=== PATIENT | female | born 1970 | race Caucasian/White ===

== ENCOUNTER 2020-04-06 16:26 | Outpatient (REF) | payer OTHER, SELFPAY | END 2020-04-06 16:27 | disposition home or self-care (01) | LOC: HO.LAB 16:26 | PROVIDERS: PCP Family Medicine; Visit Provider Internal Medicine | DX: Z20.828 Contact with and (suspected) exposure to other viral communicable diseases (principal) | CPT/HCPCS: C9803; U0003 ==

== ENCOUNTER 2020-09-23 08:17 | Outpatient (REF) | payer OTHER, SELFPAY ==
--- NOTE | 2020-09-23 11:49 | MHC.AU.ANR ---
Adult Audiological Evaluation Date of Visit: 09/23/20 Non Clinical Advisor Used: Palauan- In Person Reason for Appointment: Audiological evaluation due to concern for decreased hearing. Patient reports that she has to ask people to repeat themselves and feels she doesn't hear as well as she used to. 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 Medical History: Medical History (Other): Kidney transplant in June 2018, anemia Medication List: Sirtec 10 mg, Protonix 40 mg, Flovent, Biotin, Tacrolimus, Fluticasone, mycophenolic acid, Ferrous sulfate Otoscopy: Right Ear: Unremarkable Left Ear: Unremarkable Tympanometry: Tympanometry performed due to: To assess integrity of the middle ear system Right Ear: Normal Middle Ear System (Type A) Left Ear: Normal Middle Ear System (Type A) Hearing Evaluation: Transducer(s) Used: Insert Earphones, Bone Conduction Method: Conventional Audiometry Stimuli Used: Pure Tones Right Ear: Description of Hearing: Normal hearing from 250-8000 Hz. Left Ear: Description of Hearing: Normal hearing from 250-1500 Hz, sloping to a mild sensorineural hearing loss at 2000 Hz, a mild mixed hearing loss from 7306-0266 Hz, and a moderate to moderately severe hearing loss from 2692-1023 Hz. Hearing in the left ear is 20-40 dBHL worse than the right ear from 1181-9909 Hz. Speech Recognition Threshold (SRT): Method Used: Recorded Lists Stimuli Used: Spondee Words Right Ear: 25 dBHL Left Ear: 30 dBHL Word Discrimination: Method: Recorded Lists Word Lists Used: Lista Bisil?bica (Palauan) Right Ear: 100% at 65 dBHL Left Ear: 96% at 70 dBHL Recommendations: Audiological re-evaluation in one year. Referral to Ear, Nose, and Throat is recommended to address asymmetric hearing and mixed hearing loss. Advised patient that if hearing loss persists, she would benefit from a hearing aid on the left ear. 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
== END 2020-09-23 08:18 | disposition home or self-care (01) ==
LOC: HO.SH 08:17
PROVIDERS: Visit Provider Family Medicine
DX: H90.72 Mixed conductive and sensorineural hearing loss, unilateral, left ear, with unrestricted hearing on the contralateral side (principal)
CPT/HCPCS: 92557; 92567

== ENCOUNTER 2021-01-22 08:26 | Outpatient (REF) | payer OTHER, SELFPAY ==
--- NOTE | ~2021-01-22 | MM_ITS ---
EXAMINATION: MM SCREENING DIGITAL BREAST TOMOSYNTHESIS, BILATERAL CLINICAL INFORMATION: Screening. Asymptomatic. The lifetime risk of breast cancer based on the Tyrer-Cuzick Model is 5%. COMPARISON: Mammography: 01/20/2020, 10/08/2018, 09/18/2018, 09/05/2017; targeted ultrasound left breast 10/08/2018 TECHNIQUE: Digital breast tomosynthesis is performed in both the craniocaudal and mediolateral oblique views along with computer-aided detection (CAD). Synthesized 2D images are generated from the tomosynthesis. FINDINGS: There are scattered areas of fibroglandular density (ACR BI-RADS breast composition Category b). There are no significant masses, abnormal calcifications, or other abnormalities. Smooth nodularity medial mid left breast and anterior outer right breast are decreased to resolved from prior studies. The axilla and skin contours are unremarkable. No significant changes. MM/MM tomosynthesis screening BI IMPRESSION: No mammographic evidence of malignancy. ASSESSMENT: BI-RADS 2: Benign RECOMMENDATION: Routine annual mammography screening. This patient's information was entered into a reminder system with a target due date for their next mammogram.
== END 2021-01-22 08:27 | disposition home or self-care (01) ==
LOC: HO.MAMMO 08:26
PROVIDERS: Visit Provider Family Medicine
DX: Z12.31 Encounter for screening mammogram for malignant neoplasm of breast (principal)
CPT/HCPCS: 77063; 77067

== ENCOUNTER 2021-02-16 12:44 | Outpatient (REF) | payer OTHER, SELFPAY ==
--- NOTE | ~2021-02-16 | US_ITS ---
EXAMINATION: US DIAGNOSTIC ULTRASOUND BREAST, RIGHT CLINICAL INFORMATION: 50-year-old female with visual fullness right axilla. No palpable mass noted by patient. No pain or tenderness. Recent unremarkable digital breast tomosynthesis. COMPARISON: Digital breast tomosynthesis 01/22/2021, 01/20/2020. TECHNIQUE: Ultrasound right axilla is performed using grayscale imaging and color Doppler without and with harmonics. Patient is able to point to the area of concern at time of imaging. FINDINGS: There is no cystic or solid mass. No skin thickening or edema tracking in soft tissue planes. No hyperemia. There is no lymphadenopathy. There are 2 incidental axillary nodes demonstrated with normal bola architecture. Results are discussed with the patient at time of visit. US/US breast RT limited IMPRESSION: Normal study. ASSESSMENT: BI-RADS 1: Negative RECOMMENDATION: 1. Patient should be managed as needed based on the clinical impression. 2. Otherwise, routine annual screening mammography. This patient's information was entered into a reminder system with a target due date for their next mammogram.
== END 2021-02-16 12:45 | disposition home or self-care (01) ==
LOC: HO.MAMMO 12:44
PROVIDERS: PCP Family Medicine; Visit Provider Emergency Medicine
DX: R22.31 Localized swelling, mass and lump, right upper limb (principal)
CPT/HCPCS: 76642

== ENCOUNTER 2021-05-21 07:12 | Outpatient (REF) | payer OTHER, SELFPAY ==
--- NOTE | ~2021-05-21 | XR_ITS ---
EXAMINATION: XR WRIST, RIGHT CLINICAL INFORMATION: Pain. COMPARISON: None TECHNIQUE: PA, lateral, and oblique views of the right wrist. FINDINGS: Nondisplaced but mildly ventrally angulated fracture of the distal radius, best appreciated as an area of cortical disruption dorsally on the lateral view. No other fractures. Joint alignment is anatomic. There is associated soft tissue swelling around the wrist. No unexpected radiopaque foreign bodies. XR/XR wrist RT min 3V IMPRESSION: Distal radial fracture as above.
== END 2021-05-21 07:13 | disposition home or self-care (01) ==
LOC: HO.HOSX 07:12
PROVIDERS: Visit Provider Physician Assistant
DX: S52.501A Unspecified fracture of the lower end of right radius, initial encounter for closed fracture (principal)
CPT/HCPCS: 73110; 99202

== ENCOUNTER → 2021-06-02 09:11 | Outpatient (BNVA) | payer OTHER, SELFPAY | PROVIDERS: Visit Provider Obstetrics & Gynecology | DX: Z13.89 Encounter for screening for other disorder (principal) ==

== ENCOUNTER 2021-06-22 07:43 | Outpatient (REF) | payer OTHER, SELFPAY ==
--- NOTE | ~2021-06-22 | XR_ITS ---
EXAMINATION: XR WRIST, RIGHT CLINICAL INFORMATION: Pain COMPARISON: May 21, 2021 TECHNIQUE: PA, lateral, and oblique views of the right wrist. FINDINGS: The bones and soft tissues are normal. No fracture. Alignment is anatomic with normal joint spaces. No erosions or abnormal soft tissue calcifications. XR/XR wrist RT min 3V IMPRESSION: No significant osseous changes to explain patient's pain symptoms.
== END 2021-06-22 07:44 | disposition home or self-care (01) ==
LOC: HO.HOSX 07:43
PROVIDERS: Visit Provider Physician Assistant
DX: S52.501D Unspecified fracture of the lower end of right radius, subsequent encounter for closed fracture with routine healing (principal)
CPT/HCPCS: 73110; 99212

== ENCOUNTER 2021-07-20 11:30 | Outpatient (RCR) | payer OTHER, SELFPAY ==
--- NOTE | 2021-07-01 09:55 | MHC.OT.OEV ---
[address] [phone] F: [phone] Occupational Therapy Evaluation Diagnosis: FRACTURE TO THE LOWER END OF RIGHT RADIUS Date of Onset: 04/17/21 Attending Provider: Amalia Mcdonough Prescribed Treatment: EVAL AND TREAT History of Current Condition: FRACTURED R WRIST ON 04/17/21 IN [place] WHERE SHE SLIPPED AND FELL. PLACED IN A CAST THEN LATER IN A PREFAB WRIST ORTHOSIS. MOST RECENT XRAYS (06/22/21) INDICATED The bones and soft tissues are normal. No fracture. Alignment is anatomic with normal joint spaces. No erosions or abnormal soft tissue calcifications. HAS BEEN WEANED FROM PREFAB WRIST SPLINT AND NO LONGER WEARING. Significant Medical History: ASTHMA, DIZZINESS, KIDNEY TRANSPLANT (JUNE 2018) Precautions/Contraindications: PAIN Patient Goals: TO DECREASE PAIN Hand Dominance: Right QuickDASH Score: 58% Prior Level of Function and Occupation Self Care, Employment, Leisure: UNEMPLOYED/ DISABLED HOBBIES INCLUDE: OCCASIONAL WALKING OR ATTENDING GYM Living Situation, Family and/or Social Support: LIVES ALONE Current Level of Function and Occupation Self Care, Employment, Leisure: MODERATE DIFFICULTIES WITH WASHING HAIR/ BACK, COOKING AND STIRRING FOOD. STATES SHE IS ABLE TO WB THROUGH RUE, MINIMAL DISCOMFORT WITH LIFTING AND CARRYING LAUNDRY BASKET. Sleep: REPORTS NOT GETTING RESTFUL SLEEP, DENIES INCREASE IN R WRIST PAIN AT NIGHT Driving: NO DIFFICULTIES Pain Assessment Pain Score: 0-7/10 Pain Scale Used: Numeric (0 - 10) Pain Location and Description: PAINFREE AT REST 4-7/10 WITH USE R RADIAL WRIST Aggravating Factors: CUTTING/ CHOPPING WHEN COOKING Alleviating Factors: NOT TAKING PAIN MEDICATION OR USING HEAT/ICE Skin and Soft Tissue Assessment Skin and Soft Tissue: Swelling Comments: MILD RIGHT RADIAL EDEMA NOTED Nerve assessment Ulnar Nerve: WFL Median Nerve: WFL Radial Nerve: WFL Comments: Sensory Assessment Temperature: Light Touch: WFL Proprioception: Vibration: Comments: SEMMES RAFA WNL; Pt REPORTS NUMBNESS THROUGH D3/D4, WORSE IN THE MORNING AND IMPROVING DAY PROGRESSES Edema Assessment Upper Extremity: Right Impaired Lower Extremity: Comments: CIRCUMFERENCE OF WRIST, DISTAL TO US: RIGHT 14.4 CM, LEFT 13.7 CM Dexterity Assessment Dexterity: WFL Comments: Special Tests Comments: AROM(PROM) Strength Elbow Flexion: Extension: Pronation: Supination: Comments: REPORTS OCCASIONAL DISCOMFORT IN R ELBOW SINCE FALL, ROM WNL Flexion: Extension: Pronation: Supination: Comments: Wrist Flexion: R 45, L 70 Extension: R 45, L 65 Ulnar Deviation: R 30, L 50 Radial Deviation: R 10, L 30 Comments: PAIN WITH R FLEXION AND ULNAR DEVIATION Flexion: Extension: Ulnar Deviation: Radial Deviation: Comments: Digits Index MCP: PIP: DIP: Long MCP: PIP: DIP: Ring MCP: PIP: DIP: Small MCP: PIP: DIP: Comments: Gross Grasp: R 30, L 50 Lateral Pinch: Two-Point Pinch: Three-Jaw Merrill: Comments: Patient Education 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 Patient demonstrates Patient verbalizes Barriers to Learning: None Readiness for Learning: Accepting Who was educated? Patient Comments: MAXIMO HAZARDOUS SUBSTANCES SCIENTIST UTILIZED FOR INITIAL EVAL Plan of Care Assessment: MS EFRAIN NUNEZ IS ABOUT 10 WEEKS SINCE DISTAL RADIUS FRACTURE TO HER DOMINANT RUE. SHE IS NO LONGER WEARING HER PREFAB WRIST ORTHOSIS AND CONTINUES TO REPORT DISCOMFORT WITH IADLs, INCLUDING COOKING AND CLEANING. Pt WOULD BENEFIT FROM ADDITIONAL OT TO ADDRESS ROM, STRENGTH, PT EDUCATION, SAFE RETURN TO ADLs/IADLs AND PAIN MANAGEMENT. A 58% LIMITATION IS REPORTED PER THE QUICK DASH ASSESSMENT. WILL CONTINUE TO FOLLOW TO ADDRESS THE AREAS MENTIONED ABOVE AND IMPROVE QOL. STG Duration: 1 WEEK Short Term Goals: IND HEP IND USE OF HEAT/ICE IND EDEMA MANAGEMENT STRATEGIES REPORT PAINFREE WITH AROM AND LIGHT ADLs INCREASE L WRIST AROM 55/55 LTG Duration: 3 WEEKS Correction Goals: QUICK DASH <40% R GRASP > 45 POUNDS TOLERATE PARTICIPATION IN IADLs WITH <3/10 PAIN AND IND PACING/ ACTIVITY MODIFICATION STRATEGIES Frequency and Duration: The patient will be seen 2X/WEEK FOR 3 WEEKS Treatment Plan: Therapeutic Exercise Therapeutic Activity Home Exercise Program Splinting Neuro Re-ed Patient Education Desensitization/Sensory Re-ed Edema Control ADL Training Ultrasound NMES Iontophoresis Paraffin Fluidotherapy MHP Cold Packs Joint Mobilization Soft Tissue Mobilization Kinesiotaping Other (see comments) Electronically Signed By: JONATHAN GRAHAM OTR/L Reviewed/agree with student documentation: N/A Therapist: Please sign and return to therapist, Thank you for your referral.
--- NOTE | 2021-08-11 10:15 | MHC.OT.DC ---
[address] [phone] F: [phone] Occupational Therapy Discharge Note Provider: Amalia Mcdonough Diagnosis: FRACTURE TO THE LOWER END OF RIGHT RADIUS Date of Evaluation: 07/01/21 Date of Discharge: 08/11/21 Treatments to Date: 6 Cancellations to Date: 1 No Shows to Date: 0 Discharge Status: Improved Function Independent with HEP Discharge Summary: MS EFRAIN NUNEZ HAS PROGRESSED WELL WITH HER OT SESSIONS. SHE WAS PROVIDED WITH A WRIST WIDGET FOR DRUJ INSTABILITY AND FELT RELIEF WHEN PERFORMING WB ACTIVITIES. Pt IS WISHING TO TRANSITION TO A HOME BASED PROGRAM WHERE SHE WILL CONTINUE TO ENGAGE IN ISOMETRIC EXERCISES. SUSPECT STRENGTH WILL CONTINUE TO IMPROVE WITH ONGOING PARTICIPATION IN HEP. D/C OT SERVICES AT THIS TIME. Electronically Signed By: ONEYDA ORTEGA/L Reviewed/agree with student documentation: N/A Therapist: Please Sign and return to therapist, thank you for your referral.
== END 2021-08-11 10:15 | disposition home or self-care (01) ==
LOC: HO.OT 11:30
PROVIDERS: PCP Family Medicine; Visit Provider Physician Assistant
DX: S52.501D Unspecified fracture of the lower end of right radius, subsequent encounter for closed fracture with routine healing (principal)
CPT/HCPCS: 97035; 97110; 97140; 97165; 97530; 97760

== ENCOUNTER → 2021-07-20 13:21 | Outpatient (BNVA) | payer OTHER, SELFPAY | PROVIDERS: PCP Family Medicine; Visit Provider Physician Assistant | DX: S52.501D Unspecified fracture of the lower end of right radius, subsequent encounter for closed fracture with routine healing (principal) | CPT/HCPCS: 99212 ==

== ENCOUNTER → 2021-08-17 14:31 | Outpatient (BNVA) | payer OTHER, SELFPAY | PROVIDERS: PCP Family Medicine; Referring Provider Family Medicine; Visit Provider Nurse Practitioner Family | DX: Z12.11 Encounter for screening for malignant neoplasm of colon (principal); K21.9 Gastro-esophageal reflux disease without esophagitis | CPT/HCPCS: 99202 ==

== ENCOUNTER 2021-08-23 07:09 | Outpatient (REF) | payer OTHER, SELFPAY ==
--- NOTE | ~2021-08-23 | XR_ITS ---
EXAMINATION: XR WRIST, RIGHT CLINICAL INFORMATION: Pain. COMPARISON: None TECHNIQUE: PA, lateral, and oblique views of the right wrist. FINDINGS: The bones and soft tissues are normal. No fracture. Alignment is anatomic with normal joint spaces. No erosions or abnormal soft tissue calcifications. XR/XR wrist RT min 3V IMPRESSION: Unremarkable right wrist exam.
== END 2021-08-23 07:10 | disposition home or self-care (01) ==
LOC: HO.HOSX 07:09
PROVIDERS: Visit Provider Physician Assistant
DX: S52.501D Unspecified fracture of the lower end of right radius, subsequent encounter for closed fracture with routine healing (principal)
CPT/HCPCS: 73110; 99212

== ENCOUNTER 2021-09-21 14:00 | Outpatient (RCR) | payer MEDICAID, SELFPAY ==
--- NOTE | 2021-09-03 16:06 | MHC.OT.OEV ---
[address] [phone] F: [phone] Occupational Therapy Evaluation Diagnosis: Right DR fracture Date of Onset: 04/17/22 Date of Surgery: Attending Provider: Amalia Mcdonough Prescribed Treatment: Eval and treat MD Follow Up Appointment: History of Current Condition: Pt 5 mo s/p right DR fx due to a FOOSH , pt tripped on a cat while on vacation in [place] Started OT 07/01/21- 07/20/21 for 5 visits. 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 1 1/2 hr/day a cousins , 7 days a week Helps with heavy cleaning Walks ,some baking Living Situation, Family and/or Social Support: Lives alone Family support. Children in [place] Current Level of Function and Occupation Self Care, Employment, Leisure: Difficulty washing back with right hand, shampooing hair , straightening hair Using left to brush teeth Okay cooking except for dizzyness Sleep: Unrelated to hand pain Driving: Okay Vision: Balance: Pain Assessment Pain Score: 5 Pain Scale Used: Pain Location and Description: 0-5 right wrist with heavy work...or write too much Aggravating Factors: heavy work. with wrist end ROM Alleviating Factors: Medication Skin and Soft Tissue Assessment Skin and Soft Tissue: Contracture Comments: Right wrist stiff Nerve assessment Ulnar Nerve: WNL Median Nerve: WNL Radial Nerve: WNL Comments: Sensory Assessment Temperature: Light Touch: WNL Proprioception: Vibration: Comments: Edema Assessment Upper Extremity: WNL Lower Extremity: Comments: Dexterity Assessment Dexterity: WNL Comments: Special Tests Comments: AROM(PROM) Strength Cervical Cervical Flexion: Cervical Extension: Cervical Lateral Flexion: Cervical Rotation: Comments: Shoulder Flexion: Extension: Abduction: Internal Rotation: External Rotation: Comments: Flexion: Extension: Abduction: Internal Rotation: External Rotation: Comments: Elbow Flexion: Extension: Pronation: Supination: Comments: Flexion: Extension: Pronation: Supination: Comments: Wrist Flexion: R 45 deg Extension: R 60 deg Ulnar Deviation: Radial Deviation: Comments: Complaint of pain at end ranges wrist ext and flexion Flexion: Extension: Ulnar Deviation: Radial Deviation: Comments: Thumb Thumb CMC Flexion: Thumb MCP Flexion: Thumb IP Flexion: Radial Abduction: Pal[place] Abduction: [place] (Kapandji 0-10): Comments: WNL Digits Index MCP: PIP: DIP: Long MCP: PIP: DIP: Ring MCP: PIP: DIP: Small MCP: PIP: DIP: Comments: WNL Gross Grasp: R 40 lb L 35 lb Lateral Pinch: Two-Point Pinch: Three-Jaw 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 Patient demonstrates Patient verbalizes Needs reinforcement Barriers to Learning: None Readiness for Learning: Accepting Who was educated? Patient Comments: Plan of Care Assessment: Pt is a 51 yo female 5 mo s/p right CR distal radius fx due to a fall. She attended 5 OT appts with some improvement She is now referred due to chronic pain limiting right dominant hand use She will benefit from resuming OT to improve right wrist pain and UE function Pt previously with SUPPORT REPRESENTATIVE support due to dizziness STG Duration: 2 wks Short Term Goals: Demo indep with HEP Right wrist flexion to 50 deg Right hand use with all grooming /self care tasks LTG Duration: 4 wks Packing Clerk Goals: Painfree right wrist AROM Wrist flex to 55 deg Occasional right wrist pain with heavy work Quick DASH score to < 20 pts Frequency and Duration: The patient will be seen 2x wk x 4 wks Treatment Plan: Therapeutic Exercise Therapeutic Activity Home Exercise Program Patient Education ADL Training Ultrasound Fluidotherapy Electronically Signed By: Ina Luciano OT CHT CLT Reviewed/agree with student documentation: N/A Therapist: Please sign and return to therapist, Thank you for your referral.
== END 2022-01-13 08:59 | disposition home or self-care (01) ==
LOC: HO.OT 14:00
PROVIDERS: PCP Family Medicine; Visit Provider Physician Assistant
DX: S52.501D Unspecified fracture of the lower end of right radius, subsequent encounter for closed fracture with routine healing (principal)
CPT/HCPCS: 97035; 97110; 97165

== ENCOUNTER 2021-12-16 07:21 | Day surgery (SDC) | payer MEDICAID, SELFPAY ==
[2021-12-10 10:34] VITALS: BMI 27.8
[2021-12-16] VITALS (8 sets, daily range): BP systolic 116–141; BP diastolic 72–83; PULSE 62–97; RESP 16; TEMP 36.1; O2SAT 97–100; BMI 28.3
[2021-12-16] MEDS: Lactated Ringers 1,000 ML 50 ML IVCONT (07:51)
--- NOTE | 2021-12-16 08:18 | HO.ANESPROP2 ---
HPI - Anesthesia Eval Consult details Narrative: 51yo female patient for EGD, Colonoscopy PMF Active Problems Active Problems: All Active Problems (Updated 06/02/21 @ 09:23 by Alex Puckett MD) Distal radius fracture, right (Acute) Well woman exam (Acute) S/p left nephrectomy S/p right renal transplant Past Medical History Medical History (Updated 12/16/21 @ 08:30 by Jenni Garcia MD) Allergic rhinitis Anemia Autosomal dominant polycystic kidney disease Hypertension Mild intermittent asthma Type 2 diabetes mellitus with nephropathy Family History Family history of problems with anesthesia: No Surgical History Surgical History History of left nephrectomy Status post abdominal hysterectomy Status post -donor kidney transplantation History of Problems with Anesthesia: No (Itchy after local anesthesia for dermatological procedure) Social History Social History Patient Tobacco Use Status: Never used Tobacco Use of substances other than those prescribed or required for medical reasons: No Are you DNR?: No Advance Directives: No Advance Directives Information Provided: Yes Patient : No (s/p hysterectomy) 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al status: disabled 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 Meds Allergies Allergy/AdvReac Type Severity Reaction Status Date / Time No Known Allergies Allergy Verified 08/23/21 13:48 Active Medications: Current Medications Lactated Ringer's (Lr) 1,000 mls @ 50 mls/hr IVCONT .Q20H ROSANNE Last Admin: 12/16/21 07:51 Dose: 50 mls/hr Home Medications Medication Instructions Recorded Confirmed Last Taken Type albuterol sulfate 0.63 mg/3 mL 0.63 mg inhalation Q6H 05/21/21 Unknown History solution for nebulization ferrous fumarate 89 mg (29 mg 89 mg PO DAILY 05/21/21 Unknown History iron) tablet mycophenolate sodium 180 mg 720 mg PO BID 05/21/21 12/16/21 07:00 History tablet,delayed release (Myfortic) tacrolimus 0.5 mg capsule, 1 mg PO Q12H 05/21/21 Unknown History immediate-release Exam Exam Date and Time: December 16, 2021 0818 Height,Weight and Vital Signs: Height 5 ft 2 in Weight 70.307 kg Last Vital Signs Temp 96.9 F 12/16/21 07:47 Pulse 62 08/25/22 07:47 Resp 16 12/16/21 07:47 BP 129/77 12/16/21 07:47 Pulse Ox 100 12/16/21 07:47 O2 Del Method 12/16/21 07:47 Airway Mallampati Class: II TM Dist: >3cm Neck ROM: Full Loose/Missing/Broken Teeth: No (Per patient) Heart: RRR Lungs: CTAB Assessment and Plan Assessment Anesthesia Assessment: Anesthesia Plan Discussed and Chart Reviewed Final Anesthetic Review Family History of Problems with Anesthesia: No History of Problems with Anesthesia: No (Itchy after local anesthesia for dermatological procedure) NPO: Yes ASA Class: III Final Preanesthetic Review: No Changes in Pt Med Stat, Meds/Allgs Chart Reviewed, Consent Obtained/Reviewed and Anes Risks/Benef Reviewed Patient Risk: Intermediate Procedure Risk: Low Assessment/Block/Sedation in SS: Assess/Block/Sedation-SS Anesthetic Plan Anesthetic Plan: MAC: Disposition: Standard PACU
--- NOTE | 2021-12-16 08:49 | P.HPSUR_ITS ---
Pre-Procedural Eval Section A Date of Service: 12/16/21 Section B Chief Complaint: reflux disease,screening Details of Present Illness: several uncles with colon cancer Relevant Family History (Specify if Yes): Yes Relevant Social History: None Present Medications: see Short Stay Collaborative assessment Medical History: Significant History (Allergic rhinitis Anemia Autosomal do minant polycystic kidney disease Hypertension Mild intermittent asthma Type 2 diabetes mellitus with nephropathy) History of Previous Operations: Relevant previous surgery/procedure and date(s) (History of left nephrectomy Status post abdominal hysterectomy Status post -donor kidney transplantation) Allergies: Allergies Allergy/AdvReac Type Severity Reaction Status Date / Time No Known Allergies Allergy Verified 08/23/21 13:48 Review of Systems Sugical H&P ROS: Negative: Constitution, Cardiovascular, Respiratory, Neurological, Psychiatric, Hem-Onc, Allergic/Immunologic, Gastrointestinal, Genitourinary, Musculoskeletal, Integumentary, Endocrine and Eyes/Ears/Nose/Throat Exam Surgical H&P Exam: Normal: HEENT, Normal: Heart, Normal: Lungs, Normal: Extremities, Normal: Abdomen, Normal: Skin and Normal: Neurological Plan Diagnosis/Plan: Unchanged I have reviewed the history and physical and performed a pertinent physical examination on my patient. No changes have occurred unless specified.
--- NOTE | 2021-12-16 08:50 | W.PM.OPN ---
Operative Note Operative Note Date of Service: 12/16/21 Narrative: Operative Information Procedure Description: EGD, Colonoscopy Indication: GERD, screening colonoscopy Anesthesia: MAC FLEXIBLE TRANSORAL UPPER GASTROINTESTINAL ENDOSCOPY AND COLONOSCOPY PROCEDURE NOTE UPPER ENDOSCOPY Consent: Indications for the procedure and potential complications of bleeding, perforation, reaction to medications and missed diagnosis were discussed with the patient and informed consent was obtained. Instrument: Olympus GIF H 190 J mid size upper endoscope Monitoring: Vital signs and clinical assessment, continuous EKG monitoring, Pulse oximetry, Carbon Dioxide monitoring and blood pressure monitoring were done throughout the procedure. Procedure: The patient was placed in the left lateral decubitis position and pre-procedure medications were administered and a bite block was placed. The endoscope was inserted into the mouth and advanced under direct vision to the third part of duodenum. A careful inspection was made as the upper endoscope was withdrawn including a retroflexed examination of the proximal stomach; Findings and interventions are described below. Findings: Larynx:normal Esophagus: GE junction at 32 cm, diaphragm hiatus at 35 cm, consistent with 3 cm sliding hiatal hernia. Non obstructive schatzki ring seen, bx taken from GEJ and distal esophagus in separate jars. mild esophagitis noted. Stomach: Patchy erythema. Biopsies were obtained. Grade 2 flap valve on retroflexed examination of the cardia. Duodenum: Normal bulb and descending duodenum, bx taken Intervention: Biopsies as noted above COLONOSCOPY Instrument: Olympus variable stiffness pediatric scope 190L Colonoscopy Monitoring: Vital signs and clinical assessment, continuous EKG monitoring, Pulse oximetry, Carbon Dioxide monitoring and blood pressure monitoring were done throughout the procedure. Colon withdrawal time was 10 minutes. Procedure: The patient was placed in the left lateral decubitis position and pre-procedure medications were administered. After a digital rectal examination of the ano-rectum, the video colonoscope was inserted into the rectum and advanced through the colon to the cecum/TI. The colonoscope was slowly withdrawn in a retrograde panoramic fashion and the colon mucosa was carefully examined including a retroflexed view of the rectum. Findings and interventions are described below. Procedure Difficulty: easy Findings: Terminal Ileum- nodular lymphoid polyps noted, bx taken Cecum: nodular appearing mucosa, bx taken Ascending Colon: several diverticula seen Transverse Colon -normal Descending Colon: 5-7 mm sessile polyp removed with cold forceps Sigmoid Colon: moderate diverticulosis with luminal narrowing, 8 mm sessile polyp removed with cold snare Rectum: Retroflexion with small internal hemorrhoids, grade I Anorectum - normal Colon preparation: [place] Bowel Preparation Scale Right colon; 2 Transverse colon: 3 Left colon; 2 (0 = Unprepared colon segment with mucosa not seen due to solid stool that cannot be cleared. 1 = Portion of mucosa of the colon segment seen, but other areas of the colon segment not well seen due to staining, residual stool and/or opaque liquid. 2 = Minor amount of residual staining, small fragments of stool and/or opaque liquid, but mucosa of colon segment seen well. 3 = Entire mucosa of colon segment seen well with no residual staining, small fragments of stool or opaque liquid) Impression and Post Procedure Diagnosis: Endoscopy Findings: schatzki ring esophagitis gastritis Colonoscopy Findings: nodular mucosa polyps internal hemorrhoids diverticular disease Plan: Await Pathology results Repeat Colonoscopy in 5 years due to FH of CRC or earlier if clinically indicated High fiber diet leaflet avoid straining at stool, epsom salts and sitz bath, anusol supps or cream may need PPI given findings today suggestive of chronic acid reflux Above findings were reviewed with the patient and relevant handouts were provided if indicated.
[2021-12-16] MEDS: Throat Lozenge, Medicated LOZENGE 1 LOZENGE MUCOUS MEM (11:03)
[2021-12-16] MEDS: Mag&Al/Sim/Diphenhyd/Lidocaine 10 ML ORAL.SUSP PO (11:11)
== END 2021-12-16 12:03 | disposition home or self-care (01) ==
PROVIDERS: PCP Family Medicine; Visit Provider Internal Medicine Gastroenterology
PROC: (CPT 45385; principal; 2021-12-16 08:40)
DX: Z12.11 Encounter for screening for malignant neoplasm of colon (principal); K63.5 Polyp of colon; K57.30 Diverticulosis of large intestine without perforation or abscess without bleeding; K64.0 First degree hemorrhoids; K21.9 Gastro-esophageal reflux disease without esophagitis; K20.80 Other esophagitis without bleeding; K22.2 Esophageal obstruction; K44.9 Diaphragmatic hernia without obstruction or gangrene; I10 Essential (primary) hypertension; E11.21 Type 2 diabetes mellitus with diabetic nephropathy; J45.20 Mild intermittent asthma, uncomplicated; D64.9 Anemia, unspecified; Q61.2 Polycystic kidney, adult type; Z94.0 Kidney transplant status; Z79.899 Other long term (current) drug therapy
CPT/HCPCS: 45385; 45380; 43239; 88305; 88342; J2250

== ENCOUNTER → 2021-12-29 12:39 | Outpatient (BNVA) | payer MEDICAID, SELFPAY | PROVIDERS: PCP Family Medicine; Visit Provider Nurse Practitioner Family | DX: K21.00 Gastro-esophageal reflux disease with esophagitis, without bleeding (principal); Z98.890 Other specified postprocedural states | CPT/HCPCS: 99212 ==

== ENCOUNTER 2022-03-07 09:14 | Outpatient (REF) | payer MEDICAID, SELFPAY ==
--- NOTE | ~2022-03-07 | MM_ITS ---
EXAMINATION: MM SCREENING DIGITAL BREAST TOMOSYNTHESIS, BILATERAL CLINICAL INFORMATION: Screening. Asymptomatic. COMPARISON: Mammography: 01/22/2021, 01/20/2020, 10/08/2018, 09/18/2018 TECHNIQUE: Digital breast tomosynthesis is performed in both the craniocaudal and mediolateral oblique views along with computer-aided detection (CAD). Synthesized 2D images are generated from the tomosynthesis. FINDINGS: There are scattered areas of fibroglandular density (ACR BI-RADS breast composition Category b). There are no significant masses, abnormal calcifications, or other abnormalities. No developing density or architectural abnormality. The axilla are unremarkable. Skin contours are smooth. No significant changes. MM/MM tomosynthesis screening BI IMPRESSION: No mammographic evidence of malignancy. ASSESSMENT: BI-RADS 1: Negative RECOMMENDATION: Routine annual mammography screening. This patient's information was entered into a reminder system with a target due date for their next mammogram.
== END 2022-03-07 09:15 | disposition home or self-care (01) ==
LOC: HO.MAMMO 09:14
PROVIDERS: PCP Family Medicine; Visit Provider Family Medicine
DX: Z12.31 Encounter for screening mammogram for malignant neoplasm of breast (principal)
CPT/HCPCS: 77063; 77067

== ENCOUNTER → 2022-03-08 12:48 | Outpatient (BNVA) | payer MEDICAID, SELFPAY | PROVIDERS: PCP Family Medicine; Visit Provider Nurse Practitioner Family | DX: K21.9 Gastro-esophageal reflux disease without esophagitis (principal) | CPT/HCPCS: 99212 ==

== ENCOUNTER → 2022-05-17 10:07 | Outpatient (REF) | payer MEDICAID, SELFPAY | LOC: HO.SL 10:07 | PROVIDERS: Visit Provider Family Medicine | DX: G47.10 Hypersomnia, unspecified (principal); G47.30 Sleep apnea, unspecified | CPT/HCPCS: 95806 ==

== ENCOUNTER 2022-06-08 09:11 | Outpatient (REF) | payer MEDICAID, SELFPAY ==
[2022-06-09 06:32] LABS: CT PCR NOT DETECTED (Not Detect.); NG PCR NOT DETECTED (Not Detect.)
[2022-06-09 11:16] LABS: BV Int Neg Control Negative (Negative); BV Int Pos Control Positive (Positive)
== END 2022-06-08 09:12 | disposition home or self-care (01) ==
LOC: HO.LNP 09:11
PROVIDERS: PCP Family Medicine; Visit Provider Advanced Practice Midwife
DX: Z11.3 Encounter for screening for infections with a predominantly sexual mode of transmission (principal); N89.8 Other specified noninflammatory disorders of vagina
CPT/HCPCS: 0353U; 87480; 87510; 87660

== ENCOUNTER → 2022-07-06 12:48 | Outpatient (BNVA) | payer MEDICAID, SELFPAY | PROVIDERS: PCP Family Medicine; Visit Provider Nurse Practitioner Family ==

== ENCOUNTER 2022-07-06 13:33 | Outpatient (REF) | payer MEDICAID, SELFPAY ==
[2022-07-06 14:25] LABS: Alanine Aminotransferase 72 U/L (0-31); Albumin Level 4.6 g/dL (3.5-5.0); Alkaline Phosphatase 83 U/L (39-117); Aspartate Amino Transferase 34 U/L (5-31); Bilirubin Direct 0.2 mg/dL (0.0-0.5); Bilirubin Total 0.8 mg/dL (0.0-1.0); Lipase 13 U/L (8-78); Total Protein 7.4 g/dL (6.5-8.0)
== END 2022-07-06 13:34 | disposition home or self-care (01) ==
LOC: HO.LAB 13:33
PROVIDERS: Visit Provider Nurse Practitioner Family
DX: K21.9 Gastro-esophageal reflux disease without esophagitis (principal); R14.0 Abdominal distension (gaseous); R10.13 Epigastric pain
CPT/HCPCS: 36415; 80076; 83690; 99212

== ENCOUNTER 2022-07-07 15:17 | Outpatient (REF) | payer MEDICAID, SELFPAY ==
[2022-07-16 16:59] LABS: Pancreatic Elastase-1 >500 mcg/g
== END 2022-07-07 15:18 | disposition home or self-care (01) ==
LOC: HO.LNP 15:17
PROVIDERS: Visit Provider Nurse Practitioner Family
DX: R10.9 Unspecified abdominal pain (principal)
CPT/HCPCS: 82656

== ENCOUNTER → 2022-08-10 12:58 | Outpatient (BNVA) | payer MEDICAID, SELFPAY | PROVIDERS: PCP Family Medicine; Visit Provider Nurse Practitioner Family | DX: K21.9 Gastro-esophageal reflux disease without esophagitis (principal); R74.01 Elevation of levels of liver transaminase levels; R14.0 Abdominal distension (gaseous) | CPT/HCPCS: 99212 ==

== ENCOUNTER 2022-08-10 13:59 | Outpatient (REF) | payer MEDICAID, SELFPAY ==
[2022-08-10 15:33] LABS: Prothrombin Time 11.1 SEC (10.0-13.1)
[2022-08-10 15:58] LABS: C Reactive Protein 0.65 mg/dL (< or = 0.50); Gamma Glutamyl Transpeptidase 112 U/L (7-33)
[2022-08-10 16:16] LABS: Ferritin 490 ng/mL (10-250)
[2022-08-12 04:39] LABS: HBS Num1 359.27 mIU/mL (0-7.99); HBsAGNum1 0.37 S/CO (0.00-0.99); HIV AB/AG Nonreactive (Nonreactive); HIV Num 1 0.08 S/CO (0.00-0.99); Hepatitis A Antibody IgM 0.33 Index (0-0.79); Hepatitis B Core Antibody Nonreactive (Nonreactive); Hepatitis B Surface Antigen Negative (Negative); ~HepC Num1 0.13 S/CO (0.00-0.79); ~Hepatitis A Antibody IgM Nonreactive (Nonreactive); ~Hepatitis B Surface Antibody REACTIVE (Nonreactive); ~Hepatitis C Antibody Nonreactive (Nonreactive)
[2022-08-12 13:18] LABS: Alpha Fetoprotein 3.3 ng/mL
[2022-08-12 15:39] LABS: Ceruloplasmin 29 mg/dL (18-53)
[2022-08-15 15:23] LABS: Mitochondrial Antibodies NEGATIVE (NEGATIVE)
[2022-08-17 14:22] LABS: Smooth Muscle Antibody <20 U (<20)
== END 2022-08-10 14:00 | disposition home or self-care (01) ==
LOC: HO.LAB 13:59
PROVIDERS: PCP Family Medicine; Visit Provider Nurse Practitioner Family
DX: Z11.4 Encounter for screening for human immunodeficiency virus [HIV] (principal); R79.89 Other specified abnormal findings of blood chemistry; K58.9 Irritable bowel syndrome, unspecified; R74.8 Abnormal levels of other serum enzymes; K59.00 Constipation, unspecified; R74.01 Elevation of levels of liver transaminase levels; K21.9 Gastro-esophageal reflux disease without esophagitis; R14.0 Abdominal distension (gaseous)
CPT/HCPCS: 36415; 82105; 82390; 82728; 82977; 84443; 85610; 86015; 86140; 86255; 86256; 86704; 86706; 86709; 86803; 87340; 87389

== ENCOUNTER 2022-09-28 08:06 | Outpatient (REF) | payer MEDICAID, SELFPAY ==
--- NOTE | ~2022-09-28 | US_ITS ---
EXAMINATION: US COMPLETE ABDOMEN WITH LIVER ELASTOGRAPHY CLINICAL INFORMATION: Elevated liver function tests. COMPARISON: None available. TECHNIQUE: Real-time imaging of the abdominal viscera. Noninvasive ultrasound liver fibrosis assessment is performed using Fadum[employer] ElastPQ point quantification shear wave elastography (2D-SWE) with a C5-2 MHz transducer. Multiple elastography samples are obtained. FINDINGS: PANCREAS: Largely obscured from visualization by the overlying bowel gas. ABDOMINAL AORTA: The proximal, middle, and distal aortic segments are normal in caliber. INFERIOR VENA CAVA: Visualized portions are normal. LIVER: There are innumerable simple cysts, the largest measuring 1.7 cm within the posterior segment of the right lobe. The liver demonstrates normal size, contour and echogenicity. No focal lesion or intrahepatic biliary duct dilatation. The right lobe measures 14.7 cm in length. The left lobe measures 10.0 cm in length. Portal flow is towards the liver (hepatopetal). Shear wave liver elastography median stiffness is 1.40 m/s (reference: normal median stiffness is 1.3 m/s or less). IQR/median stiffness to assess sampling precision is 0.11 (reference: good quality data set is IQR/median stiffness of 0.15 or less). GALLBLADDER: Normal. The gallbladder is physiologically distended without evidence of stones, sludge, polyps, wall thickening or pericholecystic fluid. There are gallbladder wall folds. COMMON BILE DUCT: Normal in caliber measuring 0.4 cm in diameter. RIGHT KIDNEY: There is a polycystic appearance, the largest cyst measuring 4.8 cm in maximal diameter. No hydronephrosis. No renal calculi or focal parenchymal lesions. The kidney measures 13.3 cm in maximum dimension. LEFT KIDNEY: Surgically absent. SPLEEN: Normal. The spleen measures 10.5 cm in maximum dimension. FREE FLUID: None. US/US abdomen comp w elastography IMPRESSION: 1. There are findings consistent with polycystic kidney disease, with numerous cysts seen within the right kidney and liver. The left kidney surgically absent. 2. Liver elastography: In the absence of other known clinical signs, measurements rule out compensated advanced chronic liver disease. If there are known clinical signs, further testing may be needed for confirmation. REFERENCE: Society of Radiologists in Ultrasound Liver Stiffness Thresholds (2020): LIVER STIFFNESS THRESHOLDS: *Liver Stiffness equal or less than 1.3 m/s: High probability of being normal. *Liver Stiffness less than 1.7 m/s: In the absence of other known clinical signs, rules out compensated advanced chronic liver disease. *Liver Stiffness 1.7-2.1 m/s: Suggestive of compensated advanced chronic liver disease but need further test for confirmation. *Liver Stiffness over 2.1 m/s: Rules in compensated advanced chronic liver disease. *Liver Stiffness over 2.4 m/s: Suggestive of clinically significant portal hypertension. QUALITY OF DATA SET: *IQR/Median value equal or less than 0.15 implies a quality data set. *IQR/Median value over 0.15 implies a poor quality data set. SIGNIFICANT CHANGE FROM PRIOR EXAM: Significant change if liver stiffness measurement is 10% or greater from prior exam. OTHER CONSIDERATIONS: The stage of liver fibrosis may be overestimated in the setting of acute hepatitis, liver inflammation, elevated liver function tests, hepatic vascular congestion, obstructive cholestasis, non-fasting state, and infiltrative diseases such as amyloidosis and lymphoma. In some patients with NAFLD, the liver stiffness thresholds for compensated advanced chronic liver disease may be lower. In causes other than viral hepatitis and NAFLD, liver stiffness thresholds are not well established.
== END 2022-09-28 08:07 | disposition home or self-care (01) ==
LOC: HO.US 08:06
PROVIDERS: PCP Family Medicine; Visit Provider Nurse Practitioner Family
DX: R79.89 Other specified abnormal findings of blood chemistry (principal)
CPT/HCPCS: 76705; 76981

== ENCOUNTER → 2022-10-12 12:34 | Outpatient (BNVA) | payer MEDICAID, SELFPAY | PROVIDERS: PCP Family Medicine; Visit Provider Nurse Practitioner Family | DX: K21.9 Gastro-esophageal reflux disease without esophagitis (principal); K59.01 Slow transit constipation; R74.01 Elevation of levels of liver transaminase levels; R14.0 Abdominal distension (gaseous) | CPT/HCPCS: 99212 ==

== ENCOUNTER 2022-12-21 12:49 | Outpatient (AMB) | payer MEDICAID, SELFPAY ==
[2022-12-21 13:11] VITALS: BP 129/58; PULSE 63; BMI 28.0
--- NOTE | 2022-12-21 13:11 | A.OFFVIS_ITS ---
Intake Vital Signs 12/21/22 13:11 Height 5 ft 2 in Weight 153 lb 0.013 oz BMI 28.0 BP 129/58 L Blood Pressure Location Rt brachial Position Sitting Pulse 63 Intake Visit Reasons: 8 wk f/u Intake Note: Patient presents to in office visit today in follow up of constipation. CC: Patient reports she occasionally has constipation but she takes Linzess and is able to have a BM. She continues to feel bloated but she states she consulted this with her informatics analyst and he told her that abdominal inflammation can be related to kidney's cyst. Patient reports she continues to have heartburn but admits she hasn't been consistent with pantroprazole. 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 Increase exercise. Will repeat blood work next visit. GERD (gastroesophageal reflux disease) Continue pantoprazole. Discussed with patient avoiding dietary triggers and late night snacking. Staying upright for minimal 3 hours after meals discussed with patient. Postprandial abdominal bloating Occasional postprandial abdominal bloating. Discussed with patient avoiding dietary triggers. Low FODMAP diet discussed with patient. Patient has list at home that she will go over and try to stick with. Patient also is constipated will send script for Linzess. She reports right lumbar region discomfort. Exam negative for Cabezas sign. If patient will continue to have postprandial abdominal pain area we will order HIDA scan next visit. Constipation Constipation no BM sometimes for up to 3 days. Will send a script for Linzess. Patient will call me if medication will not be effective. I will see her in 8 weeks, sooner on as needed basis. Patient is agreeable to this plan and verbalizes understanding of instructions. She was given the opportunity to ask questions and all questions answered. ? Thank you for allowing me to participate in her care Plan Medications New linaclotide (Linzess) 145 mcg PO DAILY 30 caps 2RF TODAY'S VISIT Patient is here today for follow-up. Patient reports that she started taking Linzess, however she is unable to take it every day as she has loose stools. Patient states that she takes the about twice a week. Patient is denies melena, hematochezia, unintentional weight loss or ribbon like stools. Patient reports that she moves her bowels every day, however she does not feel like she empties in completely. Patient reports that she was taking pantoprazole on as needed basis. Frequently forgets afternoon dose. When she does not take the medication she has acid reflux. Patient reports occasional dyspepsia without dysphagia or odynophagia. Patient denies any nausea or vomiting. Patient reports that she is avoiding certain food and feels like she gets very bloated. Patient was told by a informatics analyst that her symptoms could be related to her polycystic kidney disease. However patient reports that her symptoms are worse after eating. Patient is avoiding pasta, pizza, lactose. Patient reports that [place] she states that she was feeling well and was able to eat food without any restriction. [facility] Medical History Allergic rhinitis Anemia Autosomal dominant polycystic kidney disease Hypertension Mild intermittent asthma Transaminitis Type 2 diabetes mellitus with nephropathy Surgical History H/O hernia repair History of esophagogastroduodenoscopy (EGD) History of left nephrectomy Hx of colonoscopy Status post abdominal hysterectomy Status post -donor kidney transplantation Family History Paternal Uncle Colon cancer Paternal Uncle Colon cancer Social History Alcohol intake: never Patient Tobacco Use Status: Never used Tobacco 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al status: disabled 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 Female Reproductive History Menstrual Age of Menarche: 17 Review of Systems Const Denies weight gain and Denies weight loss ENT Reports no additional complaints, Denies dysphagia and Denies odynophagia Card Reports no additional complaints Resp Reports no additional complaints GI Reports abdominal pain, Denies belching, Denies melena, Reports bloating, Denies change in bowel habits, Denies dysphagia, Denies excessive flatus, Denies dyspepsia, Reports heartburn, Denies diarrhea, Denies loose stools, Denies nausea, Denies odynophagia and Denies vomiting Musc Reports no additional complaints Neuro Reports no additional complaints Psych Reports no additional complaints Endo Reports no additional complaints Physical Exam Vital Signs: Last Vital Signs Pulse 63 12/21/22 13:11 BP 129/58 L 12/21/22 13:11 BMI result Body Mass Index 28.0 Const General: healthy appearing, no acute distress and well developed Nutritional Appearance: obese Orientation/consciousness: patient oriented x3 HEENT Head: Yes normal to inspection, Yes normocephalic and Yes atraumatic Face and sinus: Yes normal facial exam Mouth: Normal oral and palatal mucosa present Throat: Yes posterior oropharynx normal, Yes tonsils normal and Yes uvula midline Eyes General: appearance normal, both eyes and all related structures Neck Neck: Yes normal visual inspection, Yes full ROM and Yes trachea midline Thyroid: Thyroid normal Resp Effort & Inspection: normal respiratory effort, able to speak in complete sentences, no tracheal deviation and symmetric chest movement Auscultation: clear to auscultation bilaterally Cardio Rate: regular rate Heart sounds: S1 normal heart sound present and S2 normal heart sound present GI Inspection: Yes normal to inspection, No distended and Yes obesity Palpation (GI): Soft to palpation, not firm, nontender and No hepatosplenomegaly present Auscultation: normal bowel sounds General: Yes no CVA tenderness Back/Spine/Pelvis Back: no CVA tenderness Skin General skin exam: elasticity normal, turgor normal and dry skin Neuro General: patient oriented x3 Psych Appearance: grossly normal Mental Status: mental status grossly normal Speech and movement: Normal speech and movement present Assessment & Plan Assessment & Plan (1) Transaminitis: Code(s): R74.01 - Elevation of levels of liver transaminase levels Plan: Will repeat lab work today. History of transaminitis in the past. Patient will try to lose weight. Patient was encouraged to exercise (2) GERD (gastroesophageal reflux disease): Code(s): K21.9 - Gastro-esophageal reflux disease without esophagitis Qualifiers: Esophagitis presence: esophagitis presence not specified Qualified Code(s): K21.9 - Gastro-esophageal reflux disease without esophagitis Plan: Continue pantoprazole 40 mg twice a day. Continue avoiding dietary triggers in late night snacking. Staying upright for minimum 3 hours after meals discussed with patient. (3) Postprandial abdominal bloating: Code(s): R14.0 - Abdominal distension (gaseous) Plan: Patient reports abdominal bloating. Discussed with patient will FODMAP diet. Discussed with her food that is recommended and food to avoid. (4) Constipation: Code(s): K59.00 - Constipation, unspecified Qualifiers: Constipation type: slow transit constipation Qualified Code(s): K59.01 - Slow transit constipation Plan: Patient reports that she is constipated if she does not use Linzess. States that he uses Linzess twice a day. Only because it makes her have diarrhea. Will send her script for low-dose Linzess 72 mcg. Patient was encouraged to increase fluid intake and activity to promote better bowel motility. I will see her in 6 months, sooner on as needed basis. She is agreeable to this plan and verbalizes understanding of instructions. She was given the opportunity to ask questions and all questions answered. Thank you for allowing me to participate in her care Orders: Orders Liver Panel 12/21/22 R10.9 - Unspecified abdominal pain Medications: New linaclotide (Linzess) 72 mcg PO DAILY 30 caps 4RF Discontinued linaclotide (Linzess) Discontinued Reason: Doctor's Order 145 mcg PO DAILY 30 caps 2RF Coding Level of Care Code Est Pt Level 4 (54408) Diagnoses Transaminitis R74.01 GERD (gastroesophageal reflux disease) K21.9 Esophagitis presence: esophagitis presence not specified Postprandial abdominal bloating R14.0 Constipation K59.01 Constipation type: slow transit constipation Time Spent (min) 35 Comment 20 minutes spent with patient and additional 15 minutes spent reviewing her records
== END 2022-12-21 14:36 | disposition home or self-care (01) ==
PROVIDERS: PCP Family Medicine; Visit Provider Nurse Practitioner Family
DX: R74.01 Elevation of levels of liver transaminase levels (principal); K21.9 Gastro-esophageal reflux disease without esophagitis; R14.0 Abdominal distension (gaseous); K59.01 Slow transit constipation
CPT/HCPCS: 99214

== ENCOUNTER 2022-12-21 12:49 | Outpatient (REF) | payer MEDICAID, SELFPAY ==
[2022-12-21 15:17] LABS: Alanine Aminotransferase 25 U/L (0-31); Albumin Level 4.6 g/dL (3.5-5.0); Alkaline Phosphatase 90 U/L (39-117); Aspartate Amino Transferase 19 U/L (5-31); Bilirubin Direct 0.3 mg/dL (0.0-0.5); Bilirubin Total 0.7 mg/dL (0.0-1.0); Total Protein 7.6 g/dL (6.5-8.0)
== END 2022-12-21 12:50 | disposition home or self-care (01) ==
LOC: HO.LAB 12:49
PROVIDERS: PCP Family Medicine; Visit Provider Nurse Practitioner Family
DX: R10.9 Unspecified abdominal pain (principal); K21.9 Gastro-esophageal reflux disease without esophagitis; R74.01 Elevation of levels of liver transaminase levels; R14.0 Abdominal distension (gaseous); K59.01 Slow transit constipation; Z79.899 Other long term (current) drug therapy
CPT/HCPCS: 36415; 80076; 99212

== ENCOUNTER 2023-02-13 08:34 | Outpatient (AMB) | payer MEDICAID, SELFPAY ==
--- NOTE | 2023-02-13 08:44 | A.OFFVIS_ITS ---
Intake Intake Visit Reasons: bladder wall thickening Intake Note: NEW Patient presents today to established treatment for Bladder Wall Thickening: Meds- None Allergies to Antibiotic- No Known Allergies Blood Thinner- None PVR- 170 mL Title I Director Required: No Accompanied by: Self / Same As Patient Allergies No Known Allergies Allergy (Verified 02/13/23 08:59) HPI HPI Comments History of Present Illness Details Lady is a 52-year-old female who presents today to the office to establish as a new patient for an evaluation of bladder wall thickening. 02/13/23? Regine has a past medical history of hypertension, type 2 diabetes, history of cerebral cavernous malformation, significant history of autosomal dominant polycystic kidney disease, history of left nephrectomy, and end stage renal disease. She was on dialysis for 4 years. She is status post donor kidney transplant June,. Patient is on immunosuppression, Myfortic and Prograft. She states that her paternal grandfather had a history of thyroid cancer, and her 2 paternal uncles have a history of colon cancer. She believes that the autosomal cystic kidney condition came for her mother side as she states that her two uncles and 3 sisters on her mother's side also had kidney transplants. The patient is being evaluated today due to bladder wall thickening that was noted on CAT scan which was done on 09/2022. She denies prior bladder or Urinary tract infection. I have discussed further evaluation with office cystoscopy. She is agreeable to plan. UA - Leuk neg, blood neg. Plan: Follow-up in office cystoscopy in 1 month. [facility] Medical History (Updated 02/13/23 @ 10:29 by Bart Sadler MD) Transaminitis Mild intermittent asthma Allergic rhinitis Anemia Hypertension Type 2 diabetes mellitus with nephropathy Autosomal dominant polycystic kidney disease Surgical History (Updated 02/13/23 @ 10:29 by Bart Sadler MD) H/O hernia repair Hx of colonoscopy History of esophagogastroduodenoscopy (EGD) History of left nephrectomy Status post abdominal hysterectomy Status post -donor kidney transplantation Family History Paternal Uncle Colon cancer Paternal Uncle Colon cancer Social History Alcohol intake: never Patient Tobacco Use Status: Never used Tobacco 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al status: disabled 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 Female Reproductive History Menstrual Age of Menarche: 17 Review of Systems Const All systems reviewed & are unremarkable except as noted in HPI and below Reports no additional complaints Eyes Reports no additional complaints ENT Reports no additional complaints Card Denies dyspnea Resp Denies cough and Denies dyspnea GI Reports no additional complaints Reports no additional complaints Musc Reports no additional complaints Skin/Breast Denies rash and Denies unusual bruising Neuro Reports no additional complaints Psych Reports no additional complaints Endo Reports no additional complaints Hossein/Lymph Reports no additional complaints Aller/Immun Reports no additional complaints Physical Exam Const General: cooperative, healthy appearing and no acute distress Orientation/consciousness: patient oriented x3 HEENT Head: Yes normal to inspection, Yes normocephalic and Yes atraumatic Eyes Conjunctivae: conjunctivae normal Neck Neck: Yes normal visual inspection and Yes trachea midline Chest Chest palpation & inspection: normal inspection of the chest Resp Effort & Inspection: normal respiratory effort Cardio Rate: regular rate GI Inspection: Yes normal to inspection Skin General skin exam: no rashes or lesions noted Neuro General: patient oriented x3 Extrem General: No edema Psych Appearance: grossly normal Results AMB Urinalysis, Automated UA Leukoctes 0 Mildred/uL Last Edit by VENKAT Mendez on 02/13/23 09:11 UA Nitrite Negative Last Edit by VENKAT Mendez on 02/13/23 09:11 UA Urobilinogen 0 mg/dL Last Edit by VENKAT Mendez on 02/13/23 09:11 UA Protein 0.2 mg/dL Last Edit by VENKAT Mendez on 02/13/23 09:11 UA pH 15 Last Edit by VENKAT Mendez on 02/13/23 09:11 UA Blood 6.0 Demian/uL Last Edit by VENKAT Mendez on 02/13/23 09:11 UA Specific [place] 0 Last Edit by VENKAT Mendez on 02/13/23 09:11 UA Ketone Negative Last Edit by VENKAT Mendez on 02/13/23 09:11 UA Bilirubin 0 mg/dL Last Edit by VENKAT Mendez on 02/13/23 09:11 UA Glucose 0 mg/dL Last Edit by VENKAT Mendez on 02/13/23 09:11 Results Reviewed Results Reviewed: Laboratory Last Values Urine pH (Auto) 15 02/13/23 09:09 Specific [place] (Auto) 0 02/13/23 09:09 Urine Protein (Auto) 0.2 mg/dL 02/13/23 09:09 Glucose (UA)(Auto) 0 mg/dL 02/13/23 09:09 Urine Ketones (Auto) Negative 02/13/23 09:09 Urine Blood (Auto) 6.0 Demian/uL 02/13/23 09:09 Urine Nitrite (Auto) Negative 02/13/23 09:09 Urine Bilirubin (Auto) 0 mg/dL 02/13/23 09:09 Urine Urobilinogen (Auto) 0 mg/dL 02/13/23 09:09 Leukocyte Esterase (Auto) 0 Mildred/uL 02/13/23 09:09 Assessment & Plan Assessment & Plan (1) Bladder wall thickening: Code(s): N32.89 - Other specified disorders of bladder (2) Status post kidney transplant: Code(s): Z94.0 - Kidney transplant status (3) Autosomal dominant polycystic kidney disease: Code(s): Q61.2 - Polycystic kidney, adult type Plan Follow-up in office cystoscopy in 1 month. Orders: Orders AMB Post Void Residual by ultrasound Today N39.8 - Other specified disorders of urinary system AMB Urinalysis Automated Today Z13.9 - Encounter for screening, unspecified Patient Instructions: The patient had an opportunity to ask questions regarding treatment plan. All questions were answered. Imaging, Laboratory studies and physical exam results were discussed and reviewed in detail. No major barriers to understanding were identified. The patient expressed understanding and agreement with the above treatment plan.? ? ? The patient is aware they should contact our office by phone for worsening of their current condition or the appearance of new symptoms. Compliance is encouraged with any medications and followup testing that is ordered.? ? ? It is a privilege to be allowed the opportunity to participate in the urologic care of your patient. If you have any questions or concerns regarding treatment for the above conditions please do not hesitate to contact me. The office telephone contact is [phone].? ? ? This note is constructed in part using voice recognition software. While every effort has been made to ensure accuracy patient access representative errors may have been included.? ? ? Yours sincerely,? ? ? Bart Sadler MD? Coding Level of Care Code New Pt Level 4 (89786) Diagnoses Bladder wall thickening N32.89 Status post kidney transplant Z94.0 Autosomal dominant polycystic kidney disease Q61.2
== END 2023-02-13 09:44 | disposition home or self-care (01) ==
PROVIDERS: PCP Family Medicine; Visit Provider Urology
DX: N32.89 Other specified disorders of bladder (principal); Z94.0 Kidney transplant status; Q61.2 Polycystic kidney, adult type; Z13.9 Encounter for screening, unspecified
CPT/HCPCS: 99204

== ENCOUNTER → 2023-02-13 08:34 | Outpatient (BNVA) | payer MEDICAID, SELFPAY | PROVIDERS: PCP Family Medicine; Visit Provider Urology | DX: N32.89 Other specified disorders of bladder (principal); Q61.2 Polycystic kidney, adult type; Z94.0 Kidney transplant status | CPT/HCPCS: 81003 ==

== ENCOUNTER 2023-03-13 09:25 | Outpatient (REF) | payer MEDICAID, SELFPAY ==
--- NOTE | ~2023-03-13 | MM_ITS ---
EXAMINATION: MM SCREENING DIGITAL BREAST TOMOSYNTHESIS, BILATERAL CLINICAL INFORMATION: Screening. Asymptomatic. The patient is status post bilateral breast reduction. COMPARISON: Mammography: This study is compared with prior exams dating back to 2019. TECHNIQUE: Digital breast tomosynthesis is performed in both the craniocaudal and mediolateral oblique views along with computer-aided detection (CAD). Synthesized 2D images are generated from the tomosynthesis. FINDINGS: The breasts are almost entirely fatty (ACR BI-RADS breast composition Category a). There are no significant masses, abnormal calcifications, or other abnormalities. Post reduction changes are present. MM/MM tomosynthesis screening BI IMPRESSION: No mammographic evidence of malignancy. ASSESSMENT: BI-RADS BI-RADS 2 - Benign Findings RECOMMENDATION: Routine annual mammography screening. 1 year F/U This examination should not preclude the clinical evaluation of a suspicious palpable abnormality. This patient's information was entered into a reminder system with a target due date for their next mammogram.
== END 2023-03-13 09:26 | disposition home or self-care (01) ==
LOC: HO.MAMMO 09:25
PROVIDERS: PCP Family Medicine; Visit Provider Family Medicine
DX: Z12.31 Encounter for screening mammogram for malignant neoplasm of breast (principal)
CPT/HCPCS: 77063; 77067

== ENCOUNTER → 2023-03-13 09:30 | Outpatient (BNV) | payer MEDICAID, SELFPAY | PROVIDERS: PCP Family Medicine; Visit Provider Radiology Diagnostic Radiology | DX: Z12.31 Encounter for screening mammogram for malignant neoplasm of breast (principal) | CPT/HCPCS: 77063; 77067 ==

== ENCOUNTER 2023-03-30 09:18 | Outpatient (AMB) | payer MEDICAID, SELFPAY ==
--- NOTE | 2023-03-30 09:20 | A.OFFVIS_ITS ---
Intake Intake Visit Reasons: cysto Intake Note: Patient presents today for a CYSTOSCOPY Procedure: Meds: None Allergies to Antibiotic: No Known Allergies Blood Thinner: None Urinalysis test cleared for Cysto Disposable Uro-G Cystoscope Cannula: Lot: [id number] Exp: 09/04/2024 Senior Technical Analyst Required: Yes Senior Technical Analyst Language: Cook Islander Information Interpreted: non-clinical & clinical Facilities Engineer: Facilities Engineer Present Accompanied by: Self / Same As Patient Allergies No Known Allergies Allergy (Verified 03/30/23 09:39) HPI HPI Comments History of Present Illness Details Lady is a 52-year-old female who presents today to the office for a follow-up. 03/30/2023? She is followed today for cystoscopy procedure. She was last seen by me on 02/13/2023 for bladder wall thickening. Patient states that she maintains regular follow-up with nursing associate. Cystoscopy findings:No suspicious bladder lesions noted; mild trabeculations noted. The implanted transplant ureter was noted on the right lateral wall. Review of charts: Last visit: 02/13/23? Regine has a past medical history of hypertension, type 2 diabetes, history of cerebral cavernous malformation, significant history of autosomal dominant polycystic kidney disease, history of left nephrectomy, and end stage renal disease. She was on dialysis for 4 years. She is status post donor kidney transplant June,. Patient is on immunosuppression, Myfortic and Prograft. She states that her paternal grandfather had a history of thyroid cancer, and her 2 paternal uncles have a history of colon cancer. She believes that the a utosomal cystic kidney condition came for her mother side as she states that her two uncles and 3 sisters on her mother's side also had kidney transplants. The patient is being evaluated today due to bladder wall thickening that was noted on CAT scan which was done on 09/2022. She denies prior bladder or Urinary tract infection. I have discussed further evaluation with office cystoscopy. She is agreeable to plan. UA - Leuk neg, blood neg. 03/30/2023: Plan: Follow-up with urology prn. [facility] Medical History Transaminitis Mild intermittent asthma Allergic rhinitis Anemia Hypertension Type 2 diabetes mellitus with nephropathy Autosomal dominant polycystic kidney disease Surgical History H/O hernia repair Hx of colonoscopy History of esophagogastroduodenoscopy (EGD) History of left nephrectomy Status post abdominal hysterectomy Status post -donor kidney transplantation Family History Paternal Uncle Colon cancer Paternal Uncle Colon cancer Social History Alcohol intake: never Patient Tobacco Use Status: Never used Tobacco 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al status: disabled 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 Female Reproductive History Menstrual Age of Menarche: 17 Review of Systems Const All systems reviewed & are unremarkable except as noted in HPI and below Reports no additional complaints Eyes Reports no additional complaints ENT Reports no additional complaints Card Denies dyspnea Resp Denies cough and Denies dyspnea GI Reports no additional complaints Reports no additional complaints Musc Reports no additional complaints Skin/Breast Denies rash and Denies unusual bruising Neuro Reports no additional complaints Psych Reports no additional complaints Endo Reports no additional complaints Hossein/Lymph Reports no additional complaints Aller/Immun Reports no additional complaints Physical Exam Const General: cooperative, healthy appearing and no acute distress Orientation/consciousness: patient oriented x3 HEENT Head: Yes normal to inspection, Yes normocephalic and Yes atraumatic Eyes Conjunctivae: conjunctivae normal Neck Neck: Yes normal visual inspection and Yes trachea midline Chest Chest palpation & inspection: normal inspection of the chest Resp Effort & Inspection: normal respiratory effort Cardio Rate: regular rate GI Inspection: Yes normal to inspection Skin General skin exam: no rashes or lesions noted Neuro General: patient oriented x3 Extrem General: No edema Psych Appearance: grossly normal Office Procedures Cystoscopy Consent Discussed risk and benefit or proposed procedure with the patient. Information consent for procedure given to the patient. Discussed technical aspects, risks, benefits and alternatives in full. Addressed all of the patient's questions and concerns regarding the procedure. The patient demonstrated knowledge and understanding. They wish to proceed with this procedure. Preparation The patient was prepped in the usual manner. A marketing program manager was present and in the room. Genitalia was prepped with betadine solution in a sterile manner. Lidocaine Jelly 2% was placed into the urethra and 16Fr flexible Olympus cystoscope was inserted into the meatus after adequate lubrication. Procedure Time out per protocol performed. Bladder Inspection Bladder Inspection: The bladder was inspected in its entirety with utilization retroflexion displaying: Tumor(s): none visualized Trabeculation: Mild Mucosal Erthema: N/A Orifices: normal shape and position Urethra: normal Cystoscopy findings:No suspicious bladder lesions noted; mild trabeculations noted. The implanted transplant ureter was noted on the right lateral wall. [id number] DISPOSABLE SCOPE URO-G FLEXIBLE SCOPE Procedure code (CPT) selection complete Office Meds lidocaine HCl 2 % mucosal jelly in applicator Performing Provider: Bart Sadler MD Performing Location: [facility] Administered by: Helen Ferguson RN on 03/30/23 09:43 Dose Route Admin Location Dispensed Lot Number Expiration Date NDC Intermediate Project Manager 10 mL intra-urethral 20 mL ciprofloxacin HCl 500 mg tablet Performing Provider: Bart Sadler MD Performing Location: [facility] Administered by: Helen Ferguson RN on 03/30/23 09:43 Dose Route Admin Location Dispensed Lot Number Expiration Date NDC Intermediate Project Manager 500 mg PO 1 tab Results AMB Urinalysis, Automated UA Leukoctes 0 Mildred/uL Last Edit by VENKAT Mendez on 03/30/23 09:41 UA Nitrite Negative Last Edit by VENKAT Mendez on 03/30/23 09:41 UA Urobilinogen 0.2 mg/dL Last Edit by VENKAT Mendez on 03/30/23 09:4 1 UA Protein 30 mg/dL Last Edit by VENKAT Mendez on 03/30/23 09:41 1+ Uche Jones 03/30/23 09:41 UA pH 6.0 Last Edit by VENKAT Mendez on 03/30/23 09:41 UA Blood 0 Demian/uL Last Edit by VENKAT Mendez on 03/30/23 09:41 UA Specific [place] 1.025 Last Edit by VENKAT Mendez on 03/30/23 09: 41 UA Ketone Negative Last Edit by VENKAT Mendez on 03/30/23 09:41 UA Bilirubin 0 mg/dL Last Edit by VENKAT Mendez on 03/30/23 09:41 UA Glucose 0 mg/dL Last Edit by VENKAT Mendez on 03/30/23 09:41 Results Reviewed Results Reviewed: Laboratory Last Values Urine pH (Auto) 6.0 03/30/23 09:40 Specific [place] (Auto) 1.025 03/30/23 09:40 Urine Protein (Auto) 30 mg/dL 03/30/23 09:40 Glucose (UA)(Auto) 0 mg/dL 03/30/23 09:40 Urine Ketones (Auto) Negative 03/30/23 09:40 Urine Blood (Auto) 0 Demian/uL 03/30/23 09:40 Urine Nitrite (Auto) Negative 03/30/23 09:40 Urine Bilirubin (Auto) 0 mg/dL 03/30/23 09:40 Urine Urobilinogen (Auto) 0.2 mg/dL 03/30/23 09:40 Leukocyte Esterase (Auto) 0 Mildred/uL 03/30/23 09:40 Assessment & Plan Assessment & Plan (1) Bladder wall thickening: Code(s): N32.89 - Other specified disorders of bladder (2) Status post kidney transplant: Code(s): Z94.0 - Kidney transplant status (3) Autosomal dominant polycystic kidney disease: Code(s): Q61.2 - Polycystic kidney, adult type Plan Follow-up with urology prn. Orders: Orders AMB Urinalysis Automated 03/30/23 Z13.9 - Encounter for screening, unspecified AMB Cystoscopy 03/30/23 Q61.2 - Polycystic kidney, adult type, Z94.0 - Kidney transplant status, N32.89 - Other specified disorders of bladder Patient Instructions: The patient had an opportunity to ask questions regarding treatment plan. All questions were answered. Imaging, Laboratory studies and physical exam results were discussed and reviewed in detail. No major barriers to understanding were identified. The patient expressed understanding and agreement with the above treatment plan.? ? ? The patient is aware they should contact our office by phone for worsening of their current condition or the appearance of new symptoms. Compliance is encouraged with any medications and followup testing that is ordered.? ? ? It is a privilege to be allowed the opportunity to participate in the urologic care of your patient. If you have any questions or concerns regarding treatment for the above conditions please do not hesitate to contact me. The office telephone contact is [phone].? ? ? This note is constructed in part using voice recognition software. While every effort has been made to ensure accuracy medication care manager errors may have been included.? ? ? Yours sincerely,? ? ? Bart Sadler MD? Coding Level of Care Code Procedure Only Diagnoses Bladder wall thickening N32.89 Status post kidney transplant Z94.0 Autosomal dominant polycystic kidney disease Q61.2 CPT Codes Cystoscopy - CPT: [id number] ([id number])
== END 2023-03-30 10:32 | disposition home or self-care (01) ==
PROVIDERS: PCP Family Medicine; Visit Provider Urology
DX: N32.89 Other specified disorders of bladder (principal); Q61.2 Polycystic kidney, adult type; Z94.0 Kidney transplant status; Z13.9 Encounter for screening, unspecified
CPT/HCPCS: 52000

== ENCOUNTER → 2023-03-30 09:18 | Outpatient (BNVA) | payer MEDICAID, SELFPAY | PROVIDERS: PCP Family Medicine; Visit Provider Urology | DX: N32.89 Other specified disorders of bladder (principal); Q61.2 Polycystic kidney, adult type; Z94.0 Kidney transplant status | CPT/HCPCS: 52000; 81003 ==

== ENCOUNTER 2023-06-14 09:13 | Outpatient (REF) | payer MEDICAID, SELFPAY ==
[2023-06-15 02:17] LABS: CT PCR NOT DETECTED (Not Detect.); NG PCR NOT DETECTED (Not Detect.)
[2023-06-15 13:37] LABS: BV Int Neg Control Negative (Negative); BV Int Pos Control Positive (Positive)
== END 2023-06-14 09:14 | disposition home or self-care (01) ==
LOC: HO.LNP 09:13
PROVIDERS: PCP Family Medicine; Visit Provider Advanced Practice Midwife
DX: Z01.419 Encounter for gynecological examination (general) (routine) without abnormal findings (principal); R19.00 Intra-abdominal and pelvic swelling, mass and lump, unspecified site; Q61.2 Polycystic kidney, adult type; Z94.0 Kidney transplant status; Z11.3 Encounter for screening for infections with a predominantly sexual mode of transmission; Z79.899 Other long term (current) drug therapy
CPT/HCPCS: 0353U; 87480; 87510; 87660; 99396

== ENCOUNTER 2023-06-14 09:13 | Outpatient (AMB) | payer MEDICAID, SELFPAY ==
[2023-06-14 09:17] VITALS: BMI 25.1
--- NOTE | 2023-06-14 09:17 | A.OFFVIS_ITS ---
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 Ceramic Tiler Required: No Information Interpreted: non-clinical & clinical Livestock Broker: Livestock Broker Present ([place]) Allergies No Known Allergies Allergy (Verified 06/14/23 09:19) Medication List - Last Reconciled 06/14/23 by Nanci Vazquez CNM albuterol sulfate 0.63 mg inhalation Q6H alcohol swabs (Alcohol Prep Pads) 0 pad topical BID blood sugar diagnostic (FreeStyle Lite Strips) As directed cetirizine 10 mg PO DAILY dulaglutide (Trulicity) mg subcut QWEEK fluticasone propionate 110 mcg/actuation (Flovent HFA) 1 puff inhalation BID fluticasone propionate 50 mcg/actuation 2 sprays intranasal DAILY hydrocortisone 2.5% appl topical BID PRN ketoconazole 2% topical ketoconazole 2% appl topical BID lancets (TRUEplus Lancets) As directed linaclotide (Linzess) 72 mcg PO DAILY meclizine 25 mg PO methylcellulose (laxative) (Citrucel) 500 mg PO DAILY mycophenolate sodium (Myfortic) 720 mg PO BID pantoprazole 40 mg PO BID tacrolimus mg PO DAILY tacrolimus mg PO Is last menstrual period known: No Patient : No HPI 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 She is feeling pretty good. She has polycystic kidney disease and she is 1 functioning kidney she sees the kidney specialists every 3 months and she sees her primary care provider usually every 3 months but when she last saw her in February she did not get another appointment for follow-up she has she is on medication for her kidney that causes blood sugars to be elevated so for that she is on Trulicity and she has lost weight she is feeling like her bellies growing and she wants to get some exercise and keep going with weight loss to reduce her belly size. [facility] Medical History (Updated 06/14/23 @ 10:16 by Nanci Vazquez CNM) Transaminitis Mild intermittent asthma Allergic rhinitis Anemia Hypertension Type 2 diabetes mellitus with nephropathy Autosomal dominant polycystic kidney disease Surgical History (Updated 06/14/23 @ 09:23 by VENKAT Parkinson) Hx of bilateral breast reduction surgery H/O hernia repair Hx of colonoscopy History of esophagogastroduodenoscopy (EGD) History of left nephrectomy Status post abdominal hysterectomy Status post -donor kidney transplantation Family History (Updated 06/14/23 @ 09:24 by VENKAT Parkinson) Paternal Uncle Colon cancer Paternal Uncle Colon cancer Paternal Grandmother Uterine cancer Social History Alcohol intake: never Patient Tobacco Use Status: Never used Tobacco 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al status: disabled 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 Female Reproductive History Menstrual Age of Menarche: 17 control method: permanent sterilization Total pregnancies: 2 Full term: 2 Number of Living Children: 2 Date of last pap smear: 07/23/18 (negative) Date of Mammogram: 03/13/23 Physical Exam Vital Signs: BMI result Body Mass Index 25.1 Const General: healthy appearing, comfortable, no acute distress, well developed and alert Nutritional Appearance: average body habitus Orientation/consciousness: patient oriented x3 Limitations: no limitations HEENT Head: Yes normocephalic Neck Neck: Yes normal visual inspection Chest Chest palpation & inspection: normal inspection of the chest Breast/axilla inspection: normal inspection of the breasts and normal inspection of the axillae Breast/axilla palpation: normal palpation of the breasts and normal palpation of the axillae Resp Effort & Inspection: normal respiratory effort GI Other: There is a firm mass in her abdomen-grapefruit sized nontender, unclear etiology will order abdominal ultrasound. Inspection: Yes normal to inspection and No Abdominal wall edema Palpation (GI): nontender Other: Vagina pink and moist cervix surgically absent uterus absent adnexa nontender nonenlarged fair tone with Kegel instructed in kick External Female Exam: normal external appearance and normal appearance of the urethra Speculum Exam - Vagina: normal appearance of the vagina and normal vaginal discharge Speculum Exam - Cervix: Cervix absent Bimanual exam- vagina & uterus: normal bimanual exam and uterus absent Bimanual Exam- Adnexa, other: normal adnexae, no masses, normal and No adnexal tenderness Neuro General: patient oriented x3 Assessment & Plan Assessment & Plan (1) Autosomal dominant polycystic kidney disease: Code(s): Q61.2 - Polycystic kidney, adult type (2) Status post kidney transplant: Code(s): Z94.0 - Kidney transplant status (3) Breast cancer screening: Comment: states neg mammogram jan 2022, and feb 13 Code(s): Z12.39 - Encounter for other screening for malignant neoplasm of breast (4) Screen for sexually transmitted diseases: Code(s): Z11.3 - Encounter for screening for infections with a predominantly sexual mode of transmission (5) Cervical cancer screening: Comment: hx hysterectomy for fibroids @ age 37, 07/20/18 pap neg w neg hpv; no further paps indicated Code(s): Z12.4 - Encounter for screening for malignant neoplasm of cervix (6) Well woman exam: Code(s): Z01.419 - Encounter for gynecological examination (general) (routine) without abnormal findings (7) Abdominal mass: Code(s): R19.00 - Intra-abdominal and pelvic swelling, mass and lump, unspecified site Plan -----Discussed in this visit the following: healthy balanced diet, regular and consistent exercise, getting recommended health screens, doing the best she can for her particular health concerns, kegel exercises, pap smear screening and followup recommendations, mammography screening and SBE, normal changes in cycles in her life stage--- . Patient stated that she only really felt the swelling in her abdomen in the last few months she also recounts that she had urinary tract infection and she also had an MRI done once when she went to the emergency room a few months ago as well and everything was fine she has an appointment coming up in June with her nephrology provider and she has not sure when her next primary appointment is. She feels well. Discussed the possibility that this is her transplanted kidney that I am palpating. But I am ordering the ultrasound of her abdomen to assess and sending results to her primary care provider, Dr. Larios, and her kidney provider Oniel SINGH. Discussed in general exercise and healthy self-care. Her Orders: Orders US abdomen complete Today Q61.2 - Polycystic kidney, adult type, R19.00 - Intra- abdominal and pelvic swelling, mass and lump, unspecified site, Z01.419 - Encounter for gynecological examination (general) (routine) without abnormal findings, Z94.0 - Kidney transplant status Coding Level of Care Code Est Pt Prev Care 40-64y([id number]) Diagnoses Autosomal dominant polycystic kidney disease Q61.2 Status post kidney transplant Z94.0 Breast cancer screening Z12.39 Screen for sexually transmitted diseases Z11.3 Cervical cancer screening Z12.4 Well woman exam Z01.419 Abdominal mass R19.00
== END 2023-06-14 11:36 | disposition home or self-care (01) ==
LOC: HO.HWSM 09:13
PROVIDERS: PCP Family Medicine; Visit Provider Advanced Practice Midwife
DX: Q61.2 Polycystic kidney, adult type (principal); Z94.0 Kidney transplant status; Z12.39 Encounter for other screening for malignant neoplasm of breast; Z11.3 Encounter for screening for infections with a predominantly sexual mode of transmission; Z12.4 Encounter for screening for malignant neoplasm of cervix; Z01.419 Encounter for gynecological examination (general) (routine) without abnormal findings; R19.00 Intra-abdominal and pelvic swelling, mass and lump, unspecified site
CPT/HCPCS: 99396

== ENCOUNTER 2023-06-21 12:44 | Outpatient (REF) | payer MEDICAID, SELFPAY ==
[2023-06-21 14:34] LABS: Alanine Aminotransferase 17 U/L (0-31); Albumin Level 4.3 g/dL (3.5-5.0); Alkaline Phosphatase 75 U/L (39-117); Anion Gap 10 (12-20); Aspartate Amino Transferase 17 U/L (5-31); Bilirubin Direct 0.2 mg/dL (0.0-0.5); Bilirubin Total 0.5 mg/dL (0.0-1.0); Blood Urea Nitrogen 16 mg/dL (9-16); Calcium 10.2 mg/dL (8.4-10.2); Carbon Dioxide 27 mmol/L (22-29); Chloride 109 mmol/L (96-108); Estimated Glomerular Filt Rate > 60; Glucose Random 92 mg/dL (60-115); Potassium 4.4 mmol/L (3.3-5.1); Sodium 142 mmol/L (135-145); Total Protein 7.5 g/dL (6.5-8.0)
[2023-06-28 17:43] LABS: FIB-ALT 15 U/L (6-29); FIB-Alpha-2-Macroglobulin 156 mg/dL (106-279); FIB-Apolipoprotein A1 153 mg/dL (101-198); FIB-GGT 47 U/L (3-70); FIB-Haptoglobin 114 mg/dL (43-212); FIB-Total Bilirubin 0.4 mg/dL (0.2-1.2); Liver Fibrosis Score 0.12; Liver Fibrosis Stage F0; Nec Inflam Act Grade A0; Nec Inflam Act Score 0.04
== END 2023-06-21 12:45 | disposition home or self-care (01) ==
LOC: HO.LAB 12:44
PROVIDERS: PCP Family Medicine; Visit Provider Nurse Practitioner Family
DX: R74.01 Elevation of levels of liver transaminase levels (principal); R74.8 Abnormal levels of other serum enzymes; K21.9 Gastro-esophageal reflux disease without esophagitis
CPT/HCPCS: 36415; 80053; 81596; 82248; 99212

== ENCOUNTER 2023-06-21 12:44 | Outpatient (AMB) | payer MEDICAID, SELFPAY ==
--- NOTE | 2023-06-21 12:50 | A.OFFVIS_ITS ---
Intake Vital Signs 06/21/23 12:53 Height 5 ft 2 in Weight 132 lb 4.438 oz BMI 24.2 BP 106/60 Blood Pressure Location Lt brachial Position Sitting Pulse 68 Intake Visit Reasons: 6 month follow up Intake Note: Regine presents in the office as a 6 month follow up. CC: she states that she is not having any concerns today. Allergies No Known Allergies Allergy (Verified 06/21/23 12:53) HPI 6 month follow up HPI Details LAST VISIT Transaminitis Will repeat lab work today. History of transaminitis in the past. Patient will try to lose weight. Patient was encouraged to exercise GERD (gastroesophageal reflux disease) Continue pantoprazole 40 mg twice a day. Continue avoiding dietary triggers in late night snacking. Staying upright for minimum 3 hours after meals discussed with patient. Postprandial abdominal bloating Patient reports abdominal bloating. Discussed with patient will FODMAP diet. Discussed with her food that is recommended and food to avoid. Constipation Patient reports that she is constipated if she does not use Linzess. States that he uses Linzess twice a day. Only because it makes her have diarrhea. Will send her script for low-dose Linzess 72 mcg. Patient was encouraged to increase fluid intake and activity to promote better bowel motility. I will see her in 6 months, sooner on as needed basis. She is agreeable to this plan and verbalizes understanding of instructions. She was given the opportunity to ask questions and all questions answered. ? Thank you for allowing me to participate in her care Plan Orders Orders Liver Panel 12/21/22 R10.9 - Unspecified abdominal pain Medications New linaclotide (Linzess) 72 mcg PO DAILY 30 caps 4RF Discontinued linaclotide (Linzess) Discontinued Reason: Doctor's Order 145 mcg PO DAILY 30 caps 2RF * TODAY'S VISIT: Patient is here today for follow-up. Patient reports that she has been doing little better. Patient lost 20 lb since last visit. Patient is trying to exercise eating healthier. Following low FODMAP diet as much as she can. Trying to introduce food back to her diet, however she did notice that some of the food make her feel bloated and cause epigastric discomfort. Patient currently is taking pantoprazole twice a day and for the most part her symptoms are suppressed. Patient tried taking Linzess, however she states she had bowel urgent sees all day after taking the medications so she stopped. Patient tried using Senokot and MiraLax in the past, however she reports that it was not helpful. History of kidney transplant about 5 years ago. Umbilical hernia repair few years ago as well. Currently patient reports that she is having discomfort below her umbilicus and feels like there is mass or possibly recurrent hernia. Patient denies any nausea or vomiting. Denies any melena, hematochezia, unintentional weight loss or ribbon like stools. [facility] Medical History (Updated 06/21/23 @ 13:31 by Jessica Qureshi [facility]) Transaminitis Mild intermittent asthma Allergic rhinitis Anemia Hypertension Type 2 diabetes mellitus with nephropathy Autosomal dominant polycystic kidney disease Surgical History (Updated 06/14/23 @ 09:23 by VENKAT Parkinson) Hx of bilateral breast reduction surgery H/O hernia repair Hx of colonoscopy History of esophagogastroduodenoscopy (EGD) History of left nephrectomy Status post abdominal hysterectomy Status post -donor kidney transplantation Family History (Updated 06/14/23 @ 09:24 by VENKAT Parkinson) Paternal Uncle Colon cancer Paternal Uncle Colon cancer Paternal Grandmother Uterine cancer Social History Alcohol intake: never Patient Tobacco Use Status: Never used Tobacco 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al status: disabled 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 Female Reproductive History Menstrual Age of Menarche: 17 Review of Systems Const Denies weight gain and Denies weight loss ENT Reports no additional complaints, Denies dysphagia and Denies odynophagia Card Reports no additional complaints Resp Reports no additional complaints GI Reports abdominal pain, Denies belching, Denies melena, Denies bloating, Reports constipation, Denies dysphagia, Denies excessive flatus, Denies dyspepsia, Reports heartburn, Denies diarrhea, Denies loose stools, Denies nausea, Denies odynophagia and Denies vomiting Reports no additional complaints Musc Reports no additional complaints Neuro Reports no additional complaints Psych Reports no additional complaints Endo Reports no additional complaints Physical Exam Vital Signs: Last Vital Signs Pulse 68 06/21/23 12:53 BP 106/60 06/21/23 12:53 BMI result Body Mass Index 24.2 Const General: healthy appearing, no acute distress and well developed Nutritional Appearance: well nourished Orientation/consciousness: patient oriented x3 Resp Effort & Inspection: normal respiratory effort, able to speak in complete sentences, no tracheal deviation and symmetric chest movement Auscultation: clear to auscultation bilaterally Cardio Rate: regular rate GI Inspection: Yes normal to inspection, No distended and Yes other (Periumbilical and ventral herniation) Palpation (GI): Soft to palpation, not firm, nontender and No hepatosplenomegaly present Auscultation: normal bowel sounds General: Yes no CVA tenderness Back/Spine/Pelvis Back: no CVA tenderness Skin General skin exam: elasticity normal, turgor normal and dry skin Neuro General: patient oriented x3 Psych Appearance: grossly normal Mental Status: mental status grossly normal Results Reviewed Results Reviewed: Laboratory Tests 12/21/22 14:01 Total Bilirubin 0.7 Direct Bilirubin 0.3 AST 19 ALT 25 Alkaline Phosphatase 90 Assessment & Plan Assessment & Plan (1) Abdominal mass: Code(s): R19.00 - Intra-abdominal and pelvic swelling, mass and lump, unspecified site Qualifiers: Abdominal location: periumbilical Qualified Code(s): R19.05 - Periumbilic swelling, mass or lump (2) Umbilical hernia: Code(s): K42.9 - Umbilical hernia without obstruction or gangrene Qualifiers: Obstruction and gangrene presence: without obstruction or gangrene Qualified Code(s): K42.9 - Umbilical hernia without obstruction or gangrene (3) GERD (gastroesophageal reflux disease): Code(s): K21.9 - Gastro-esophageal reflux disease without esophagitis Qualifiers: Esophagitis presence: esophagitis presence not specified Qualified Code(s): K21.9 - Gastro-esophageal reflux disease without esophagitis (4) Postprandial abdominal bloating: Code(s): R14.0 - Abdominal distension (gaseous) (5) Constipation: Code(s): K59.00 - Constipation, unspecified Qualifiers: Constipation type: slow transit constipation Qualified Code(s): K59.01 - Slow transit constipation Plan Discussed case with Dr. Reyes, patient will be referred to general surgery for possible ventral/recurrent umbilical hernia repair. Will send patient for CT scan to evaluate. Patient can continue taking pantoprazole. Discussed with patient the importance of avoiding dietary triggers and late night snacking. Staying upright for minimum 3 hours after meals discussed with patient. Patient will start taking Dulcolax daily. Patient was encouraged to increase fluid intake and activity to promote better bowel motility I will see patient in 3 months, sooner on as needed basis. Patient is agreeable to this plan and verbalizes understanding of instructions. She was given the opportunity to ask questions and all questions answered. Thank you for allowing me to participate in her care Orders: Orders Liver Panel 06/21/23 R74.01 - Elevation of levels of liver transaminase levels Liver Fibrosis Pnl 06/21/23 R74.8 - Abnormal levels of other serum enzymes CT abdomen pelvis wo IV con 06/21/23 K42.9 - Umbilical hernia without obstruction or gangrene, R19.00 - Intra-abdominal and pelvic swelling, mass and lump, unspecified site Comprehensive Met. Panel 06/21/23 K21.9 - Gastro-esophageal reflux disease without esophagitis Referrals General Surgery Referral K42.9 - Umbilical hernia without obstruction or gangrene Medications: New bisacodyl (Dulcolax (bisacodyl)) 10 mg (2 x 5 mg) PO BEDTIME 60 tabs 4RF Refilled pantoprazole 40 mg PO BID 180 tabs 3RF Discontinued linaclotide (Linzess) Discontinued Reason: Doctor's Order 72 mcg PO DAILY 30 caps 4RF Coding Level of Care Code Est Pt Level 4 (78361) Diagnoses Periumbilical mass R19.05 Abdominal location: periumbilical Umbilical hernia without obstruction and without gangrene K42.9 Obstruction and gangrene presence: without obstruction or gangrene Gastroesophageal reflux disease, unspecified whether esophagitis present K21.9 Esophagitis presence: esophagitis presence not specified Postprandial abdominal bloating R14.0 Slow transit constipation K59.01 Constipation type: slow transit constipation Time Spent (min) 35 Comment 20 minutes spent with patient and additional 15 minutes spent reviewing her records
[2023-06-21 12:53] VITALS: BP 106/60; PULSE 68; BMI 24.2
== END 2023-06-21 13:18 | disposition home or self-care (01) ==
PROVIDERS: PCP Family Medicine; Visit Provider Nurse Practitioner Family
DX: R19.05 Periumbilic swelling, mass or lump (principal); K21.9 Gastro-esophageal reflux disease without esophagitis; K59.01 Slow transit constipation
CPT/HCPCS: 99214

== ENCOUNTER 2023-06-27 07:57 | Outpatient (REF) | payer MEDICAID, SELFPAY ==
--- NOTE | ~2023-06-27 | CT_ITS ---
EXAMINATION: CT ABDOMEN AND PELVIS WITHOUT CONTRAST CLINICAL INFORMATION: Intra-abdominal and pelvic swelling, mass and lump. COMPARISON: Ultrasound abdomen 09/28/2022. TECHNIQUE: Multidetector volumetric imaging was performed from the superior aspect of the liver through the pubic symphysis. Sagittal and coronal reformatted images were obtained on the technologist's workstation. This CT examination was performed using dose optimization techniques as appropriate, variously including the following: *Automated exposure control *Adjustment of mA and/or kV according to patient size (this includes techniques or standardized protocols for targeted exams where dose is matched to indication/reason for exam; i.e. extremities or head) *Use of iterative reconstruction technique DLP: 351 mGy-cm FINDINGS: LUNG BASES: 2 mm calcification in the lingula. The lung bases are clear. Heart size is normal. Tiny anterior pericardial fluid is noted. LIVER, GALLBLADDER, AND BILIARY TREE: The liver is normal in size, shape, and attenuation. There are multiple hypodense liver lesions consistent with cysts. No solid lesions seen. There is no intrahepatic ductal dilatation. The gallbladder is unremarkable with no evidence of radiopaque gallstones, gallbladder wall thickening, or obvious pericholecystic inflammatory changes. PANCREAS: Unremarkable. SPLEEN: Unremarkable. ADRENAL GLANDS: Unremarkable. KIDNEYS AND URETERS: There is lobulated cystic right kidney without caliectasis or hydronephrosis. There is dystrophic calcification as well. The left kidney is surgically absent. BLADDER: Unremarkable. GASTROINTESTINAL TRACT: There is scattered stool and gas in the diverticula seen throughout the colon without any distention. The small bowel loops are normal caliber. Appendix is normal caliber. No free fluid. ABDOMINAL WALL: No significant hernia is appreciated. LYMPH NODES: Normal. VASCULAR: Unremarkable. PELVIC VISCERA: The large hypodense cyst midline pelvis measuring 14 x 0 x 10.2 x 10.8 cm likely simple ovarian cyst. There is a smaller right ovarian cyst in the adnexa measuring 3.0 x 2.9 cm. A transplanted kidney in the right pelvis appears unremarkable. OSSEOUS STRUCTURES: No aggressive lytic or sclerotic process seen. 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 The left kidney is surgically absent. There is a dystrophic calcifications in the right kidney. Transplanted kidney in right pelvis is unremarkable. Colonic diverticulosis without diverticulitis. Normal appendix. Multiple hepatic cysts. Fleischner guidelines were followed.
== END 2023-06-27 07:58 | disposition home or self-care (01) ==
LOC: HO.CT 07:57
PROVIDERS: PCP Family Medicine; Visit Provider Nurse Practitioner Family
DX: R19.00 Intra-abdominal and pelvic swelling, mass and lump, unspecified site (principal); K42.9 Umbilical hernia without obstruction or gangrene
CPT/HCPCS: 74176

== ENCOUNTER 2023-06-29 08:16 | Outpatient (REF) | payer MEDICAID, SELFPAY | END 2023-06-29 08:17 | disposition home or self-care (01) | LOC: HO.US 08:16 | PROVIDERS: PCP Family Medicine; Visit Provider Advanced Practice Midwife | DX: Z13.89 Encounter for screening for other disorder (principal) ==

== ENCOUNTER 2023-07-14 09:48 | Outpatient (AMB) | payer MEDICAID, SELFPAY ==
--- NOTE | 2023-07-14 09:50 | A.OFFVIS_ITS ---
Intake Vital Signs 3 07/14/23 10:00 Height 5 ft 2 in Weight 132 lb BMI 24.1 BP 120/72 Blood Pressure Location Lt brachial Position Sitting Pulse 76 Intake Visit Reasons: Umbilical hernia Intake Note: Patient is seen in office for evaluation and treatment of an umbilical hernia. 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 She reports a previous hernia repair performed laparoscopically in 2018. She is status post left nephrectomy for polycystic kidney disease and status post kidney transplant performed in 2019. She now notes an area of swelling in her lower abdomen especially when she leans back. The lump is not as noticeable when she is standing. She subsequently underwent evaluation with CT abdomen and pelvis. This reveals a previous hernia repair with intact mesh and tacks and no evidence of recurrent umbilical hernia. Of note she has a large ovarian cyst measuring 14 x 10 x 10 cm which appears to be a simple cyst. She is scheduled to see [facility] gynecology further evaluation later this month. [facility] Medical History Transaminitis Mild intermittent asthma Allergic rhinitis Anemia Hypertension Type 2 diabetes mellitus with nephropathy Autosomal dominant polycystic kidney disease Surgical History Hx of bilateral breast reduction surgery H/O hernia repair Hx of colonoscopy History of esophagogastroduodenoscopy (EGD) History of left nephrectomy Status post abdominal hysterectomy Status post -donor kidney transplantation Family History Paternal Uncle Colon cancer Paternal Uncle Colon cancer Paternal Grandmother Uterine cancer Social History Alcohol intake: never Patient Tobacco Use Status: Never used Tobacco 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al status: disabled 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 Female Reproductive History Menstrual Age of Menarche: 17 Review of Systems Const All systems reviewed & are unremarkable except as noted in HPI and below Denies chills, Denies fever(s), Denies headache(s), Denies poor appetite and Denies weakness ENT Denies headache(s) Card Denies chest pain, Denies irregular heart rhythm, Denies palpitations and Denies dyspnea Resp Denies cough, Denies excessive phlegm production and Denies dyspnea GI Denies abdominal pain, Denies bloating, Denies change in bowel habits, Denies constipation, Denies heartburn, Denies diarrhea, Denies nausea and Denies vomiting Denies urinary frequency Musc Denies back pain, Denies muscle weakness and Denies numbness Skin/Breast Denies changing lesions and Denies unusual bruising Neuro Denies headache(s), Denies numbness, Denies paresthesias and Denies weakness Psych Denies anxiety and Denies depression Endo Denies palpitations Hossein/Lymph Denies lymphadenopathy Physical Exam Const General: cooperative and no acute distress Nutritional Appearance: well nourished Orientation/consciousness: patient oriented x3 Limitations: no limitations HEENT Head: Yes normocephalic and Yes atraumatic Ears: hearing grossly normal bilaterally Resp Effort & Inspection: normal respiratory effort, no audible wheezes, no cough and no respiratory distress Cardio Jugular venous distension: no JVD GI Other: Multiple abdominal incisions are identified. Palpation of the anterior abdominal wall with Valsalva maneuvers reveals no obvious hernias. Patient points to an area in the lower abdomen which corresponds to the ovarian cyst noted by CT. Abdomen is otherwise soft and nondistended without rebound or guarding. Inspection: Yes normal to inspection Skin Other: Warm, dry, no rash Neuro General: patient oriented x3 Extrem General: Yes no clubbing, cyanosis or edema Results Reviewed Results Reviewed: CT Abd/pelvis: Assessment & Plan Assessment & Plan (1) Abdominal mass: Code(s): R19.00 - Intra-abdominal and pelvic swelling, mass and lump, unspecified site Qualifiers: Abdominal location: periumbilical Qualified Code(s): R19.05 - Periumbilic swelling, mass or lump (2) Status post kidney transplant: Code(s): Z94.0 - Kidney transplant status Plan 53-year-old female patient with polycystic kidney disease status post renal transplant and umbilical hernia repair presenting today for evaluation of a possible recurrent umbilical hernia. On examination however patient has no definite hernia noted on examination. Review of a CT reveals no evidence of a recurrent hernia as well. Patient does have a large simple cyst of the ovary measuring 14 x 10 x 10 cm. She will be evaluated by [facility] gynecology regarding this ovarian cyst. I reviewed the CT findings with the patient in detail. No surgical intervention for a umbilical hernias required at this time. She should follow up as needed. Coding Level of Care Code New Pt Level 4 (81027) Diagnoses Periumbilical mass R19.05 Abdominal location: periumbilical Status post kidney transplant Z94.0
[2023-07-14 10:00] VITALS: BP 120/72; PULSE 76; BMI 24.1
== END 2023-07-14 10:08 | disposition home or self-care (01) ==
PROVIDERS: PCP Family Medicine; Visit Provider Surgery
DX: R19.05 Periumbilic swelling, mass or lump (principal); Z94.0 Kidney transplant status
CPT/HCPCS: 99203

== ENCOUNTER → 2023-07-14 09:48 | Outpatient (BNVA) | payer MEDICAID, SELFPAY | PROVIDERS: PCP Family Medicine; Visit Provider Surgery | DX: R19.05 Periumbilic swelling, mass or lump (principal); Z94.0 Kidney transplant status | CPT/HCPCS: 99202 ==

== ENCOUNTER 2023-08-22 10:51 | Outpatient (REF) | payer MEDICAID, SELFPAY ==
[2023-08-22 12:24] LABS: Cholesterol 196 mg/dL (<200); HDL Cholesterol 53 mg/dL (>40); LDL Cholesterol Calculated 125 mg/dL (<100); Triglycerides 90 mg/dL (<150)
[2023-08-22 12:42] LABS: Thyroid Stimulating Hormone 2.11 uIU/mL (0.32-4.0)
[2023-08-23 18:36] LABS: CT PCR NOT DETECTED (Not Detect.); NG PCR NOT DETECTED (Not Detect.)
== END 2023-08-22 10:52 | disposition home or self-care (01) ==
LOC: HO.HHCL 10:51
PROVIDERS: Visit Provider Family Medicine
DX: E11.9 Type 2 diabetes mellitus without complications (principal)
CPT/HCPCS: 0353U; 36415; 80061; 84443

== ENCOUNTER 2023-10-13 14:34 | Outpatient (REF) | payer MEDICAID, SELFPAY ==
--- NOTE | ~2023-10-13 | XR_ITS ---
EXAMINATION: XR CHEST CLINICAL INFORMATION: Cough and wheezing for 2 weeks. COMPARISON: July 06 2017 TECHNIQUE: PA and lateral views of the chest were obtained. FINDINGS: Focal airspace disease involving the lingula and possibly left lower lobe suggesting focal infiltrate, atelectasis, and/or fibrotic changes, new compared with July 06, 2017. The right lung appears clear. No effusion or pneumothorax is appreciated. The cardiovascular structures, mediastinum, diaphragm, and bones appear unremarkable. Spiral metallic densities projecting over the mid anterior abdomen probably represent surgical mesh. XR/XR chest 2V IMPRESSION: Findings as above.
== END 2023-10-13 14:35 | disposition home or self-care (01) ==
LOC: HO.HHCX 14:34
PROVIDERS: Visit Provider Internal Medicine Geriatric Medicine
DX: R05.2 Subacute cough (principal); R06.2 Wheezing
CPT/HCPCS: 71046

== ENCOUNTER 2023-11-01 14:46 | Outpatient (REF) | payer MEDICAID, SELFPAY ==
--- NOTE | ~2023-11-01 | XR_ITS ---
EXAMINATION: XR CHEST CLINICAL INFORMATION: Cough COMPARISON: 10/13/2023 TECHNIQUE: 2 views of the chest were obtained. FINDINGS: The current examination lungs are clear and cardiomediastinal silhouette is normal. Seen on the prior study left lower lobe atelectasis has been resolved XR/XR chest 2V IMPRESSION: No abnormal findings in the lungs on the current study
== END 2023-11-01 14:47 | disposition home or self-care (01) ==
LOC: HO.HHCX 14:46
PROVIDERS: Visit Provider Family Medicine
DX: R05.2 Subacute cough (principal)
CPT/HCPCS: 71046

== ENCOUNTER 2024-02-09 08:07 | Outpatient (AMB) | payer MEDICAID, SELFPAY ==
[2024-02-09 08:09] VITALS: BP 136/76; PULSE 68; O2SAT 100; BMI 25.8
--- NOTE | 2024-02-09 08:09 | MHC.OFFVIS ---
Vital Signs 02/09/24 08:09 Height 5 ft 2 in Weight 141 lb 1.533 oz BMI 25.8 BP 136/76 Blood Pressure Location Rt brachial Position Sitting Pulse 68 Pulse Source Pulse Oximeter Pulse Oximetry (%) 100 Oxygen Delivery Method Room Air Intake Visit Reasons: 6 mos FUV. Rescheduled x1 Intake Note: Relevant Flags or Indicators ? Requires Assistant Press Operator? N Regine presents in office today for a scheduled 6 mos FUV. CC; Since last visit; labs ordered ? done via our office and PCP / Other Specialty. Rx ordered ? no. Diagnostics/images ordered ? done via other Specialty 11/27/23 Relevant GI Sx as reported per pt? None ?Hx of any recent surgeries? None Assistant Press Operator Required: No Allergies No Known Allergies Allergy (Verified 02/09/24 08:10) HPI HPI 6 mos FUV. Rescheduled x1: Details: LAST VISIT: Abdominal mass Umbilical hernia GERD (gastroesophageal reflux disease) Postprandial abdominal bloating Constipation Plan Discussed case with Dr. Reyes, patient will be referred to general surgery for possible ventral/recurrent umbilical hernia repair. Will send patient for CT scan to evaluate. Patient can continue taking pantoprazole. Discussed with patient the importance of avoiding dietary triggers and late night snacking. Staying upright for minimum 3 hours after meals discussed with patient. Patient will start taking Dulcolax daily. Patient was encouraged to increase fluid intake and activity to promote better bowel motility I will see patient in 3 months, sooner on as needed basis. Patient is agreeable to this plan and verbalizes understanding of instructions. She was given the opportunity to ask questions and all questions answered. ? Thank you for allowing me to participate in her care Orders Orders Liver Panel 06/21/23 R74.01 Liver Fibrosis Pnl 06/21/[address] abdomen pelvis wo IV con 06/21/23 K42.9, R19.00 Comprehensive Met. Panel 06/21/23 K21.9 Referrals General Surgery Referral K42.9 Medications New bisacodyl (Dulcolax (bisacodyl)) 10 mg (2 x 5 mg) PO BEDTIME 60 tabs 4RF Refilled pantoprazole 40 mg PO BID 180 tabs 3RF Discontinued linaclotide (Linzess) Discontinued Reason: Doctor's Order 72 mcg PO DAILY 30 caps 4RF TODAY'S VISIT Patient is here today for follow-up. Patient reports to be feeling much better now. Patient had seen General surgery for evaluation of umbilical hernia that was found to be intact status post umbilical hernia repair in 2018. Patient was found to have large cyst. Patient reports that she is moving her bowels better after surgery. Patient underwent oophorectomy and hysterectomy. Patient denies melena, hematochezia, unintentional weight loss or ribbon like stools. Patient reports that she is generally feeling better. States that she is using pantoprazole only once a day. Denies dyspepsia, dysphagia or odynophagia. Patient denies any GI concerning symptoms today. Incidental finding on last CT scan showed several hepatic cysts will need to follow-up with ultrasound. [facility] Medical History Transaminitis Mild intermittent asthma Allergic rhinitis Anemia Hypertension Type 2 diabetes mellitus with nephropathy Autosomal dominant polycystic kidney disease Surgical History Hx of bilateral breast reduction surgery H/O hernia repair Hx of colonoscopy History of esophagogastroduodenoscopy (EGD) History of left nephrectomy Status post abdominal hysterectomy Status post -donor kidney transplantation Family History Paternal Uncle Colon cancer Paternal Uncle Colon cancer Paternal Grandmother Uterine cancer Social History Alcohol intake: never Patient Tobacco Use Status: Never used Tobacco 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al status: disabled 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 Female Reproductive History Menstrual Age of Menarche: 17 Review of Systems Const Denies weight gain and Denies weight loss ENT Reports no additional complaints, Denies dysphagia and Denies odynophagia Card Reports no additional complaints Resp Reports no additional complaints GI Denies abdominal pain, Denies belching, Denies melena, Denies bloating, Denies change in bowel habits, Denies dysphagia, Denies excessive flatus, Denies dyspepsia, Denies heartburn, Denies diarrhea, Denies loose stools, Denies nausea, Denies odynophagia and Denies vomiting Musc Reports no additional complaints Neuro Reports no additional complaints Psych Reports no additional complaints Endo Reports no additional complaints Physical Exam Vital Signs: Last Vital Signs Pulse 68 02/09/24 08:09 BP 136/76 02/09/24 08:09 Pulse Ox 100 02/09/24 08:09 Oxygen Delivery Method Room Air 02/09/24 08:09 BMI result Body Mass Index 25.8 Const General: healthy appearing, no acute distress and well developed Nutritional Appearance: obese Orientation/consciousness: patient oriented x3 Resp Effort & Inspection: normal respiratory effort, able to speak in complete sentences, no tracheal deviation and symmetric chest movement Auscultation: clear to auscultation bilaterally Cardio Rate: regular rate GI Inspection: Yes normal to inspection, No distended and Yes obesity Palpation (GI): Soft to palpation, not firm, nontender and No hepatosplenomegaly present Auscultation: normal bowel sounds General: Yes no CVA tenderness Back/Spine/Pelvis Back: no CVA tenderness Skin General skin exam: elasticity normal, turgor normal and dry skin Neuro General: patient oriented x3 Psych Appearance: grossly normal Mental Status: mental status grossly normal Results Reviewed Results Reviewed: CT SCAN OF ABDOMEN AND PELVIS FINDINGS: LUNG BASES: 2 mm calcification in the lingula. The lung bases are clear. Heart size is normal. Tiny anterior pericardial fluid is noted. LIVER, GALLBLADDER, AND BILIARY TREE: The liver is normal in size, shape, and attenuation. There are multiple hypodense liver lesions consistent with cysts. No solid lesions seen. There is no intrahepatic ductal dilatation. The gallbladder is unremarkable with no evidence of radiopaque gallstones, gallbladder wall thickening, or obvious pericholecystic inflammatory changes. PANCREAS: Unremarkable. SPLEEN: Unremarkable. ADRENAL GLANDS: Unremarkable. KIDNEYS AND URETERS: There is lobulated cystic right kidney without caliectasis or hydronephrosis. There is dystrophic calcification as well. The left kidney is surgically absent. BLADDER: Unremarkable. GASTROINTESTINAL TRACT: There is scattered stool and gas in the diverticula seen throughout the colon without any distention. The small bowel loops are normal caliber. Appendix is normal caliber. No free fluid. ABDOMINAL WALL: No significant hernia is appreciated. LYMPH NODES: Normal. VASCULAR: Unremarkable. PELVIC VISCERA: The large hypodense cyst midline pelvis measuring 14 x 0 x 10.2 x 10.8 cm likely simple ovarian cyst. There is a smaller right ovarian cyst in the adnexa measuring 3.0 x 2.9 cm. A transplanted kidney in the right pelvis appears unremarkable. OSSEOUS STRUCTURES: No aggressive lytic or sclerotic process seen. 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 The left kidney is surgically absent. There is a dystrophic calcifications in the right kidney. Transplanted kidney in right pelvis is unremarkable. Colonic diverticulosis without diverticulitis. Normal appendix. Multiple hepatic cysts. Assessment & Plan Assessment & Plan (1) GERD (gastroesophageal reflux disease): Code(s): K21.9 - Gastro-esophageal reflux disease without esophagitis Qualifiers: Esophagitis presence: esophagitis presence not specified Qualified Code(s): K21.9 - Gastro-esophageal reflux disease without esophagitis (2) Postprandial abdominal bloating: Code(s): R14.0 - Abdominal distension (gaseous) (3) Constipation: Code(s): K59.00 - Constipation, unspecified Qualifiers: Constipation type: slow transit constipation Qualified Code(s): K59.01 - Slow transit constipation (4) Liver cyst: Code(s): K76.89 - Other specified diseases of liver Plan Continue pantoprazole daily. Avoid dietary triggers and late night snacking. Staying upright for minimum 3 hours after meals discussed with patient. Increase fluid intake and activity to promote better bowel motility. Patient will go for ultrasound to evaluate her liver. Will see her in 6 months, sooner on as needed basis. She is agreeable to this plan and verbalizes understanding of instructions. She was given the opportunity to ask questions and all questions answered. Thank you for allowing me to participate in her care Orders: Orders US abdomen limited Today K76.89 - Other specified diseases of liver Medications: Changed From pantoprazole 40 mg PO BID 180 tabs 3RF To pantoprazole 40 mg PO DAILY 90 tabs 3RF Coding Level of Care Code Est Pt Level 3 (85751) Diagnoses Gastroesophageal reflux disease, unspecified whether esophagitis present K21.9 Esophagitis presence: esophagitis presence not specified Postprandial abdominal bloating R14.0 Slow transit constipation K59.01 Constipation type: slow transit constipation Liver cyst K76.89 Time Spent (min) 30 Comment 20 minutes spent with patient and additional 10 minutes spent reviewing her records
== END 2024-02-09 08:35 | disposition home or self-care (01) ==
PROVIDERS: PCP Family Medicine; Visit Provider Nurse Practitioner Family
DX: K21.9 Gastro-esophageal reflux disease without esophagitis (principal); R14.0 Abdominal distension (gaseous); K59.01 Slow transit constipation; K76.89 Other specified diseases of liver
CPT/HCPCS: 99213

== ENCOUNTER → 2024-02-09 08:07 | Outpatient (BNVA) | payer MEDICAID, SELFPAY | PROVIDERS: PCP Family Medicine; Visit Provider Nurse Practitioner Family | DX: K21.9 Gastro-esophageal reflux disease without esophagitis (principal); K59.01 Slow transit constipation; K76.89 Other specified diseases of liver; R14.0 Abdominal distension (gaseous) | CPT/HCPCS: 99212 ==

== ENCOUNTER 2024-02-20 07:48 | Outpatient (REF) | payer MEDICAID, SELFPAY ==
--- NOTE | ~2024-02-20 | US_ITS ---
EXAMINATION: US ABDOMEN LIMITED CLINICAL INFORMATION: Other specified diseases of liver. Liver cyst. COMPARISON: CT abdomen and pelvis 06/27/2023. Ultrasound abdomen complete was elastography 09/28/2022. TECHNIQUE: Real-time imaging of the right upper quadrant abdominal viscera. FINDINGS: PANCREAS: The visualized portion of the pancreas head and body are normal, portion of the pancreatic body and tail, not visualized are obscured by bowel gas. LIVER: The liver is normal in size. The liver contour is normal. Parenchymal echogenicity is normal. There are innumerable liver cysts the largest in the right lobe measure up to 1.6 x 2.1 x 1.7 cm. There is no intrahepatic biliary duct dilatation seen. GALLBLADDER: The gallbladder appears contracted without evidence of stones, sludge, wall thickening or pericholecystic fluid. Echogenic structure adherent to the gallbladder wall most likely a polyp measuring up to 3 mm. Mild thickening of the gallbladder wall 3.3 mm. Probably due to its incomplete distention. No tenderness pressing on the gallbladder. COMMON BILE DUCT: Normal in caliber measuring 0.3 cm in diameter. RIGHT KIDNEY: No hydronephrosis. The kidney measures 13.5 cm in maximum dimension. There are innumerable renal cysts some of which with echogenic foci likely calcifications the largest 5.1 cm middle pole. Please note that the renal transplant in the right lower quadrant was not in included on this study. This will be described on CT scan from March 08, 2024. FREE FLUID: None. US/US abdomen limited IMPRESSION: 1. Innumerable liver cysts the largest in the right lobe measure up to 2.1 cm. 2. Innumerable right renal cysts some of which contain echogenic foci likely calcifications, the largest 5.1 cm. 3. Gallbladder is contracted, there is mild thickening of the gallbladder wall 3.3 mm, this is probably due to its incomplete distention. No tenderness pressing on the gallbladder. 4. Echogenic structure adherent to the gallbladder wall 3 mm probably a polyp, attention to follow-up surveillance recommended ultrasound in 12 months. 5. Please note that the renal transplant in the right lower quadrant was not in included on this study. This will be described on CT scan from March 08, 2024. Electronically signed by: Janie Franco MD 03/10/2024 05:34 PM EST
--- NOTE | ~2024-02-20 | US_ITS ---
EXAMINATION: US EXTRACRANIAL CAROTID DUPLEX, BILATERAL CLINICAL INFORMATION: Hypertension and hyperlipidemia, syncope COMPARISON: None available. TECHNIQUE: Real-time ultrasound and Doppler techniques (integrating B-mode 2-D vascular images, Doppler spectral analysis and color-flow Doppler imaging) were utilized to interrogate the extracranial carotid arteries, the vertebral arteries and proximal subclavian arteries bilaterally. The degree of stenosis is determined by criteria similar to NASCET. FINDINGS: Right Side: 1. There is no atherosclerotic plaque seen in the bifurcation/proximal ICA region. 2. The common carotid artery PSV proximally is 105 cm/s and distally 78 cm/s. 3. The proximal internal carotid artery velocities are 46 cm/s systolic and 18 cm/s diastolic. 4. The proximal external carotid artery PSV is 91 cm/s. 5. The vertebral artery shows antegrade flow. 6. The subclavian artery waveforms are normal. Left Side: 1. There is no atherosclerotic plaque seen in the bifurcation/proximal ICA region. 2. The common carotid artery PSV proximally is 109 cm/s and distally 86 cm/s. 3. The proximal internal carotid artery velocities are 64 cm/s systolic and 29 cm/s diastolic. 4. The proximal external carotid artery PSV is 107 cm/s. 5. The vertebral artery shows antegrade flow. 6. The subclavian artery waveforms are normal. US/US carotid duplex BI IMPRESSION: 1. RIGHT: Normal right internal carotid artery without atherosclerotic plaque or hemodynamically significant stenosis. 2. LEFT: Normal left internal carotid artery without atherosclerotic plaque or hemodynamically significant stenosis. Electronically signed by: Tanya [place] MD 02/28/2024 05:31 PM [facility]
== END 2024-02-20 07:49 | disposition home or self-care (01) ==
LOC: HO.US 07:48
PROVIDERS: PCP Family Medicine; Visit Provider Nurse Practitioner Family
DX: K76.89 Other specified diseases of liver (principal); R42 Dizziness and giddiness
CPT/HCPCS: 76705; 93880

== ENCOUNTER → 2024-02-28 12:37 | Outpatient (REF) | payer MEDICAID, SELFPAY ==
--- NOTE | 2024-02-28 12:42 | CA_ITS ---
Transthoracic Echocardiogram Patient (Last, First, Middle): Regine Weaver Sobeida Gender: Female Date of : 1970 Age: 53 Procedure Date: 02/28/2024 Procedure Type: Transthoracic Echocardiogram Location: OP Height: 157.48 cm Weight: 63.96 kg BSA: 1.65 m2 Heart Rate: bpm BP: 100 / 60 mmHg Installation And Repair Technician: TO Referring MD: Priscilla He DO Dry Box Tender: Ravinder Mcdonough MD Symptoms: R42 DIZZINESS Study Quality: Adequate ECG Rhythm: Sinus Conclusions: - Essentially normal study Findings Left Ventricle Normal left ventricular size, thickness, and systolic function. The visually estimated ejection fraction is between 60-65%. Spectral Doppler is indicative of a normal filling pattern. Right Ventricle Normal right ventricular cavity size and systolic function. Atria Both atria are normal in size. Interatrial shunt cannot be excluded. Aortic Valve The aortic valve structure and function is likely normal. There is no aortic valve stenosis. There is no aortic valve regurgitation. Mitral Valve Normal mitral valve structure and function. There is no mitral valve regurgitation. There is no mitral valve stenosis. Pulmonic Valve The pulmonic valve is likely normal. There is trace pulmonic valve regurgitation. Tricuspid Valve Normal tricuspid valve structure. There is trace tricuspid valve regurgitation. The right ventricular systolic pressure is normal. The right ventricular systolic pressure is 18 mmHg. Normal right atrial pressure. There is no evidence of pulmonary hypertension. Great Vessels All visible segments of the aorta are normal in size. The pulmonary artery was not well visualized. There is no dilatation of the ascending aorta measuring 2.90 cm. Venous The inferior vena cava is normal in size and collapses greater than 50% with inspiration. Pericardium/Pleural There is no evidence of pericardial effusion. Prior Study Comparison No prior study available for comparison. Measurements 2D Linear Measurements IVSd: 1.12 0.6-0.9/0.6-1.0 cm LVIDd: 4.29 3.9-5.3/4.2-5.9 cm LVIDd Index: 2.60 2.4-3.2/2.2-3.1 cm/m2 LVIDs: 2.24 2.0-3.6 cm LVPWd: 0.74 0.7-1.1 cm LA Diam: 3.40 2.7-3.8/3.0-4.0 cm LAIDs Index: 2.06 1.5-2.3 cm/m2 LV Mass: 160.04 67-162/88-224 g LV Mass Index: 96.99 43-95/49-115 g/m2 LVOT Diam: 2.00 3.0+(-)1.3 cm 2D Systolic Function EF 4C: 65.50 >55% EF 2C: 58.20 >55% EF BiP: 63.40 >55% Mitral Valve MV Pk E: 0.75 MV PK A: 0.40 MV Decel Time: 192.00 E/A: 1.90 E'Lateral: 7.18 E'Medial: 5.33 E/E' Med: 14.00 E/E' Lat: 10.40 PHT: 56.00 MVA PHT: 3.93 Decel [place]: 3.88 Aortic Valve AoV Pk Alfred: 1.33 AoV Mn Alfred: 0.87 AoV VTI: 0.28 AoV Pk Grad: 7.00 Aov Mn Grad: 3.00 ELEAZAR Cont.VTI: 2.56 LVOT LVOT Pk Alfred: 1.07 LVOT Mn Alfred: 0.71 LVOT VTI: 0.23 LVOT Pk Grad: 5.00 LVOT Mn Grad: 2.00 LVOT Diam: 2.00 LVOT Area: 3.14 Diastolic Function MV Pk E: 0.75 MV Pk A: 0.40 E/A: 1.90 E'Medial: 5.33 E/E' Med: 14.00 E' Laterial: 7.18 E/E' Lat: 10.40 Right Ventricle TAPSE (mm): 22.70 TVS' Alfred: 15.80 Tricuspid Valve TR Pk Alfred: 1.92 TR Pk Grad: 15.00 RA Press: 3.00 RVSP: 18.00 Great Vessels Aorta Sinus of Valsalva: 3.09 2.0-3.5 cm Ao Asc: 2.90 2.1-3.4 cm Updated in Other Vendor System with Status of Final Ravinder Mcdonough MD electronically signed on 02/29/2024 12:01:45 PM with status of Final
== END ==
LOC: HO.CARD 12:37
PROVIDERS: PCP Family Medicine; Visit Provider Family Medicine
DX: R07.9 Chest pain, unspecified (principal); R42 Dizziness and giddiness
CPT/HCPCS: 93306

== ENCOUNTER → 2024-02-28 12:42 | Outpatient (BNV) | payer MEDICAID, SELFPAY | PROVIDERS: PCP Family Medicine; Visit Provider Internal Medicine Cardiovascular Disease | DX: R42 Dizziness and giddiness (principal) | CPT/HCPCS: 93306 ==

== ENCOUNTER 2024-03-08 14:52 | Outpatient (REF) | payer MEDICAID, SELFPAY | END 2024-03-08 14:53 | disposition home or self-care (01) | LOC: HO.CT 14:52 | PROVIDERS: PCP Family Medicine; Visit Provider Family Medicine | DX: R42 Dizziness and giddiness (principal) | CPT/HCPCS: 70450 ==

== ENCOUNTER 2024-03-14 07:55 | Outpatient (REF) | payer MEDICAID, SELFPAY ==
--- NOTE | ~2024-03-14 | MM_ITS ---
EXAMINATION: MM SCREENING DIGITAL BREAST TOMOSYNTHESIS, BILATERAL CLINICAL INFORMATION: Screening. Asymptomatic. COMPARISON: Mammography: Comparison is made with available priors TECHNIQUE: Digital breast mammography with tomosynthesis is performed in both the craniocaudal and mediolateral oblique views along with computer-aided detection (CAD). FINDINGS: There are scattered areas of fibroglandular density (ACR BI-RADS breast composition Category b). Bilateral reduction mammoplasty. There are no significant masses, abnormal calcifications, or other abnormalities. MM/MM tomosynthesis screening BI IMPRESSION: No mammographic evidence of malignancy. ASSESSMENT: BI-RADS BI-RADS 2 - Benign Findings RECOMMENDATION: Routine annual mammography screening. 1 year F/U This examination should not preclude the clinical evaluation of a suspicious palpable abnormality. This patient's information was entered into a reminder system with a target due date for their next mammogram. Electronically signed by: Suzette Santamaria DO 03/25/2024 09:11 AM [facility]
== END 2024-03-14 07:56 | disposition home or self-care (01) ==
LOC: HO.MAMMO 07:55
PROVIDERS: PCP Family Medicine; Visit Provider Family Medicine
DX: Z12.31 Encounter for screening mammogram for malignant neoplasm of breast (principal)
CPT/HCPCS: 77063; 77067

== ENCOUNTER → 2024-03-14 08:15 | Outpatient (BNV) | payer MEDICAID, SELFPAY | PROVIDERS: PCP Family Medicine; Visit Provider Internal Medicine | DX: Z12.31 Encounter for screening mammogram for malignant neoplasm of breast (principal) | CPT/HCPCS: 77063; 77067 ==

== ENCOUNTER 2024-05-29 14:14 | Outpatient (REF) | payer MEDICAID, SELFPAY ==
[2024-05-29 15:23] LABS: Erythrocyte Sedimentation Rate 12 MM/HR (0-20)
--- OUTSIDE RECORDS SUMMARY | 2024-05-29 15:28 | XMS_ITS | Encounter Summary ---
Author Organization [employer] Address [address] [place] [address] 7 [place] [address] Care Team Providers Care Assembler Dc Field Yoke Name Role Phone LaliPriscilla alarcon Primary Care Provider + [phone] Reason for Visit * Reason Onset Date Comments CT head results 05/17/2024 Encounter Details Date Type Department Care Team (Late st Contact Info) Description 05/17/2024 Telephone [facility] [address] [place] [address] Adrianne Velazco, JENISE [address] [place] [address] CT head results Social History Tobacco Use Types Packs/Day Years Used Date Smoking Tobacco: Never Passive Smoke Exposure: Never Smokeless Tobacco: Never Alcohol Use Standard Drinks/Week Comments Never 0 (1 standard drink = 0.6 oz pur e alcohol) Depression Answer Date Recorded Patient Health Questionnaire-9 Score 0 08/03/2023 Patient Health Questionnaire-9 Score 0 08/03/2023 Last PHQ-9: Questionnaire Data Not on file 0 08/03/2023 Housing Stability Answer Date Recorded What is your housing situation today? I have william du 07/25/[address] you li ve. Do you have problems with any of the following? None of the above 07/25/2023 Food Insecurity Answer Date Recorded Within the past 12 months, y ou worried that your food would run out before you got money to buy more: Never True 07/25/2023 Within the past 12 months,th e food you bought just didn't last and you didn't have enough money to get more: Never True 05/2023 Transportation Answer Date Recorded In the past 12 months, has l ack of transportation kept you from medical appts, meetings, work or from getting things needed for daily living? Yes, it has kept me from medical appointments or getting medications. 11/30/2023 Utilities Answer Date Recorded In the past 12 months, has t he electric, gas, oil or water company threatened to shut off services in your home? No 07/25/2023 Depression Answer Date Recorded Patient Health Questionnaire-2 Score 0 08/03/2023 Internet Access Answer Date Recorded Internet Access Q1 Yes 12/25/2023 Internet Access Q2 Not on file 12/25/2023 Comments Unknown Sex and Gender Information Value Date Recorded Sex Assigned at Female 02/21/2022 10:32 AM EDT Legal Sex Female 10:32 AM EDT Gender Identity Female 06/08/2022 1:48 PM EST Sexual Orientation Bisexual 06/08/2022 1: 48 PM EST documented as of this encounter Miscellaneous Notes * Telephone Encounter - Adrianne Velazco RN - 05/17/2024 11:32 AM EST TC placed to patient [phone] in regards to head CT from 03/08/24 to inform that results require further evaluation with a brain MRI with and without contrast for better visualization. Patient reports she does NOT want an MRI with contrast d/t having a kidney transplant. Patient advised RN willdiscuss with PCP regarding POC and return call to patient. documented in this encounter Plan of Treatment Not on file documented as of this encounter Visit Diagnoses Not on filedocumented in this encounter Additional Health Concerns Assessment Noted Time PHQ-9 Depression Total Score: 0 08/03/19 10:24 AM EDT documented as of this encounter Care Teams Assembler Dc Field Yoke Relationship Specialty Start Date End Date Priscilla He DO [address] [place] [id number] PCP - General Family Medicine 03/23/17 documented as of this encounter
--- OUTSIDE RECORDS SUMMARY | 2024-05-29 15:28 | XMS_ITS | Encounter Summary ---
Author Organization [employer] Address [address] [place] [address] [address] [place] [address] Care Team Providers Care Experimental Mechanic Electrical Name Role Phone YingPriscilla Primary Care Provider + [phone] Reason for Visit * Reason Onset Date Comments [facility] Physical Therapy 05/16/2024 Encounter Details Date Type Department Care Team ([facility] st Contact Info) Description 05/16/2024 Telephone [facility] [address] [place] [address] Quiana Rosas MA DME [facility] Physical Therapy Social History Tobacco Use Types Packs/Day Years [...] encounter Miscellaneous Notes * Telephone Encounter - Quiana Rosas MA - 05/16/2024 3:19 PM EST 05/16/24-[facility] Plan of Care generated sign/dated faxed and sent to scanning. documented in this encounter Plan of Treatment Not on file documented as of this encounter Visit Diagnoses Not on filedocumented in this encounter Additional Health Concerns Assessment Noted Time PHQ-9 Depression Total Score: 0 08/03/19 24 10:24 AM EDT documented as of this encounter Care Teams Experimental Mechanic Electrical Relationship Specialty Start Date End Date Priscilla He DO [address] [place] [address] PCP - General Family Medicine 03/23/17 documented as of this encounter
--- OUTSIDE RECORDS SUMMARY | 2024-05-29 15:28 | XMS_ITS | Encounter Summary ---
Author Organization [facility], Address [address] [place] [address] Phone Care Team Providers Care House Parent Name Role Phone Priscilla He DO Primary Care Provider Unava ilable Reason for Visit * Reason Comments Med Refill Encounter Details Date Type Department Care Team (Late st Contact Info) Description 10/25/2023 Refill [facility] [address] [place] [address] Damian Shah MD [address] [place] [address] [place] [address] Social History Tobacco Use Types Packs/Day Years Used Date Smoking Tobacco: Never Alcohol Use Standard Drinks/Week Comments No 0 (1 standard drink = 0.6 oz pur e alcohol) Comments Unknown Sex and Gender Information Value Date Recorded Sex Assigned at Not on file Legal Sex Female 4:37 PM EST Gender Identity Not on file Sexual Orientation Not on file documented as of this encounter Plan of Treatment Upcoming Encounters Date Type Department Care Team (Late st Contact Info) Description 07/05/2024 12:45 PM EDT Office Visit [facility] [address] [place] [address] Damian Shah MD [address] [place] [address] [place] [address] documented as of this encounter Visit Diagnoses Not on filedocumented in this encounter Care Teams House Parent Relationship Specialty Start Date End Date Priscilla He DO [address] [place] [address] PCP - General 02/26/19 documented as of this encounter
--- OUTSIDE RECORDS SUMMARY | 2024-05-29 15:28 | XMS_ITS | Encounter Summary ---
Author Organization [employer] Address [address] [place] [address] [address] [address] Care Team Providers Care Emt/Dispatcher Name Role Phone Priscilla He DO Primary Care Provider [phone] Encounter Details Date Type Department Care Team ([facility] st Contact Info) Description 10/24/2022 Orders Only [facility] [address] [place] [address] Priscilla Falk LPN Social History Tobacco Use Types Packs/Day Years Used Date Smoking Tobacco: Never Smokeless Tobacco: Never Alcohol Use Standard Drinks/Week Comments Never 0 (1 standard drink = 0.6 oz pur e alcohol) Depression Answer Date Recorded Patient Health Questionnaire-9 Score 7 07/08/2022 Depression Answer Date Recorded Patient Health Questionnaire-2 Score 2 07/08/2022 Comments Unknown Sex and Gender Information Value Date Recorded Sex Assigned at Female 02/21/2022 10:32 AM EDT Legal Sex Female 10:32 AM EDT Gender Identity Female 06/08/2022 1:48 PM EST Sexual Orientation Bisexual 06/08/2022 1: 48 PM EST documented as of this encounter Plan of Treatment Not on file documented as of this encounter Visit Diagnoses Not on filedocumented in this encounter Additional Health Concerns Assessment Noted Time PHQ-9 Depression Total Score: 7 07/09/19 23 9:28 AM EDT documented as of this encounter Care Teams Emt/Dispatcher Relationship Specialty Start Date End Date Priscilla He DO [address] [place] [address] PCP - General Family Medicine 03/23/17 documented as of this encounter
--- OUTSIDE RECORDS SUMMARY | 2024-05-29 15:28 | XMS_ITS | Encounter Summary ---
Author Organization [employer] Address [address] [place] [address] 7 [place] [address] Care Team Providers Care Glaze Maker Name Role Phone Priscilla He DO Primary Care Provider + [phone] Reason for Visit * Reason Onset Date Comments Referral 08/04/2023 Encounter Details Date Type Department Care Team ([facility] st Contact Info) Description 08/04/2023 Telephone [facility] [address] [place], [place] [phone] Priscilla He DO [address] [place], [place] [phone] Referral Social History Tobacco Use Types Packs/Day Years [...] from getting things needed for daily living? No 07/25/2023 Utilities Answer Date Recorded In the past 12 months, has t he electric, gas, oil or water company threatened to shut off services in your home? No 07/25/2023 Depression Answer Date Recorded Patient Health Questionnaire-2 Score 0 08/03/2023 Comments Unknown Sex and Gender Information Value Date Recorded Sex Assigned at Female 02/21/2022 10:32 AM EDT Legal Sex Female 10:32 AM EDT Gender Identity Female 06/08/2022 1:48 PM EST Sexual Orientation Bisexual 06/08/2022 1: 48 PM EST documented as of this encounter Miscellaneous Notes * Telephone Encounter - Nanci Barber RN - 08/08/2023 10:09 AM EDT TC placed to pt to inquire on reason for needing a new allergy referral. Pt states she had an appt scheduled for August 24 but received a letter in the mail from provider to cancel. Provider is apparently not seeing new pt's. Referral was placed back in 10/2022. Pt requesting a new referral be placed. Forwarding to PCP for review. * Telephone Encounter - Devante Conklin - 08/04/2023 2:15 PM EDT Tc from pt requesting call back regarding allergy referral. Pt is requesting new allergy referral due to provider no longer seeing pt's. Pt had an appt august 24 with [facility] but it was canceled. Please contact pt at [phone]. documented in this encounter Plan of Treatment Not on file documented as of this encounter Visit Diagnoses Not on filedocumented in this encounter Additional Health Concerns Assessment Noted Time PHQ-9 Depression Total Score: 0 08/03/19 24 10:24 AM EDT documented as of this encounter Care Teams Glaze Maker Relationship Specialty Start Date End Date Priscilla He DO [address] [place] [address] PCP - General Family Medicine 03/23/17 documented as of this encounter
--- OUTSIDE RECORDS SUMMARY | 2024-05-29 15:28 | XMS_ITS | Encounter Summary ---
Author Organization [facility], Address [address] [place] [address] Phone Care Team Providers Care Cork Floor Installer Name Role Phone Priscilla He DO Primary Care Provider Unava ilable Encounter Details Date Type Department Care Team (Late st Contact Info) Description 10/14/2022 Documentation Only [facility], [address] [place] [address] Damian Shah MD [address] [place] [address] [place] [address] Social History Tobacco Use Types [...] Visit [facility] [address] [place] [address] Damian Shah MD [address] [place] [address] [place] [address] documented as of this encounter Visit Diagnoses Not on filedocumented in this encounter Care Teams Cork Floor Installer Relationship Specialty Start Date End Date Priscilla He DO [address] [place] [address] PCP - General 02/26/19 documented as of this encounter
--- OUTSIDE RECORDS SUMMARY | 2024-05-29 15:28 | XMS_ITS | Encounter Summary ---
Author Organization [facility], Address [address] [place] [address] Phone Care Team Providers Care Content Manager Name Role Phone Priscilla He DO Primary Care Provider Unava ilable Reason for Visit * Reason Comments Med Refill Encounter Details Date Type Department Care Team (Late st Contact Info) Description 11/12/2019 Refill [facility] [address] [place] [address] Faisal See MD [address] [place] [address] [place] [address] Social History Tobacco Use Types [...] Visit [facility] [address] [place] [address] Damian Shah MD [address] [place] [address] [place] [address] documented as of this encounter Visit Diagnoses Not on filedocumented in this encounter Care Teams Content Manager Relationship Specialty Start Date End Date Priscilla He DO [address] [place] [address] PCP - General 02/26/19 documented as of this encounter
--- OUTSIDE RECORDS SUMMARY | 2024-05-29 15:28 | XMS_ITS | Encounter Summary ---
Author Organization [facility], Address [address] [place] [address] Phone Care Team Providers Care Flap Maker Name Role Phone Priscilla He DO Primary Care Provider Unava ilable Reason for Visit * Reason Onset Date Comments rpt tacro level 05/14/2024 Encounter Details Date Type Department Care Team (Late st Contact Info) Description 05/14/2024 Telephone [facility] [address] [place] [address] Elizabeth Carson, RN [address] [place] [address] [place] [address] rpt tacro level Social History Tobacco Use Types Packs/Day Years [...] on file documented as of this encounter Miscellaneous Notes * Telephone Encounter - Elizabeth Carson, RN - 05/14/2024 1:56 PM EST Tacro supra therapeutic at 10. Previous level wnl. Pt taking 1.5/1 mg. Pt will rpt level this week and if indicated, dose change will be made at that time. documented in this encounter Plan of Treatment Upcoming Encounters Date Type Department Care Team (Late st Contact Info) Description 07/05/2024 12:45 PM EDT Office Visit [facility] [address] [place] [address] Damian Shah MD [address] [place] [address] [place] [phone] documented as of this encounter Procedures Procedure Name Priority Date/Time Associated Diagnosis Comments TACROLIMUS LEVEL Routine 05/17/2024 7:52 AM EST Chronic kidney disease stage 2 Kidney replaced by transplant History of immunosuppressive therapy documented in this encounter Results * Tacrolimus level (05/17/2024 7:52 AM EST) Tacrolimus Lvl 10.1 2.0 - 20.0 ng/mL [facility] Comment: ?Trough (immediately following ?transplant) ? 15.0 ?Trough (steady state, 2 weeks or ?more after transplant): ?3.0 - 8.0 ?Performed by LC-MS/MS technology. ?Effective May 25, 2024 the reference ? interval for Tacrolimus will be updated to: ? 5.0 - 20.0 ng/mL Blood (Blood, Venous) 05/17/2024 7:52 AM EST 05/17/2024 Narrative [facility] - 05/20/2024 6:06 PM EST Test(s) [id number] (FK506), Blood was developed and its performance characteristics determined by [facility]. It has not been cleared or approved by the Food and Drug Administration. us Damian Shah MD LAB BLOOD ORDERABLES Final Result [facility] [address] [place] [address] documented in this encounter Visit Diagnoses Diagnosis Chronic kidney disease stage 2- Primary Kidney replaced by transplant History of immunosuppressive therapy documented in this encounter Care Teams Flap Maker Relationship Specialty Start Date End Date Priscilla He DO [address] [place] [address] PCP - General 02/26/19 documented as of this encounter
--- OUTSIDE RECORDS SUMMARY | 2024-05-29 15:28 | XMS_ITS | Encounter Summary ---
Author Organization [employer] Address [address] [facility] 7 [place] [address] Care Team Providers Care Entry Level Machine Operator Name Role Phone Priscilla He DO Primary Care Provider + [phone] Reason for Visit * Reason Onset Date Comments Med Refill 06/24/2023 Encounter Details Date Type Department Care Team (Late st Contact Info) Description 06/24/[address] [facility] [address] [place] [address] Priscilla He DO [address] [place] [address] Social History Tobacco Use Types Packs/Day Years Used Date Smoking Tobacco: Never Passive Smoke Exposure: Never Smokeless Tobacco: Never Alcohol Use Standard Drinks/Week Comments Never 0 (1 standard drink = 0.6 oz pur e alcohol) Depression Answer Date Recorded Patient Health Questionnaire-9 Score 7 07/08/2022 Housing Stability Answer Date Recorded What is your housing situation today? I have william sing 01/30/[address] you li ve. Do you have problems with any of the following? No or not working smoke detectors 01/30/2023 Food Insecurity Answer Date Recorded Within the past 12 months, y ou worried that your food would run out before you got money to buy more: Never True 02/06/2023 Within the past 12 months,th e food you bought just didn't last and you didn't have enough money to get more: Never True Transportation Answer Date Recorded In the past 12 months, has l ack of transportation kept you from medical appts, meetings, work or from getting things needed for daily living? No 02/06/2023 Utilities Answer Date Recorded In the past 12 months, has t he electric, gas, oil or water company threatened to shut off services in your home? No 02/06/2023 Depression Answer Date Recorded Patient Health Questionnaire-2 [...] documented as of this encounter Care Teams Entry Level Machine Operator Relationship Specialty Start Date End Date Priscilla He DO [address] [place] [address] PCP - General Family Medicine 03/23/17 documented as of this encounter
--- OUTSIDE RECORDS SUMMARY | 2024-05-29 15:28 | XMS_ITS | Encounter Summary ---
Author Organization [facility], Address [address] [place] [address] Phone Care Team Providers Care Petroleum Refining Equipment Operator Name Role Phone Priscilla He DO Primary Care Provider Unava ilable Encounter Details Date Type Department Care Team (Latest Contact Info) Description 05/07/2024 11:15 AM EST Office Visit [facility] [address] [place] [address] Sandor Jansen PA 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); History of immunosuppressive therapy; Stage 1 chronic kidney disease Social History Tobacco Use Types Packs/Day Years [...] on file documented as of this encounter Last Filed Vital Signs Vital Sign Reading Time Taken Comments Blood Pressure 122/76 05/07/2024 11:13 AM EST Pulse - - Temperature - - Respiratory Rate - - Oxygen Saturation - - Inhaled Oxygen Concentration - - Weight 66 kg (145 lb 6.4 oz) 05/07/2024 11:13 AM EST Height 162.6 cm (5' 4 ) 05/07/2024 11:13 AM EST Body Mass Index 24.96 05/07/2024 11:13 AM EST documented in this encounter Progress Notes * Sandor Jansen PA - 05/07/2024 11:15 AM EST Images from the original note were not included. PATIENT: Regine Rausch : 1970 ENCOUNTER: 05/07/2024 PCP: Priscilla He DO CHIEF COMPLAINT: Renal transplant patient Patient is status post: Donor Kidney Transplant. Date of Transplant: July 21, 2018 at [facility] Immunosuppressant regimen includes Tacrolimus and mycophenolate In the interval since our last visit I have had the opportunity to review the following, if available: -laboratory data, imaging studies, and cardiovascular data -current medications from the patient; any changes from previous (including information from the patient's pharmacy, [facility], and Care Everywhere) -Transplant Data Sheet During this visit I had the opportunity for a full review of systems and limited physical exam as outlined below, with the pertinent findings noted and others found to be negative or noncontributory to the current assessment of this patient. HPI and recent/active issues include: Mrs. Rausch is a 53-year-old female seen in clinic this morning for a routine renal transplantation follow-up appointment. As noted in previous documentation the patient was found to have a large hypodense cyst in the midline pelvis measuring 14 x 10.2 x 10.8 cm. Findings consistent with polycystic ovarian, hepatic, and kidney cystic disease. She followed up with gynecology oncology on 07/20/2023 who discussed the potential differential diagnosis including benign borderline or invasive malignancy of the ovary. CA-125 was within normal limits. She underwent ex lap, BSO, GUERRERO on 11/27/[address] Roth. There were no complications during the perioperative period and she tolerated the procedure well. 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 Thankfully all findings were benign and she ishealing well from her procedure and post staple removal. Patient continues to do exceedingly well from a renal allograft perspective with no recent medical concerns. She continues to remain compliant with her immunosuppressive therapy and there have been no recent medication changes. In clinic this morning her blood pressure was 122/76 mmHg and on physical examination she appeared euvolemic. Urinary output remains adequate with no dysuria or hematuria.Additional review of systems were negative. ROS: As noted above. 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 Weight increased 08/27/2019 Chronic kidney disease stage 2 04/29/2019 Gastroesophageal reflux disease 04/29/2019 History of immunosuppressive therapy 04/29/2019 Kidney replaced by transplant 04/29/2019 Hyperkalemia 04/29/2019 Low blood pressure 04/29/2019 MEDICATIONS: Outpatient Encounter Medications as of 05/07/2024 Medication Sig Dispense Refill albuterol HFA (PROVENTIL HFA;VENTOLIN HFA) 108 (90 Base) MCG/ACT inhaler Inhale 2 puffs every 4 (four) to 6 (six) hours if needed Alcohol Swabs (SM Alcohol Prep) 70 % pads USE TWICE DAILY Cetirizine HCl 10 MG capsule Take 1 capsule by mouth 1 (one) time each day DULCOLAX 5 MG EC tablet TAKE 2 TABLETS (10mg) BY MOUTH ONCE DAILY AT BEDTIME ergocalciferol 1.25 MG (06045 UT) capsule TAKE 1 CAPSULE (50,000 UNITS TOTAL) BY MOUTH 1 (ONE) TIMEPER WEEK FOR LOW VITAMIN D 8 capsule 10 Flovent HFA 110 MCG/ACT inhaler fluticasone (FLONASE) 50 MCG/ACT nasal spray FREESTYLE LITE test strip Linzess 72 MCG capsule Take 1 capsule by mouth 1 (one) time each day mycophenolate (MYFORTIC) 180 MG EC tablet Take 3 tablets (540 mg total) by mouth in the morning and3 tablets (540 mg total) in the evening. 540 tablet 3 pantoprazole (PROTONIX) 40 MG EC tablet TAKE 1 TABLET (40 MG TOTAL) BY MOUTH ONCE DAILY BEFORE BREAKFAST DO NOT CRUSH, CHEW, OR SPLIT. 90 tablet 3 tacrolimus (Prograf) 0.5 MG capsule Take 1 capsule (0.5 mg total) by mouth 1 (one) time each day inthe morning Take in addition to 1 -1 mg tab for a total morning dose of 1.5 mg 30 capsule 11 tacrolimus (Prograf) 1 MG capsule Take 1 capsule (1 mg total) by mouth in the morning and 1 capsule(1 mg total) in the evening. 180 capsule 3 TRUEplus Lancets 33G misc Trulicity 1.5 MG/0.5ML solution pen-injector Inject 1.5 mg under the skin per week Biotin 5000 MCG capsule Take 5,000 mcg by mouth 1 (one) time each day 90 capsule 3 No facility-administered encounter medications on file as of 05/07/2024. PHYSICAL EXAM: BP 122/76 (BP Location: Right upper arm, Patient Position: Sitting) Ht 5' 4 (1.626 m) Wt 145 lb 6.4 oz (66 kg) BMI 24.96 kg/m?? Constitutional: No apparent distress Cardiovascular: No friction rub or obvious JVD elevatin Pulmonary/Chest: No rales or wheezing. Abdominal: Soft and non-tender over the allograft. Extremities: Edema None LABS: Chemistry Lab Units 05/06/24 0720 02/29/24 0706 12/26/23 0851 11/03/23 0918 08/23/23 0928 07/06/23 0946 05/04/23 0825 05/04/23 0824 03/02/23 0921 12/23/22 0916 11/02/22 0902 09/05/22 0827 07/11/22 0852 CREATININE mg/dL 0.77 0.73 0.86 0.86 0.75 0.76 < > 0.8 0.8 0.9 0.8 0.8 1.0 BUN mg/dL 21 14 12 15 16 13 < > 10 11 22* 15 18 21* POTASSIUM mmol/L 5.0 4.8 4.3 4.4 4.8 4.5 < > 4.2 5.2 4.8 3.9 4.8 4.8 SODIUM mmol/L 144 143 143 141 142 143 < > 140 141 142 141 144 141 CO2 mmol/L 22 21 22 23 23 21 < > 26 25 23 25 25 25 CHLORIDE mmol/L 108* 105 105 105 106 105 < > 105 106 108* 107 108* 107 ALBUMIN g/dL 4.2 4.5 4.7 4.5 4.3 4.7 < > 4.4 5.0* 4.3 4.4 4.6 4.7 EGFRNAFR ML/MIN/1.73 M2 -- -- -- -- -- -- -- 95 97 82 92 85 73 HEMOGLOBIN A1C % -- -- 5.6 -- -- 5.3 -- -- -- 5.1 -- -- 5.5 WBC AUTO x10E3/uL 4.8 5.6 6.7 5.5 4.6 5.5 < > -- 7.2 6.1 6.6 7.4 2.8* HEMATOCRIT % 38.4 41.6 42.7 44.7 40.8 42.6 < > -- 48.5* 40.8 40.7 43.7 41.8 HEMOGLOBIN g/dL 13.0 13.4 13.5 14.3 13.1 13.9 < > -- 15.6* 13.0 12.8 14.0 13.5 PLATELETS AUTO x10E3/uL 262 287 256 257 248 270 < > -- 288 269 336 272 240 < > = values in this interval not displayed. Bone Mineral Lab Units 05/06/24 0720 02/29/24 0706 12/26/23 0851 11/03/23 0918 08/23/23 0928 07/06/23 0946 03/02/23 0921 12/23/22 0916 09/05/22 0827 07/11/22 0852 CALCIUM mg/dL 9.5 9.8 10.3* 9.9 9.7 10.1 < > 9.5 < > 10.2 PHOSPHORUS mg/dL 3.0 4.2 3.9 3.3 3.3 3.4 < > 2.4* < > 2.8 PTH pg/mL -- -- 66* -- -- 76* -- 99* -- 129* VITAMIN D NG/ML -- -- -- -- -- -- -- 26.1 -- 27.5 VIT D 25 HYDROXY ng/mL -- -- 12.4* -- -- 18.5* -- -- -- -- < > = values in this interval not displayed. Visit Diagnoses and Active Issues: 1. Kidney replaced by transplant 2. History of immunosuppressive therapy 3. Stage 1 chronic kidney disease SUMMARY: Based on the above findings and my interpretation of the available data and medication review, the following changes and/or recommendations for further testing, monitoring, treatment options, and follow-up are provided for your review: ASSESSMENT AND PLAN 1. Allograft function: Mrs. Rausch has CKD stage II of her renal allograft with a baseline serum creatinine of 0.8-1.0 mg/dL. Her most recent renal allograft function panel showed a serum creatinine of 0.77 mg/dL with stableelectrolytes. Urinalysis showed no evidence of proteinuria or hematuria. 2. Immunosuppression: Her immunosuppressive regimen consist of tacrolimus and mycophenolate, which she is tolerating well. We will continue to maintain her serum tacrolimus level around 6 ng/mL. 3. Blood pressure/volume status: Blood pressure and volume status stable on no antihypertensive or diuretic therapy. I encouraged tocontinue with appropriate hydration and minimization of dietary salt intake. 4. Hematology: CBC with differential stable. 5. Metabolic: Hyperlipidemia improved significantly with low-dose Lipitor. She is to continue on 10 mg daily as prescribed. I encouraged her to continue with appropriate lifestyle modifications. 6. Other active issues: As noted in the HPI her salpingo-oophorectomy procedure went well with no perioperative complications. Results were all benign. Given hair thinning I am going to start her on biotin 5000 mcg daily. Otherwise, from a renal allograft perspective she appears stable and I see no indication to make any further adjustments to her therapy at this time. I will see her back in 2 months for appropriate follow-up and lab review. Orders Placed This Encounter Biotin 5000 MCG capsule Cosigned by Damian Shah MD at 2024 3:18 PM EST documented in this encounter Plan of Treatment Upcoming Encounters Date Type Department Care Team (Late st Contact Info) Description 07/05/2024 12:45 PM EDT Office Visit [facility] [address] [place] [address] Damian Shah MD [address] [place] [address] [place] [phone] documented as of this encounter Visit Diagnoses Diagnosis Kidney replaced by transplant- Primary History of immunosuppressive therapy Stage 1 chronic kidney disease documented in this encounter Care Teams Petroleum Refining Equipment Operator Relationship Specialty Start Date End Date Priscilla He DO [address] [place] [address] PCP - General 02/26/19 documented as of this encounter
--- OUTSIDE RECORDS SUMMARY | 2024-05-29 15:28 | XMS_ITS | Encounter Summary ---
Author Organization [employer] Address [address] [facility] 7 [place] [address] Care Team Providers Care Inside Sales Professional Name Role Phone Priscilla He DO Primary Care Provider + [phone] Reason for Visit * Reason Onset Date Comments Med Refill 05/04/2023 Encounter Details Date Type Department Care Team (Late st Contact Info) Description 05/04/2023 Refill [facility]INE [address] [place] [address] Priscilla He DO [address] [place] [address] Social History Tobacco Use Types Packs/Day Years [...] documented as of this encounter Care Teams Inside Sales Professional Relationship Specialty Start Date End Date Priscilla He DO [address] [place] [address] PCP - General Family Medicine 03/23/17 documented as of this encounter
--- OUTSIDE RECORDS SUMMARY | 2024-05-29 15:28 | XMS_ITS | Encounter Summary ---
Author Organization [employer] Address [address] [place] [address] 7 [place] [address] Care Team Providers Care Toy Mechanic Name Role Phone Priscilla He DO Primary Care Provider [phone] Reason for Visit * Reason Onset Date Comments Nurse Triage 10/20/2023 Encounter Details Date Type Department Care Team (Late st Contact Info) Description 10/20/2023 Telephone [facility] [address] [place], [place] [phone] Priscilla He DO [address] [place], [place] [phone] Nurse Triage Social History Tobacco Use Types Packs/Day Years [...] encounter Miscellaneous Notes * Telephone Encounter - Jennyfer Archuleta RN - 10/20/2023 1:05 PM EDT Call returned to Regine Rausch to triage below. Reports having 3 weeks of asthma sx. Per pt at last visit in [facility] pt dx with bronchitis. Per pt completed prednisone and abx. Per pt last dose of medication on 10/17 .Per pt continues to have cough with sputum. Per pt having to use albuterol inahler Q4H. Per pt does not use nebulizer due to palpitations. Per pt no wheezing or chest tightness. Pt is using Asmaex BID as instructed. Pt states only wants to see PCP for follow up as wants to discuss this prior to upcoming surgery date on 11/06/23. Pt advised of risks of not having evaluation for sx before that date. Pt states will seek UC or ER PRN if sx worsen. Reviewed home care advise, ER precautions and reasons to call back. Future Appointments Date Time Provider Department Center 11/01/2023 11:30 AM Prisiclla He DO MEDICINE [facility] Protocol Used: Asthma Attack (Adult) Protocol-Based Disposition: Discuss with PCP and Callback by Nurse Today Positive Triage Question: * High risk adult asthmatic (i.e., prior intubation for asthma, hospitalized this past year for asthma, frequent steroid treatment) * All higher-acuity triage questions were negative Care Advice Discussed: * Reassurance and Education - Mild Asthma Attack * Asthma Attack * Asthma Attack - Symptoms * Asthma Attack - Treatment - Quick-Relief Medicine * Drink Plenty of Liquids and Use a Humidifier * Avoid Asthma Triggers * Remove Allergens * Reasons To Call Back - An asthma attack is not better after 2 or 3 quick-relief treatments (such as albuterol by inhaleror nebulizer) 20 minutes apart. - Quick-relief asthma medicine (such as albuterol by inhaler or nebulizer) is needed more often than every 4 hours - You become worse * Telephone Encounter - Roberto Carlos Jacques - 10/20/2023 12:39 PM EDT Symptoms: Breathing Trouble, Asthma Attack - Caller Reports Outcome: Schedule an urgent appointment (within 1 hour) or talk to a nurse or provider soon Reason: Caller denied all higher acuity questions The caller accepted this outcome documented in this encounter Plan of Treatment Not on file documented as of this encounter Visit Diagnoses Not on filedocumented in this encounter Additional Health Concerns Assessment Noted Time PHQ-9 Depression Total Score: 0 08/03/19 24 10:24 AM EDT documented as of this encounter Care Teams Toy Mechanic Relationship Specialty Start Date End Date Priscilla He DO [address] [place] [id number] PCP - General Family Medicine 03/23/17 documented as of this encounter
--- OUTSIDE RECORDS SUMMARY | 2024-05-29 15:28 | XMS_ITS | Encounter Summary ---
Author Organization [facility], Address [address] [place] [address] Phone Care Team Providers Care Instructional Technology Facilitator Name Role Phone Priscilla He DO Primary Care Provider Unava ilable Reason for Visit * Reason Onset Date Comments tacro dose change 05/22/2024 Encounter Details Date Type Department Care Team (Late st Contact Info) Description 05/22/2024 Telephone [facility] [address] [place] [address] Elizabeth Carson, RN [address] [place] [address] [place] [phone] tacro dose change Social History Tobacco Use Types Packs/Day Years [...] Telephone Encounter - Elizabeth Carson, RN - 05/22/2024 1:44 PM EST Tacro goal ~6, current level 10.1. Pt to decrease tacro from 1.5/1 to 1mg bid and will rpt level in1 week. documented in this encounter Plan of Treatment Upcoming Encounters Date Type Department Care Team (Late st Contact Info) Description 07/05/2024 12:45 PM EDT Office Visit [facility] [address] [place] [phone] Damian Shah MD [address] [facility] [phone] Scheduled Orders Name Type Priority Associated Diagnoses Orde r Schedule Tacrolimus level Lab Routine Chronic kidney disease stage 2 History of immunosuppressive therapy Kidney replaced by transplant Expected: 05/22/2024, Expires: 06/21/2025 documented as of this encounter Visit Diagnoses Diagnosis Chronic kidney disease stage 2- Primary History of immunosuppressive therapy Kidney replaced by transplant documented in this encounter Care Teams Instructional Technology Facilitator Relationship Specialty Start Date End Date Priscilla He DO [address] [place] [address] PCP - General 02/26/19 documented as of this encounter
--- OUTSIDE RECORDS SUMMARY | 2024-05-29 15:28 | XMS_ITS | Clinical Summary ---
Author Organization [facility] Address [address] [place] [address] Care Team Providers Care Digital Director Name Role Phone Pcp, No Primary Care Provider Unavailabl e Social History Tobacco Use Types Packs/Day Years Used Date Smoking Tobacco: Never Assessed Sex and Gender Information Value Date Recorded Sex Assigned at Not on file Gender Identity Not on file Sexual Orientation Not on file Plan of Treatment Health Maintenance Due Date Last Done Comments Hepatitis C Virus Screening 1972 HIV Screening 1985 DTaP/Tdap/Td Vaccines (1 - Tdap) 1991 Hepatitis B Vaccines (1 of 3 - 19+ 3-dose series) 1991 Pap Smear (Ages 21-65) 1993 Mammogram 2012 Colonoscopy 2017 Pneumococcal Vaccines 50+ (1 of 1 - PCV) 2022 Zoster (Shingles) Vaccine (1 of 2) 2022 Influenza Vaccine 11/23/2023 COVID-19 Vaccine (1 - 2023-2 5 season) 2023 Pneumococcal Vaccine: Pediat maddi (0-5 Years) and At-Risk Patients (6 to 49 Years) Aged Out No longer eligible b ased on patient's age to complete this topic Care Teams Digital Director Relationship Specialty Start Date End Date Pcp, No [address] [place] [address] PCP - General 12/23/18
--- OUTSIDE RECORDS SUMMARY | 2024-05-29 15:28 | XMS_ITS | Clinical Summary ---
Author Organization [employer] Address [address] [place] [address] [address] [place] [address] Care Team Providers Care Switchboard Wire Worker Helper Name Role Phone LaliPriscilla alarcon Primary Care Provider [phone] Allergies No known active allergies Medications Alcohol Swabs (Alcohol Prep) 70 % pads USE TWICE DAILY 3 Active famotidine (Pepcid) 40 MG tablet Take 40 mg by mouth at bedtime. 2 Active FREESTYLE LITE test strip TEST BLOOD SUGAR ONCE DAILY 3 Active SM Fiber Laxative 500 MG tablet TAKE 1 TABLET BY MOUTH EVERY DAY WITH UN GLASS OF WATER FULL 3 Active mycophenolate (Myfortic) 180 MG EC tablet 3 Active pantoprazole (ProtoNix) 40 MG EC tablet Take 40 mg by mouth 2 times daily. 3 Active tacrolimus (Prograf) 0.5 MG capsule 3 Active tacrolimus (Prograf) 1 MG capsule 3 Active Linzess 72 MCG capsule Take 72 mcg by mouth in the morning. 3 Active albuterol (2.5 MG/3ML) 0.083% nebulizer solution INHALE 1 AMPULE USING A NEBULIZER EVERY 4 HOURS NEEDED FOR COUGH, WHEEZING, OR SHORTNESS OF BREATH 90 mL 1 4 Active albuterol (Ventolin HFA) 108 (90 Base) MCG/ACT inhaler INHALE 2 PUFFS BY MOUTH EVERY 4 TO 6 HOURS NEEDED 18 g 1 4 Active loratadine (Claritin) 10 MG tablet Take 1 tablet (10 mg) by mouth Once per day. 90 tablet 3 4 025 Active triamcinolone (Nasacort) 55 MCG/ACT nasal inhaler Administer 2 sprays into each nostril Once per day. 16.5 g 5 4 025 Active budesonide-for moterol (Symbicort) 160-4.5 MCG/ACT inhaler Inhale 2 puffs in the morning and at bedtime. Rinse mouth with water after use to reduce aftertaste and incidence of candidiasis. Do not swallow. 3 each 3 4 025 Active Blood Glucose Monitoring Suppl (Speak With Me Lite) w/Device kit Use to test blood sugar 2 times daily 1 kit 4 Active meclizine (Antivert) 25 MG tablet Take 1 tablet (25 mg) by mouth if needed in the morning, at noon, and at bedtime for dizziness. 30 tablet 2 4 025 Active atorvastatin (Lipitor) 10 MG tablet Take 1 tablet (10 mg) by mouth Once per day. 90 tablet 3 4 025 Active Trulicity 1.5 MG/0.5ML solution auto-injector INJECT ONE PEN (=1.5MG) SUBCUTANEOUSLY ONCE A WEEK DIRECTED 2 mL 5 4 Active Dulaglutide (Trulicity) 3 MG/0.5ML solution auto-injector Inject 3 mg under the skin 1 (one) time per week. 2 mL 3 5 Active Active Problems Problem Noted Date Diagnosed Date Immunosuppression 07/08/2022 Congenital cystic kidney disease 07/08/2022 Mild persistent asthma 07/08/2022 History of renal transplant 07/08/2022 Major depression, recurrent, chronic 07/08/2022 Cerebral cavernous malformation 07/08/2022 Family history of colon cancer 07/08/2022 Chronic gastroesophageal reflux disease 04/29/19 20 Stage 2 chronic kidney disease 04/29/2019 Hyperlipidemia 03/23/2017 Chronic allergic rhinitis 03/23/2017 Type 2 diabetes mellitus 03/23/2017 Resolved Problems Problem Noted Date Diagnosed Date Resolved Date Mild intermittent asthma with exacerbation 10/05/2023 11/01/2023 Assessment & Plan (10/05/2023 11:50 AM EDT): Patient educated to avoid asthma triggers Albuterol inhaler Q 4-6hrs Prednisone 40mg daily for 5 days Cystitis 11/03/2022 06/01/2023 Encounters Date Type Department Care Team Description 05/17/2024 Telephone [facility] MEDICINE [address] [place] [address] Adrianne Velazco, JENISE CT head results 05/16/2024 Telephone [facility] MEDICINE [address] [place] [address] Quiana Rosas MA DME [facility] Physical Therapy 04/16/2024 Refill [facility]INE [address] [place] [address] Priscilla He, 03/14/2024 Orders Only [facility] MED[facility]INE [address] [place] [address] Priscilla He, 03/08/2024 Orders Only [facility] MED[facility]INE [address] [place] [address] Priscilla He, Chest pain, unspecified type (Primary Dx); Benign paroxysmal vertigo of both ears from Last 3 Months Immunizations Name Administration Dates Next Due INFLUENZA INJECTABLE QUADRIV ALANT CCIIV4 MDCK Multi-dose vial 03/02/2021,03/12/2020,01/15/2019 INFLUENZA VACCINE QUADRIVALE NT RECOMBINANT PRESERVATIVE FREE RIV4 02/28/2022 Influenza injectable quadriv alent IIV4 with preservative 01/19/2018,03/23/2017 Influenza injectable quadriv alent preservative free 03/09/2023,01/15/2019 Pfizer Covid-19 Vaccine 12+ 07/04/2020, Pneumococcal Conjugate PCV 13 01/15/2019 Pneumococcal Conjugate PCV 20 03/09/2023 Pneumococcal Polysaccharide PPSV23 01/29/2015 Tdap 01/21/2019 Social History Tobacco Use Types Packs/Day Years Used Date Smoking Tobacco: Never Passive Smoke Exposure: Never Smokeless Tobacco: Never Tobacco Cessation:Counseling Given: Not Answered Alcohol Use Standard Drinks/Week Comments Never 0 [...] Orientation Bisexual 06/08/2022 1: 48 PM EST Last Filed Vital Signs Vital Sign Reading Time Taken Comments Blood Pressure 128/81 01/31/2024 10:54 AM EDT Pulse 70 01/31/2024 10:54 AM EDT Temperature 36.2 ??C (97.2 ??F) 01/31/2024 10:54 AM E DT Respiratory Rate 16 01/31/2024 10:54 AM EDT Oxygen Saturation 100% 11/01/2023 11:19 AM EDT Inhaled Oxygen Concentration - - Weight 64.9 kg (143 lb) 01/31/2024 10:54 AM EDT Height 157.5 cm (5' 2 ) 01/31/2024 10:54 AM EDT Body Mass Index 26.16 01/31/2024 10:54 AM EDT Plan of Treatment Health Maintenance Due Date Last Done Comments CT Colonography 1972 FIT DNA/Cologuard 1972 FIT 1972 FOBT 1972 Sigmoidoscopy 1972 Diabetes: Foot Exam 1982 Eye Exam 1982 Alcohol/Substance Use Screening 1984 Family Planning (PISQ) 1987 Hepatitis B Vaccines (1 of 3 - 19+ 3-dose series) 1991 Zoster Vaccines (1 of 2) 1991 Pap Smear 1993 Diabetes: Urine Protein Screening 03/09/2023 03/09/2022 Cervical Cancer Screening 07/21/2023 HPV/Cotest 07/21/2023 07/20/2018, 07/10/2017 COVID-19 Vaccine ( season) 2023 01/22/2021, 07/04/2020, 06/11/2020 Influenza Vaccine (#1) 2023 , 02/28/2022, 03/02/2021, Additional history exists Diabetes: Hemoglobin A1C 07/31/2024 024, 08/03/2023, 03/09/2023, Additional history exists Depression Screening 08/02/2024 08/03/2023, 08/03/19 24 Lipid Panel 08/21/2024 08/22/2023, 03/09/2022 SDOH Screening 11/29/2024 11/30/2023 Tobacco Screening 01/30/2025 01/31/2024 Mammogram 03/14/2025 03/14/2024, 02/23, 03/07/2022, Additional history exists Colonoscopy 12/16/2026 Colorectal Cancer Screening 12/16/2026 DTaP/Tdap/Td Vaccines (2 - Td or Tdap) 01/21/2029 01/21/2019 RSV Patients and Patients Aged 60 years or older (1 - 1-dose 75+ series) 2047 HIV Screening Completed 08/10/2022 Hepatitis C Screening Completed 08/10/2022 Pneumococcal Vaccine: 50+ Years Completed 03/09/2023, 01/15/2019, 01/29/2015 HIB Vaccines Aged Out No longer eligi ble based on patient's age to complete this topic HPV Vaccines Aged Out No longer eligi ble based on patient's age to complete this topic Hepatitis A Vaccines Aged Out No long er eligible based on patient's age to complete this topic IPV Vaccines Aged Out No longer eligi ble based on patient's age to complete this topic Meningococcal Vaccine Aged Out No esteban mary eligible based on patient's age to complete this topic RSV under 20 months Aged Out No longe r eligible based on patient's age to complete this topic Rotavirus Vaccines Aged Out No longer eligible based on patient's age to complete this topic Procedures Procedure Name Priority Date/Time Associated Diagnosis Comments BI MAMMOGRAM SCREENING TOMOSYNTHESIS BILATERAL Routine 03/14/2024 8:[address] HEAD WO CONTRAST Routine 03/08/2024 3 :00 PM EST Dizziness POCT GLYCATED HEMOGLOBIN, TOTAL Routine 01/31/2024 11:28 AM EDT Type 2 diabetes mellitus without complication, without long-term current use of insulin (CMS/HCC) LIPID PANEL, STANDARD Routine 08/22/2023 10:53 AM EDT Type 2 diabetes mellitus without complication, without long-term current use of insulin (CMS/HCC) HEPATITIS PANEL, GENERAL Routine 08/10/2022 2:21 PM EDT HIV ANTIBODY/ANTIGEN ([place] DPH) Routine 08/10/2022 2:21 PM EDT ALBUMIN, RANDOM URINE W/CREATININE Routine 03/09/2022 11:11 AM EST ZZZ HISTORICAL HPV E6/E7 RFLX SAI 16 18/45 Routine 07/20/2018 12:12 PM EDT from Last 3 Months or Most Recently Relevant to Health Maintenance Results * BI Mammogram Screening Tomosynthesis Bilateral (03/14/2024 8:00 AM EST) Anatomical Region Laterality Modality Breast Bilateral Mammography 03/14/2024 8:00 AM EST Narrative 03/25/2024 9:14 AM EST ? [facility] ? [address] ?[place] [address] ? Mammography Report ? Signed ? Patient: Aissatou Rausch,Regine Narayanan ?MR#: ?? [id number] ? : 1970 ?Acct:[id number] ? Age/Sex: 53 / F ?ADM Date: 03/14/24 ? Loc: HO.MAMMO ? Attending Dr: Priscilla He DO ? Ordering Physician: Priscilla He DO ?Results: 2B ?? enign Findings ? Date of Service: 03/14/24 ?Follow Up: 1 Year From Orig ?? inal Mammogram ? Procedure(s): MM tomosynthesis screening BI ?? Accession Number(s): [id number] ? cc: Priscilla He DO ? EXAMINATION: ?? MM SCREENING DIGITAL BREAST TOMOSYNTHESIS, BILATERAL ? CLINICAL INFORMATION: ? Screening. Asymptomatic. ? COMPARISON: ?? Mammography: Comparison is made with available priors ? TECHNIQUE: ?? Digital breast mammography with tomosynthesis is performed in both the ?? craniocaudal and mediolateral oblique views along with computer-aided ?? detection (CAD). ? FINDINGS: ?? There are scattered areas of fibroglandular density (ACR BI-RADS breast ?? composition Category b). ?? Bilateral reduction mammoplasty. ?? There are no significant masses, abnormal calcifications, or other ?? abnormalities. ? MM/MM tomosynthesis screening BI ?? IMPRESSION: ?? No mammographic evidence of malignancy. ? ASSESSMENT: ? BI-RADS BI-RADS 2 - Benign Findings ? RECOMMENDATION: ?? Routine annual mammography screening. ? 1 year F/U ? This examination should not preclude the clinical evaluation of a ?? suspicious palpable abnormality. ? This patient's information was entered into a reminder system with a ?? target due date for their next mammogram. ? Electronically signed by: ??Suzette Santamaria DO ??03/25/2024 09:11 AM EST ? Dictated By: ?Suzette Santamaria DO ? Signed By: ?<Electronically signed by Suzette Santamaria, DO in OV> ? 12/02/24 0911 ? DD/ 0800 ? TD/TT: 03/14/24 0823 ? Lead Database Developer: ? Procedure Note Georgette, Image - 03/25/2024 Juancarlos [facility] [address] [place] [address] Mammography Report Signed Patient: Regine Weaver#: [id number] : 1970Acct:[id number] Age/Sex: 53 / FADM Date: 03/14/24 Loc: MARCEL.ANNAO Attending Dr: Priscilla He DO Ordering Physician: Priscilla Heults: 2B enign Findings Date of Service: 03/14/24Follow Up: 1 Year From Orig inal Mammogram Procedure(s): MM tomosynthesis screening BI Accession Number(s): [id number] cc: Priscilla He DO EXAMINATION: MM SCREENING DIGITAL BREAST TOMOSYNTHESIS, BILATERAL CLINICAL INFORMATION: Screening. Asymptomatic. COMPARISON: Mammography: Comparison is made with available priors TECHNIQUE: Digital breast mammography with tomosynthesis is performed in both the craniocaudal and mediolateral oblique views along with computer-aided detection (CAD). FINDINGS: There are scattered areas of fibroglandular density (ACR BI-RADS breast composition Category b). Bilateral reduction mammoplasty. There are no significant masses, abnormal calcifications, or other abnormalities. MM/MM tomosynthesis screening BI IMPRESSION: No mammographic evidence of malignancy. ASSESSMENT: BI-RADS BI-RADS 2 - Benign Findings RECOMMENDATION: Routine annual mammography screening. 1 year F/U This examination should not preclude the clinical evaluation of a suspicious palpable abnormality. This patient's information was entered into a reminder system with a target due date for their next mammogram. Electronically signed by: Suzette Santamaria DO 03/25/2024 09:11 AM EST RP Dictated By: Suzette Santamaria DO Signed By: <Electronically signed by Suzette Santamaria DO in OV> 03/25/24 0911 DD/ 0800 TD/TT: 03/14/24 0823 Lead Database Developer: Priscilla He DO IMG BI PROCEDURES Final Resu lt * CT Head w/o Contrast (03/08/2024 3:00 PM EST) Anatomical Region Laterality Modality Head, Neck Computed Tomogra phy 03/08/2024 3:00 PM EST Narrative 05/03/2024 2:10 PM EST ? [facility] ?[address] ?[place] [address] ? CT Scan Report ? Signed ? Patient: Reyez Rausch,Regine Lady ?MR#: ?? [id number] ? : 1970 ?Acct:[id number] ? Age/Sex: 53 / F ?ADM Date: 11/15/24 ? Loc: HO.CT ? Attending Dr: Priscilla He DO ? Ordering Physician: Priscilla He DO ?? Date of Service: 03/08/24 ?? Procedure(s): CT head/brain wo IV con ?? Accession Number(s): [id number] ? cc: Priscilla He DO ? Report Number: ?? [id number]: Total DLP = ??711.00 mGy-cm ?? EXAMINATION: ?? CT HEAD WITHOUT CONTRAST ? CLINICAL INFORMATION: ?? Persistent dizziness ? COMPARISON: ?? None available. ? TECHNIQUE: ?? Contiguous axial imaging was performed from the skull base to vertex ?? without intravenous administration of contrast. ? This CT examination was performed using dose optimization techniques as ?? appropriate, variously including the following: ?? *Automated exposure control ?? *Adjustment of mA and/or kV according to patient size (this includes ?? techniques or standardized protocols for targeted exams where dose is ?? matched to indication/reason for exam; i.e. extremities or head) ?? *Use of iterative reconstruction technique ? FINDINGS: ?? There is an ill-defined oval lesion increased density with internal ?? punctate calcifications in the left frontal lobe (series 4, image 50 of ?? 80) measuring up to 1 cm. ? Sophia No acute intracranial hemorrhage or infarct. The arce-white matter ?? differentiation is preserved. ? No midline shift or hydrocephalus. ?? No acute extra-axial fluid collections. ? The osseous structures are unremarkable. ? No orbital pathology. ?? The paranasal sinuses and mastoid air cells are clear. ? CT/CT head/brain wo IV con ?? IMPRESSION: ?? 1. ??No acute intracranial hemorrhage or edematous infarct. ?? 2. ??Ill-defined oval lesion with internal punctate calcifications in ?? the left frontal lobe measuring up to 1 cm. This is nonspecific with a ?? differential considerations including a cavernous malformation. ?? Recommend further evaluation with MRI brain with and without contrast. ? Electronically signed by: ??Kareen Green MD ??05/03/2024 02:07 PM EST RP ? Dictated By: ?Kareen Green MD ? Signed By: ?<Electronically signed by Kareen Green MD in OV> ? /02/15 1407 ? DD/ 1500 ? TD/TT: 03/08/24 1505 ? Lead Database Developer: ? Procedure Note Donotuseinterpreter, Image - 05/03/[address] [address] [address] Scan Report Signed Patient: Regine Weaver#: [id number] : 1970Acct:[id number] Age/Sex: 53 / FADM Date: 03/08/24 Loc: HO.CT Attending Dr: Priscilla He DO Ordering Physician: Priscilla He DO Date of Service: 03/08/24 Procedure(s): CT head/brain wo IV con Accession Number(s): [id number] cc: Priscilla He DO Report Number: [id number]: Total DLP = 711.00 mGy-cm EXAMINATION: CT HEAD WITHOUT CONTRAST CLINICAL INFORMATION: Persistent dizziness COMPARISON: None available. TECHNIQUE: Contiguous axial imaging was performed from the skull base to vertex without intravenous administration of contrast. This CT examination was performed using dose optimization techniques as appropriate, variously including the following: *Automated exposure control *Adjustment of mA and/or kV according to patient size (this includes techniques or standardized protocols for targeted exams where dose is matched to indication/reason for exam; i.e. extremities or head) *Use of iterative reconstruction technique FINDINGS: There is an ill-defined oval lesion increased density with internal punctate calcifications in the left frontal lobe (series 4, image 50 of 80) measuring up to 1 cm. Sophia No acute intracranial hemorrhage or infarct. The arce-white matter differentiation is preserved. No midline shift or hydrocephalus. No acute extra-axial fluid collections. The osseous structures are unremarkable. No orbital pathology. The paranasal sinuses and mastoid air cells are clear. CT/CT head/brain wo IV con IMPRESSION: 1. No acute intracranial hemorrhage or edematous infarct. 2. Ill-defined oval lesion with internal punctate calcifications in the left frontal lobe measuring up to 1 cm. This is nonspecific with a differential considerations including a cavernous malformation. Recommend further evaluation with MRI brain with and without contrast. Electronically signed by: Kareen Green MD 05/03/2024 02:07 PM [facility] Dictated By: Kareen Green MD Signed By: <Electronically signed by Kareen Green MD in OV> 05/03/24 1407 DD/ 1500 TD/TT: 03/08/24 1505 Lead Database Developer: Priscilla He DO IMG CT PROCEDURES Final Resu lt * POCT HGB A1C (01/31/2024 11:28 AM EDT) Hemoglobin A1C 5.5 4.0 - 6.0 % QC Media Lot # [id number] Lot# Expiration Date 318 Blood 01/31/2024 11:2 8 AM EDT Priscilla He DO POINT OF CARE TEST ENTER/CAROLINE T ORDERABLES Final Result * (ABNORMAL) Lipid Panel, Standard (08/22/2023 10:53 AM EDT) Triglycerides 90 <150 mg/dL [facility] Comment:Desirable Triglyceri de: less than 150 mg/dLBorderline High Triglyceride 150-199 mg/dLHigh Triglyceride: 200-499 mg/dLVery High Triglyceride: greater than or equal to 5OO mg/dL Cholesterol 196 <200 mg/dL [facility] Comment:Desirable Cholestero l: less than 200 mg/dLBorderline High Cholesterol: 200-239 mg/dLHigh Cholesterol: greater than 239 mg/dL LDL Cholesterol Calculated 125(H) <100 mg/dL [facility] Comment:Desirable LDL: less than 100 mg/dLNear Optimal/Above Optimal LDL: 110- 129 mg/dLBorderline High LDL: 130-159 mg/dLHigh LDL: 160-189 mg/dLVery High LDL: greater than or equal to 190 mg/dL HDL Cholesterol 53 >40 mg/dL [facility] Comment:Desirable HDL: great er than 40 mg/dL Note: This HDL assay may give artificially low results in patients with liver disease. Blood Venous blood specimen / Unknown 08/22/2023 10:53 AM EDT 08/22/2023 11:37 AM EDT Priscilla Ying DO LAB BLOOD ORDERABLES Final R esult Performing Organization Address City/[facility] [address]/ZIP Co de Phone Number [facility] [address] [place] [address] [phone] * HIV Ab/Ag (AV LIN) (08/10/2022 2:21 PM EDT) HIV AB/AG Nonreactive Nonreactive [facility] Comment:HIV-1 p24 Ag and/or HIV-1/HIV-2 Ab not detected.A test result that is nonreactive does not exclude thepossibility of exposure to or infection with HIV-1 and/orHIV-2. Nonreactive results in this assay for individualswith prior exposure to HIV-1 and/or HIV-2 may be due toantigen and antibody levels that are below the limit ofdetection of this assay.The [employer] HIV Ag/Ab Combo assay result andsupplemental assay results should be interpreted inconjunction with the patient's clinical presentation,history and other laboratory results. If the results areinconsistent with clinical evidence, additional testing issuggested to confirm the result. 08/10/2022 2:21 PM EDT 08/10/2022 2:21 PM EDT [facility] External Provider LAB BLO OD ORDERABLES Final Result Performing Organization Address [facility] [address]/[place] Co de Phone Number [facility] [address] [place] [address] [phone] * Hepatitis Panel, General (08/10/2022 2:21 PM EDT) Hepatitis A IgM Nonreactive Nonreactive [facility] Comment:IgM antibodies to CEBALLOS V not detected; does not exclude earlyacute or recovered HAV infection. ~Hepatitis B Surface Antibody REACTIVE Nonreactive [facility] Comment:REACTIVE: > 11.99 mI U/mL Hepatitis B Core Antibody Nonreactive Nonreactive [facility] Hepatitis C Antibody Nonreactive Nonreactive [facility] Comment:Antibodies to HCV no t detected; does not exclude early acuteHCV infection. Hepatitis B Surface Ag Negative Negative [facility] 08/10/2022 2:21 PM EDT 08/10/2022 2:21 PM EDT [facility] External Provider LAB BLO OD ORDERABLES Final Result Performing Organization Address City/[facility] [address]/ZIP Co de Phone Number [facility] [address] [place] [address] [phone] * ALBUMIN, RANDOM URINE W/CREATININE (03/09/2022 11:11 AM EST) Microalbumin Urine 0.4 See Note: mg/dL [facility] Comment: Reference Range: ?? Reference Range Not established Microalb/Creat Ratio 3 <30 mcg/mg creat [facility] Comment: ?? The ADA defines abnormalities in albumin excretion as follows: ?? Albuminuria Category ?Result (mcg/mg creatinine) ?? Normal to Mildly increased ?? <30 Moderately increased ? 30-299 ?? Severely increased ? > OR = 300 ?? The ADA recommends that at least two of three specimens collected within a 3-6 month period be abnormal before considering a patient to be within a diagnostic category. Creatinine, Urine 127 20 - 275 mg/dL [facility] 03/09/2022 11:1 1 AM EST Priscilla He DO LAB URINE ORDERABLES Final R esult [facility] * HPV E6/E7 RFLX SAI 16 18/45 (07/20/2018 12:12 PM EDT) HPV 18/45 RNA Test not performed [facility] HPV mRNA E6/E7 Not Detected NOT DETECTED [facility] Comment: This test was performed using the APTIMA(R) HPV Assay ([employer] This assay detects E6/E7 viral messenger RNA (mRNA) from 14 high-risk HPV types (16,18,31,33,35,39,45,51, 52,56,58,59,66,68). For additional information please refer to: http://education.[employer]/faq/BOC893a1 (This link is being provided for informational/ educational purposes only.) The analytical performance characteristics of this assay have been determined by [employer] [place], [place]. The modifications have not been cleared or approved by the FDA. This assay has been validated pursuant to the CLIA regulations and is used for clinical purposes. Please note: ??Effective 01/04/2016, HPV testing will be performed using [employer]'s APTIMA test which targets mRNA. Detecting mRNA instead of DNA, as in older methods, offers significant improvements in specificity. ADDITIONAL TESTING Not indicated () [facility] Comment: Test Performed by [employer], [employer] [place], [address] [place] [address] Sundar Craig M.D., Ph.D., Director of Laboratories , [place] [id number] HPV 16 RNA Test not performed [facility] 07/20/2018 12:1 2 PM EDT Priscilla He DO HISTORICAL/NON ORDERABLE LAB S Final Result [facility] [address] from Last 3 Months or Most Recently Relevant to Health Maintenance Insurance [facility] C3 * Guarantor: Regine Weaver Account Type Relation to Patient Date of Phone Billing Address Personal/Family Self [address] [place] Care Teams Switchboard Wire Worker Helper Relationship Specialty Start Date End Date Priscilla He DO [address] [place] [phone] PCP - General Family Medicine 03/23/17
--- OUTSIDE RECORDS SUMMARY | 2024-05-29 15:28 | XMS_ITS | Encounter Summary ---
Author Organization [id number] Address [address] [facility] [address] 7 [place] [address] Care Team Providers Care Pipefitter Welder Name Role Phone Priscilla He DO Primary Care Provider + [phone] Reason for Visit * Reason Onset Date Comments Med Refill 05/05/2023 Encounter Details Date Type Department Care Team (Late st Contact Info) Description 05/05/2023 Refill [facility] [address] [place] [address] Priscilla He DO [address] [place] [address] Social History Tobacco Use Types Packs/Day Years [...] documented as of this encounter Care Teams Pipefitter Welder Relationship Specialty Start Date End Date Priscilla He DO [address] [place] [address] PCP - General Family Medicine 03/23/17 documented as of this encounter
--- OUTSIDE RECORDS SUMMARY | 2024-05-29 15:29 | XMS_ITS | Encounter Summary ---
Author Organization [facility], Address [address] [place] [address] Phone Care Team Providers Care Engineering Coordinator Name Role Phone Priscilla He DO Primary Care Provider Unava ilable Reason for Visit * Reason Comments Med Refill Encounter Details Date Type Department Care Team (Late st Contact Info) Description 06/25/2021 Refill [facility] [address] [place] [address] Sandor Jansen PA Social History Tobacco Use Types Packs/Day Years [...] Visit [facility] [address] [place] [address] Dmaian Shah MD [address] [place] [address] [place] [address] documented as of this encounter Visit Diagnoses Not on filedocumented in this encounter Care Teams Engineering Coordinator Relationship Specialty Start Date End Date Priscilla He DO [address] [place] [address] PCP - General 02/26/19 documented as of this encounter
--- OUTSIDE RECORDS SUMMARY | 2024-05-29 15:29 | XMS_ITS | Encounter Summary ---
Author Organization [employer] Address [address] [place] [address] 7 [place] [address] Care Team Providers Care Police Manager Name Role Phone Priscilla He DO Primary Care Provider [phone] Encounter Details Date Type Department Care Team (Latest Contact Info) Description 08/20/2020 Abstract [facility] CONVERSIONS Dental, Provider, DDS Social History Tobacco Use Types Packs/Day Years Used Date Smoking Tobacco: Never Assessed Comments Unknown Sex and Gender Information Value [...] on filedocumented in this encounter Care Teams Police Manager Relationship Specialty Start Date End Date Priscilla He DO [address] [place] [address] PCP - General Family Medicine 03/23/17 documented as of this encounter
--- OUTSIDE RECORDS SUMMARY | 2024-05-29 15:29 | XMS_ITS | Clinical Summary ---
Author Organization [facility], Address [address] [place] [address] [place] [address] Phone Care Team Providers Care Community Health Worker Name Role Phone Priscilla He DO Primary Care Provider Unava ilable Allergies No known active allergies Medications Cetirizine HCl 10 MG capsule Take 1 capsule by mouth 1 (one) time each day Active albuterol HFA (PROVENTIL HFA;VENTOLIN HFA) 108 (90 Base) MCG/ACT inhaler Inhale 2 puffs every 4 (four) to 6 (six) hours if needed 05/06/19 20 Active Alcohol Swabs (SM Alcohol Prep) 70 % pads USE TWICE DAILY 11/25/19 20 Active fluticasone (FLONASE) 50 MCG/ACT nasal spray 01/19/20 21 Active Flovent HFA 110 MCG/ACT inhaler 01/19/20 21 Active FREESTYLE LITE test strip 04/30/19 22 Active TRUEplus Lancets 33G misc 04/30/19 22 Active pantoprazole (PROTONIX) 40 MG EC tablet TAKE 1 TABLET (40 MG TOTAL) BY MOUTH ONCE DAILY BEFORE BREAKFAST DO NOT CRUSH, CHEW, OR SPLIT. 90 tablet 3 12/16/19 22 Active DULCOLAX 5 MG EC tablet TAKE 2 TABLETS (10mg) BY MOUTH ONCE DAILY AT BEDTIME 06/21/19 24 Active Linzess 72 MCG capsule Take 1 capsule by mouth 1 (one) time each day Active mycophenolate (MYFORTIC) 180 MG EC tablet Take 3 tablets (540 mg total) by mouth in the morning and 3 tablets (540 mg total) in the evening. 540 tablet 3 10/25/19 24 Active Trulicity 1.5 MG/0.5ML solution pen-injector Inject 1.5 mg under the skin per week 11/01/19 Active tacrolimus (Prograf) 1 MG capsule Take 1 capsule (1 mg total) by mouth in the morning and 1 capsule (1 mg total) in the evening. 180 capsule 3 01/09/20 24 025 Active ergocalciferol 1.25 MG (85968 UT) capsule TAKE 1 CAPSULE (50,000 UNITS TOTAL) BY MOUTH 1 (ONE) TIME PER WEEK FOR LOW VITAMIN D 8 capsule 10 02/21/20 24 Active Biotin 5000 MCG capsule Take 5,000 mcg by mouth 1 (one) time each day 90 capsule 3 05/07/19 25 025 Active atorvastatin (LIPITOR) 10 MG tablet Take 10 mg by mouth in the morning. 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 Weight increased 08/27/2019 Overview (01/23/2024): Replacing diagnoses that were inactivated after the 01/23/24 Regulatory Import Chronic kidney disease stage 2 04/29/2019 Gastroesophageal reflux disease 04/29/2019 History of immunosuppressive therapy 04/29/2019 Kidney replaced by transplant 04/29/2019 Hyperkalemia 04/29/2019 Low blood pressure 04/29/2019 Resolved Problems Problem Noted Date Diagnosed Date Resolved Date Essential hypertension 04/30/201908/26 Encounters Date Type Department Care Team Description 05/22/2024 Telephone [facility] [address] [place] [address] Elizabeth Carson, RN tacro dose change 05/14/2024 Telephone [facility] [address] [address] Elizabeth Carson RN rpt tacro level 05/07/2024 11:15 AM EST Office Visit [facility] [address] [place] [phone] Sandor Jansen PA 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); History of immunosuppressive therapy; Stage 1 chronic kidney disease 03/15/2024 Telephone [facility] [address] [phone] Rakel Hollingsworth [place] 03/05/2024 11:15 AM EST Office [facility] [address] [place] [address] Sandor Jansen PA 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); History of immunosuppressive therapy; Stage 1 chronic kidney disease 03/01/2024 Orders Only [facility] [address] [place] [address] Sandor Jansen PA from Last 3 Months Immunizations Name Administration Dates Next Due Influenza, MDCK, Quadrivalen t, with preservative 03/02/2021,03/12/2020,01/15/2019 Influenza, Recombinant, Quadrivalent, Pf 022 Pfizer SARS-COV-2 01/22/2021,07/04/2020,06/11/19 21 Pneumococcal Conjugate 13-Valent 01/15/2019 Family History Medical History Relation Comments Autosomal Dominant Polycystic Kidney Disease Chi ld Kidney disease Child Heart disease Father Autosomal Dominant Polycystic Kidney Disease Mot her Hypertension Mother Kidney disease Mother Stroke Mother Autosomal Dominant Polycystic Kidney Disease Sib ling Hypertension Sibling Kidney disease Sibling Relation Status Comments Child Father Mother Sibling Social History Tobacco Use Types Packs/Day Years Used Date Smoking Tobacco: Never Alcohol Use Standard Drinks/Week Comments No 0 (1 standard drink = 0.6 oz pur e alcohol) Comments Unknown Sex and Gender Information Value Date Recorded Sex Assigned at Not on file Legal Sex Female 4:37 PM EST Gender Identity Not on file Sexual Orientation Not on file Last Filed Vital Signs Vital Sign Reading Time Taken Comments Blood Pressure 122/76 05/07/2024 11:13 AM EST Pulse 74 02/22/2019 12:00 PM EDT Temperature - - Respiratory Rate 16 02/22/2019 12:00 PM EDT Oxygen Saturation - - Inhaled Oxygen Concentration - - Weight 66 kg (145 lb 6.4 oz) 05/07/2024 11:13 AM EST Height 162.6 cm (5' 4 ) 05/07/2024 11:13 AM EST Body Mass Index 24.96 05/07/2024 11:13 AM EST Plan of Treatment Upcoming Encounters Date Type Department Care Team (Late st Contact Info) Description 07/05/2024 12:45 PM EDT Office Visit [facility] [address] [place] [address] Damian Shah MD [address] [place] [address] [place] [phone] Health Maintenance Due Date Last Done Comments Breast Cancer Screening 1972 Hepatitis B Vaccine (1 of 3 - 19+ 3-dose series) 1991 Colonoscopy (Post-Transplant Patient) 12/04/2019 Mammogram (Post-Transplant Patient) 12/04/2019 Pelvic Exam (Post-Transplant Patient) 12/04/2019 Diabetes: Ophthalmology Exam 07/12/2022 Diabetes: Pedal Pulse Checked 07/12/2022 Diabetes: Sensory Foot Exam 07/12/2022 Diabetes: Visual Foot Exam 07/12/2022 Influenza Vaccine (#1) 2023 3, 02/28/2022, 03/02/2021, Additional history exists Diabetes: Hemoglobin A1C 05/02/2024 024, 12/26/2023, 08/03/2023, Additional history exists Pneumococcal Vaccine: Pediat rics (0 to 5 Years) and At-Risk Patients (6 to 64 Years) Completed 03/09/2023, 01/15/2019, 01/29/2015 Procedures Procedure Name Priority Date/Time Associated Diagnosis Comments TACROLIMUS LEVEL Routine 05/17/2024 7:52 AM EST Chronic kidney disease stage 2 Kidney replaced by transplant History of immunosuppressive therapy LIPID PANEL Routine 05/06/2024 7:21 AM EST Kidney replaced by transplant History of immunosuppressive therapy Stage 1 chronic kidney disease MYCOPHENOLIC ACID AND METABO. Routine 05/06/2024 7:20 AM EST Kidney replaced by transplant History of immunosuppressive therapy Chronic kidney disease stage 2 Proteinuria, not otherwise specified CREATINE KINASE Routine 05/06/2024 7:20 AM EST Kidney replaced by transplant History of immunosuppressive therapy Chronic kidney disease stage 2 Proteinuria, not otherwise specified ALT Routine 05/06/2024 7:20 AM EST Kidney replaced by transplant History of immunosuppressive therapy Chronic kidney disease stage 2 Proteinuria, not otherwise specified AST Routine 05/06/2024 7:20 AM EST Kidney replaced by transplant History of immunosuppressive therapy Chronic kidney disease stage 2 Proteinuria, not otherwise specified TACROLIMUS LEVEL Routine 05/06/2024 7:20 AM EST Kidney replaced by transplant History of immunosuppressive therapy Chronic kidney disease stage 2 Proteinuria, not otherwise specified PROTEIN / CREATININE RATIO, URINE Routine 05/06/2024 7:20 AM EST Kidney replaced by transplant History of immunosuppressive therapy Chronic kidney disease stage 2 Proteinuria, not otherwise specified URINALYSIS, COMPLETE Routine 05/06/2024 7:20 AM EST Kidney replaced by transplant History of immunosuppressive therapy Chronic kidney disease stage 2 Proteinuria, not otherwise specified RENAL FUNCTION PANEL Routine 05/06/2024 7:20 AM EST Kidney replaced by transplant History of immunosuppressive therapy Chronic kidney disease stage 2 Proteinuria, not otherwise specified CBC AND DIFFERENTIAL Routine 05/06/2024 7:20 AM EST Kidney replaced by transplant History of immunosuppressive therapy Chronic kidney disease stage 2 Proteinuria, not otherwise specified MICROSCOPIC EXAMINATION - DO NOT USE Routine 05/06/2024 7:20 AM EST PROTEIN / CREATININE RATIO, URINE Routine 03/01/2024 8:50 AM EST URINALYSIS, COMPLETE Routine 03/01/2024 8:50 AM EST MICROSCOPIC EXAMINATION - DO NOT USE Routine 03/01/2024 8:50 AM EST CREATINE KINASE Routine 02/29/2024 7:06 AM EST Chronic kidney disease stage 2 History of immunosuppressive therapy Kidney replaced by transplant ALT Routine 02/29/2024 7:06 AM EST Chronic kidney disease stage 2 History of immunosuppressive therapy Kidney replaced by transplant AST Routine 02/29/2024 7:06 AM EST Chronic kidney disease stage 2 History of immunosuppressive therapy Kidney replaced by transplant TACROLIMUS LEVEL Routine 02/29/2024 7:06 AM EST Chronic kidney disease stage 2 History of immunosuppressive therapy Kidney replaced by transplant PROTEIN / CREATININE RATIO, URINE Routine 02/29/2024 7:06 AM EST Chronic kidney disease stage 2 History of immunosuppressive therapy Kidney replaced by transplant URINALYSIS, COMPLETE Routine 02/29/2024 7:06 AM EST Chronic kidney disease stage 2 History of immunosuppressive therapy Kidney replaced by transplant RENAL FUNCTION PANEL Routine 02/29/2024 7:06 AM EST Chronic kidney disease stage 2 History of immunosuppressive therapy Kidney replaced by transplant CBC AND DIFFERENTIAL Routine 02/29/2024 7:06 AM EST Chronic kidney disease stage 2 History of immunosuppressive therapy Kidney replaced by transplant TACROLIMUS LEVEL Routine 02/29/2024 7:05 AM EST HEMOGLOBIN A1C Routine 12/26/2023 8:51 AM EDT Kidney replaced by transplant Gastroesophageal reflux disease History of immunosuppressive therapy 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 Pathologist [facility] Tacrolimus Lvl 10.1 2.0 - 20.0 ng/mL [facility] Comment: ?Trough (immediately following ?transplant) ? 15.0 ?Trough (steady state, 2 weeks or ?more after transplant): ?3.0 - 8.0 ?Performed by LC-MS/MS technology. ?Effective May 25, 2024 the reference ? interval for Tacrolimus will be updated to: ? 5.0 - 20.0 ng/mL Blood (Blood, Venous) 05/17/2024 7:52 AM EST 05/17/2024 Narrative [facility] - 05/20/2024 6:06 PM EST Test(s) 850601-Vbbjjnyhqm (FK506), Blood was developed and its performance characteristics determined by [facility]. It has not been cleared or approved by the Food and Drug Administration. us Damian Shah MD LAB BLOOD ORDERABLES Final Result [facility] [place] [address] * Lipid panel (05/06/2024 7:21 AM EST) [facility] Cholesterol 134 100 - 199 mg/dL [facility] Triglycerides 132 0 - 149 mg/dL [facility] HDL 48 >39 mg/dL [facility] VLDL Cholesterol Richard 23 5 - 40 mg/dL [facility] LDL Calculated 63 0 - 99 mg/dL [facility] Blood (Blood, Venous) 05/06/2024 7:21 AM EST 05/06/2024 us Sandor SINGH LAB BLOOD ORDERABLES Final Re sult [facility] [address] [place] [address] * Urinalysis, Complete w/reflex to Culture (05/06/2024 7:20 AM EST) Only the most recent of2 resultswithin the time period is included. Specific [place], Urine 1.024 1.005 - 1.030 [facility] pH Urine 5.5 5.0 - 7.5 [facility] [phone] Color, Urine Yellow Yellow [facility] [phone] Appearance Urine Clear Clear [facility] [phone] WBC Esterase Urine Negative Negative [facility] [phone] Protein, Ur Negative Negative/Tra ce [facility] [phone] Glucose, Ur Negative Negative [facility] [phone] Ketones, Urine Negative Negative [facility] [phone] Blood Urine Negative Negative [facility] [phone] Bilirubin Urine Negative Negative [facility] [phone] Urobilinogen Urine 0.2 0.2 - 1.0 mg/dL [facility] [phone] Nitrite, Urine Negative Negative [facility] [phone] Microscopic Examination Comment [facility] Comment:Microscopic follows if indicated. Other Microsc. Observations See below: [facility] Comment:Microscopic was suma cated and was performed. URINALYSIS REFLEX Comment [facility] Comment:This specimen will n ot reflex to a Urine Culture. Urine (Urine, Clean Catch) 05/06/2024 7:20 AM EST 05/06/2024 Sandor SINGH LAB URINE ORDERABLES Final Re sult Performing Organization Address City/[facility]/ZIP Co de Phone Number [facility] [address] [place] [address] * Mycophenolic Acid (05/06/2024 7:20 AM EST) Mycophenolic Acid 2.9 1.0 - 3.5 ug/mL [facility] Mycophenolic Acid Glucuronide 47 15 - 125 ug/mL [facility] Blood (Blood, Venous) 05/06/2024 7:20 AM EST 05/06/2024 Narrative [facility] - 2024 11:06 AM EST Test(s) 263360-[id number] Acid; 982584- Mycophenolic Acid Glucuronide was developed and its performance characteristics determined by [facility]. It has not been cleared or approved by the Food and Drug Administration. Sandor SINGH LAB BLOOD ORDERABLES Final Re sult [facility] [address] [place] [phone] * (ABNORMAL) Microscopic Examination (05/06/2024 7:20 AM EST) Only the most recent of2 resultswithin the time period is included. WBC, Urine None seen 0 - 5 /hpf [facility] RBC, Urine 0-2 0 - 2 /hpf [facility] Squamous Epithelial, Urine >10(A) 0 - 10 /hpf [facility] Casts None seen None seen /lpf [facility] Bacteria, Urine Few None seen/Few [facility] 05/06/2024 7:20 AM EST 05/06/2024 Sandor SINGH LAB MICROBIOLOGY - GENERAL OR DERABLES Final Result Performing Organization Address [facility] de Phone Number [facility] [address] [place] [address] * Protein, Total, Random Urine w/Creatinine (Protein/Creat Ratio) (05/06/2024 7:20 AM EST) Only the most recent of2 resultswithin the time period is included. Creatinine, Ur 128.8 Not Estab. mg/dL [facility] Protein, Ur 8.0 Not Estab. mg/dL [facility] Urine Protein/Creatin ine Ratio 62 0 - 200 mg/g creat [facility] Urine (Urine, Clean Catch) 05/06/2024 7:20 AM EST 05/06/2024 Sandor SINGH LAB URINE ORDERABLES Final Re sult Performing Organization Address [facility] Co de Phone Number [facility] [address] [place] [address] * CBC and Differential (05/06/2024 7:20 AM EST) Only the most recent of2 resultswithin the time period is included. WBC 4.8 3.4 - 10.8 x10E3/uL [facility] RBC 4.29 3.77 - 5.28 x10E6/uL [facility] Hemoglobin 13.0 11.1 - 15.9 g/dL [facility] Hematocrit 38.4 34.0 - 46.6 % [facility] MCV 90 79 - 97 fL [facility] MCH 30.3 26.6 - 33.0 pg [facility] MCHC 33.9 31.5 - 35.7 g/dL [facility] RDW 13.2 11.7 - 15.4 % [facility] Platelets 262 150 - 450 x10E3/uL [facility] Neutrophils Relative 47 Not Estab. % [facility] Lymphocytes Relative 40 Not Estab. % [facility] Monocytes 7 Not Estab. % [facility] Eosinophils Relative 5 Not Estab. % [facility] Basophils Relative 1 Not Estab. % [facility] Neutrophils Absolute 2.3 1.4 - 7.0 x10E3/uL [facility] Lymphocytes Absolute 1.9 0.7 - 3.1 x10E3/uL [facility] Monocytes Absolute 0.3 0.1 - 0.9 x10E3/uL [facility] Eosinophils Absolute 0.2 0.0 - 0.4 x10E3/uL [facility] Basophils Absolute 0.0 0.0 - 0.2 x10E3/uL [facility] Immature Granulocytes 0 Not Estab. % [facility] Immature Grans (Absolute) 0.0 0.0 - 0.1 x10E3/uL [facility] Blood (Blood, Venous) 05/06/2024 7:20 AM EST 05/06/2024 Sandor SINGH LAB BLOOD ORDERABLES Final Re sult [facility] [address] [place] [address] * ALT (05/06/2024 7:20 AM EST) Only the most recent of2 resultswithin the time period is included. ALT (SGPT) 29 0 - 32 IU/L [facility] Blood (Blood, Venous) 05/06/2024 7:20 AM EST 05/06/2024 Sandor SINGH LAB BLOOD ORDERABLES Final Re sult Performing Organization Address [facility]/ZIP Co de Phone Number [facility] [address] [place] [address] * AST (05/06/2024 7:20 AM EST) Only the most recent of2 resultswithin the time period is included. AST (SGOT) 26 0 - 40 IU/L [facility] Blood (Blood, Venous) 05/06/2024 7:20 AM EST 05/06/2024 Sandor SINGH LAB BLOOD ORDERABLES Final Re sult Performing Organization Address City/[facility]/ZIP Co de Phone Number [facility] [address] [place] [address] * CK (05/06/2024 7:20 AM EST) Only the most recent of2 resultswithin the time period is included. Creatine Kinase (CK/CPK) 73 32 - 182 U/L [facility] Blood (Blood, Venous) 05/06/2024 7:20 AM EST 05/06/2024 Sandor SINGH LAB BLOOD ORDERABLES Final Re sult [facility] [address] [place] [address] * (ABNORMAL) Renal Function Panel (05/06/2024 7:20 AM EST) Only the most recent of2 resultswithin the time period is included. Glucose 110(H) 70 - 99 mg/dL [facility] BUN 21 6 - 24 mg/dL [facility] Creatinine 0.77 0.57 - 1.00 mg/dL [facility] eGFR CKD-EPI CR 2020 93 >59 mL/min/1.7 3 [facility] BUN/Creatinine Ratio 27(H) 9 - 23 [facility] Sodium 144 134 - 144 mmol/L [facility] Potassium 5.0 3.5 - 5.2 mmol/L [facility] Chloride 108(H) 96 - 106 mmol/L [facility] Bicarbonate (CO2) 22 20 - 29 mmol/L [facility] Calcium 9.5 8.7 - 10.2 mg/dL [facility] Phosphorus 3.0 3.0 - 4.3 mg/dL [facility] Albumin 4.2 3.8 - 4.9 g/dL [facility] Blood (Blood, Venous) 05/06/2024 7:20 AM EST 05/06/2024 Sandor SINGH LAB BLOOD ORDERABLES Final Re sult [facility] [address] [place] [address] * Hemoglobin A1c (12/26/2023 8:51 AM EDT) Hemoglobin A1C 5.6 4.8 - 5.6 % [facility] Comment: ? Prediabetes: 5.7 - 6.4 ? Diabetes: >6.4 ? Glycemic control for adults with diabetes: <7.0 Blood (Blood, Venous) 12/26/2023 8:51 AM EDT 12/26/2023 Sandor SINGH LAB BLOOD ORDERABLES Final Re sult Performing Organization Address [facility] Co de Phone Number [employer] [facility] [address] [place] [address] from Last 3 Months or Most Recently Relevant to Health Maintenance Insurance [place]ICAID [place] Care Teams Community Health Worker Relationship Specialty Start Date End Date Priscilla He DO [address] [place] [address] PCP - General 02/26/19
--- OUTSIDE RECORDS SUMMARY | 2024-05-29 15:29 | XMS_ITS | Encounter Summary ---
Author Organization [facility], Address [address] [place] [address] Phone Care Team Providers Care Non Food Receiving Clerk Name Role Phone Priscilla He DO Primary Care Provider Unava ilable Encounter Details Date Type Department Care Team (Late st Contact Info) Description 12/01/2021 Documentation Only [facility], [address] [place] [address] Rakel [place] [address] [place] [address] Social History Tobacco Use Types Packs/Day Years [...] Visit [facility] [address] [place] [address] Damian Shah MD [address] [place] [address] documented as of this encounter Visit Diagnoses Not on filedocumented in this encounter Care Teams Non Food Receiving Clerk Relationship Specialty Start Date End Date Priscilla He DO [address] [place] [address] PCP - General 02/26/19 documented as of this encounter
--- OUTSIDE RECORDS SUMMARY | 2024-05-29 15:29 | XMS_ITS | Encounter Summary ---
Author Organization [facility], Address [address] [place] [address] Phone Care Team Providers Care Senior Statistical Programmer Name Role Phone Priscilla He DO Primary Care Provider Unava ilable Reason for Visit * Reason Comments Med Refill Encounter Details Date Type Department Care Team (Late st Contact Info) Description 06/28/2021 Refill [facility] [address] [place] [address] Sandor Jansen PA Social History [...] Visit [facility] [address] [place] [address] Damian Shah MD [address] [place] [address] [place] [address] documented as of this encounter Visit Diagnoses Not on filedocumented in this encounter Care Teams Senior Statistical Programmer Relationship Specialty Start Date End Date Priscilla He DO [address] [place] [address] PCP - General 02/26/19 documented as of this encounter
[2024-05-31 07:44] LABS: Lyme Abs Screen <0.90 index
[2024-05-31 20:39] LABS: Cardiolipin IgG Ab <2.0 GPL-U/mL; Cardiolipin IgM Ab 3.4 MPL-U/mL
[2024-06-03 06:44] LABS: PTT (LAC) Screen 34 sec (<=40)
== END 2024-05-29 14:15 | disposition home or self-care (01) ==
LOC: HO.LAB 14:14
PROVIDERS: PCP Family Medicine; Visit Provider Psychiatry & Neurology Neurology
DX: I67.9 Cerebrovascular disease, unspecified (principal)
CPT/HCPCS: 36415; 85597; 85598; 85613; 85652; 85730; 86147; 86617; 86618

== ENCOUNTER 2024-06-06 08:23 | Outpatient (REF) | payer MEDICAID, SELFPAY ==
--- OUTSIDE RECORDS SUMMARY | 2024-06-06 08:31 | XMS_ITS | Encounter Summary ---
Author Organization [facility], Address [address] [place] [address] Phone Care Team Providers Care Superintendent Menagerie Name Role Phone Priscilla He DO Primary Care Provider Unava ilable Reason for Visit * Reason Onset Date Comments tacro dose change 05/22/2024 Encounter Details Date Type Department Care Team (Late st Contact Info) Description 05/22/2024 Telephone [facility] [address] [place] [address] Elizabeth Carson, RN [address] [place] [address] [place] [phone] tacro dose change Social History Tobacco Use [...] Visit [facility] [address] [place] [address] Damian Shah MD [address] [place] [address] [place] [phone] documented as of this encounter Procedures Procedure Name Priority Date/Time Associated Diagnosis Comments TACROLIMUS LEVEL Routine 05/29/2024 7:04 AM EST Chronic kidney disease stage 2 History of immunosuppressive therapy Kidney replaced by transplant documented in this encounter Results * Tacrolimus level (05/29/2024 7:04 AM EST) Tacrolimus Lvl 9.4 5.0 - 20.0 ng/mL [facility]: Target steady state trough concentration for Tacrolimus varies based on type of organ transplant immunosuppressive protocol and other patient specific factors. ??Tacrolimus trough concentrations should be interpreted in conjunction with clinical assessments of rejection and tolerability. ??Values obtained with different assay methods cannot be used interchangeably due to differences in assay methods and cross-reactivty with metabolites, nor should correction factors be applied. ??Therefore, consistent use of one assay for individual patients is recommended. Detection Limit = 0.5 ng/mL Performed by LC-MS/MS technology ?Please note reference interval change Blood (Blood, Venous) 05/29/2024 7:04 AM EST 05/29/2024 Narrative [facility] - 06/01/2024 11:06 AM EST Test(s) 069790-[id number] (FK506), Blood was developed and its performance characteristics determined by [facility]. It has not been cleared or approved by the Food and Drug Administration. Damian Shah MD LAB BLOOD ORDERABLES Final Result [facility] [place] [address] documented in this encounter Visit Diagnoses Diagnosis Chronic kidney disease stage 2- Primary History of immunosuppressive therapy Kidney replaced by transplant documented in this encounter Care Teams Superintendent Menagerie Relationship Specialty Start Date End Date Priscilla He DO [address] [place] [address] PCP - General 02/26/19 documented as of this encounter
--- OUTSIDE RECORDS SUMMARY | 2024-06-06 08:31 | XMS_ITS | Encounter Summary ---
Author Organization [facility], Address [address] [place] [address] Phone Care Team Providers Care Line Crewman Name Role Phone Priscilla He DO Primary Care Provider Unava ilable Encounter Details Date Type Department Care Team (Latest Contact Info) Description 05/07/2024 11:15 AM EST Office Visit [facility] [address] [place] [address] Sandor Jansen PA Kidney replaced [...] Date of Transplant: July 21, 2018 at [facility] Immunosuppressant regimen includes Tacrolimus and mycophenolate In [...] ONCE DAILY AT BEDTIME ergocalciferol 1.25 MG (80561 UT) capsule TAKE 1 CAPSULE (50,000 UNITS [...] Visit [facility] [address] [place] [address] Damian Shah MD [address] [place] [address] 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
--- OUTSIDE RECORDS SUMMARY | 2024-06-06 08:31 | XMS_ITS | Encounter Summary ---
Author Organization [facility], Address [address] [place] [address] Phone Care Team Providers Care Assistant Foreman Name Role Phone Priscilla He DO Primary Care Provider Unava ilable Reason for Visit * Reason Onset Date Comments rpt tacro level 05/14/2024 Encounter Details Date Type Department Care Team (Late st Contact Info) Description 05/14/2024 Telephone [facility] [address] [place] [address] Elizabeth Carson, RN [address] [place] [address] [place] [address] rpt tacro level Social History [...] Visit [facility] [address] [place] [address] Damian Shah MD [address] [place] [address] [place] [phone] documented as of this encounter Procedures Procedure Name Priority Date/Time Associated Diagnosis Comments TACROLIMUS LEVEL Routine 05/17/2024 7:52 AM EST Chronic kidney disease stage 2 Kidney replaced by transplant History of immunosuppressive therapy documented in this encounter Results * Tacrolimus level (05/17/2024 7:52 AM EST) Tacrolimus Lvl 10.1 2.0 - 20.0 ng/mL [facility] Comment: ?Trough (immediately following ?transplant) ? 15.0 ?Trough (steady state, 2 weeks or ?more after transplant): ?3.0 - 8.0 ?Performed by LC-MS/MS technology. ?Effective May 25, 2024 the reference ? interval for Tacrolimus will be updated to: ? 5.0 - 20.0 ng/mL Blood (Blood, Venous) 05/17/2024 7:52 AM EST 05/17/2024 Narrative [facility] - 05/20/2024 6:06 PM EST Test(s) [id number] (FK506), Blood was developed and its performance characteristics determined by [facility]. It has not been cleared or approved by the Food and Drug Administration. us Damian Shah MD LAB BLOOD ORDERABLES Final Result [facility] [address] [place] [address] documented in this encounter Visit Diagnoses Diagnosis Chronic kidney disease stage 2- Primary Kidney replaced by transplant History of immunosuppressive therapy documented in this encounter Care Teams Assistant Foreman Relationship Specialty Start Date End Date Priscilla He DO [address] [place] [address] PCP - General 02/26/19 documented as of this encounter
--- OUTSIDE RECORDS SUMMARY | 2024-06-06 08:32 | XMS_ITS | Encounter Summary ---
Author Organization [employer] Address [address] [facility] 7 [place] [address] Care Team Providers Care Ad Operations Coordinator Name Role Phone Priscilla He DO Primary Care Provider + [phone] Reason for Visit * Reason Onset Date Comments Med Refill 06/24/2023 Encounter Details Date Type Department Care Team (Late st Contact Info) Description 06/24/2023 Refill [facility] MEDICINE [address] [place] [address] Priscilla He DO [address] [place] [address] Social History Tobacco Use Types Packs/Day Years [...] documented as of this encounter Care Teams Ad Operations Coordinator Relationship Specialty Start Date End Date Priscilla He DO [address] [place] [address] PCP - General Family Medicine 03/23/17 documented as of this encounter
--- OUTSIDE RECORDS SUMMARY | 2024-06-06 08:32 | XMS_ITS | Clinical Summary ---
Author Organization [facility] Address [address] [place] [address] Care Team Providers Care Coding Compliance Manager Name Role Phone Pcp, No Primary Care [...] age to complete this topic Care Teams Coding Compliance Manager Relationship Specialty Start Date End Date Pcp, No [address] [place] [address] PCP - General 12/23/18
--- OUTSIDE RECORDS SUMMARY | 2024-06-06 08:32 | XMS_ITS | Encounter Summary ---
Author Organization [employer] Address [address] [facility] 7 [place] [address] Care Team Providers Care Lighting Fixtures Decorator Name Role Phone Priscilla He DO Primary Care Provider + [phone] Reason for Visit * Reason Onset Date Comments Med Refill 05/05/2023 Encounter Details Date Type Department Care Team (Late st Contact Info) Description 05/05/2023 Refill [facility] MEDICINE [address] [place] [address] Priscilla He DO [address] [place] [address] Social History Tobacco Use Types Packs/Day Years [...] documented as of this encounter Care Teams Lighting Fixtures Decorator Relationship Specialty Start Date End Date Priscilla He DO [address] [place] [address] PCP - General Family Medicine 03/23/17 documented as of this encounter
--- OUTSIDE RECORDS SUMMARY | 2024-06-06 08:32 | XMS_ITS | Encounter Summary ---
Author Organization [employer] Address [address] [place] [address] 7 [place] [address] Care Team Providers Care Chain Hoist Operator Name Role Phone LaliPriscilla alarcon Primary Care Provider + [phone] Reason for Visit * Reason Onset Date Comments CT head results 05/17/2024 Encounter Details Date Type Department Care Team (Late st Contact Info) Description 05/17/2024 Telephone [facility] MEDICINE [address] [place] [address] Adrianne Velazco, JENISE [address] [place] [address] CT head results Social History Tobacco Use [...] 11:32 AM EST TC placed to patient [phone] in regards to head CT from 03/08/24 [...] documented as of this encounter Care Teams Chain Hoist Operator Relationship Specialty Start Date End Date Priscilla He DO [address] [place] [address] PCP - General Family Medicine 03/23/17 documented as of this encounter
--- OUTSIDE RECORDS SUMMARY | 2024-06-06 08:32 | XMS_ITS | Encounter Summary ---
Author Organization [facility], Address [address] [place] [address] Phone Care Team Providers Care Condominium Property Manager Name Role Phone Priscilla He DO Primary Care Provider Unava ilable Reason for Visit * Reason Comments Med Refill Encounter Details Date Type Department Care Team (Late st Contact Info) Description 10/25/2023 Refill [facility] [address] [place] [address] Damian Shah MD [address] [place] [address] [place] [address] Social History Tobacco Use Types [...] Visit [facility] [address] [place] [address] Damian Shah MD [address] [place] [address] [place] [address] documented as of this encounter Visit Diagnoses Not on filedocumented in this encounter Care Teams Condominium Property Manager Relationship Specialty Start Date End Date Priscilla He DO [address] [place] [address] PCP - General 02/26/19 documented as of this encounter
--- OUTSIDE RECORDS SUMMARY | 2024-06-06 08:32 | XMS_ITS | Encounter Summary ---
Author Organization [employer] Address [address] [place] [address] [place], [place] [address] Care Team Providers Care Machine Ironer Name Role Phone Priscilla He DO Primary Care Provider [phone] Encounter Details Date Type Department Care Team ([facility] st Contact Info) Description 10/24/2022 Orders Only [facility] MED & PEDS [address] [place] [address] Priscilla Falk LPN Social History Tobacco Use [...] documented as of this encounter Care Teams Machine Ironer Relationship Specialty Start Date End Date Priscilla He DO [address] [place] [address] PCP - General Family Medicine 03/23/17 documented as of this encounter
--- OUTSIDE RECORDS SUMMARY | 2024-06-06 08:32 | XMS_ITS | Encounter Summary ---
Author Organization [employer] Address [address] [facility] 7 [place] [address] Care Team Providers Care Sprue Knocker Name Role Phone Priscilla He DO Primary Care Provider + [phone] Reason for Visit * Reason Onset Date Comments Referral 08/04/2023 Encounter Details Date Type Department Care Team ([facility] st Contact Info) Description 08/04/2023 Telephone [facility] MEDICINE [address] [place], [place] [phone] Priscilla He DO [address] [place], [place] [phone] Referral Social History Tobacco Use Types Packs/Day [...] it was canceled. Please contact pt at [phone]. documented in this encounter Plan of Treatment Not on file documented as of this encounter Visit Diagnoses Not on filedocumented in this encounter Additional Health Concerns Assessment Noted Time PHQ-9 Depression Total Score: 0 08/03/19 24 10:24 AM EDT documented as of this encounter Care Teams Sprue Knocker Relationship Specialty Start Date End Date Priscilla He DO [address] [place] [address] PCP - General Family Medicine 03/23/17 documented as of this encounter
--- OUTSIDE RECORDS SUMMARY | 2024-06-06 08:32 | XMS_ITS | Encounter Summary ---
Author Organization [employer] Address [address] [facility] 7 [place] [address] Care Team Providers Care Metal Furniture Glazier Name Role Phone Priscilla He DO Primary Care Provider [phone] Reason for Visit * Reason Onset Date Comments Nurse Triage 10/20/2023 Encounter Details Date Type Department Care Team (Late st Contact Info) Description 10/20/2023 Telephone [facility] MEDICINE [address] [place], [place] [phone] Priscilla He DO [address] [place], [place] [phone] Nurse Triage Social History Tobacco Use Types [...] sx. Per pt at last visit in [facility] pt dx with bronchitis. Per pt completed [...] Time Provider Department Center 11/01/2023 11:30 AM Priscilla He DO MEDICINE [facility] Protocol Used: Asthma Attack (Adult) Protocol-Based Disposition: [...] documented as of this encounter Care Teams Metal Furniture Glazier Relationship Specialty Start Date End Date Priscilla He DO [address] [place] [address] PCP - General Family Medicine 03/23/17 documented as of this encounter
--- OUTSIDE RECORDS SUMMARY | 2024-06-06 08:32 | XMS_ITS | Encounter Summary ---
Author Organization [facility], Address [address] [place] [address] Phone Care Team Providers Care Field Technical Assistant Name Role Phone Priscilla He DO Primary Care Provider Unava ilable Encounter Details Date Type Department Care Team (Late st Contact Info) Description 10/14/2022 Documentation Only [facility], [address] [place] [address] Damian Shah MD [address] [place] [address] [place] [address] Social History Tobacco Use Types [...] Visit [facility] [address] [place] [address] Damian Shah MD [address] [place] [address] [place] [address] documented as of this encounter Visit Diagnoses Not on filedocumented in this encounter Care Teams Field Technical Assistant Relationship Specialty Start Date End Date Priscilla He DO [address] [place] [address] PCP - General 02/26/19 documented as of this encounter
--- OUTSIDE RECORDS SUMMARY | 2024-06-06 08:32 | XMS_ITS | Encounter Summary ---
Author Organization [employer] Address [address] [facility] 7 [place] [address] Care Team Providers Care Boilermaker Apprentice Name Role Phone Priscilla He DO Primary Care Provider + [phone] Reason for Visit * Reason Onset Date Comments Med Refill 05/04/2023 Encounter Details Date Type Department Care Team (Late st Contact Info) Description 05/04/2023 Refill [facility] MEDICINE [address] [place] [address] Priscilla He DO [address] [place] [address] Social History Tobacco Use Types Packs/Day Years [...] documented as of this encounter Care Teams Boilermaker Apprentice Relationship Specialty Start Date End Date Priscilla He DO [address] [place] [address] PCP - General Family Medicine 03/23/17 documented as of this encounter
--- OUTSIDE RECORDS SUMMARY | 2024-06-06 08:32 | XMS_ITS | Encounter Summary ---
Author Organization [facility], Address [address] [place] [address] Phone Care Team Providers Care Certified Wellness Program Manager Name Role Phone Priscilla He DO Primary Care Provider Unava ilable Reason for Visit * Reason Comments Med Refill Encounter Details Date Type Department Care Team (Late st Contact Info) Description 11/12/2019 Refill [facility] [address] [place] [address] Faisal See MD [address] [place] [address] [place] [address] Social History Tobacco Use Types [...] [facility] [address] [place] [address] Damian Shah MD [address] [place] [address] [place] [address] documented as of this encounter Visit Diagnoses Not on filedocumented in this encounter Care Teams Certified Wellness Program Manager Relationship Specialty Start Date End Date Priscilla He DO [address] [place] [address] PCP - General 02/26/19 documented as of this encounter
--- OUTSIDE RECORDS SUMMARY | 2024-06-06 08:32 | XMS_ITS | Encounter Summary ---
Author Organization [employer] Address [address] [place] [address] 7 [place] [address] Care Team Providers Care Telegraph Installer Name Role Phone YingPriscilla Primary Care Provider + [phone] Reason for Visit * Reason Onset Date Comments [facility] Physical Therapy 05/16/2024 Encounter Details Date Type Department Care Team ([facility] st Contact Info) Description 05/16/[address] [facility] MEDICINE [address] [place] [address] Quiana Rosas MA DME [facility] Physical Therapy [...] Rosas MA - 05/16/2024 3:19 PM EST 05/16/24-[facility] Physical Therapy Plan of Care generated sign/dated faxed and sent to scanning. documented in this encounter Plan of Treatment Not on file documented as of this encounter Visit Diagnoses Not on filedocumented in this encounter Additional Health Concerns Assessment Noted Time PHQ-9 Depression Total Score: 0 08/03/19 24 10:24 AM EDT documented as of this encounter Care Teams Telegraph Installer Relationship Specialty Start Date End Date Priscilla He DO [address] [place] [address] PCP - General Family Medicine 03/23/17 documented as of this encounter
--- OUTSIDE RECORDS SUMMARY | 2024-06-06 08:33 | XMS_ITS | Encounter Summary ---
Author Organization [facility], Address [address] [place] [address] Phone Care Team Providers Care Fig Washer Name Role Phone Priscilla He DO Primary Care Provider Unava ilable Encounter Details Date Type Department Care Team (Late st Contact Info) Description 12/01/2021 Documentation Only [facility], [address] [facility] [place] [address] [place] [address] [place] [address] Social History Tobacco Use Types [...] Visit [facility] [place] [address] [place] [address] Damian Shah MD [address] [facility] [place] [address] documented as of this encounter Visit Diagnoses Not on filedocumented in this encounter Care Teams Fig Washer Relationship Specialty Start Date End Date Priscilla He DO [address] [place] [address] PCP - General 02/26/19 documented as of this encounter
--- OUTSIDE RECORDS SUMMARY | 2024-06-06 08:33 | XMS_ITS | Encounter Summary ---
Author Organization [employer] Address [address] [place] [address] Care Team Providers Care Clerical Clerk Name Role Phone Priscilla He DO Primary Care Provider + [phone] Reason for Referral * Imaging (Urgent) - Authorized Specialty Diagnoses / Procedures Referred By Contac t Referred To Contact Radiology Diagnoses Abnormal CT of the head Procedures Mr Brain w/ and w/o Contrast Priscilla He DO [address] [place] [address] Phone: tel: fax: [facility] [address] [place] [address], [address] [place] [address] Phone: tel: fax: Referral ID Status Reason Start Date Expiration Date V isits Requested Visits Authorized [id number] Authorized 06/03/2024 06/03/2025 1 1 Encounter Details Date Type Department Care Team (Late st Contact Info) Description 06/03/2024 Orders Only [facility] MEDIC[facility] [address] [place] [address] Priscilla He DO [address] [place] [address] of the head (Primary Dx) Social History Tobacco Use Types Packs/Day Years [...] PM EST documented as of this encounter Progress Notes * Priscilla He DO - 06/03/2024 6:56 AM EST MRI brain ordered. documented in this encounter Plan of Treatment Scheduled Orders Name Type Priority Associated Diagnoses Orde r Schedule Mr Brain w/ and w/o Contrast Imaging Urgent Abnormal CT of the head Expected: 06/03/2024, Expires: 06/03/2025 documented as of this encounter Visit Diagnoses Diagnosis Abnormal CT of the head- Primary Nonspecific (abnormal) findings on radiological and other examination of skull and head documented in this encounter Additional Health Concerns Assessment Noted Time PHQ-9 Depression Total Score: 0 08/03/19 24 10:24 AM EDT documented as of this encounter Care Teams Clerical Clerk Relationship Specialty Start Date End Date Priscilla He DO [address] [place] [address] PCP - General Family Medicine 03/23/17 documented as of this encounter
--- OUTSIDE RECORDS SUMMARY | 2024-06-06 08:33 | XMS_ITS | Encounter Summary ---
Author Organization [employer] Address [address] [place] [address] 7 [place] [address] Care Team Providers Care Greige Goods Examiner Name Role Phone Priscilla He DO Primary Care Provider [phone]- [phone] Encounter Details Date Type Department Care Team (Latest Contact Info) Description 08/20/2020 Abstract [facility] CONVERSIONS Dental, Provider, DDS Social History [...] on filedocumented in this encounter Care Teams Greige Goods Examiner Relationship Specialty Start Date End Date Priscilla He DO [address] [place] [address] PCP - General Family Medicine 03/23/17 documented as of this encounter
--- OUTSIDE RECORDS SUMMARY | 2024-06-06 08:33 | XMS_ITS | Encounter Summary ---
Author Organization [facility] [place], Address [address] [place] [address] Phone Care Team Providers Care Marine Biologist Name Role Phone Priscilla He DO Primary Care Provider Unava ilable Reason for Visit * Reason Onset Date Comments tacro dose change 06/05/2024 Encounter Details Date Type Department Care Team (Late st Contact Info) Description 06/05/2024 Telephone [facility] [address] [place] [address] Elizabeth Carson, RN [address] [place] [address] [place] [phone] tacro dose change Social History Tobacco Use [...] Telephone Encounter - Elizabeth Carson, RN - 06/05/2024 11:17 AM EST Tacro goal ~6, current level 9.4. Pt to decrease dose from 1mg bid to 1mg in the morning and 0.5mg in the evening with a rpt level in 1 week, documented in this encounter Plan of Treatment Upcoming Encounters Date Type Department Care Team (Late st Contact Info) Description 07/05/2024 12:45 PM EDT Office Visit [facility] [address] [place] [address] Damian Shah MD [address] [place] [address] [place] [address] Scheduled Orders Name Type Priority Associated Diagnoses Orde r Schedule Tacrolimus level Lab Routine Chronic kidney disease stage 2 History of immunosuppressive therapy Kidney replaced by transplant Expected: 06/05/2024, Expires: 07/03/2025 documented as of this encounter Visit Diagnoses Diagnosis Chronic kidney disease stage 2- Primary History of immunosuppressive therapy Kidney replaced by transplant documented in this encounter Care Teams Marine Biologist Relationship Specialty Start Date End Date Priscilla He DO [address] [place] [address] PCP - General 02/26/19 documented as of this encounter
--- OUTSIDE RECORDS SUMMARY | 2024-06-06 08:33 | XMS_ITS | Encounter Summary ---
Author Organization [facility], Address [address] [place] [address] Phone Care Team Providers Care Janitor Name Role Phone Priscilla He DO Primary Care Provider Unava ilable Reason for Visit * Reason Comments Med Refill Encounter Details Date Type Department Care Team (Late st Contact Info) Description 06/28/2021 [facility]ill [facility] [address] [place] [address] Sandor Jansen PA Social History [...] Visit [facility] [address] [place] [address] Damian Shah MD [address] [place] [address] [place] [address] documented as of this encounter Visit Diagnoses Not on filedocumented in this encounter Care Teams Janitor Relationship Specialty Start Date End Date Priscilla He DO [address] [place] [address] PCP - General 02/26/19 documented as of this encounter
--- OUTSIDE RECORDS SUMMARY | 2024-06-06 08:33 | XMS_ITS | Encounter Summary ---
Author Organization [facility] [place], Address [address] [place] [address] Phone Care Team Providers Care Wedding Coordinator Name Role Phone Priscilla He DO Primary Care Provider Unava ilable Reason for Visit * Reason Comments Med Refill Encounter Details Date Type Department Care Team (Late st Contact Info) Description 06/25/2021 [facility]ill [facility] [address] [place] [address] Sandor Jansen PA Social History [...] Visit [facility] [address] [place] [address] Damian Shah MD [address] [place] [address] [place] [address] documented as of this encounter Visit Diagnoses Not on filedocumented in this encounter Care Teams Wedding Coordinator Relationship Specialty Start Date End Date Priscilla He DO [address] [place] [address] PCP - General 02/26/19 documented as of this encounter
--- OUTSIDE RECORDS SUMMARY | 2024-06-06 08:33 | XMS_ITS | Clinical Summary ---
Author Organization [employer] Address [address] [place] [address] [address] [place] [address] Care Team Providers Care Lapel Padder Blindstitch Name Role Phone LaliPriscilla alarcon Primary Care Provider Allergies No known active allergies Medications Alcohol [...] 4 025 Active Blood Glucose Monitoring Suppl (StillSecure Lite) w/Device kit Use to test blood [...] Encounters Date Type Department Care Team Description 06/03/2024 Orders Only [facility] MEDICINE [address] [place] [address] Priscilla He, Abnormal CT of the head (Primary Dx) 05/17/2024 Telephone [facility] [address] [place] [address] head results 05/16/2024 Telephone [facility] [address] [place] [address] Quiana Rosas MA DME [facility] Physical Therapy 04/16/2024 Refill [facility] [address] [place] [address] Priscilla He, 03/14/2024 Orders Only [facility] MEDICINE [address] [place] [address] Priscilla He, 03/08/2024 Orders Only [facility] [address] [place] [address] Priscilla He DO Chest pain, unspecified type (Primary Dx); Benign [...] 01/22/2021, 07/04/2020, 06/11/2020 Influenza Vaccine (#1) 2023 3, 02/28/2022, 03/02/2021, [...] EST Narrative 03/25/2024 9:14 AM EST ? [facility] [place] ? [address] ?[place] [address] ? Mammography Report ? Signed ? Patient: Aissatou Rausch,Regine Narayanan ?MR#: ?? [id number] ? : 1970 ?Acct:[id number] ? Age/Sex: 53 / F ?ADM Date: 03/14/24 ? Loc: HO.MAMMO ? Attending Dr: Priscilla He DO ? Ordering Physician: Priscilla He DO ?Results: 2B ?? enign Findings ? Date of Service: 03/14/24 ?Follow Up: 1 Year From Orig ?? inal Mammogram ? Procedure(s): MM tomosynthesis screening BI ?? Accession Number(s): [id number] ? cc: Priscilla He DO ? EXAMINATION: [...] ? Signed By: ?<Electronically signed by Suzette Santamaria DO in OV> ? 03/25/24 0911 ? DD/ 0800 ? TD/TT: 03/14/24 0823 ? Tour Escort: ? Procedure Note Georgette, Velasquez - 03/25/2024 [facility] [address] [place] [address] [place] [address] Mammography Report Signed Patient: Regine Weaver#: [id number] : 1970Acct:[id number] Age/Sex: 53 / FADM Date: 03/14/24 Loc: HO.MAMMO Attending Dr: Priscilla He DO Ordering Physician: Priscilla Heults: 2B enign Findings Date of Service: 03/14/24Follow Up: 1 Year From Orig inal Mammogram Procedure(s): MM tomosynthesis screening BI Accession Number(s): [id number] cc: Priscilla He DO EXAMINATION: MM SCREENING [...] Suzette Santamaria DO 03/25/2024 09:11 AM EST Dictated By: Suzette Santamaria DO Signed By: <Electronically signed by Suzette Santamaria DO in OV> 03/25/24 0911 DD/ 0800 TD/TT: 03/14/24 0823 Tour Escort: Priscilla He DO IMG BI PROCEDURES Final Resu lt * CT Head w/o Contrast (03/08/2024 3:00 PM EST) Anatomical Region Laterality Modality Head, Neck Computed Tomogra phy 03/08/2024 3:00 PM EST Narrative 05/03/2024 2:10 PM EST ? [facility] ?[address] ?[place] [address] ? CT Scan Report ? Signed ? Patient: Reyez Rausch,Regine Lady ?MR#: ?? [id number] ? : 1970 ?Acct:[id number] ? Age/Sex: 53 / F ?ADM Date: 11/15/24 ? Loc: HO.CT ? Attending Dr: Priscilla He DO ? Ordering Physician: Priscilla He DO ?? Date of Service: 03/08/24 ?? Procedure(s): CT head/brain wo IV con ?? Accession Number(s): [id number] ? cc: Priscilla He DO ? Report Number: ?? [id number]: Total DLP = ??711.00 mGy-cm ?? EXAMINATION: [...] 80) measuring up to 1 cm. ? Peterson No acute intracranial hemorrhage or infarct. The [...] by Kareen Green MD in OV> ? 05/03/24 1407 ? DD/ 1500 ? TD/TT: 03/08/24 1505 ? Tour Escort: ? Procedure Note Donottimointerpreter, Image - 05/03/[address] [address] [address] Scan Report Signed Patient: Regine Weaver#: [id number] : 1970Acct:[id number] Age/Sex: 53 / FADM Date: 03/08/24 Loc: HO.CT Attending Dr: Priscilla He DO Ordering Physician: Priscilla He DO Date of Service: 03/08/24 Procedure(s): CT head/brain wo IV con Accession Number(s): [id number] cc: Priscilla He DO Report Number: [id number]: Total DLP = 711.00 mGy-cm EXAMINATION: CT [...] of 80) measuring up to 1 cm. Peterson No acute intracranial hemorrhage or infarct. The [...] by: Kareen Green MD 05/03/2024 02:07 PM [facility] Dictated By: Kareen Green MD Signed By: <Electronically signed by Kareen Green MD in OV> 05/03/24 1407 DD/ 1500 TD/TT: 03/08/24 1505 Tour Escort: Priscilla He DO IMG CT PROCEDURES Final Resu lt * POCT HGB A1C (01/31/2024 11:28 AM EDT) Hemoglobin A1C 5.5 4.0 - 6.0 % QC Media Lot # [id number] Lot# Expiration Date Blood 01/31/2024 11:2 8 AM EDT Priscilla He DO POINT OF CARE TEST ENTER/CAROLINE T ORDERABLES Final Result * (ABNORMAL) Lipid Panel, Standard (08/22/2023 10:53 AM EDT) Triglycerides 90 <150 mg/dL [facility] Comment:Desirable Triglyceri de: less than 150 mg/dLBorderline High Triglyceride 150-199 mg/dLHigh Triglyceride: 200-499 mg/dLVery High Triglyceride: greater than or equal to 5OO mg/dL Cholesterol 196 <200 mg/dL [facility] Comment:Desirable Cholestero l: less than 200 mg/dLBorderline High Cholesterol: 200-239 mg/dLHigh Cholesterol: greater than 239 mg/dL LDL Cholesterol Calculated 125(H) <100 mg/dL [facility] Comment:Desirable LDL: less than 100 mg/dLNear Optimal/Above Optimal LDL: 110- 129 mg/dLBorderline High LDL: 130-159 mg/dLHigh LDL: 160-189 mg/dLVery High LDL: greater than or equal to 190 mg/dL HDL Cholesterol 53 >40 mg/dL [facility] Comment:Desirable HDL: great er than 40 mg/dL Note: This HDL assay may give artificially low results in patients with liver disease. Blood Venous blood specimen / Unknown 08/22/2023 10:53 AM EDT 08/22/2023 11:37 AM EDT Priscilla He DO LAB BLOOD ORDERABLES Final R esult Performing Organization Address City/[facility]/ZIP Co de Phone Number [facility] [address] [place] [address] [phone] * HIV Ab/Ag (AV SLOAN) (08/10/2022 2:21 PM EDT) HIV AB/AG Nonreactive Nonreactive [facility] Comment:HIV-1 p24 Ag and/or HIV-1/HIV-2 Ab not detected.A test result that is nonreactive does not exclude thepossibility of exposure to or infection with HIV-1 and/orHIV-2. Nonreactive results in this assay for individualswith prior exposure to HIV-1 and/or HIV-2 may be due toantigen and antibody levels that are below the limit ofdetection of this assay.The [employer] HIV Ag/Ab Combo assay result andsupplemental assay results should be interpreted inconjunction with the patient's clinical presentation,history and other laboratory results. If the results areinconsistent with clinical evidence, additional testing issuggested to confirm the result. 08/10/2022 2:21 PM EDT 08/10/2022 2:21 PM EDT [facility] External Provider LAB BLO OD ORDERABLES Final Result Performing Organization Address [facility]/ZIP Co de Phone Number [facility] [address] [place] [address] [phone] * Hepatitis Panel, General (08/10/2022 2:21 PM EDT) Hepatitis A IgM Nonreactive Nonreactive [facility] Comment:IgM antibodies to CEBALLOS V not detected; does not exclude earlyacute or recovered HAV infection. ~Hepatitis B Surface Antibody REACTIVE Nonreactive [facility] Comment:REACTIVE: > 11.99 mI U/mL Hepatitis B Core Antibody Nonreactive Nonreactive [facility] Hepatitis C Antibody Nonreactive Nonreactive [facility] Comment:Antibodies to HCV no t detected; does not exclude early acuteHCV infection. Hepatitis B Surface Ag Negative Negative [facility] 08/10/2022 2:21 PM EDT 08/10/2022 2:21 PM EDT [facility] External Provider LAB BLO OD ORDERABLES Final Result Performing Organization Address [facility] Co de Phone Number [facility] [address] [place] [address] [phone] * ALBUMIN, RANDOM URINE W/CREATININE (03/09/2022 [...] DO LAB URINE ORDERABLES Final R esult Performing Organization Address City/[facility]/ZIP Co de Phone Number [facility] * HPV E6/E7 RFLX SAI 16 18/45 (07/20/2018 12:12 PM EDT) HPV 18/45 RNA Test not performed [facility] HPV mRNA E6/E7 Not Detected NOT DETECTED [facility] Comment: This test was performed using the APTapiOmat(R) HPV Assay ([employer] This assay detects E6/E7 viral messenger RNA (mRNA) from 14 high-risk HPV types (16,18,31,33,35,39,45,51, 52,56,58,59,66,68). For additional information please refer to: http://[employer]/faq/RQC142g3 (This link is being provided for informational/ educational purposes only.) The analytical performance characteristics of this assay have been determined by [employer] [place], [place]. The modifications have not been cleared or approved by the FDA. This assay has been validated pursuant to the CLIA regulations and is used for clinical purposes. Please note: ??Effective 01/04/2016, HPV testing will be performed using [employer]'s APTIMA test which targets mRNA. Detecting mRNA instead of DNA, as in older methods, offers significant improvements in specificity. ADDITIONAL TESTING Not indicated () [employer] [facility] Comment: Test Performed by zapp[employer]Melissa, [email or web address] [facility], [address] [place] [address] Sundar Craig M.D., Ph.D., Director of Laboratories , CLIA [id number] HPV 16 RNA Test not performed [facility] [employer] SYSTEM 07/20/2018 12:1 2 PM EDT us Priscilla He DO HISTORICAL/NON ORDERABLE LAB S Final Result [facility] [address] from Last 3 Months or Most Recently Relevant to Health Maintenance Insurance [facility] C3 Care Teams Lapel Padder Blindstitch Relationship Specialty Start Date End Date Priscilla He DO [address] [place] [phone] PCP - General Family Medicine 03/23/17
--- OUTSIDE RECORDS SUMMARY | 2024-06-06 08:34 | XMS_ITS | Clinical Summary ---
Author Organization [facility], Address [address] [place] [address] [place] [address] Phone Care Team Providers Care Underground Roof Bolter Name Role Phone Priscilla He DO Primary [...] under the skin per week 11/01/19 Active ergocalciferol 1.25 MG (05015 UT) capsule TAKE 1 CAPSULE (50,000 UNITS [...] morning. 01/31/20 24 025 Active tacrolimus (Prograf) 1 MG capsule Take 1 capsule (1 mg total) by mouth 1 (one) time each day in the morning 90 capsule 3 06/05/19 25 026 Active tacrolimus (Prograf) 0.5 MG capsule Take 1 capsule (0.5 mg total) by mouth 1 (one) time each day in the evening 90 capsule 3 06/05/19 25 026 Active tacrolimus (Prograf) 1 MG capsule Take 1 capsule (1 mg total) by mouth in the morning and 1 capsule (1 mg total) in the evening. 180 capsule 3 01/09/20 24 025 Discontinued(Re order (does not appear on AVS)) tacrolimus (Prograf) 0.5 MG capsule Take 1 [...] Encounters Date Type Department Care Team Description 06/05/2024 Telephone [facility] [address] [place] [phone] Elizabeth Carson, JENISE tacro dose change 05/22/2024 [facility] [address] [place] [phone] Elizabeth Carson, JENISE tacro dose change 05/14/2024 [facility] [address] [place] [address] Elizabeth Carson RN rpt tacro level 05/07/2024 11:15 AM EST Office Visit [facility] [address] [place] [address] Sandor Jansen PA 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); History of immunosuppressive therapy; Stage 1 chronic kidney disease 03/15/2024 [facility] [address] [place] [phone] Rakel Hollingsworth MA from Last 3 Months Immunizations Name Administration [...] Visit [facility] [address] [place] [phone] Damian Shah MD [address] [place] [address] [place] [address] Health Maintenance Due Date Last Done Comments [...] Kidney replaced by transplant TACROLIMUS LEVEL Routine 05/17/2024 7:52 AM EST [...] NOT USE Routine 05/06/2024 7:20 AM EST HEMOGLOBIN A1C Routine 12/26/2023 8:51 [...] to Health Maintenance Results * Tacrolimus level (05/29/2024 7:04 AM EST) Only the most recent of3 resultswithin the time period is included. Tacrolimus Lvl 9.4 5.0 - 20.0 ng/mL [facility] Comment: Target steady state trough concentration for [...] [facility] - 06/01/2024 11:06 AM EST Test(s) 570849-Ibacimavql (FK506), Blood was developed and its performance characteristics determined by [employer]. It has not been cleared or approved by the Food and Drug Administration. us Damian Shah MD LAB BLOOD ORDERABLES Final Result [facility][note 3] [address] [place] [address] * Lipid panel (05/06/2024 7:21 AM EST) Pathologist [facility] Cholesterol 134 100 - 199 mg/dL [facility] Triglycerides 132 0 - 149 mg/dL [facility] HDL 48 >39 mg/dL [facility] VLDL Cholesterol Richard 23 5 - 40 mg/dL [facility] LDL Calculated 63 0 - 99 mg/dL [facility] Blood (Blood, Venous) 05/06/2024 7:21 AM EST 05/06/2024 Sandor SINGH LAB BLOOD ORDERABLES Final Re sult [facility] [address] [place] [address] * Urinalysis, Complete w/reflex to Culture (05/06/2024 7:20 AM EST) Pathologist [facility] Specific [place], Urine 1.024 1.005 - 1.030 [facility] pH Urine 5.5 5.0 - 7.5 [facility] Color, Urine Yellow Yellow [facility] Appearance Urine Clear Clear Lab jannette [place] WBC Esterase Urine Negative Negative [facility] Protein, Ur Negative Negative/Tra ce [facility] Glucose, Ur Negative Negative [facility] Ketones, Urine Negative Negative [facility] [place] Blood Urine Negative Negative [facility] [phone] Bilirubin Urine Negative Negative [facility] Urobilinogen Urine 0.2 0.2 - 1.0 mg/dL [facility] [phone] Nitrite, Urine Negative Negative [facility] [phone] Microscopic Examination Comment [facility] [phone] Comment:Microscopic follows if indicated. Other Microsc. Observations See below: [facility] Comment:Microscopic was suma cated and was performed. URINALYSIS REFLEX Comment [facility] [phone] Comment:This specimen will n ot reflex to a Urine Culture. Urine (Urine, Clean Catch) 05/06/2024 7:20 AM EST 05/06/2024 Sandor SINGH LAB URINE ORDERABLES Final Re sult Performing Organization Address City/[facility]/ZIP Co de Phone Number [facility] [address] [place] [address] * Mycophenolic Acid (05/06/2024 7:20 AM EST) Mycophenolic Acid 2.9 1.0 - 3.5 ug/mL [facility] Mycophenolic Acid Glucuronide 47 15 - 125 ug/mL [facility] Blood (Blood, Venous) 05/06/2024 7:20 AM EST 05/06/2024 Narrative [facility] - 2024 11:06 AM EST Test(s) 318825-Yxshrixbinmd Acid; 545765- Mycophenolic Acid Glucuronide was developed and its performance characteristics determined by [employer]. It has not been cleared or approved by the Food and Drug Administration. Sandor SINGH LAB BLOOD ORDERABLES Final Re sult [facility][note 3] [address] [place] [phone] * (ABNORMAL) Microscopic Examination (05/06/2024 7:20 AM EST) WBC, Urine None seen 0 - 5 /hpf [facility] RBC, Urine 0-2 0 - 2 /hpf [facility] Squamous Epithelial, Urine >10(A) 0 - 10 /hpf [facility] Casts None seen None seen /lpf [facility] Bacteria, Urine Few None seen/Few [facility] 05/06/2024 7:20 AM EST 05/06/2024 Sandor SINGH LAB MICROBIOLOGY - GENERAL OR DERABLES Final Result Performing Organization Address City/[facility]/ZIP Co de Phone Number [facility] [address] [place] [address] * Protein, Total, Random Urine w/Creatinine (Protein/Creat Ratio) (05/06/2024 7:20 AM EST) Creatinine, Ur 128.8 Not Estab. mg/dL [facility] Protein, Ur 8.0 Not Estab. mg/dL [facility] Urine Protein/Creatin ine Ratio 62 0 - 200 mg/g creat [facility] Urine (Urine, Clean Catch) 05/06/2024 7:20 AM EST 05/06/2024 Sandor SINGH LAB URINE ORDERABLES Final Re sult [facility] [address] [place] [address] * CBC and Differential (05/06/2024 7:20 AM EST) WBC 4.8 3.4 - 10.8 x10E3/uL [facility] RBC 4.29 3.77 - 5.28 x10E6/uL [facility] Hemoglobin 13.0 11.1 - 15.9 g/dL [facility] Hematocrit 38.4 34.0 - 46.6 % [facility] MCV 90 79 - 97 fL [facility] MCH 30.3 26.6 - 33.0 pg [facility] MCHC 33.9 31.5 - 35.7 g/dL [facility] RDW 13.2 11.7 - 15.4 % [facility] Platelets 262 150 - 450 x10E3/uL [facility] Neutrophils Relative 47 Not Estab. % [facility] Lymphocytes Relative 40 Not Estab. % [facility] Monocytes 7 Not Estab. % [facility] Eosinophils Relative 5 Not Estab. % [facility] Basophils Relative 1 Not Estab. % [facility] Neutrophils Absolute 2.3 1.4 - 7.0 x10E3/uL [facility] Lymphocytes Absolute 1.9 0.7 - 3.1 x10E3/uL [facility] Monocytes Absolute 0.3 0.1 - 0.9 x10E3/uL [facility] Eosinophils Absolute 0.2 0.0 - 0.4 x10E3/uL [facility] Basophils Absolute 0.0 0.0 - 0.2 x10E3/uL [facility] Immature Granulocytes 0 Not Estab. % [facility] Immature Grans (Absolute) 0.0 0.0 - 0.1 x10E3/uL [facility] Blood (Blood, Venous) 05/06/2024 7:20 AM EST 05/06/2024 Sandor SINGH LAB BLOOD ORDERABLES Final Re sult [facility] [address] [place] [address] * ALT (05/06/2024 7:20 AM EST) ALT (SGPT) 29 0 - 32 IU/L [facility] Blood (Blood, Venous) 05/06/2024 7:20 AM EST 05/06/2024 Sandor SINGH LAB BLOOD ORDERABLES Final Re sult Performing Organization Address [facility]/ZIP Co de Phone Number [facility] [address] [place] [address] * AST (05/06/2024 7:20 AM EST) AST (SGOT) 26 0 - 40 IU/L [facility] Blood (Blood, Venous) 05/06/2024 7:20 AM EST 05/06/2024 Sandor SINGH LAB BLOOD ORDERABLES Final Re sult Performing Organization Address City/[facility]/ZIP Co de Phone Number [facility] [address] [place] [address] * CK (05/06/2024 7:20 AM EST) Creatine Kinase (CK/CPK) 73 32 - 182 U/L [facility] Blood (Blood, Venous) 05/06/2024 7:20 AM EST 05/06/2024 Sandor SINGH LAB BLOOD ORDERABLES Final Re sult [facility] [address] [place] [address] * (ABNORMAL) Renal Function Panel (05/06/2024 7:20 AM EST) Glucose 110(H) 70 - 99 mg/dL [facility] BUN 21 6 - 24 mg/dL [facility] Creatinine 0.77 0.57 - 1.00 mg/dL [facility] eGFR CKD-EPI CR 2020 93 >59 mL/min/1.7 3 [facility] BUN/Creatinine Ratio 27(H) 9 - 23 [facility] Sodium 144 134 - 144 mmol/L [facility] Potassium 5.0 3.5 - 5.2 mmol/L [facility] Chloride 108(H) 96 - 106 mmol/L [facility] Bicarbonate (CO2) 22 20 - 29 mmol/L [facility] Calcium 9.5 8.7 - 10.2 mg/dL [facility] Phosphorus 3.0 3.0 - 4.3 mg/dL [facility] Albumin 4.2 3.8 - 4.9 g/dL [facility] Blood (Blood, Venous) 05/06/2024 7:20 AM EST 05/06/2024 Sandor SINGH LAB BLOOD ORDERABLES Final Re sult Performing Organization Address City/[facility]/ZIP Co de Phone Number [employer] [facility] [address] [place] [address] * Hemoglobin A1c (12/26/2023 8:51 AM EDT) Hemoglobin A1C 5.6 4.8 - 5.6 % [facility] Comment: ? Prediabetes: 5.7 - 6.4 ? Diabetes: >6.4 ? Glycemic control for adults with diabetes: <7.0 Blood (Blood, Venous) 12/26/2023 8:51 AM EDT 12/26/2023 Sandor SINGH LAB BLOOD ORDERABLES Final Re sult Performing Organization Address [facility] Co de Phone Number [facility] [address] [place] [address] from Last 3 Months or Most Recently Relevant to Health Maintenance Insurance MEDICAID [place] Care Teams Underground Roof Bolter Relationship Specialty Start Date End Date Priscilla He DO [address] [place] [address] PCP - General 02/26/19
[2024-06-06 09:45] LABS: Blood Urea Nitrogen 17 mg/dL (9-16); Estimated Glomerular Filt Rate > 60
== END 2024-06-06 08:24 | disposition home or self-care (01) ==
LOC: HO.LAB 08:23
PROVIDERS: PCP Family Medicine; Visit Provider Psychiatry & Neurology Neurology
DX: G40.109 Localization-related (focal) (partial) symptomatic epilepsy and epileptic syndromes with simple partial seizures, not intractable, without status epilepticus (principal); I67.9 Cerebrovascular disease, unspecified
CPT/HCPCS: 36415; 82565; 84520

== ENCOUNTER 2024-06-26 08:14 | Outpatient (AMB) | payer MEDICAID, SELFPAY ==
[2024-06-26 08:28] VITALS: BP 120/80; PULSE 83; BMI 25.4
--- NOTE | 2024-06-26 08:28 | A.OFFVIS_ITS ---
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 Intake Note: NEw patient dx chest pain c/o have chest pain a while ago went to ED but it was nothing Design Transferrer Required: No Allergies No Known Allergies Allergy (Verified 02/09/24 08:10) Medication List - Last Reconciled 06/26/24 by Nacho Tucker MD albuterol sulfate 0.63 mg inhalation Q6H alcohol swabs (Alcohol Prep Pads) 0 pad topical BID atorvastatin 10 mg PO DAILY bisacodyl (Dulcolax (bisacodyl)) 10 mg (2 x 5 mg) PO BEDTIME blood sugar diagnostic (FreeStyle Lite Strips) As directed cetirizine 10 mg PO DAILY dulaglutide (Trulicity) mg subcut QWEEK ergocalciferol (vitamin D2) (Vitamin D2) 1,250 mcg PO QWEEK fluticasone propionate 110 mcg/actuation (Flovent HFA) 1 puff inhalation BID fluticasone propionate 50 mcg/actuation 2 sprays intranasal DAILY hydrocortisone 2.5% appl topical BID PRN ketoconazole 2% topical lancets (TRUEplus Lancets) As directed meclizine 25 mg PO DAILY PRN methylcellulose (laxative) (Citrucel) 500 mg PO DAILY metronidazole 0.75% appl topical BID mometasone 100 mcg/actuation (Asmanex HFA) 1 puff inhalation BID mycophenolate sodium (Myfortic) 720 mg PO BID pantoprazole 40 mg PO DAILY tacrolimus mg PO DAILY HPI Comments Details: Regine is here for consultation regarding chest pain. She was having chest pressure type symptoms in 2023. She has had a few episodes and in December, she went to [facility] emergency room. It appears that she was checked out and discharged. Troponins were unremarkable at that time. She states she has not had any discomfort in the last 3 or 4 months. Otherwise, no previous cardiac history. She has a history of polycystic kidney disease and underwent kidney transplant in 2018. Prior to that, she was on dialysis for 3 years. The transplant itself is functioning well according to her. No recent concerns in that end. Otherwise, fairly active without any major limitations. [facility] Medical History (Updated 06/26/24 @ 09:06 by Nacho Tucker MD) Transaminitis Mild intermittent asthma Allergic rhinitis Anemia Hypertension Type 2 diabetes mellitus with nephropathy Autosomal dominant polycystic kidney disease Surgical History (Updated 06/26/24 @ 08:58 by Nacho Tucker MD) Kidney transplant recipient Hx of bilateral breast reduction surgery H/O hernia repair Hx of colonoscopy History of esophagogastroduodenoscopy (EGD) History of left nephrectomy Status post abdominal hysterectomy Status post -donor kidney transplantation Family History Paternal Uncle Colon cancer Paternal Uncle Colon cancer Paternal Grandmother Uterine cancer Social History Alcohol intake: never Patient Tobacco Use Status: Never used Tobacco 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al status: disabled 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 Female Reproductive History Menstrual Age of Menarche: 17 Review of Systems Const Denies chills, Denies daytime sleepiness, Denies fatigue, Denies fever(s), Denies frequent falls, Denies poor appetite, Denies snoring, Denies stops breathing during sleep, Denies weakness, Denies weight gain and Denies weight loss Eyes Denies loss of vision ENT Denies dizziness and Denies hearing loss Card Denies chest pain, Denies claudication, Denies leg edema, Denies lightheadedness, Denies palpitations, Denies dyspnea, Denies dyspnea on exertion and Denies orthopnea Resp Denies cough, Denies excessive phlegm production, Denies dyspnea, Denies dyspnea on exertion, Denies snoring and Denies wheezing GI Denies abdominal pain, Denies hematochezia, Denies change in bowel habits, Denies nausea and Denies vomiting Denies urinary frequency and Denies dysuria Musc Denies arthralgias, Denies muscle weakness, Denies numbness and Denies other (frequent falls) Skin/Breast Denies nail changes and Denies rash Neuro Denies Abnormal speech present, Denies dizziness, Denies frequent falls, Denies loss of vision, Denies memory loss, Denies numbness and Denies weakness Psych Denies depression and Denies memory loss Endo Denies fatigue and Denies palpitations Hossein/Lymph Reports easy bruising and Reports other (anemia) Aller/Immun Denies wheezing Physical Exam Vital Signs: Last Vital Signs Pulse 83 06/26/24 08:28 BP 120/80 06/26/24 08:28 BMI result Body Mass Index 25.4 Const General: comfortable and no acute distress Orientation/consciousness: patient oriented x3 HEENT Other: Unremarkable Head: Yes normal to inspection Neck Neck: Yes normal visual inspection Chest Chest palpation & inspection: normal inspection of the chest Resp Auscultation: clear to auscultation bilaterally Cardio Palpation: normal PMI Heart sounds: S1 normal heart sound present, S2 normal heart sound present, no gallops, no murmurs and no rubs GI Palpation (GI): Soft to palpation Back/Spine/Pelvis Other: unremarkable Skin General skin exam: no rashes or lesions noted Neuro General: patient oriented x3 Speech: No Abnormal speech present Extrem General: Yes normal to inspection Psych Mental Status: mental status grossly normal Assessment & Plan Assessment & Plan (1) Precordial chest pain: Code(s): R07.2 - Precordial pain Category: Medical (2) Status post kidney transplant: Code(s): Z94.0 - Kidney transplant status Category: Surgical (3) Type 2 diabetes mellitus with unspecified complications: Code(s): E11.8 - Type 2 diabetes mellitus with unspecified complications Category: Medical Plan In the EKG, underlying rhythm is sinus at 68/Min; cannot exclude old anterior infarct; normal ME and corrected QT. High sensitivity troponins at [facility] were described to be within normal limits. Echocardiogram with LVEF of 60-65%. No significant valvular findings. Otherwise unremarkable. Based on her history and risk factors, recommend an exercise stress echoc ardiogram for further evaluation of any obstructive coronary disease. Discussed with patient about this and she agrees. Follow-up after the above. To contact us with any interim concerns and seek [facility] help as needed. Orders: Orders CA echo stress exercise Today R07.2 - Precordial pain Coding Level of Care Code New Pt Level 4 (36738) Complex EM visit Add On G2211 Diagnoses Precordial chest pain R07.2 Status post kidney transplant Z94.0 Type 2 diabetes mellitus with unspecified complications E11.8
--- OUTSIDE RECORDS SUMMARY | 2024-06-26 08:32 | XMS_ITS | Encounter Summary ---
Author Organization [facility] [place], Address [address] [place] [address] Phone Care Team Providers Care Tobacco Blender Name Role Phone Priscilla He DO Primary Care Provider Unava ilable Reason for Visit * Reason Comments Med Refill Encounter Details Date Type Department Care Team (Late st Contact Info) Description 06/25/2021 Refill [facility] [address] [place] [address] Sandor Jansen PA Social History [...] Care Team (Late st Contact Info) Description 08/01/2024 3:30 PM EDT Office Visit [facility] [address] [place] [address] Damian Shah MD [address] [place] [address] [place] [address] documented as of this encounter Visit Diagnoses Not on filedocumented in this encounter Care Teams Tobacco Blender Relationship Specialty Start Date End Date Priscilla He DO [address] [place] [address] PCP - General 02/26/19 documented as of this encounter
--- OUTSIDE RECORDS SUMMARY | 2024-06-26 08:32 | XMS_ITS | Clinical Summary ---
Author Organization [facility] [place], Address [address] [place] [address] [place] [address] Phone Care Team Providers Care Lead Assembler Name Role Phone Priscilla He DO Primary Care Provider Unava ilable Allergies No known active allergies Medications Cetirizine HCl 10 MG capsule Take 1 capsule by mouth 1 (one) time each day Active albuterol HFA (PROVENTIL HFA;VENTOLIN HFA) 108 (90 Base) MCG/ACT inhaler Inhale 2 puffs every 4 (four) to 6 (six) hours if needed 0 Active Alcohol Swabs (SM Alcohol Prep) 70 % pads USE TWICE DAILY 0 Active fluticasone (FLONASE) 50 MCG/ACT nasal spray 1 Active Flovent HFA 110 MCG/ACT inhaler 1 Active FREESTYLE LITE test strip 2 Active TRUEplus Lancets 33G misc 2 Active pantoprazole (PROTONIX) 40 MG EC tablet TAKE 1 TABLET (40 MG TOTAL) BY MOUTH ONCE DAILY BEFORE BREAKFAST DO NOT CRUSH, CHEW, OR SPLIT. 90 tablet 3 2 Active DULCOLAX 5 MG EC tablet TAKE 2 TABLETS (10mg) BY MOUTH ONCE DAILY AT BEDTIME 4 Active Linzess 72 MCG capsule Take 1 capsule by mouth 1 (one) time each day Active mycophenolate (MYFORTIC) 180 MG EC tablet Take 3 tablets (540 mg total) by mouth in the morning and 3 tablets (540 mg total) in the evening. 540 tablet 3 4 Active Trulicity 1.5 MG/0.5ML solution pen-injector Inject 1.5 mg under the skin per week 4 Active ergocalciferol 1.25 MG (73547 UT) capsule TAKE 1 CAPSULE (50,000 UNITS TOTAL) BY MOUTH 1 (ONE) TIME PER WEEK FOR LOW VITAMIN D 8 capsule 10 4 Active Biotin 5000 MCG capsule Take 5,000 mcg by mouth 1 (one) time each day 90 capsule 3 5 08/06/19 25 Active atorvastatin (LIPITOR) 10 MG tablet Take 10 mg by mouth in the morning. 4 01/31/20 25 Active tacrolimus (Prograf) 1 MG capsule Take 1 capsule (1 mg total) by mouth 1 (one) time each day in the morning 90 capsule 3 5 06/05/19 26 Active tacrolimus (Prograf) 0.5 MG capsule Take 1 capsule (0.5 mg total) by mouth 1 (one) time each day in the evening 90 capsule 3 5 06/05/19 26 Active tacrolimus (Prograf) 1 MG capsule Take 1 capsule (1 mg total) by mouth in the morning and 1 capsule (1 mg total) in the evening. 180 capsule 3 4 06/05/19 25 Discontinu ed(Reorder (does not appear on AVS)) Active Problems Problem Noted Date Diagnosed Date [...] Encounters Date Type Department Care Team Description 06/24/2024 Telephone [facility] [address] [place] [phone] Paris Gifford MA 06/05/2024 Telephone [facility] [address] [place] [phone] Elizabeth Carson, JENISE tacro dose change 05/22/2024 Telephone [facility] [address] [place] [phone] Elizabeth Carson, EJNISE tacro dose change 05/14/2024 Telephone [facility] [address] [place] [phone] Elizabeth Carson, JENISE rpt tacro level 05/07/2024 11:15 AM EST Office Visit [facility] [address] [place] [phone] Sandor Jansen PA 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); History of immunosuppressive therapy; Stage 1 chronic kidney disease from Last 3 Months Immunizations Name Administration [...] Visit [facility] [address] [place] [address] Damian Shah MD [address] [place] [phone] Health Maintenance Due Date Last Done Comments [...] Date/Time Associated Diagnosis Comments TACROLIMUS LEVEL Routine 06/14/2024 7:21 AM EST Chronic kidney disease stage 2 History of immunosuppressive therapy Kidney replaced by transplant TACROLIMUS LEVEL Routine 05/29/2024 7:04 AM EST [...] to Health Maintenance Results * Tacrolimus level (06/14/2024 7:21 AM EST) Only the most recent of4 resultswithin the time period is included. Tacrolimus Lvl 5.9 5.0 - 20.0 ng/mL [facility] Comment: Target steady state trough concentration for [...] note reference interval change Blood (Blood, Venous) 06/14/2024 7:21 AM EST 06/14/2024 Narrative [facility] - 06/18/2024 1:05 AM EST Test(s) [id number] (FK506), Blood was developed and its performance characteristics determined by [employer]. It has not been cleared or approved by the Food and Drug Administration. us Damian Shah MD LAB BLOOD ORDERABLES Final Result [facility] [place] [address] * Lipid panel (05/06/2024 7:21 AM EST) Cholesterol 134 100 - 199 mg/dL [facility] Triglycerides 132 0 - 149 mg/dL [facility] HDL 48 >39 mg/dL [facility] VLDL Cholesterol Richard 23 5 - 40 mg/dL [facility] LDL Calculated 63 0 - 99 mg/dL [facility] Blood (Blood, Venous) 05/06/2024 7:21 AM EST 05/06/2024 us Sandor SINGH LAB BLOOD ORDERABLES Final Re sult [facility] [address] [place] [address] * Urinalysis, Complete w/reflex to Culture (05/06/2024 7:20 AM EST) Specific [place], Urine 1.024 1.005 - 1.030 [facility] pH Urine 5.5 5.0 - 7.5 [facility] [phone] Color, Urine Yellow Yellow [facility] [phone] Appearance Urine Clear Clear [facility] WBC Esterase Urine Negative Negative [facility] Protein, Ur Negative Negative/Tra ce [facility] Glucose, Ur Negative Negative [facility] [phone] Ketones, Urine Negative Negative [facility] [phone] Blood Urine Negative Negative [facility] Bilirubin Urine Negative Negative [facility] Urobilinogen Urine 0.2 0.2 - 1.0 mg/dL [facility] [phone] Nitrite, Urine Negative [facility] Microscopic Examination Comment [facility] [phone] Comment:Microscopic follows if indicated. Other Microsc. Observations See below: [facility] [phone] Comment:Microscopic was suma cated and was performed. URINALYSIS REFLEX Comment [facility] [phone] Comment:This specimen will n ot reflex to a Urine Culture. Urine (Urine, Clean Catch) 05/06/2024 7:20 AM EST 05/06/2024 Sandor SINGH LAB URINE ORDERABLES Final Re sult Performing Organization Address City/[facility]/ZIP Co de Phone Number [facility] [address] [place] [address] * Mycophenolic Acid (05/06/2024 7:20 AM EST) Pathologist [facility] Mycophenolic Acid 2.9 1.0 - 3.5 ug/mL [facility] Mycophenolic Acid Glucuronide 47 15 - 125 ug/mL [facility] Blood (Blood, Venous) 05/06/2024 7:20 AM EST 05/06/2024 Narrative [facility] - 2024 11:06 AM EST Test(s) [id number] Acid; 395336- Mycophenolic Acid Glucuronide was developed and its performance characteristics [facility]. It has not been cleared or approved by the Food and Drug Administration. Sandor SINGH LAB BLOOD ORDERABLES Final Re sult [facility] [address] [place] [address] * (ABNORMAL) Microscopic Examination (05/06/2024 7:20 AM EST) WBC, Urine None seen 0 - 5 /hpf [facility] RBC, Urine 0-2 0 - 2 /hpf [facility] Squamous Epithelial, Urine >10(A) 0 - 10 /hpf [facility] Casts None seen None seen /lpf [facility] Bacteria, Urine Few None seen/Few [facility] 05/06/2024 7:20 AM EST 05/06/2024 Sandor SINGH LAB MICROBIOLOGY - GENERAL OR DERABLES Final Result Performing Organization Address City/[facility]/ZIP Co de Phone Number [facility] [address] [place] [address] * Protein, Total, Random Urine w/Creatinine (Protein/Creat Ratio) (05/06/2024 7:20 AM EST) Creatinine, Ur 128.8 Not Estab. mg/dL [facility] Protein, Ur 8.0 Not Estab. mg/dL [facility] Urine Protein/Creatin ine Ratio 62 0 - 200 mg/g creat [facility] Urine (Urine, Clean Catch) 05/06/2024 7:20 AM EST 05/06/2024 Sandor SINGH LAB URINE ORDERABLES Final [facility]ult [facility] [address] [place] [address] * CBC and Differential (05/06/2024 7:20 AM EST) WBC 4.8 3.4 - 10.8 x10E3/uL [facility] RBC 4.29 3.77 - 5.28 x10E6/uL [facility] Hemoglobin 13.0 11.1 - 15.9 g/dL [facility] Hematocrit 38.4 34.0 - 46.6 % [facility] MCV 90 79 - 97 fL [facility] MCH 30.3 26.6 - 33.0 pg [facility] MCHC 33.9 31.5 - 35.7 g/dL [facility] RDW 13.2 11.7 - 15.4 % [facility] Platelets 262 150 - 450 x10E3/uL [facility] Neutrophils Relative 47 Not Estab. % [facility] Lymphocytes Relative 40 Not Estab. % [facility] Monocytes 7 Not Estab. % [facility] Eosinophils Relative 5 Not Estab. % [facility] Basophils Relative 1 Not Estab. % [facility] Neutrophils Absolute 2.3 1.4 - 7.0 x10E3/uL [facility] Lymphocytes Absolute 1.9 0.7 - 3.1 x10E3/uL [facility] Monocytes Absolute 0.3 0.1 - 0.9 x10E3/uL [facility] Eosinophils Absolute 0.2 0.0 - 0.4 x10E3/uL [facility] Basophils Absolute 0.0 0.0 - 0.2 x10E3/uL [facility] Immature Granulocytes 0 Not Estab. % [facility] Immature Grans (Absolute) 0.0 0.0 - 0.1 x10E3/uL [facility] Blood (Blood, Venous) 05/06/2024 7:20 AM EST 05/06/2024 Snador SINGH LAB BLOOD ORDERABLES Final Re sult Performing Organization Address City/[facility]/ZIP Co de Phone Number [facility] [address] [place] [address] * ALT (05/06/2024 7:20 AM EST) ALT (SGPT) 29 0 - 32 IU/L [facility] Blood (Blood, Venous) 05/06/2024 7:20 AM EST 05/06/2024 Sandor SINGH LAB BLOOD ORDERABLES Final Re sult Performing Organization Address [facility]/ZIP Co de Phone Number [facility] [address] [place] [address] * AST (05/06/2024 7:20 AM EST) AST (SGOT) 26 0 - 40 IU/L [facility] Blood (Blood, Venous) 05/06/2024 7:20 AM EST 05/06/2024 Sandor SINGH LAB BLOOD ORDERABLES Final Re sult Performing Organization Address City/[facility]/ZIP Co de Phone Number [facility] [address] [place] [address] * CK (05/06/2024 7:20 AM EST) Creatine Kinase (CK/CPK) 73 32 - 182 U/L [facility] Blood (Blood, Venous) 05/06/2024 7:20 AM EST 05/06/2024 Sandor SINGH LAB BLOOD ORDERABLES Final Re sult [facility] [address] [place] [address] * (ABNORMAL) Renal Function Panel (05/06/2024 7:20 AM EST) Glucose 110(H) 70 - 99 mg/dL [facility] BUN 21 6 - 24 mg/dL [facility] Creatinine 0.77 0.57 - 1.00 mg/dL [facility] eGFR CKD-EPI CR 2020 93 >59 mL/min/1.7 3 [facility] BUN/Creatinine Ratio 27(H) 9 - 23 [facility] Sodium 144 134 - 144 mmol/L [facility] Potassium 5.0 3.5 - 5.2 mmol/L [facility] Chloride 108(H) 96 - 106 mmol/L [facility] Bicarbonate (CO2) 22 20 - 29 mmol/L [facility] Calcium 9.5 8.7 - 10.2 mg/dL [facility] Phosphorus 3.0 3.0 - 4.3 mg/dL [facility] Albumin 4.2 3.8 - 4.9 g/dL [facility] Blood (Blood, Venous) 05/06/2024 7:20 AM EST 05/06/2024 Sandor SINGH LAB BLOOD ORDERABLES Final Re sult [facility] [address] [place] [address] * Hemoglobin A1c (12/26/2023 8:51 AM EDT) Hemoglobin A1C 5.6 4.8 - 5.6 % [facility] Comment: ? Prediabetes: 5.7 - 6.4 ? Diabetes: >6.4 ? Glycemic control for adults with diabetes: <7.0 Blood (Blood, Venous) 12/26/2023 8:51 AM EDT 12/26/2023 Sandor SINGH LAB BLOOD ORDERABLES Final Re sult [facility] [address] [place] [address] from Last 3 Months or Most Recently Relevant to Health Maintenance Insurance [place]ICAID [place] Care Teams Lead Assembler Relationship Specialty Start Date End Date Priscilla He DO [address] [place] [address] PCP - General 02/26/19
--- OUTSIDE RECORDS SUMMARY | 2024-06-26 08:32 | XMS_ITS | Encounter Summary ---
Author Organization [facility] Address [address] [place] [address] Phone Care Team Providers Care Contract Administration Manager Name Role Phone Priscilla He DO Primary Care Provider Unava ilable Encounter Details Date Type Department Care Team (Late st Contact Info) Description 06/24/2024 Telephone [facility] [place], [address] [place] [phone] [place] Gifford [place] [address] [place] [phone] Social History Tobacco Use Types Packs/Day Years [...] encounter Miscellaneous Notes * Telephone Encounter - Paris Gifford MA - 06/24/2024 10:49 AM EST Lm on vm letting pt know due to a change in the providers schedule we had to cx 07/05/24 and move to08/01/24 @330 documented in this encounter Plan of Treatment Upcoming Encounters Date Type Department Care Team (Late st Contact Info) Description 08/01/2024 3:30 PM EDT Office Visit [facility] [address] [place] [address] Damian Shah MD [address] [place] [address] documented as of this encounter Visit Diagnoses Not on filedocumented in this encounter Care Teams Contract Administration Manager Relationship Specialty Start Date End Date Priscilla He DO [address] [place] [address] PCP - General 02/26/19 documented as of this encounter
--- OUTSIDE RECORDS SUMMARY | 2024-06-26 08:32 | XMS_ITS | Clinical Summary ---
Author Organization [facility] Address [address] [place] [address] Care Team Providers Care Practicing Md Anesthesiologist Name Role Phone Pcp, No Primary Care [...] age to complete this topic Care Teams Practicing Md Anesthesiologist Relationship Specialty Start Date End Date Pcp, No [address] [place] [address] PCP - General 12/23/18
--- OUTSIDE RECORDS SUMMARY | 2024-06-26 08:32 | XMS_ITS | Encounter Summary ---
Author Organization [facility] [place], Address [address] [place] [address] Phone Care Team Providers Care Sr. Director Name Role Phone Priscilla He DO Primary Care Provider Unava ilable Reason for Visit * Reason Comments Med Refill Encounter Details Date Type Department Care Team (Late st Contact Info) Description 11/12/2019 Refill [facility] [address] [place] [address] Faisal See MD [address] [place] [address] [place] [address] Social History Tobacco Use Types [...] [facility] [address] [place] [address] Damian Shah MD [address] [place] [address] [place] [address] documented as of this encounter Visit Diagnoses Not on filedocumented in this encounter Care Teams Sr. Director Relationship Specialty Start Date End Date Priscilla He DO [address] [place] [address] PCP - General 02/26/19 documented as of this encounter
--- OUTSIDE RECORDS SUMMARY | 2024-06-26 08:32 | XMS_ITS | Encounter Summary ---
Author Organization [facility] [place], Address [address] [place] [address] Phone Care Team Providers Care Control System Manager Name Role Phone Priscilla He DO Primary Care Provider Unava ilable Encounter Details Date Type Department Care Team (Late st Contact Info) Description 10/14/2022 Documentation Only [facility] [place], [address] [place] [address] Damian Shah MD [address] [place] [address] [place] [address] Social History Tobacco Use Types [...] Visit [facility] [place] [address] [place] [address] Damian Shah MD [address] [place] [address] [place] [address] documented as of this encounter Visit Diagnoses Not on filedocumented in this encounter Care Teams Control System Manager Relationship Specialty Start Date End Date Priscilla He DO [address] [place] [address] PCP - General 02/26/19 documented as of this encounter
--- OUTSIDE RECORDS SUMMARY | 2024-06-26 08:32 | XMS_ITS | Encounter Summary ---
Author Organization [facility] [place], Address [address] [place] [address] Phone Care Team Providers Care Box Spring Frame Builder Name Role Phone Priscilla He DO Primary Care Provider Unava ilable Reason for Visit * Reason Comments Med Refill Encounter Details Date Type Department Care Team (Late st Contact Info) Description 10/25/2023 Refill [facility] [address] [place] [address] Damian Shah MD [address] [place] [address] [place] [address] Social History Tobacco Use Types [...] Visit [facility] [address] [place] [address] Damian Shah MD [address] [place] [address] [place] [address] documented as of this encounter Visit Diagnoses Not on filedocumented in this encounter Care Teams Box Spring Frame Builder Relationship Specialty Start Date End Date Priscilla He DO [address] [place] [address] PCP - General 02/26/19 documented as of this encounter
--- OUTSIDE RECORDS SUMMARY | 2024-06-26 08:32 | XMS_ITS | Encounter Summary ---
Author Organization [facility] [place], Address [address] [place] [address] Phone Care Team Providers Care Digital Art Director Name Role Phone Priscilla He DO Primary Care Provider Unava ilable Encounter Details Date Type Department Care Team (Late st Contact Info) Description 12/01/2021 Documentation Only [facility] [place], [address] [place] [address] Rakel [place] [address] [place] [address] Social History Tobacco Use Types [...] Visit [facility] [place] [address] [place] [address] Damian Shah MD [address] [place] [address] documented as of this encounter Visit Diagnoses Not on filedocumented in this encounter Care Teams Digital Art Director Relationship Specialty Start Date End Date Priscilla He DO [address] [place] [address] PCP - General 02/26/19 documented as of this encounter
--- OUTSIDE RECORDS SUMMARY | 2024-06-26 08:32 | XMS_ITS | Encounter Summary ---
Author Organization [facility] [place], Address [address] [place] [address] Phone Care Team Providers Care Detasseler Name Role Phone Priscilla He DO Primary Care Provider Unava ilable Reason for Visit * Reason Comments Med Refill Encounter Details Date Type Department Care Team (Late st Contact Info) Description 06/28/2021 Refill [facility] [address] [place] [address] Sandor Jansen PA Social History [...] Visit [facility] [address] [place] [address] Damian Shah MD [address] [place] [address] [place] [address] documented as of this encounter Visit Diagnoses Not on filedocumented in this encounter Care Teams Detasseler Relationship Specialty Start Date End Date Priscilla He DO [address] [place] [address] PCP - General 02/26/19 documented as of this encounter
--- OUTSIDE RECORDS SUMMARY | 2024-06-26 08:32 | XMS_ITS | Encounter Summary ---
Author Organization [facility] [place], Address [address] [place] [address] Phone Care Team Providers Care Home Office Representative Name Role Phone Priscilla He DO Primary Care Provider Unava ilable Reason for Visit * Reason Onset Date Comments tacro dose change 06/05/2024 Encounter Details Date Type Department Care Team (Late st Contact Info) Description 06/05/2024 Telephone [facility] [address] [place] [address] Elizabeth Carson, RN [address] [place] [address] [place] [phone] tacro dose change Social History Tobacco Use [...] Visit [facility] [address] [place] [address] Damian Shah MD [address] [place] [address] [place] [address] documented as of this encounter Procedures Procedure Name Priority Date/Time Associated Diagnosis Comments TACROLIMUS LEVEL Routine 06/14/2024 7:21 AM EST Chronic kidney disease stage 2 History of immunosuppressive therapy Kidney replaced by transplant documented in this encounter Results * Tacrolimus level (06/14/2024 7:21 AM EST) Tacrolimus Lvl 5.9 5.0 - 20.0 ng/mL [facility] Comment: Target steady state trough concentration [...] [facility] - 06/18/2024 1:05 AM EST Test(s) 430109-[id number] (FK506), Blood was developed and its performance characteristics determined by [employer]. It has not been cleared or approved by the Food and Drug Administration. Damian Shah MD LAB BLOOD ORDERABLES Final Result [facility] [place] 2[facility] [place] [address] documented in this encounter Visit Diagnoses Diagnosis Chronic kidney disease stage 2- Primary History of immunosuppressive therapy Kidney replaced by transplant documented in this encounter Care Teams Home Office Representative Relationship Specialty Start Date End Date Priscilla He DO [address] [place] [address] PCP - General 02/26/19 documented as of this encounter
== END 2024-06-26 09:07 | disposition home or self-care (01) ==
PROVIDERS: PCP Family Medicine; Visit Provider Internal Medicine
DX: R07.2 Precordial pain (principal); Z94.0 Kidney transplant status; E11.8 Type 2 diabetes mellitus with unspecified complications
CPT/HCPCS: 99204

== ENCOUNTER → 2024-06-26 08:14 | Outpatient (BNVA) | payer MEDICAID, SELFPAY | PROVIDERS: PCP Family Medicine; Visit Provider Internal Medicine | DX: R07.2 Precordial pain (principal); E11.8 Type 2 diabetes mellitus with unspecified complications; Z94.0 Kidney transplant status | CPT/HCPCS: 99202 ==

== ENCOUNTER → 2024-07-17 08:12 | Outpatient (REF) | payer MEDICAID, SELFPAY ==
--- NOTE | 2024-07-17 08:15 | CA_ITS ---
Acquisition Time: 2024-07-17 08:36:08 Total Exercise Time: 00:07:55 Test Indications: CP Medications: SEE H&P Protocol: CHELITA Max HR: 153 BPM 91% of Pred: 168 BPM Max BP: 180/78 mmHG Max Work Load: 9.9 METS Exercise stress tets with exercise 7 mins 55 secs of Chelita Protocol, achieving 91% MPHR, without any reports of anginal symptoms, without any arrythmias, with normotensive response to exercise. Without EKG changes meeting criteria for ischemia. Echo images obtained by tech at rest and post peak exercise. Definity contrast utilized. Test reviewed with Dr. Mcdonough. Referred By: Nacho Tucker Electronically Signed By: Fidencio Welch
--- OUTSIDE RECORDS SUMMARY | 2024-07-17 08:31 | XMS_ITS | Encounter Summary ---
Author Organization [facility] [place], Address [address] [place] [address] Phone Care Team Providers Care Chief Cardiopulmonary Technologist Name Role Phone Priscilla He DO Primary Care Provider Unava ilable Reason for Visit * Reason Comments Med Refill Encounter Details Date Type Department Care Team (Late st Contact Info) Description 10/25/2023 Refill [facility] [address] [place] [address] Damian Shah MD [address] [place] [address] [place] [address] Social History Tobacco Use Types [...] Visit [facility] [address] [place] [address] Damian Shah MD [address] [place] [address] [place] [address] documented as of this encounter Visit Diagnoses Not on filedocumented in this encounter Care Teams Chief Cardiopulmonary Technologist Relationship Specialty Start Date End Date Priscilla He DO [address] [place] [address] PCP - General 02/26/19 documented as of this encounter
--- OUTSIDE RECORDS SUMMARY | 2024-07-17 08:31 | XMS_ITS | Encounter Summary ---
Author Organization [facility] Address [address] [place] [address] Phone Care Team Providers Care Senior Trainer Name Role Phone Priscilla He DO Primary Care Provider Unava ilable Encounter Details Date Type Department Care Team (Late st Contact Info) Description 06/24/2024 Telephone [facility] [place], [address] [place] [phone] [place] [address] [facility] [place] [address] Social History Tobacco Use Types Packs/Day Years [...] Office Visit [facility] [address] [place] [address] Damian Shah MD [address] [place] [address] documented as of this encounter Visit Diagnoses Not on filedocumented in this encounter Care Teams Senior Trainer Relationship Specialty Start Date End Date Priscilla He DO [address] [place] [address] PCP - General 02/26/19 documented as of this encounter
--- OUTSIDE RECORDS SUMMARY | 2024-07-17 08:31 | XMS_ITS | Encounter Summary ---
Author Organization [facility] [place], Address [address] [place] [address] Phone Care Team Providers Care Web Marketing Manager Name Role Phone Priscilla He DO Primary Care Provider Unava ilable Reason for Visit * Reason Comments Med Refill Encounter Details Date Type Department Care Team (Late st Contact Info) Description 11/12/2019 Refill [facility] [address] [place] [address] Faisal See MD [address] [place] [address] [place] [address] Social History Tobacco Use Types [...] Visit [facility] [address] [place] [address] Damian Shah MD [address] [place] [address] [place] [address] documented as of this encounter Visit Diagnoses Not on filedocumented in this encounter Care Teams Web Marketing Manager Relationship Specialty Start Date End Date Priscilla He DO [address] [place] [address] PCP - General 02/26/19 documented as of this encounter
--- OUTSIDE RECORDS SUMMARY | 2024-07-17 08:31 | XMS_ITS | Clinical Summary ---
Author Organization [facility] Address [address] [place] [address] Care Team Providers Care Audience Development Manager Name Role Phone Pcp, No Primary [...] age to complete this topic Care Teams Audience Development Manager Relationship Specialty Start Date End Date Pcp, No [address] [place] [address] PCP - General 12/23/18
--- OUTSIDE RECORDS SUMMARY | 2024-07-17 08:31 | XMS_ITS | Encounter Summary ---
Author Organization [employer] Address [address] [facility] 7 [place] [address] Care Team Providers Care Water Pollution Control Technician Name Role Phone Priscilla He DO Primary Care Provider + [phone] Reason for Visit * Reason Onset Date Comments Med Refill 06/24/2023 Encounter Details Date Type Department Care Team (Late st Contact Info) Description 06/24/2023 Refill [facility] MEDICINE [address] [place] [address] Priscilla He DO [address] [place] [address] Social History Tobacco Use Types Packs/Day Years [...] Care Team (Late st Contact Info) Description 08/28/2024 10:45 AM EDT Office Visit [facility] MEDICINE [address] [place] [address] Priscilla He DO [address] [place] [address] documented as of this encounter Visit Diagnoses Not on filedocumented in this encounter Additional Health Concerns Assessment Noted Time PHQ-9 Depression Total Score: 7 07/09/19 23 9:28 AM EDT documented as of this encounter Care Teams Water Pollution Control Technician Relationship Specialty Start Date End Date Priscilla He DO [address] [place] [address] PCP - General Family Medicine 03/23/17 documented as of this encounter
--- OUTSIDE RECORDS SUMMARY | 2024-07-17 08:31 | XMS_ITS | Encounter Summary ---
Author Organization [employer] Address [address] [place] [address] [place] [address] Care Team Providers Care Bakery Worker Conveyor Line Name Role Phone Priscilla He DO Primary Care Provider [phone] Encounter Details Date Type Department Care Team ([facility] Contact Info) Description 10/24/2022 Orders Only [facility] CH[facility] MED & PEDS [address] [place] [address] Priscilla Falk LPN Social History Tobacco Use [...] Encounters Date Type Department Care Team (Late Contact Info) Description 08/28/2024 10:45 AM EDT Office Visit [facility] MEDICINE [address] [place] [address] Priscilla He DO [address] [place] [address] documented as of this encounter Visit Diagnoses Not on filedocumented in this encounter Additional Health Concerns Assessment Noted Time PHQ-9 Depression Total Score: 7 07/09/19 23 9:28 AM EDT documented as of this encounter Care Teams Bakery Worker Conveyor Line Relationship Specialty Start Date End Date Priscilla He DO [address] [place] [address] PCP - General Family Medicine 03/23/17 documented as of this encounter
--- OUTSIDE RECORDS SUMMARY | 2024-07-17 08:32 | XMS_ITS | Clinical Summary ---
Author Organization [facility] [place], Address [address] [place] [address] [place] [address] Phone Care Team Providers Care Lead Inspector Name Role Phone Priscilla He DO Primary [...] per week 4 Active ergocalciferol 1.25 MG (77159 UT) capsule TAKE 1 CAPSULE (50,000 UNITS [...] 90 capsule 3 5 06/05/19 26 Active Active Problems Problem Noted Date Diagnosed [...] 06/24/2024 Telephone [facility], [address] [place] [address] [place] 06/05/2024 Telephone [facility] [place] [address] [place] [address] Elizabeth Carson, JENISE tacro dose change 05/22/2024 Telephone [facility] [address] [place] [address] Elizabeth Carson RN tacro dose change 05/14/2024 Telephone [facility] [address] [place] [address] Elizabeth Carson, RN rpt tacro level 05/07/2024 11:15 AM EST Office Visit [facility] [address] [place] [address] Sandor Jansen PA Kidney replaced by [...] Visit [facility] [address] [place] [address] Damian Shah MD [address] [place] [address] [place] [address] Health Maintenance Due Date Last Done Comments [...] resultswithin the time period is included. Pathologist [facility] Tacrolimus Lvl 5.9 5.0 - 20.0 ng/mL [facility] Comment: Target steady state trough concentration for [...] Venous) 06/14/2024 7:21 AM EST 06/14/2024 Narrative [facility] - 06/18/2024 1:05 AM EST Test(s) [id number]-Jziuvqkbhi (FK506), Blood was developed and its performance characteristics determined by [facility]. It has not been cleared or approved by the Food and Drug Administration. us Damian Shah MD LAB BLOOD ORDERABLES Final Result [facility] [place] [address] * Lipid panel (05/06/2024 7:21 AM EST) Pathologist [facility] Cholesterol 134 100 - 199 mg/dL [facility] [place] Triglycerides 132 0 - 149 mg/dL [facility] HDL 48 >39 mg/dL [facility] VLDL Cholesterol Richard 23 5 - 40 mg/dL [facility] LDL Calculated 63 0 - 99 mg/dL [facility] Blood (Blood, Venous) 05/06/2024 7:21 AM EST 05/06/2024 us Sandor SINGH LAB BLOOD ORDERABLES Final Re sult [facility] [address] [place] [address] * Urinalysis, Complete w/reflex to Culture (05/06/2024 7:20 AM EST) Specific [place], Urine 1.024 1.005 - 1.030 [facility] pH Urine 5.5 5.0 - 7.5 [facility] Color, Urine Yellow Yellow [facility] [phone] Appearance Urine Clear Clear [facility] [place] WBC Esterase Urine Negative Negative [facility] Protein, Ur Negative Negative/Tra ce [facility] Glucose, Ur Negative Negative [facility] Ketones, Urine Negative Negative [facility] [place] Blood Urine Negative Negative [facility] Bilirubin Urine Negative Negative [facility] [place] [phone] Urobilinogen Urine 0.2 0.2 - 1.0 mg/dL [facility] Nitrite, Urine Negative Negative [facility] [place] [phone] Microscopic Examination Comment [facility] Comment:Microscopic follows if indicated. Other Microsc. Observations See below: [facility] Comment:Microscopic was suma cated and was performed. URINALYSIS REFLEX Comment [facility] [phone] Comment:This specimen will n ot reflex to a Urine Culture. Urine (Urine, Clean Catch) 05/06/2024 7:20 AM EST 05/06/2024 Sandor SINGH LAB URINE ORDERABLES Final Re sult Performing Organization Address City/[facility]/ZIP Co de Phone Number [facility] [address] [place] [address] * Mycophenolic Acid (05/06/2024 7:20 AM EST) Pathologist [facility] Mycophenolic Acid 2.9 1.0 - 3.5 ug/mL [facility] Mycophenolic Acid Glucuronide 47 15 - 125 ug/mL [facility] Blood (Blood, Venous) 05/06/2024 7:20 AM EST 05/06/2024 Narrative [facility] - 2024 11:06 AM EST Test(s) [id number]-Nwuldkwqrrvi Acid; 479448- Mycophenolic Acid Glucuronide was developed and its performance characteristics determined by [facility] [employer]. It has not been cleared or approved by the Food and Drug Administration. Sandor SINGH LAB BLOOD ORDERABLES Final Re sult Performing Organization Address City/[facility]/ZIP Co de Phone Number [facility] [address] [place] [phone] * (ABNORMAL) Microscopic Examination (05/06/2024 7:20 AM EST) WBC, Urine None seen 0 - 5 /hpf [facility] RBC, Urine 0-2 0 - 2 /hpf [facility] [place] Squamous Epithelial, Urine >10(A) 0 - 10 /hpf [facility] Casts None seen None seen /lpf [facility] Bacteria, Urine Few None seen/Few [facility] 05/06/2024 7:20 AM EST 05/06/2024 Sandor SINGH LAB MICROBIOLOGY - GENERAL OR DERABLES Final Result [facility] [address] [place] [address] * Protein, Total, Random Urine w/Creatinine (Protein/Creat Ratio) (05/06/2024 7:20 AM EST) Creatinine, Ur 128.8 Not Estab. mg/dL [facility] Protein, Ur 8.0 Not Estab. mg/dL [facility] Urine Protein/Creatin ine Ratio 62 0 - 200 mg/g creat [facility] Urine (Urine, Clean Catch) 05/06/2024 7:20 AM EST 05/06/2024 Sandor SINGH LAB URINE ORDERABLES Final Re sult [facility] [address] [place] [address] * CBC and Differential (05/06/2024 7:20 AM EST) WBC 4.8 3.4 - 10.8 x10E3/uL [facility] RBC 4.29 3.77 - 5.28 x10E6/uL [facility] Hemoglobin 13.0 11.1 - 15.9 g/dL [facility] Hematocrit 38.4 34.0 - 46.6 % [facility] MCV 90 79 - 97 fL [facility] MCH 30.3 26.6 - 33.0 pg [facility] MCHC 33.9 31.5 - 35.7 g/dL [facility] RDW 13.2 11.7 - 15.4 % [facility] Platelets 262 150 - 450 x10E3/uL [facility] Neutrophils Relative 47 Not Estab. % [facility] Lymphocytes Relative 40 Not Estab. % [facility] Monocytes 7 Not Estab. % [facility] Eosinophils Relative 5 Not Estab. % [facility] Basophils Relative 1 Not Estab. % [facility] Neutrophils Absolute 2.3 1.4 - 7.0 x10E3/uL [facility] Lymphocytes Absolute 1.9 0.7 - 3.1 x10E3/uL [facility] Monocytes Absolute 0.3 0.1 - 0.9 x10E3/uL [facility] Eosinophils Absolute 0.2 0.0 - 0.4 x10E3/uL [facility] Basophils Absolute 0.0 0.0 - 0.2 x10E3/uL [facility] Immature Granulocytes 0 Not Estab. % [facility] Immature Grans (Absolute) 0.0 0.0 - 0.1 x10E3/uL [facility] Blood (Blood, Venous) 05/06/2024 7:20 AM EST 05/06/2024 Sandor SINGH LAB BLOOD ORDERABLES Final Re sult Performing Organization Address City/[facility]/ZIP Co de Phone Number [facility] [address] [place] [address] * ALT (05/06/2024 7:20 AM EST) ALT (SGPT) 29 0 - 32 IU/L [facility] Blood (Blood, Venous) 05/06/2024 7:20 AM EST 05/06/2024 Sandor SINGH LAB BLOOD ORDERABLES Final Re sult Performing Organization Address [facility] Co de Phone Number [facility] [address] [place] [address] * AST (05/06/2024 7:20 AM EST) AST (SGOT) 26 0 - 40 IU/L [facility] Blood (Blood, Venous) 05/06/2024 7:20 AM EST 05/06/2024 Sandor SINGH LAB BLOOD ORDERABLES Final Re sult Performing Organization Address [facility] Co de Phone Number [facility] [address] [place] [address] * CK (05/06/2024 7:20 AM EST) Creatine Kinase (CK/CPK) 73 32 - 182 U/L [facility] Blood (Blood, Venous) 05/06/2024 7:20 AM EST 05/06/2024 Sandor SINGH LAB BLOOD ORDERABLES Final Re sult Performing Organization Address City/[facility]/ZIP Co de Phone Number [facility] [address] [place] [address] * (ABNORMAL) Renal Function Panel (05/06/2024 7:20 AM EST) Glucose 110(H) 70 - 99 mg/dL [facility] BUN 21 6 - 24 mg/dL [facility] Creatinine 0.77 0.57 - 1.00 mg/dL [facility] eGFR CKD-EPI CR 2020 93 >59 mL/min/1.7 3 [facility] BUN/Creatinine Ratio 27(H) 9 - 23 [facility] Sodium 144 134 - 144 mmol/L [facility] Potassium 5.0 3.5 - 5.2 mmol/L [facility] Chloride 108(H) 96 - 106 mmol/L [facility] Bicarbonate (CO2) 22 20 - 29 mmol/L [facility] Calcium 9.5 8.7 - 10.2 mg/dL [facility] Phosphorus 3.0 3.0 - 4.3 mg/dL [facility] Albumin 4.2 3.8 - 4.9 g/dL [facility] Blood (Blood, Venous) 05/06/2024 7:20 AM EST 05/06/2024 us Sandor SINGH LAB BLOOD ORDERABLES Final Re sult [facility] [address] [place] [address] * Hemoglobin A1c (12/26/2023 8:51 AM EDT) Hemoglobin A1C 5.6 4.8 - 5.6 % [facility] Comment: ? Prediabetes: 5.7 - 6.4 ? Diabetes: >6.4 ? Glycemic control for adults with diabetes: <7.0 Blood (Blood, Venous) 12/26/2023 8:51 AM EDT 12/26/2023 Sandor SINGH LAB BLOOD ORDERABLES Final Re sult [facility] [address] [place] [address] from Last 3 Months or Most Recently Relevant to Health Maintenance Insurance [place]ICAID [place] Care Teams Lead Inspector Relationship Specialty Start Date End Date Priscilla He DO [address] [place] [address] PCP - General 02/26/19
--- OUTSIDE RECORDS SUMMARY | 2024-07-17 08:32 | XMS_ITS | Encounter Summary ---
Author Organization [employer] Address [address] [place] [address] 7 [place] [address] Care Team Providers Care Textile Finisher Name Role Phone Priscilla He DO Primary Care Provider + [phone] Reason for Visit * Reason Onset Date Comments Referral 08/04/2023 Encounter Details Date Type Department Care Team ([facility] st Contact Info) Description 08/04/2023 Telephone [facility] MEDICINE [address] [place], [place] [phone] Priscilla He DO [address] [place], [place] [phone] Referral Social History Tobacco Use Types Packs/Day [...] it was canceled. Please contact pt at [phone]. documented in this encounter Plan of Treatment Upcoming Encounters Date Type Department Care Team (Late st Contact Info) Description 08/28/2024 10:45 AM EDT Office Visit [facility] MEDICINE [address] [place] [address] Priscilla He DO [address] [place] [address] documented as of this encounter Visit Diagnoses Not on filedocumented in this encounter Additional Health Concerns Assessment Noted Time PHQ-9 Depression Total Score: 0 08/03/19 24 10:24 AM EDT documented as of this encounter Care Teams Textile Finisher Relationship Specialty Start Date End Date Priscilla He DO [address] [place] [address] PCP - General Family Medicine 03/23/17 documented as of this encounter
--- OUTSIDE RECORDS SUMMARY | 2024-07-17 08:32 | XMS_ITS | Encounter Summary ---
Author Organization [employer] Address [address] [place] [address] 7 [place] [address] Care Team Providers Care Orange Picking Supervisor Name Role Phone Priscilla He DO Primary Care Provider + [phone] Reason for Visit * Reason Onset Date Comments Recall Appt. 06/21/2024 Encounter Details Date Type Department Care Team ([facility] st Contact Info) Description 06/21/2024 Telephone [facility] MEDICINE [address] [place] [address] Priscilla He DO [address] [place], [place] [phone] Recall Appt. Social History Tobacco Use Types Packs/Day Years [...] Telephone Encounter - Quiana Rosas MA - 06/21/2024 1:57 PM EST .Telephone call to patient to schedule the following recall: Visit type: Office visit Appointment notes: DM Patient agree to appointment on 08/28/2024 at 10:45 AM with Matteo. documented in this encounter Plan of Treatment Upcoming Encounters Date Type Department Care Team (Late st Contact Info) Description 08/28/2024 10:45 AM EDT Office Visit [facility] MEDICINE [address] [place] [address] Priscilla He DO [address] [place] [address] documented as of this encounter Visit Diagnoses Not on filedocumented in this encounter Additional Health Concerns Assessment Noted Time PHQ-9 Depression Total Score: 0 08/03/19 24 10:24 AM EDT documented as of this encounter Care Teams Orange Picking Supervisor Relationship Specialty Start Date End Date Priscilla He DO [address] [place] [address] PCP - General Family Medicine 03/23/17 documented as of this encounter
--- OUTSIDE RECORDS SUMMARY | 2024-07-17 08:32 | XMS_ITS | Encounter Summary ---
Author Organization [employer] Address [address] [place] [address] [address] [address] Care Team Providers Care Geographic Information Systems Director Name Role Phone Priscilla He DO Primary Care Provider [phone] Encounter Details Date Type Department Care Team (Latest Contact Info) Description 08/20/2020 Abstract [facility] CONVERSIONS Dental, Provider, DDS Social History [...] Description 08/28/2024 10:45 AM EDT Office Visit [facility] MEDICINE [address] [place] [address] Priscilla He DO [address] [place] [address] documented as of this encounter Visit Diagnoses Not on filedocumented in this encounter Care Teams Geographic Information Systems Director Relationship Specialty Start Date End Date Priscilla He DO [address] [place] [address] PCP - General Family Medicine 03/23/17 documented as of this encounter
--- OUTSIDE RECORDS SUMMARY | 2024-07-17 08:32 | XMS_ITS | Encounter Summary ---
Author Organization [employer] Address [address] [facility] 7 [place] [address] Care Team Providers Care Customer Success Representative Name Role Phone MorroPriscilla weinstein Primary Care Provider + [phone] Encounter Details Date Type Department Care Team ([facility] st Contact Info) Description 07/05/2024 Population Health Risk Score [facility] (C3) Department 75 [facility] 7 [place] [phone] Provider, Population Health Generic Social History Tobacco Use Types Packs/Day Years [...] Description 08/28/2024 10:45 AM EDT Office Visit [facility] MEDICINE [address] [place] [address] Priscilla He DO 230 [place] [address] documented as of this encounter Visit Diagnoses Not on filedocumented in this encounter Additional Health Concerns Assessment Noted Time PHQ-9 Depression Total Score: 0 08/03/19 24 10:24 AM EDT documented as of this encounter Care Teams Customer Success Representative Relationship Specialty Start Date End Date Priscilla He DO 230 [place] [address] PCP - General Family Medicine 03/23/17 documented as of this encounter
--- OUTSIDE RECORDS SUMMARY | 2024-07-17 08:32 | XMS_ITS | Encounter Summary ---
Author Organization [employer] Address [address] [facility] 7t [place] [address] Care Team Providers Care Cut In Station Operator Name Role Phone Priscilla He DO Primary Care Provider + [phone] Encounter Details Date Type Department Care Team (Latest Contact Info) Description 06/21/2024 Travel Social History Tobacco Use Types Packs/Day Years [...] Description 08/28/2024 10:45 AM EDT Office Visit [facility] MEDICINE 230 [place] [address] Priscilla He DO 230 [place] [address] documented as of this encounter Visit Diagnoses Not on filedocumented in this encounter Additional Health Concerns Assessment Noted Time PHQ-9 Depression Total Score: 0 08/03/19 24 10:24 AM EDT documented as of this encounter Care Teams Cut In Station Operator Relationship Specialty Start Date End Date Prisclila He DO 230 [place] [address] PCP - General Family Medicine 03/23/17 documented as of this encounter
--- OUTSIDE RECORDS SUMMARY | 2024-07-17 08:32 | XMS_ITS | Encounter Summary ---
Author Organization [facility], Address [address] [place] [address] Phone Care Team Providers Care Dish Maker Name Role Phone Priscilla He DO Primary Care Provider Unava ilable Reason for Visit * Reason Comments Med Refill Encounter Details Date Type Department Care Team (Late st Contact Info) Description 06/25/2021 Refill [facility] [address] [place] [address] Sandor Jansen PA Social History [...] Visit [facility] [address] [place] [address] Damian Shah MD [address] [place] [address] [place] [address] documented as of this encounter Visit Diagnoses Not on filedocumented in this encounter Care Teams Dish Maker Relationship Specialty Start Date End Date Priscilla He DO 230 [place] [address] PCP - General 02/26/19 documented as of this encounter
--- OUTSIDE RECORDS SUMMARY | 2024-07-17 08:32 | XMS_ITS | Encounter Summary ---
Author Organization [employer] Address [address] [facility] 7 [place] [address] Care Team Providers Care Athletic Agent Name Role Phone Priscilla He DO Primary Care Provider + [phone] Reason for Visit * Reason Onset Date Comments Med Refill 05/04/2023 Encounter Details Date Type Department Care Team (Late st Contact Info) Description 05/04/2023 Refill [facility] MEDICINE 230 [place] [address] Priscilla He DO 230 [place] [address] Social History Tobacco Use Types Packs/Day Years [...] Description 08/28/2024 10:45 AM EDT Office Visit [facility] MEDICINE 230 [place] [address] Priscilla He DO [address] [place] [address] documented as of this encounter Visit Diagnoses Not on filedocumented in this encounter Additional Health Concerns Assessment Noted Time PHQ-9 Depression Total Score: 7 07/09/19 23 9:28 AM EDT documented as of this encounter Care Teams Athletic Agent Relationship Specialty Start Date End Date Priscilla He DO 230 [place] [address] PCP - General Family Medicine 03/23/17 documented as of this encounter
--- OUTSIDE RECORDS SUMMARY | 2024-07-17 08:32 | XMS_ITS | Encounter Summary ---
Author Organization [facility], Address [address] [place] [address] Phone Care Team Providers Care Perianesthesia Rn Name Role Phone Priscilla He DO Primary Care Provider Unava ilable Encounter Details Date Type Department Care Team (Late st Contact Info) Description 10/14/2022 Documentation Only [facility], [address] [place] [address] Damian Shah MD [address] [place] [address] [place] [address] Social History Tobacco Use Types [...] Visit [facility] [address] [place] [address] Damian Shah MD [address] [place] [address] [place] [address] documented as of this encounter Visit Diagnoses Not on filedocumented in this encounter Care Teams Perianesthesia Rn Relationship Specialty Start Date End Date Priscilla He DO 230 [place] [address] PCP - General 02/26/19 documented as of this encounter
--- OUTSIDE RECORDS SUMMARY | 2024-07-17 08:32 | XMS_ITS | Encounter Summary ---
Author Organization [facility], Address [address] [place] [address] Phone Care Team Providers Care Web Press Operator Assistant Name Role Phone Priscilla He DO Primary Care Provider Unava ilable Reason for Visit * Reason Comments Med Refill Encounter Details Date Type Department Care Team (Late st Contact Info) Description 06/28/2021 Refill [facility] [address] [place] [address] Sandor Jansen PA Social History [...] Visit [facility] [address] [place] [address] Damian Shah MD [address] [place] [address] [place] [address] documented as of this encounter Visit Diagnoses Not on filedocumented in this encounter Care Teams Web Press Operator Assistant Relationship Specialty Start Date End Date Priscilla He DO 230 [place] [address] PCP - General 02/26/19 documented as of this encounter
--- OUTSIDE RECORDS SUMMARY | 2024-07-17 08:32 | XMS_ITS | Encounter Summary ---
Author Organization [employer] Address [address] [facility] 7 [place] [address] Care Team Providers Care Paraffin Machine Operator Name Role Phone Priscilla He DO Primary Care Provider + [phone] Reason for Visit * Reason Onset Date Comments Med Refill 05/05/2023 Encounter Details Date Type Department Care Team (Late st Contact Info) Description 05/05/2023 Refill [facility] MEDICINE [address] [place] [address] Priscilla He DO [address] [place] [address] Social History Tobacco Use Types Packs/Day Years [...] Description 08/28/2024 10:45 AM EDT Office Visit [facility] MEDICINE 230 [place] [address] Priscilla He DO 230 [place] [address] documented as of this encounter Visit Diagnoses Not on filedocumented in this encounter Additional Health Concerns Assessment Noted Time PHQ-9 Depression Total Score: 7 07/09/19 23 9:28 AM EDT documented as of this encounter Care Teams Paraffin Machine Operator Relationship Specialty Start Date End Date Priscilla He DO [address] [place] [address] PCP - General Family Medicine 03/23/17 documented as of this encounter
--- OUTSIDE RECORDS SUMMARY | 2024-07-17 08:32 | XMS_ITS | Encounter Summary ---
Author Organization [employer] Address [address] [place] [address] 7 [place] [address] Care Team Providers Care Speech Therapy Teacher Name Role Phone Priscilla He DO Primary Care Provider [phone] Reason for Visit * Reason Onset Date Comments Nurse Triage 10/20/2023 Encounter Details Date Type Department Care Team (Late st Contact Info) Description 10/20/2023 Telephone [facility] MEDICINE 230 [place], [place] [phone] Priscilla He DO 230 [place], [place] [phone] Nurse Triage Social History Tobacco Use Types [...] sx. Per pt at last visit in [facility] pt dx with bronchitis. Per pt completed [...] 11/01/2023 11:30 AM Priscilla He DO MEDICINE [facility] Protocol Used: Asthma Attack (Adult) Protocol-Based Disposition: [...] Description 08/28/2024 10:45 AM EDT Office Visit [facility] MEDICINE [address] [place] [address] Priscilla He DO 230 [place] [address] documented as of this encounter Visit Diagnoses Not on filedocumented in this encounter Additional Health Concerns Assessment Noted Time PHQ-9 Depression Total Score: 0 08/03/19 24 10:24 AM EDT documented as of this encounter Care Teams Speech Therapy Teacher Relationship Specialty Start Date End Date Priscilla He DO 230 [place] [address] PCP - General Family Medicine 03/23/17 documented as of this encounter
--- OUTSIDE RECORDS SUMMARY | 2024-07-17 08:32 | XMS_ITS | Clinical Summary ---
Author Organization [employer] Address [address] [place] [address] 7t [place] [address] Care Team Providers Care Banquet Cook Name Role Phone LaliPriscilla alarcon Primary Care [...] 4 025 Active Blood Glucose Monitoring Suppl (Enmotus Lite) w/Device kit Use to test blood [...] Encounters Date Type Department Care Team Description 07/16/2024 Refill [facility] MEDICINE 230 [place] [address] Priscilla He DO 07/05/2024 Population Health Risk Score [facility] (C3) Department [address] [address] Provider, Population Health Generic 06/21/[address] [address] Priscilla He DO Recall Appt. 06/21/2024 Travel 06/03/2024 Orders Only [address] [address] Priscilla He DO Ab[address] CT of the head (Primary Dx) 05/17/[address] [address] Adrianne Velazco, JENISE CT head results 05/16/[address] [address] Quiana Rosas [place] DME [facility] Physical Therapy from Last 3 Months Immunizations Name Administration [...] 01/31/2024 10:54 AM EDT Plan of Treatment Upcoming Encounters Date Type Department Care Team (Late st Contact Info) Description 08/28/2024 10:45 AM EDT Office Visit [facility] MEDICINE 230 [place], [place] [phone] Priscilla He DO [address] [place] [address] Health Maintenance Due Date Last Done Comments [...] history exists Depression Screening 08/02/2024 08/03/2023, 08/03/19 Lipid Panel 08/21/2024 08/22/2023, 03/09/2022 SDOH Screening [...] TOMOSYNTHESIS BILATERAL Routine 03/14/2024 8:00 AM EST POCT GLYCATED HEMOGLOBIN, TOTAL Routine 01/31/2024 11:28 [...] EST Narrative 03/25/2024 9:14 AM EST ? [facility] [place] ? [address] ?[place] [address] ? Mammography Report ? Signed ? Patient: Reyez Rausch,Regine Lady ?MR#: ?? [id number] ? : 1970 ?Acct:[id number] ? Age/Sex: 53 / F ?ADM Date: 11/21/24 ? Loc: HO.MAMMO ? Attending Dr: Priscilla A Ying DO ? Ordering Physician: Ying,Priscilla A DO ?Results: 2B ?? enign Findings ? Date of Service: 11/21/24 ?Follow Up: 1 Year From Orig ?? inal Mammogram ? Procedure(s): MM tomosynthesis screening BI ?? Accession Number(s): [id number] ? cc: Priscilla He DO ? EXAMINATION: [...] ??Suzette Santamaria DO ??03/25/2024 09:11 AM EST ?? RP ? Dictated By: ?Suzette Santamaria DO ? Signed By: ?<Electronically signed by Suzette Santamaria, DO in OV> ? 03/25/24 0911 ? DD/ 0800 ? TD/TT: 03/14/24 0823 ? Missile Inspector Preflight: ? Procedure Note Georgette, Velasquez - 03/25/2024 [facility] [address] [place] [address] [place] [address] Mammography Report Signed Patient: Regine Weaver#: [id number] : 1970Acct:[id number] Age/Sex: 53 / FADM Date: 03/14/24 Loc: HO.MAMMO Attending Dr: Priscilla He DO Ordering Physician: Priscilla Heults: 2B enign Findings Date of Service: 03/14/24Follow Up: 1 Year From Orig ina Mammogram Procedure(s): MM tomosynthesis screening BI Accession Number(s): [id number] cc: Priscilla He DO EXAMINATION: MM SCREENING [...] OV> 03/25/24 0911 DD/ 0800 TD/TT: 03/14/24 08 Missile Inspector Preflight: us Priscilla He DO IMG BI PROCEDURES Final Resu lt * POCT HGB A1C (01/31/2024 11:28 AM EDT) Hemoglobin A1C 5.5 4.0 - 6.0 % QC Media Lot # [id number] Lot# Expiration Date Blood 01/31/2024 11:2 8 AM EDT Priscilla He DO POINT OF CARE TEST ENTER/CAROLINE T ORDERABLES Final Result * (ABNORMAL) Lipid Panel, Standard (08/22/2023 10:53 AM EDT) Triglycerides 90 <150 mg/dL [facility] Comment:Desirable Triglyceri de: less than 150 mg/dLBorderline High Triglyceride 150-199 mg/dLHigh Triglyceride: 200-499 mg/dLVery High Triglyceride: greater than or equal to 5OO mg/dL Cholesterol 196 <200 mg/dL [facility] Comment:Desirable Cholestero l: less than 200 mg/dLBorderline High Cholesterol: 200-239 mg/dLHigh Cholesterol: greater than 239 mg/dL LDL Cholesterol Calculated 125(H) <100 mg/dL [facility] Comment:Desirable LDL: less than 100 mg/dLNear Optimal/Above Optimal LDL: 110- 129 mg/dLBorderline High LDL: 130-159 mg/dLHigh LDL: 160-189 mg/dLVery High LDL: greater than or equal to 190 mg/dL HDL Cholesterol 53 >40 mg/dL [facility] Comment:Desirable HDL: great er than 40 mg/dL Note: This HDL assay may give artificially low results in patients with liver disease. Blood Venous blood specimen / Unknown 08/22/2023 10:53 AM EDT 08/22/2023 11:37 AM EDT Priscilla He DO LAB BLOOD ORDERABLES Final R esult [facility] [place] [address] [phone] * HIV Ab/Ag (AV LIN) (08/10/2022 2:21 PM EDT) HIV AB/AG Nonreactive Nonreactive [facility] Comment:HIV-1 p24 Ag and/or HIV-1/HIV-2 Ab not detected.A test result that is nonreactive does not exclude thepossibility of exposure to or infection with HIV-1 and/orHIV-2. Nonreactive results in this assay for individualswith prior exposure to HIV-1 and/or HIV-2 may be due toantigen and antibody levels that are below the limit ofdetection of this assay.The [employer] K[employer] HIV Ag/Ab Combo assay result andsupplemental assay results should be interpreted inconjunction with the patient's clinical presentation,history and other laboratory results. If the results areinconsistent with clinical evidence, additional testing issuggested to confirm the result. 08/10/2022 2:21 PM EDT 08/10/2022 2:21 PM EDT [facility] External Provider LAB BLO OD ORDERABLES Final Result Performing Organization Address [facility] de Phone Number [facility] [address] [place] [phone] * Hepatitis Panel, General (08/10/2022 2:21 PM EDT) Hepatitis A IgM Nonreactive Nonreactive [facility] Comment:IgM antibodies to CEBALLOS V not detected; does not exclude earlyacute or recovered HAV infection. ~Hepatitis B Surface Antibody REACTIVE Nonreactive [facility] Comment:REACTIVE: > 11.99 mI U/mL Hepatitis B Core Antibody Nonreactive Nonreactive [facility] Hepatitis C Antibody Nonreactive Nonreactive [facility] Comment:Antibodies to HCV no t detected; does not exclude early acuteHCV infection. Hepatitis B Surface Ag Negative Negative [facility] 08/10/2022 2:21 PM EDT 08/10/2022 2:21 PM EDT [facility] External Provider LAB BLO OD ORDERABLES Final Result Performing Organization Address [facility] Co de Phone Number [facility] [address] [place] [phone] * ALBUMIN, RANDOM URINE W/CREATININE (03/09/2022 [...] EDT) HPV 18/45 RNA Test not performed [facility] HPV mRNA E6/E7 Not Detected NOT DETECTED [facility] Comment: This test was performed using the APTIMA(R) HPV Assay ([employer] This assay detects E6/E7 viral messenger RNA (mRNA) from 14 high-risk HPV types (16,18,31,33,35,39,45,51, 52,56,58,59,66,68). For additional information please refer to: http://education.[employer].ABSMaterials/faq/VMB834t7 (This link is being provided for informational/ educational purposes only.) The analytical performance characteristics of this assay have been determined by [employer] [place], [place]. The modifications have not been cleared or approved by the FDA. This assay has been validated pursuant to the CLIA regulations and is used for clinical purposes. Please note: ??Effective 01/04/2016, HPV testing will be performed using [employer]'s APTIMA test which targets mRNA. Detecting mRNA instead of DNA, as in older methods, offers significant improvements in specificity. ADDITIONAL TESTING Not indicated () [facility] Comment: Test Performed by Melissa Perez, [facility], [address] [place], [place] Sundar Craig M.D., Ph.D., Director of Laboratories , [facility] [id number] HPV 16 RNA Test not performed [facility] 07/20/2018 12:1 2 PM EDT us Priscilla He DO HISTORICAL/NON ORDERABLE LAB S Final Result [facility] [address] from Last 3 Months or Most Recently Relevant to Health Maintenance Insurance [facility] C[facility] Care Teams Banquet Cook Relationship Specialty Start Date End Date Priscilla He DO [address] [place] [address] PCP - General Family Medicine 03/23/17
--- OUTSIDE RECORDS SUMMARY | 2024-07-17 08:32 | XMS_ITS | Encounter Summary ---
Author Organization [facility], Address [address] [place] [address] Phone Care Team Providers Care Pig Caster Name Role Phone Priscilla He DO Primary Care Provider Unava ilable Encounter Details Date Type Department Care Team (Late st Contact Info) Description 12/01/2021 Documentation Only [facility], [address] [place] [address] Rakel Hollingsworth MD [address] [place] [address] Social History Tobacco Use Types [...] Visit [facility] [address] [place] [address] Damian Shah MD [address] [facility] [place] [place] [address] documented as of this encounter Visit Diagnoses Not on filedocumented in this encounter Care Teams Pig Caster Relationship Specialty Start Date End Date Priscilla He DO [address] [place] [address] PCP - General 02/26/19 documented as of this encounter
--- OUTSIDE RECORDS SUMMARY | 2024-07-17 08:32 | XMS_ITS | Encounter Summary ---
Author Organization [employer] Address [address] [place] [address] 7 [place] [address] Care Team Providers Care Restaurant Delivery Driver Name Role Phone Priscilla He DO Primary Care Provider + [phone] Reason for Visit * Reason Onset Date Comments Med Refill 07/16/2024 Encounter Details Date Type Department Care Team (Late st Contact Info) Description 07/16/2024 Refill [facility] MEDICINE [address] [place] [address] Priscilla He DO [address] [place] [address] Social History Tobacco Use Types Packs/Day Years [...] Description 08/28/2024 10:45 AM EDT Office Visit [facility] MEDICINE [address] [place] [address] Priscilla He DO [address] [place] [address] documented as of this encounter Visit Diagnoses Not on filedocumented in this encounter Additional Health Concerns Assessment Noted Time PHQ-9 Depression Total Score: 0 08/03/19 24 10:24 AM EDT documented as of this encounter Care Teams Restaurant Delivery Driver Relationship Specialty Start Date End Date Priscilla He DO [address] [place] [address] PCP - General Family Medicine 03/23/17 documented as of this encounter
== END ==
LOC: HO.CARD 08:12
PROVIDERS: PCP Family Medicine; Visit Provider Internal Medicine
DX: R07.2 Precordial pain (principal)
CPT/HCPCS: 93350; Q9957

== ENCOUNTER → 2024-07-17 08:15 | Outpatient (BNV) | payer MEDICAID, SELFPAY | PROVIDERS: PCP Family Medicine | DX: R07.9 Chest pain, unspecified (principal) | CPT/HCPCS: 93016; 93018; 93350; 93352 ==

== ENCOUNTER 2024-08-02 07:49 | Outpatient (AMB) | payer MEDICAID, SELFPAY ==
--- OUTSIDE RECORDS SUMMARY | 2024-08-02 07:51 | XMS_ITS | Encounter Summary ---
Author Organization [facility], Address [address] [place] [address] Phone Care Team Providers Care Parking Meter Installer Name Role Phone Priscilla He DO Primary Care Provider Unava ilable Reason for Visit * Reason Comments Med Refill Encounter Details Date Type Department Care Team (Late st Contact Info) Description 11/12/2019 Refill [facility] [address] [place] [address] Faisal See MD [address] [place] [address] [place] [address] Social History Tobacco Use Types [...] Care Team (Late st Contact Info) Description 10/02/2024 10:30 AM EDT Office Visit [facility] [address] [place] [address] Damian Shah MD [address] [place] [address] [place] [address] documented as of this encounter Visit Diagnoses Not on filedocumented in this encounter Care Teams Parking Meter Installer Relationship Specialty Start Date End Date Priscilla He DO [address] [place] [address] PCP - General 02/26/19 documented as of this encounter
--- OUTSIDE RECORDS SUMMARY | 2024-08-02 07:51 | XMS_ITS | Clinical Summary ---
Author Organization [facility] Address [address] [place] [address] Care Team Providers Care Technical Clerk Name Role Phone Pcp, No Primary Care [...] age to complete this topic Care Teams Technical Clerk Relationship Specialty Start Date End Date Pcp, No [address] [place] [address] PCP - General 12/23/18
--- OUTSIDE RECORDS SUMMARY | 2024-08-02 07:52 | XMS_ITS | Encounter Summary ---
Author Organization [employer] Address [address] [facility] [address] [place] [address] Care Team Providers Care Chief Fundraising Officer Name Role Phone Priscilla He DO Primary Care Provider + [phone] Reason for Visit * Reason Onset Date Comments Med Refill 06/24/2023 Encounter Details Date Type Department Care Team (Late st Contact Info) Description 06/24/2023 Refill [facility] [address] [place] [address] Priscilla He DO [address] [place] [address] Social History Tobacco Use Types Packs/Day Years [...] 10:45 AM EDT Office Visit [facility] [address] [place] [address] Priscilla He DO [address] [place] [address] documented as of this encounter Visit Diagnoses Not on filedocumented in this encounter Additional Health Concerns Assessment Noted Time PHQ-9 Depression Total Score: 7 07/09/19 23 9:28 AM EDT documented as of this encounter Care Teams Chief Fundraising Officer Relationship Specialty Start Date End Date Priscilla He DO [address] [place] [address] PCP - General Family Medicine 03/23/17 documented as of this encounter
--- OUTSIDE RECORDS SUMMARY | 2024-08-02 07:52 | XMS_ITS | Clinical Summary ---
Author Organization [facility], Address [address] [place] [address] [place] [address] Phone Care Team Providers Care Manager Water Name Role Phone Priscilla He DO Primary [...] per week 4 Active ergocalciferol 1.25 MG (87627 UT) capsule TAKE 1 CAPSULE (50,000 UNITS [...] Encounters Date Type Department Care Team Description 08/01/2024 3:30 PM EDT Office Visit [facility] [address] [place] [address] Damian Shah MD History of immunosuppressive therapy (Primary Dx); Kidney replaced by transplant; Chronic kidney disease, stage 2 (mild); Hypertension 07/30/2024 Orders Only [facility] [address] [place] [phone] Damian Shah MD 06/24/2024 Telephone [facility] [address] [place] [place] [phone] Paris Gifford MA 06/05/2024 Telephone [facility] [address] [place] [address] Elizabeth Carson, JENISE tacro dose change 05/22/2024 Telephone [facility] [address] [place] [address] Elizabeth Carson, JENISE tacro dose change 05/14/2024 Telephone [facility] [address] [place] [address] Elizabeth Carson, JENISE rpt tacro level 05/07/2024 11:15 AM EST Office Visit [facility] [address] [place] [address] Sandor Jansen PA 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); History of immunosuppressive therapy; Stage 1 chronic kidney disease from Last 3 Months Immunizations Immunization Administration Dates Next Due Influenza, MDCK, Quadrivalen [...] Sign Reading Time Taken Comments Blood Pressure 116/60 08/01/2024 3:28 PM EDT Pulse 74 02/22/2019 12:00 PM EDT Temperature - - Respiratory Rate 16 02/22/2019 12:00 PM EDT Oxygen Saturation - - Inhaled Oxygen Concentration - - Weight 65.9 kg (145 lb 3.2 oz) 08/01/2024 3:28 P M EDT Height 162.6 cm (5' 4 ) 05/07/2024 11:13 AM EST Body Mass Index 24.92 05/07/2024 11:13 AM EST Plan of Treatment Upcoming Encounters Date Type Department Care Team (Late st Contact Info) Description 10/02/2024 10:30 AM EDT Office Visit [facility] [address] [place] [phone] Damian Shah MD [address] [place] [address] [place] [address] Health Maintenance Due Date Last Done Comments Breast Cancer Screening 1972 Hepatitis B Vaccine (1 of 3 - 19+ 3-dose series) 1991 Colonoscopy (Post-Transplant Patient) 12/04/2019 Mammogram (Post-Transplant Patient) 12/04/2019 Pelvic Exam (Post-Transplant Patient) 12/04/2019 Diabetes: Ophthalmology Exam 07/12/2022 Diabetes: Pedal Pulse Checked 07/12/2022 Diabetes: Sensory Foot Exam 07/12/2022 Diabetes: Visual Foot Exam 07/12/2022 Diabetes: Hemoglobin A1C 05/02/2024 024, 12/26/2023, 08/03/2023, Additional history exists Influenza Vaccine (Season Ended) 2024 03/09/2023, 02/28/2022, 03/02/2021, Additional history exists Pneumococcal Vaccine: 50+ Years Completed 03/09/2023, 01/15/2019, 01/29/2015 Pneumococcal Vaccine: Peds ( 0 to 5 Years) and At-Risk Patients (6 to 49 Years) Discontinued 03/09/2023, 01/15/2019, 01/29/2015 Procedures Procedure Name Priority Date/Time Associated Diagnosis Comments MICROSCOPIC EXAMINATION - DO NOT USE Routine 07/30/2024 8:32 AM EDT URINALYSIS, COMPLETE Routine 07/26/2024 8:11 AM EDT Chronic kidney disease stage 2 History of immunosuppressive therapy Kidney replaced by transplant Polycystic ovary syndrome Vitamin D deficiency, not otherwise specified Chronic gout with tophus, not otherwise specified Other hyperlipidemia Hypomagnesemia Other iron deficiency anemia Other specified hypoparathyroidism (HCC) Poor glycemic control Albuminuria, not otherwise specified URINE ALBUMIN / CREATININE RATIO Routine 07/26/2024 8:11 AM EDT Chronic kidney disease stage 2 History of immunosuppressive therapy Kidney replaced by transplant Polycystic ovary syndrome Vitamin D deficiency, not otherwise specified Chronic gout with tophus, not otherwise specified Other hyperlipidemia Hypomagnesemia Other iron deficiency anemia Other specified hypoparathyroidism (HCC) Poor glycemic control Albuminuria, not otherwise specified CREATINE KINASE Routine 07/26/2024 8:11 AM EDT Chronic kidney disease stage 2 History of immunosuppressive therapy Kidney replaced by transplant Polycystic ovary syndrome Vitamin D deficiency, not otherwise specified Chronic gout with tophus, not otherwise specified Other hyperlipidemia Hypomagnesemia Other iron deficiency anemia Other specified hypoparathyroidism (HCC) Poor glycemic control Albuminuria, not otherwise specified AST Routine 07/26/2024 8:11 AM EDT Chronic kidney disease stage 2 History of immunosuppressive therapy Kidney replaced by transplant Polycystic ovary syndrome Vitamin D deficiency, not otherwise specified Chronic gout with tophus, not otherwise specified Other hyperlipidemia Hypomagnesemia Other iron deficiency anemia Other specified hypoparathyroidism (HCC) Poor glycemic control Albuminuria, not otherwise specified ALT Routine 07/26/2024 8:11 AM EDT Chronic kidney disease stage 2 History of immunosuppressive therapy Kidney replaced by transplant Polycystic ovary syndrome Vitamin D deficiency, not otherwise specified Chronic gout with tophus, not otherwise specified Other hyperlipidemia Hypomagnesemia Other iron deficiency anemia Other specified hypoparathyroidism (HCC) Poor glycemic control Albuminuria, not otherwise specified PTH, INTACT Routine 07/26/2024 8:11 AM EDT Chronic kidney disease stage 2 History of immunosuppressive therapy Kidney replaced by transplant Polycystic ovary syndrome Vitamin D deficiency, not otherwise specified Chronic gout with tophus, not otherwise specified Other hyperlipidemia Hypomagnesemia Other iron deficiency anemia Other specified hypoparathyroidism (HCC) Poor glycemic control Albuminuria, not otherwise specified IRON PANEL (FE, TIBC, TSAT) Routine 07/26/2024 8:11 AM EDT Chronic kidney disease stage 2 History of immunosuppressive therapy Kidney replaced by transplant Polycystic ovary syndrome Vitamin D deficiency, not otherwise specified Chronic gout with tophus, not otherwise specified Other hyperlipidemia Hypomagnesemia Other iron deficiency anemia Other specified hypoparathyroidism (HCC) Poor glycemic control Albuminuria, not otherwise specified FERRITIN Routine 07/26/2024 8:11 AM EDT Chronic kidney disease stage 2 History of immunosuppressive therapy Kidney replaced by transplant Polycystic ovary syndrome Vitamin D deficiency, not otherwise specified Chronic gout with tophus, not otherwise specified Other hyperlipidemia Hypomagnesemia Other iron deficiency anemia Other specified hypoparathyroidism (HCC) Poor glycemic control Albuminuria, not otherwise specified MAGNESIUM Routine 07/26/2024 8:11 AM EDT Chronic kidney disease stage 2 History of immunosuppressive therapy Kidney replaced by transplant Polycystic ovary syndrome Vitamin D deficiency, not otherwise specified Chronic gout with tophus, not otherwise specified Other hyperlipidemia Hypomagnesemia Other iron deficiency anemia Other specified hypoparathyroidism (HCC) Poor glycemic control Albuminuria, not otherwise specified LIPID PANEL Routine 07/26/2024 8:11 AM EDT Chronic kidney disease stage 2 History of immunosuppressive therapy Kidney replaced by transplant Polycystic ovary syndrome Vitamin D deficiency, not otherwise specified Chronic gout with tophus, not otherwise specified Other hyperlipidemia Hypomagnesemia Other iron deficiency anemia Other specified hypoparathyroidism (HCC) Poor glycemic control Albuminuria, not otherwise specified URIC ACID Routine 07/26/2024 8:11 AM EDT Chronic kidney disease stage 2 History of immunosuppressive therapy Kidney replaced by transplant Polycystic ovary syndrome Vitamin D deficiency, not otherwise specified Chronic gout with tophus, not otherwise specified Other hyperlipidemia Hypomagnesemia Other iron deficiency anemia Other specified hypoparathyroidism (HCC) Poor glycemic control Albuminuria, not otherwise specified VITAMIN D 25 HYDROXY Routine 07/26/2024 8:11 AM EDT Chronic kidney disease stage 2 History of immunosuppressive therapy Kidney replaced by transplant Polycystic ovary syndrome Vitamin D deficiency, not otherwise specified Chronic gout with tophus, not otherwise specified Other hyperlipidemia Hypomagnesemia Other iron deficiency anemia Other specified hypoparathyroidism (HCC) Poor glycemic control Albuminuria, not otherwise specified CBC AND DIFFERENTIAL Routine 07/26/2024 8:11 AM EDT Chronic kidney disease stage 2 History of immunosuppressive therapy Kidney replaced by transplant Polycystic ovary syndrome Vitamin D deficiency, not otherwise specified Chronic gout with tophus, not otherwise specified Other hyperlipidemia Hypomagnesemia Other iron deficiency anemia Other specified hypoparathyroidism (HCC) Poor glycemic control Albuminuria, not otherwise specified RENAL FUNCTION PANEL Routine 07/26/2024 8:11 AM EDT Chronic kidney disease stage 2 History of immunosuppressive therapy Kidney replaced by transplant Polycystic ovary syndrome Vitamin D deficiency, not otherwise specified Chronic gout with tophus, not otherwise specified Other hyperlipidemia Hypomagnesemia Other iron deficiency anemia Other specified hypoparathyroidism (HCC) Poor glycemic control Albuminuria, not otherwise specified MYCOPHENOLIC ACID AND METABO. Routine 07/26/2024 8:11 AM EDT Chronic kidney disease stage 2 History of immunosuppressive therapy Kidney replaced by transplant Polycystic ovary syndrome Vitamin D deficiency, not otherwise specified Chronic gout with tophus, not otherwise specified Other hyperlipidemia Hypomagnesemia Other iron deficiency anemia Other specified hypoparathyroidism (HCC) Poor glycemic control Albuminuria, not otherwise specified TACROLIMUS, HIGHLY SENSITIVE, LC/MS/MS Routine 07/26/2024 8:11 AM EDT Chronic kidney disease stage 2 History of immunosuppressive therapy Kidney replaced by transplant Polycystic ovary syndrome Vitamin D deficiency, not otherwise specified Chronic gout with tophus, not otherwise specified Other hyperlipidemia Hypomagnesemia Other iron deficiency anemia Other specified hypoparathyroidism (HCC) Poor glycemic control Albuminuria, not otherwise specified TACROLIMUS LEVEL Routine 06/14/2024 7:21 AM EST [...] Recently Relevant to Health Maintenance Results * Microscopic Examination (07/30/2024 8:32 AM EDT) Only the most recent of2 resultswithin the time period is included. Pathologist [facility] WBC, Urine None seen 0 - 5 /hpf [facility] RBC, Urine 0-2 0 - 2 /hpf [facility] Squamous Epithelial, Urine 0-10 0 - 10 /hpf [facility] Casts None seen None seen /lpf [facility] Bacteria, Urine None seen None seen/Few [facility] 07/30/2024 8:32 AM EDT 07/30/2024 us Damian Shah MD LAB MICROBIOLOGY - GENERAL ORDERABLES Final Result [facility] [address] [place] [address] * (ABNORMAL) Tacrolimus, Highly Sensitive, LC/MS/MS (07/26/2024 8:11 AM EDT) Pathologist [facility] Tacrolimus by Immunoassay 4.2(L) 5.0 - 20.0 ng/mL [facility] Comment: Detection Limit = 0.8 ng/mL Target steady state trough concentration for Tacrolimus varies based on type of organ transplant immunosuppressive protocol and other patient specific factors. ??Tacrolimus trough concentrations should be interpreted in conjunction with clinical assessments of rejection and tolerability. ??Values obtained with different assay methods cannot be used interchangeably due to differences in assay methods and cross-reactivity with metabolites, nor should correction factors be applied. ??Therefore, consistent use of one assay for individual patients is recommended. Tacrolimus assay performed by [employer]. ? Please note reference interval change [employer] will offer rebaseline testing (Test No. [id number]) through August 21, 2024. ??The rebaseline test will include results from both the current method ([place]) and the new method ([employer]). ??All test results indicate the caul fat puller of the test on the laboratory report. ??The rebaseline test for tacrolimus immunoassay is charged at the singh for the new test; the test for the retiring method is performed at no additional charge. 07/26/2024 8:11 AM EDT 07/26/2024 Damian Shah MD LAB BLOOD ORDERABLES Final Result [facility] [address] [place] [address] * (ABNORMAL) Urinalysis, Complete w/reflex to Culture (07/26/2024 8:11 AM EDT) Only the most recent of2 resultswithin the time period is included. Specific [place], Urine >=1.030(A) 1.005 - 1.030 [facility] [phone] pH Urine 5.5 5.0 - 7.5 [facility] [phone] Color, Urine Yellow Yellow [facility] [place] [phone] Appearance Urine Cloudy(A) Clear [facility] WBC Esterase Urine Negative Negative [facility] [phone] Protein, Ur 1+(A) Negative/Tra ce [facility] Glucose, Ur Negative Negative [facility] Ketones, Urine Negative Negative [facility] [facility] Blood Urine Negative Negative [facility] [phone] Bilirubin Urine Negative Negative [facility] Urobilinogen Urine 1.0 0.2 - 1.0 mg/dL [facility] [phone] Nitrite, Urine Negative Negative [facility] Microscopic Examination See below: [facility] Comment:Microscopic was suma cated and was performed. Urine (Urine, Clean Catch) 07/26/2024 8:11 AM EDT 07/26/2024 Damian Shah MD LAB URINE ORDERABLES Final Result [facility] [address] [place] [address] * Mycophenolic Acid and Metabo. (07/26/2024 8:11 AM EDT) Only the most recent of2 resultswithin the time period is included. Mycophenolic Acid 2.6 1.0 - 3.5 ug/mL [facility] Mycophenolic Acid Glucuronide 45 15 - 125 ug/mL [facility] Blood (Blood, Venous) 07/26/2024 8:11 AM EDT 07/26/2024 Narrative [facility] - 07/31/2024 5:05 PM EDT Test(s) 349231-Itdsnpboiwfz Acid; 972864- Mycophenolic Acid Glucuronide was developed and its performance characteristics determined by [employer]. It has not been cleared or approved by the Food and Drug Administration. Damian Shah MD LAB BLOOD ORDERABLES Final Result [facility] [address] [place] [address] * Iron Panel (Fe, TIBC, TSAT) (07/26/2024 8:11 AM EDT) UIBC 233 131 - 425 ug/dL [facility] TIBC 305 250 - 450 ug/dL [facility] Iron 72 27 - 159 ug/dL [facility] Iron Saturation (TSat) 24 15 - 55 % [facility] Blood (Blood, Venous) 07/26/2024 8:11 AM EDT 07/26/2024 Damian Shah MD LAB BLOOD ORDERABLES Final Result [facility] [address] [place] [address] * Urine Albumin / Creatinine Ratio (07/26/2024 8:11 AM EDT) Creatinine, Ur 252.3 Not Estab. mg/dL [facility] Albumin, Urine 7.9 Not Estab. ug/mL [facility] Albumin/Creatin ine Ratio 3 0 - 29 mg/g creat [facility] Comment: ? Normal: ?0 - ??29 ? Moderately increased: 30 - 300 ? Severely increased: ? >300 Urine (Urine, Clean Catch) 07/26/2024 8:11 AM EDT 07/26/2024 Result [facility] Damian Shah MD LAB URINE ORDERABLES Final Result Performing Organization Address City/[facility] Co de Phone Number [facility] [address] [place] [address] * Vitamin D 25 Hydroxy (07/26/2024 8:11 AM EDT) Vitamin D, 25-OH, Total 50.7 30.0 - 100.0 ng/mL [facility] Comment: Vitamin D deficiency has been defined by the [place] of Medicine and an Endocrine Society practice guideline as a level of serum 25-OH vitamin D less than 20 ng/mL (1,2). The Endocrine Society went on to further define vitamin D insufficiency as a level between 21 and 29 ng/mL (2). 1. IOM ([place] of Medicine). 2010. Dietary reference ?? intakes for calcium and D. [place]: The ?? National Academies Press. 2. Tiffanie MF, Eric NC, Nanda CEBALLOS, et al. ?? Evaluation, treatment, and prevention of vitamin D ?? deficiency: an Endocrine Society clinical practice ?? guideline. JCEM. 2010; 96(7):1911-30. Blood (Blood, Venous) 07/26/2024 8:11 AM EDT 07/26/2024 Damian Shah MD LAB BLOOD ORDERABLES Final Result Performing Organization Address City/[facility]/ZIP Co de Phone Number [facility] [address] [place] [address] * CBC and Differential (07/26/2024 8:11 AM EDT) Only the most recent of2 resultswithin the time period is included. WBC 5.6 3.4 - 10.8 x10E3/uL [facility] RBC 4.73 3.77 - 5.28 x10E6/uL [facility] Hemoglobin 13.7 11.1 - 15.9 g/dL [facility] Hematocrit 42.8 34.0 - 46.6 % [facility] MCV 91 79 - 97 fL [facility] MCH 29.0 26.6 - 33.0 pg [facility] MCHC 32.0 31.5 - 35.7 g/dL [facility] RDW 12.8 11.7 - 15.4 % [facility] Platelets 246 150 - 450 x10E3/uL [facility] Neutrophils Relative 42 Not Estab. % [facility] Lymphocytes Relative 45 Not Estab. % [facility] Monocytes 8 Not Estab. % [facility] Eosinophils Relative 4 Not Estab. % [facility] Basophils Relative 1 Not Estab. % [facility] Neutrophils Absolute 2.3 1.4 - 7.0 x10E3/uL [facility] Lymphocytes Absolute 2.6 0.7 - 3.1 x10E3/uL [facility] Monocytes Absolute 0.5 0.1 - 0.9 x10E3/uL [facility] Eosinophils Absolute 0.2 0.0 - 0.4 x10E3/uL [facility] Basophils Absolute 0.0 0.0 - 0.2 x10E3/uL [facility] Immature Granulocytes 0 Not Estab. % [facility] Immature Grans (Absolute) 0.0 0.0 - 0.1 x10E3/uL [facility] Blood (Blood, Venous) 07/26/2024 8:11 AM EDT 07/26/2024 Damian Shah MD LAB BLOOD ORDERABLES Final Result Performing Organization Address [facility] Co de Phone Number [facility] [address] [place] [address] * Uric Acid (07/26/2024 8:11 AM EDT) Uric Acid 5.1 3.0 - 7.2 mg/dL [facility] Comment:Therapeutic target f or gout patients: <6.0 Blood (Blood, Venous) 07/26/2024 8:11 AM EDT 07/26/2024 Damian Shah MD LAB BLOOD ORDERABLES Final Result Performing Organization Address [facility] de Phone Number [facility] [address] [place] [address] * (ABNORMAL) ALT (07/26/2024 8:11 AM EDT) Only the most recent of2 resultswithin the time period is included. ALT (SGPT) 36(H) 0 - 32 IU/L [facility] Blood (Blood, Venous) 07/26/2024 8:11 AM EDT 07/26/2024 Damian Shah MD LAB BLOOD ORDERABLES Final Result Performing Organization Address City/[facility] Co de Phone Number [facility] [address] [place] [address] * AST (07/26/2024 8:11 AM EDT) Only the most recent of2 resultswithin the time period is included. AST (SGOT) 30 0 - 40 IU/L [facility] Blood (Blood, Venous) 07/26/2024 8:11 AM EDT 07/26/2024 Damian Shah MD LAB BLOOD ORDERABLES Final Result [facility] [address] [place] [address] * (ABNORMAL) PTH, Intact (07/26/2024 8:11 AM EDT) Pathologist [facility] PTH 68(H) 15 - 65 pg/mL [facility] Blood (Blood, Venous) 07/26/2024 8:11 AM EDT 07/26/2024 Damian Shah MD LAB BLOOD ORDERABLES Final Result Performing Organization Address City/[facility]/ZIP Co de Phone Number [facility] [address] [place] [address] * Magnesium (07/26/2024 8:11 AM EDT) Pathologist [facility] Magnesium 2.0 1.6 - 2.3 mg/dL [facility] Blood (Blood, Venous) 07/26/2024 8:11 AM EDT 07/26/2024 Damian Shah MD LAB BLOOD ORDERABLES Final Result Performing Organization Address [facility] Co de Phone Number [facility] [address] [place] [address] * (ABNORMAL) Ferritin (07/26/2024 8:11 AM EDT) Pathologist [facility] Ferritin 377(H) 15 - 150 ng/mL [facility] Blood (Blood, Venous) 07/26/2024 8:11 AM EDT 07/26/2024 Damian Shah MD LAB BLOOD ORDERABLES Final Result [facility] [address] [place] [address] * CK (07/26/2024 8:11 AM EDT) Only the most recent of2 resultswithin the time period is included. Creatine Kinase (CK/CPK) 44 32 - 182 U/L [facility] Blood (Blood, Venous) 07/26/2024 8:11 AM EDT 07/26/2024 Damian Shah MD LAB BLOOD ORDERABLES Final Result Performing Organization Address City/[facility]/ZIP Co de Phone Number [facility] [address] [place] [address] * (ABNORMAL) Renal Function Panel (07/26/2024 8:11 AM EDT) Only the most recent of2 resultswithin the time period is included. Glucose 96 70 - 99 mg/dL [facility] BUN 12 6 - 24 mg/dL [facility] Creatinine 0.90 0.57 - 1.00 mg/dL [facility] eGFR CKD-EPI CR 2020 77 >59 mL/min/1.7 3 [facility] BUN/Creatinine Ratio 13 9 - 23 [facility] Sodium 144 134 - 144 mmol/L [facility] Potassium 4.3 3.5 - 5.2 mmol/L [facility] Chloride 107(H) 96 - 106 mmol/L [facility] Bicarbonate (CO2) 23 20 - 29 mmol/L [facility] Calcium 10.2 8.7 - 10.2 mg/dL [facility] Albumin 4.7 3.8 - 4.9 g/dL [facility] Phosphorus 3.7 3.0 - 4.3 mg/dL [facility] Blood (Blood, Venous) 07/26/2024 8:11 AM EDT 07/26/2024 Damian Shah MD LAB BLOOD ORDERABLES Final Result Performing Organization Address City/[facility]/ZIP Co de Phone Number [facility] [address] [place] [address] * (ABNORMAL) Lipid panel (07/26/2024 8:11 AM EDT) Only the most recent of2 resultswithin the time period is included. Cholesterol 214(H) 100 - 199 mg/dL [facility] Triglycerides 122 0 - 149 mg/dL [facility] HDL 62 >39 mg/dL [facility] VLDL Cholesterol Richard 22 5 - 40 mg/dL [facility] LDL Calculated 130(H) 0 - 99 mg/dL [facility] Blood (Blood, Venous) 07/26/2024 8:11 AM EDT 07/26/2024 Damian Shah MD LAB BLOOD ORDERABLES Final Result [facility] [address] [place] [address] * Tacrolimus level (06/14/2024 7:21 AM EST) Only the most recent of4 resultswithin the time period is included. Tacrolimus Lvl 5.9 5.0 - 20.0 ng/mL [facility] Comment: Target steady state trough concentration [...] Venous) 06/14/2024 7:21 AM EST 06/14/[address] [facility]:05 AM EST Test(s) 295327-Acmjhocmzh ([id number]), Blood was developed and its performance characteristics determined by [facility]. It has not been cleared or approved by the Food and Drug Administration. Damian Shah MD LAB BLOOD ORDERABLES Final Result [facility] [address] [facility] [place] [address] * Protein, Total, Random Urine w/Creatinine (Protein/Creat Ratio) (05/06/2024 7:20 AM EST) Creatinine, Ur 128.8 Not Estab. mg/dL [facility] Protein, Ur 8.0 Not Estab. mg/dL [facility] [facility] Urine Protein/Creatin ine Ratio 62 0 - 200 mg/g creat [facility] Urine (Urine, Clean Catch) 05/06/2024 7:20 AM EST 05/06/2024 Sandor SINGH LAB URINE ORDERABLES Final Re sult [employer] [address] [place] [address] * Hemoglobin A1c (12/26/2023 8:51 AM EDT) Hemoglobin A1C 5.6 4.8 - 5.6 % [facility] Comment: ? Prediabetes: 5.7 - 6.4 ? Diabetes: >6.4 ? Glycemic control for adults with diabetes: <7.0 Blood (Blood, Venous) 12/26/2023 8:51 AM EDT 12/26/2023 Sandor SINGH LAB BLOOD ORDERABLES Final Re sult Performing Organization Address City/[facility] Co de Phone Number [employer] [address] [place] [address] from Last 3 Months or Most Recently Relevant to Health Maintenance Insurance Medicaid [place] Care Teams Manager Water Relationship Specialty Start Date End Date Priscilla He DO [address] [place] [address] PCP - General 02/26/19
--- OUTSIDE RECORDS SUMMARY | 2024-08-02 07:52 | XMS_ITS | Encounter Summary ---
Author Organization [facility], Address [address] [place] [address] Phone Care Team Providers Care Pulmonology Physician Name Role Phone Priscilla He DO Primary Care Provider Unava ilable Reason for Visit * Reason Comments Med Refill Encounter Details Date Type Department Care Team (Late st Contact Info) Description 06/25/2021 Refill [facility] [address] [place] [address] Sandor Jansen PA Social History [...] Visit [facility] [address] [place] [address] Damian Shah MD [address] [place] [address] [place] [address] documented as of this encounter Visit Diagnoses Not on filedocumented in this encounter Care Teams Pulmonology Physician Relationship Specialty Start Date End Date Priscilla He DO [address] [place] [address] PCP - General 02/26/19 documented as of this encounter
--- OUTSIDE RECORDS SUMMARY | 2024-08-02 07:52 | XMS_ITS | Encounter Summary ---
Author Organization [employer] Address [address] [place] [address] [address] [address] Care Team Providers Care Certified Medication Technician Name Role Phone Priscilla He DO Primary Care Provider [phone] Encounter Details Date Type Department Care Team ([facility] Contact Info) Description 10/24/2022 Orders Only [facility] [address] [place] [address] Priscilla Falk LPN Social History Tobacco Use [...] 10:45 AM EDT Office Visit [facility] MEDICINE [address] [place] [address] Priscilla He DO [address] [place] [address] documented as of this encounter Visit Diagnoses Not on filedocumented in this encounter Additional Health Concerns Assessment Noted Time PHQ-9 Depression Total Score: 7 07/09/19 23 9:28 AM EDT documented as of this encounter Care Teams Certified Medication Technician Relationship Specialty Start Date End Date Priscilla He DO [address] [place] [address] PCP - General Family Medicine 03/23/17 documented as of this encounter
--- OUTSIDE RECORDS SUMMARY | 2024-08-02 07:52 | XMS_ITS | Encounter Summary ---
Author Organization [employer] Address [address] [place] [address] [address] [address] Care Team Providers Care Senior Sourcing Manager Name Role Phone Priscilla He DO Primary Care Provider [phone] Encounter Details Date Type Department Care Team (Latest Contact Info) Description 08/20/2020 Abstract [facility] CONVERSIONS Dental, Provider, DDS Social History [...] Description 08/28/2024 10:45 AM EDT Office Visit [facility] MEDICINE [address] [place] [address] Prsicilla He DO [address] [place] [address] documented as of this encounter Visit Diagnoses Not on filedocumented in this encounter Care Teams Senior Sourcing Manager Relationship Specialty Start Date End Date Priscilla He DO [address] [place] [address] PCP - General Family Medicine 03/23/17 documented as of this encounter
--- OUTSIDE RECORDS SUMMARY | 2024-08-02 07:52 | XMS_ITS | Encounter Summary ---
Author Organization [email or web address] Address [address] [place] [address] 7 [place] [address] Care Team Providers Care Slinger Sequins Name Role Phone Priscilla He DO Primary Care Provider [phone] Reason for Visit * Reason Onset Date Comments Nurse Triage 10/20/2023 Encounter Details Date Type Department Care Team (Late st Contact Info) Description 10/20/2023 Telephone [facility] MEDICINE [address] [place], [place] [phone] Priscilla He DO [address] [place], [place] [phone] Nurse Triage Social History Tobacco Use Types [...] sx. Per pt at last visit in [facility] pt dx with bronchitis. Per pt [...] 11/01/2023 11:30 AM Priscilla He DO MEDICINE [facility] Protocol Used: Asthma Attack (Adult) [...] Description 08/28/2024 10:45 AM EDT Office Visit [facility] MEDICINE [address] [place] [address] Priscilla He DO [address] [place] [address] documented as of this encounter Visit Diagnoses Not on filedocumented in this encounter Additional Health Concerns Assessment Noted Time PHQ-9 Depression Total Score: 0 08/03/19 24 10:24 AM EDT documented as of this encounter Care Teams Slinger Sequins Relationship Specialty Start Date End Date Priscilla He DO [address] [place] [address] PCP - General Family Medicine 03/23/17 documented as of this encounter
--- OUTSIDE RECORDS SUMMARY | 2024-08-02 07:52 | XMS_ITS | Encounter Summary ---
Author Organization [facility], Address [address] [place] [address] Phone Care Team Providers Care Health Plan Advisor Name Role Phone Priscilla He DO Primary Care Provider Unava ilable Encounter Details Date Type Department Care Team (Latest Contact Info) Description 08/01/2024 3:30 PM EDT Office Visit [facility] [address] [place] [address] Damian Shah MD [address] [place] [address] [place] [id number] History of immunosuppressive therapy (Primary Dx); Kidney replaced by transplant; Chronic kidney disease, stage 2 (mild); Hypertension Social History Tobacco Use Types Packs/Day Years [...] Pressure 116/60 08/01/2024 3:28 PM EDT Pulse - - Temperature - - Respiratory Rate - - Oxygen Saturation - - Inhaled Oxygen Concentration - - Weight 65.9 kg (145 lb 3.2 oz) 08/01/2024 3:28 P M EDT Height - - Body Mass Index 24.92 05/07/2024 11:13 AM EST documented in this encounter H&P Notes * Damian Shah MD - 08/01/2024 3:30 PM EDT PATIENT: Regine Rausch : 1970 ENCOUNTER: 08/01/2024 PCP: Priscilla He DO TRANSPLANT HISTORY: Donor Kidney Transplant. ESRD DX: ADPKD Date of Transplant: July 21, 2018 at [facility] Immunosuppression: Tacrolimus 1.0 mg twice daily; Cellcept/Myfortic 540 mg twice daily Baseline Creatinine 0.7 to 0.9 mg/dL In the interval since our last visit [...] this patient. HPI and recent/active issues include: Regine is doing really well. She enjoys excellent allograft function with a serum creatinine of 0.9 mg/dl. Her blood pressure is excellent. She is compliant with and tolerating her medications. She has no specific complaints on the day of her visit. She continues to do excellent. We have been struggling with the tacrolimus level. It was a little low this time. She is on 1 mg in the morning and 0.5 mg in the evening. I have asked her to go up to 1 and 1 and we will repeat the lab next week. 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 I also noted that her cholesterol was elevated. It bounces all around. She has not been on a statin. In April her levels were fine. Her diet does change when she is here compared to her when she is in [place]. We discussed the options including a statin but at this point she would like to work with her diet. ROS: As noted above. GENERAL MEDICAL HISTORY: Patient Active Problem List Diagnosis Date Noted ??? Cystitis 11/03/2022 ??? Chronic kidney disease 03/03/2022 ??? Multiple congenital cysts of kidney 08/18/2021 ??? Vertigo 01/22/2021 ? ? Hearing loss <Left side> 01/22/2021 ??? Headache 01/22/2021 ??? Fatigue 07/07/2020 ??? 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 Weight increased 08/27/2019 ??? Chronic kidney disease stage 2 04/29/2019 ??? Gastroesophageal reflux disease 04/29/2019 ??? History of immunosuppressive therapy 04/29/2019 ??? Kidney replaced by transplant 04/29/2019 ??? Hyperkalemia 04/29/2019 ??? Low blood pressure 04/29/2019 MEDICATIONS: Outpatient Encounter Medications as of 08/01/2024 Medication Sig Dispense Refill ??? albuterol HFA (PROVENTIL HFA;VENTOLIN HFA) 108 (90 Base) MCG/ACT inhaler Inhale 2 puffs every 4(four) to 6 (six) hours if needed ??? Alcohol Swabs (SM Alcohol Prep) 70 % pads USE TWICE DAILY ??? atorvastatin (LIPITOR) 10 MG tablet Take 10 mg by mouth in the morning. ??? Biotin 5000 MCG capsule Take 5,000 mcg by mouth 1 (one) time each day 90 capsule 3 ??? Cetirizine HCl 10 MG capsule Take 1 capsule by mouth 1 (one) time each day ??? DULCOLAX 5 MG EC tablet TAKE 2 TABLETS (10mg) BY MOUTH ONCE DAILY AT BEDTIME ??? ergocalciferol 1.25 MG (89241 UT) capsule TAKE 1 CAPSULE (50,000 UNITS TOTAL) BY MOUTH 1 (ONE) TIME PER WEEK FOR LOW VITAMIN D 8 capsule 10 ??? Flovent HFA 110 MCG/ACT inhaler ??? fluticasone (FLONASE) 50 MCG/ACT nasal spray ??? FREESTYLE LITE test strip ??? Linzess 72 MCG capsule Take 1 capsule by mouth 1 (one) time each day ??? mycophenolate (MYFORTIC) 180 MG EC tablet Take 3 tablets (540 mg total) by mouth in the morningand 3 tablets (540 mg total) in the evening. 540 tablet 3 ??? pantoprazole (PROTONIX) 40 MG EC tablet TAKE 1 TABLET (40 MG TOTAL) BY MOUTH ONCE DAILY BEFORE BREAKFAST DO NOT CRUSH, CHEW, OR SPLIT. 90 tablet 3 ??? tacrolimus (Prograf) 0.5 MG capsule Take 1 capsule (0.5 mg total) by mouth 1 (one) time each day in the evening 90 capsule 3 ??? tacrolimus (Prograf) 1 MG capsule Take 1 capsule (1 mg total) by mouth 1 (one) time each day inthe morning 90 capsule 3 ??? TRUEplus Lancets 33G misc ??? Trulicity 1.5 MG/0.5ML solution pen-injector Inject 1.5 mg under the skin per week No facility-administered encounter medications on file as of 08/01/2024. PHYSICAL EXAM: BP 116/60 Wt 145 lb 3.2 oz (65.9 kg) BMI 24.92 kg/m?? Constitutional: No apparent distress Cardiovascular: No friction rub or obvious JVD elevatin Pulmonary/Chest: No rales or wheezing. Abdominal: Soft and non-tender over the allograft. Extremities: Edema None LABS: Chemistry Lab Units 07/26/24 0811 05/06/24 0720 02/29/24 0706 12/26/23 0851 11/03/23 0918 08/23/23 0928 07/06/23 0946 05/04/23 0825 05/04/23 0824 03/02/23 0921 12/23/22 0916 11/02/22 0902 09/05/22 0827 CREATININE mg/dL 0.90 0.77 0.73 0.86 0.86 0.75 0.76 < > 0.8 0.8 0.9 0.8 0.8 BUN mg/dL 12 21 14 12 15 16 13 < > 10 11 22* 15 18 POTASSIUM mmol/L 4.3 5.0 4.8 4.3 4.4 4.8 4.5 < > 4.2 5.2 4.8 3.9 4.8 SODIUM mmol/L 144 144 143 143 141 142 143 < > 140 141 142 141 144 CO2 mmol/L 23 22 21 22 23 23 21 < > 26 25 23 25 25 CHLORIDE mmol/L 107* 108* 105 105 105 106 105 < > 105 106 108* 107 108* ALBUMIN g/dL 4.7 4.2 4.5 4.7 4.5 4.3 4.7 < > 4.4 5.0* 4.3 4.4 4.6 EGFRNAFR ML/MIN/1.73 M2 -- -- -- -- -- -- -- -- 95 97 82 92 85 HEMOGLOBIN A1C % -- -- -- 5.6 -- -- 5.3 -- -- -- 5.1 -- -- WBC AUTO x10E3/uL 5.6 4.8 5.6 6.7 5.5 4.6 5.5 < > -- 7.2 6.1 6.6 7.4 HEMATOCRIT % 42.8 38.4 41.6 42.7 44.7 40.8 42.6 < > -- 48.5* 40.8 40.7 43.7 HEMOGLOBIN g/dL 13.7 13.0 13.4 13.5 14.3 13.1 13.9 < > -- 15.6* 13.0 12.8 14.0 PLATELETS AUTO x10E3/uL 246 262 287 256 257 248 270 < > -- 288 269 336 272 < > = values in this interval not displayed. Bone Mineral Lab Units 07/26/24 0811 05/06/24 0720 02/29/24 0706 12/26/23 0851 11/03/23 0918 08/23/23 0928 07/06/23 0946 07/06/23 0945 06/21/23 1342 03/02/23 0921 12/23/22 0916 CALCIUM mg/dL 10.2 9.5 9.8 10.3* 9.9 9.7 10.1 < > 10.2 < > 9.5 PHOSPHORUS mg/dL 3.7 3.0 4.2 3.9 3.3 3.3 3.4 < > -- < > 2.4* ALK PHOS U/L -- -- -- -- -- -- -- -- 75 -- -- PTH pg/mL 68* -- -- 66* -- -- 76* -- -- -- 99* VITAMIN D NG/ML -- -- -- -- -- -- -- -- -- -- 26.1 VIT D 25 HYDROXY ng/mL 50.7 -- -- 12.4* -- -- 18.5* -- -- -- -- < > = values in this interval not displayed. Visit Diagnoses and Active Issues: 1. History of immunosuppressive therapy 2. Kidney replaced by transplant 3. Chronic kidney disease, stage 2 (mild) 4. Hypertension SUMMARY: Based on the above findings and my interpretation of the available data and medication review, the following changes and/or recommendations for further testing, monitoring, treatment options, and follow-up are provided for your review: Regine continues to do well with excellent allograft function. Her blood pressure is at goal. She doeshave dyslipidemia. It is actually intermittent and it depends on where she is living. When she is in [place] compared to here her diet does change. We have opted to have her simply work on diet and we will repeat the cholesterol. With regard to her tacrolimus level, she is going to go to 1 mg twice a day. We will repeat levels next week. If everything is stable, I will see her back in 8 weeks. Orders Placed This Encounter ??? Tacrolimus, Highly Sensitive, LC/MS/MS documented in this encounter Plan of Treatment Upcoming Encounters Date Type Department Care Team (Late st Contact Info) Description 10/02/2024 10:30 AM EDT Office Visit [facility] [address] [place] [address] Damian Shah MD [address] [place] [address] [place] [address] Scheduled Orders Name Type Priority Associated Diagnoses Orde r Schedule Tacrolimus, Highly Sensitive, LC/MS/MS Lab Routine History of immunosuppressive therapy Kidney replaced by transplant Chronic kidney disease, stage 2 (mild) Hypertension Expected: 08/01/2024, Expires: 08/31/2025 documented as of this encounter Visit Diagnoses Diagnosis History of immunosuppressive therapy- Primary Kidney replaced by transplant Chronic kidney disease, stage 2 (mild) Hypertension documented in this encounter Care Teams Health Plan Advisor Relationship Specialty Start Date End Date Priscilla He DO [address] [place] [address] PCP - General 02/26/19 documented as of this encounter
--- OUTSIDE RECORDS SUMMARY | 2024-08-02 07:52 | XMS_ITS | Encounter Summary ---
Author Organization [facility], Address [address] [place] [address] Phone Care Team Providers Care Signing Teacher Name Role Phone Priscilla He DO Primary Care Provider Unava ilable Encounter Details Date Type Department Care Team (Late st Contact Info) Description 07/30/2024 Orders Only [facility], [address] [place] [address] Damian Shah MD [address] [place] [address] [place] [address] Social History Tobacco Use Types [...] [facility] [address] [place] [address] Damian Shah MD [address] [place] [address] [place] [address] documented as of this encounter Procedures Procedure Name Priority Date/Time Associated Diagnosis Comments MICROSCOPIC EXAMINATION - DO NOT USE Routine 07/30/2024 8:32 AM EDT documented in this encounter Results * Microscopic Examination (07/30/2024 8:32 AM EDT) WBC, Urine None seen 0 - 5 /hpf [facility] RBC, Urine 0-2 0 - 2 /hpf [facility] Squamous Epithelial, Urine 0-10 0 - 10 /hpf [facility] Casts None seen None seen /lpf [facility] Bacteria, Urine None seen None seen/Few [facility] 07/30/2024 8:32 AM EDT 07/30/2024 Damian Shah MD LAB MICROBIOLOGY - GENERAL ORDERABLES Final Result [facility] [address] [place] [address] documented in this encounter Visit Diagnoses Not on filedocumented in this encounter Care Teams Signing Teacher Relationship Specialty Start Date End Date Priscilla He DO [address] [place] [address] PCP - General 02/26/19 documented as of this encounter
--- OUTSIDE RECORDS SUMMARY | 2024-08-02 07:52 | XMS_ITS | Encounter Summary ---
Author Organization [employer] Address [address] [facility] 7 [place] [address] Care Team Providers Care Superintendent Quarry Name Role Phone Priscilla He DO Primary Care Provider + [phone] Reason for Visit * Reason Onset Date Comments Referral 08/04/2023 Encounter Details Date Type Department Care Team ([facility] st Contact Info) Description 08/04/2023 Telephone [facility] MEDICINE [address] [place], [place] [phone] Priscilla He DO [address] [place], [place] [phone] Referral Social History Tobacco Use Types Packs/Day [...] it was canceled. Please contact pt at [phone]. documented in this encounter Plan of Treatment Upcoming Encounters Date Type Department Care Team (Late st Contact Info) Description 08/28/2024 10:45 AM EDT Office Visit [facility] MEDICINE [address] [place] [address] Priscilla He DO [address] [place] [address] documented as of this encounter Visit Diagnoses Not on filedocumented in this encounter Additional Health Concerns Assessment Noted Time PHQ-9 Depression Total Score: 0 08/03/19 24 10:24 AM EDT documented as of this encounter Care Teams Superintendent Quarry Relationship Specialty Start Date End Date Priscilla He DO [address] [place] [address] PCP - General Family Medicine 03/23/17 documented as of this encounter
--- OUTSIDE RECORDS SUMMARY | 2024-08-02 07:52 | XMS_ITS | Encounter Summary ---
Author Organization [employer] Address [address] [facility] 7 [place] [address] Care Team Providers Care Railway Station Manager Name Role Phone Priscilla He DO Primary Care Provider + [phone] Reason for Visit * Reason Onset Date Comments Med Refill 05/05/2023 Encounter Details Date Type Department Care Team (Late st Contact Info) Description 05/05/2023 Refill [facility] MEDICINE [address] [place] [address] Priscilla He DO [address] [place] [address] Social History Tobacco Use Types Packs/Day Years [...] Description 08/28/2024 10:45 AM EDT Office Visit [facility] MEDICINE [address] [place] [address] Priscilla He DO [address] [place] [address] documented as of this encounter Visit Diagnoses Not on filedocumented in this encounter Additional Health Concerns Assessment Noted Time PHQ-9 Depression Total Score: 7 07/09/19 23 9:28 AM EDT documented as of this encounter Care Teams Railway Station Manager Relationship Specialty Start Date End Date Priscilla He DO [address] [place] [address] PCP - General Family Medicine 03/23/17 documented as of this encounter
--- OUTSIDE RECORDS SUMMARY | 2024-08-02 07:52 | XMS_ITS | Encounter Summary ---
Author Organization [facility], Address [address] [place] [address] Phone Care Team Providers Care Spring Coiling Machine Setter Name Role Phone Priscilla He DO Primary Care Provider Unava ilable Reason for Visit * Reason Comments Med Refill Encounter Details Date Type Department Care Team (Late st Contact Info) Description 06/28/2021 Refill [facility] [address] [place] [address] Sandor Jansen PA Social History [...] Visit [facility] [address] [place] [address] Damian Shah MD [address] [place] [address] [place] [address] documented as of this encounter Visit Diagnoses Not on filedocumented in this encounter Care Teams Spring Coiling Machine Setter Relationship Specialty Start Date End Date Priscilla He DO [address] [place] [address] PCP - General 02/26/19 documented as of this encounter
--- OUTSIDE RECORDS SUMMARY | 2024-08-02 07:52 | XMS_ITS | Encounter Summary ---
Author Organization [facility], Address [address] [place] [address] Phone Care Team Providers Care Tunneller Name Role Phone Priscilla He DO Primary Care Provider Unava ilable Encounter Details Date Type Department Care Team (Late st Contact Info) Description 10/14/2022 Documentation Only [facility], [address] [facility] [address] [place] [address] Damian Shah MD [address] [place] [address] [place] [address] Social History Tobacco Use Types [...] Visit [facility] [address] [place] [address] Damian Shah MD [address] [place] [address] [place] [address] documented as of this encounter Visit Diagnoses Not on filedocumented in this encounter Care Teams Tunneller Relationship Specialty Start Date End Date Priscilla He DO [address] [place] [address] PCP - General 02/26/19 documented as of this encounter
--- OUTSIDE RECORDS SUMMARY | 2024-08-02 07:52 | XMS_ITS | Encounter Summary ---
Author Organization [employer] Address [address] [place] [address] 7 [place] [address] Care Team Providers Care Heavy Duty Mechanic Farm Equipment Name Role Phone Priscilla He DO Primary Care Provider + [phone] Reason for Visit * Reason Onset Date Comments Med Refill 07/19/2024 Encounter Details Date Type Department Care Team (Late st Contact Info) Description 07/19/2024 Refill [facility] MEDICINE [address] [place] [address] Priscilla He DO [address] [place] [address] Social History Tobacco Use Types Packs/Day Years [...] Description 08/28/2024 10:45 AM EDT Office Visit [facility] MEDICINE [address] [place] [address] Priscilla He DO [address] [place] [address] documented as of this encounter Visit Diagnoses Not on filedocumented in this encounter Additional Health Concerns Assessment Noted Time PHQ-9 Depression Total Score: 0 08/03/19 24 10:24 AM EDT documented as of this encounter Care Teams Heavy Duty Mechanic Farm Equipment Relationship Specialty Start Date End Date Priscilla He DO [address] [place] [address] PCP - General Family Medicine 03/23/17 documented as of this encounter
--- OUTSIDE RECORDS SUMMARY | 2024-08-02 07:52 | XMS_ITS | Encounter Summary ---
Author Organization [facility], Address [address] [place] [address] Phone Care Team Providers Care Physical Therapy Director Name Role Phone Priscilla He DO Primary Care Provider Unava ilable Reason for Visit * Reason Comments Med Refill Encounter Details Date Type Department Care Team (Late st Contact Info) Description 10/25/2023 Refill [facility] [address] [place] [address] Damian Shah MD [address] [place] [address] [place] [address] Social History Tobacco Use Types [...] [facility] [address] [place] [address] Damian Shah MD [address] [place] [address] [place] [address] documented as of this encounter Visit Diagnoses Not on filedocumented in this encounter Care Teams Physical Therapy Director Relationship Specialty Start Date End Date Priscilla He DO [address] [place] [address] PCP - General 02/26/19 documented as of this encounter
--- OUTSIDE RECORDS SUMMARY | 2024-08-02 07:52 | XMS_ITS | Encounter Summary ---
Author Organization [employer] Address [address] [place] [address] 7 [place] [address] Care Team Providers Care Bass Guitar Teacher Name Role Phone Priscilla He DO Primary Care Provider + [phone] Reason for Visit * Reason Onset Date Comments Med Refill 07/19/2024 Encounter Details Date Type Department Care Team (Late st Contact Info) Description 07/19/2024 Refill [facility] [address] [place] [address] Priscilla He DO [address] [place] [address] Social History Tobacco Use Types Packs/Day Years [...] Description 08/28/2024 10:45 AM EDT Office Visit [facility] [address] [place] [address] Priscilla He DO [address] [place] [address] documented as of this encounter Visit Diagnoses Not on filedocumented in this encounter Additional Health Concerns Assessment Noted Time PHQ-9 Depression Total Score: 0 08/03/19 24 10:24 AM EDT documented as of this encounter Care Teams Bass Guitar Teacher Relationship Specialty Start Date End Date Priscilla He DO [address] [place] [address] PCP - General Family Medicine 03/23/17 documented as of this encounter
--- OUTSIDE RECORDS SUMMARY | 2024-08-02 07:52 | XMS_ITS | Encounter Summary ---
Author Organization [employer] Address [address] [facility] 7 [place] [address] Care Team Providers Care Magistrate Name Role Phone Priscilla He DO Primary Care Provider + [phone] Reason for Visit * Reason Onset Date Comments Med Refill 05/04/2023 Encounter Details Date Type Department Care Team (Late st Contact Info) Description 05/04/2023 Refill [facility] [address] [place] [address] Priscilla He DO [address] [place] [address] Social History Tobacco Use Types Packs/Day Years [...] Description 08/28/2024 10:45 AM EDT Office Visit [facility] [address] [place] [address] Priscilla He DO [address] [place] [address] documented as of this encounter Visit Diagnoses Not on filedocumented in this encounter Additional Health Concerns Assessment Noted Time PHQ-9 Depression Total Score: 7 07/09/19 23 9:28 AM EDT documented as of this encounter Care Teams Magistrate Relationship Specialty Start Date End Date Priscilla He DO [address] [place] [address] PCP - General Family Medicine 03/23/17 documented as of this encounter
--- OUTSIDE RECORDS SUMMARY | 2024-08-02 07:52 | XMS_ITS | Clinical Summary ---
Author Organization [employer] Address [address] [place] [address] 7t [place] [address] Care Team Providers Care Renal Technician Name Role Phone LaliPriscilla alarcon Primary Care Provider [phone] Allergies No known active allergies Medications Alcohol Swabs (Alcohol Prep) 70 % pads USE TWICE DAILY 023 Active famotidine (Pepcid) 40 MG tablet Take 40 mg by mouth at bedtime. 022 Active FREESTYLE LITE test strip TEST BLOOD SUGAR ONCE DAILY 023 Active SM Fiber Laxative 500 MG tablet TAKE 1 TABLET BY MOUTH EVERY DAY WITH UN GLASS OF WATER FULL 023 Active mycophenolate (Myfortic) 180 MG EC tablet 023 Active pantoprazole (ProtoNix) 40 MG EC tablet Take 40 mg by mouth 2 times daily. 023 Active tacrolimus (Prograf) 0.5 MG capsule 023 Active tacrolimus (Prograf) 1 MG capsule 023 Active Linzess 72 MCG capsule Take 72 mcg by mouth in the morning. 023 Active albuterol (2.5 MG/3ML) 0.083% nebulizer solution INHALE 1 AMPULE USING A NEBULIZER EVERY 4 HOURS NEEDED FOR COUGH, WHEEZING, OR SHORTNESS OF BREATH 90 mL 1 024 Active loratadine (Claritin) 10 MG tablet Take 1 tablet (10 mg) by mouth Once per day. 90 tablet 3 024 2024 Active budesonide-fo rmoterol (Symbicort) 160-4.5 MCG/ACT inhaler Inhale 2 puffs in the morning and at bedtime. Rinse mouth with water after use to reduce aftertaste and incidence of candidiasis. Do not swallow. 3 each 3 024 2024 Active Blood Glucose Monitoring Suppl ([employer] [place] Lite) w/Device kit Use to test blood sugar 2 times daily 1 kit Active meclizine (Antivert) 25 MG tablet Take 1 tablet (25 mg) by mouth if needed in the morning, at noon, and at bedtime for dizziness. 30 tablet 2 024 2024 Active atorvastatin (Lipitor) 10 MG tablet Take 1 tablet (10 mg) by mouth Once per day. 90 tablet 3 024 2024 Active Trulicity 1.5 MG/0.5ML solution auto-injector INJECT ONE PEN (=1.5MG) SUBCUTANEOUSLY ONCE A WEEK DIRECTED 2 mL 5 Active Dulaglutide (Trulicity) 3 MG/0.5ML solution auto-injector Inject 3 mg under the skin 1 (one) time per week. 2 mL 3 025 Active triamcinolone (Nasacort) 55 MCG/ACT nasal inhaler Administer 2 sprays into each nostril Once per day. 16.5 g 5 025 2025 Active albuterol (Ventolin HFA) 108 (90 Base) MCG/ACT inhaler INHALE 2 PUFFS BY MOUTH EVERY 4 TO 6 HOURS NEEDED 18 g 1 025 Active albuterol (Ventolin HFA) 108 (90 Base) MCG/ACT inhaler INHALE 2 PUFFS BY MOUTH EVERY 4 TO 6 HOURS NEEDED 18 g 1 024 2024 Discontinued(R eorder (will not trigger notification to Pharmacy)) triamcinolone (Nasacort) 55 MCG/ACT nasal inhaler Administer 2 sprays into each nostril Once per day. 16.5 g 5 024 2024 Discontinued(R eorder (will not trigger notification to Pharmacy)) Active Problems Problem Noted Date Diagnosed Date [...] Encounters Date Type Department Care Team Description 07/19/2024 Refill [facility] [address] [place] [address] Priscilla He DO 07/19/2024 Refill [facility] [address] [place] [address] Priscilla He DO 07/19/2024 Refill [facility] [address] [place] [address] Priscilla He DO 07/16/2024 Refill [facility] [address] [place] [address] Priscilla He DO 07/05/2024 Population Health Risk Score [facility] Department [address] [phone] Provider, Population Health Generic 06/21/2024 Telephone [facility] [address] [place] [address] Priscilla He DO Recall Appt. 06/21/2024 Travel 06/03/2024 Orders Only [facility] [address] [place] [address] Jurcsak, Priscilla, DO Abnormal CT of the head (Primary Dx) 05/17/2024 Telephone [facility] [address] [place], [place] [phone] Adrianne Velazco, JENISE CT head results 05/16/2024 Telephone [facility] [address] [facility], [place] [phone] Quiana Rosas MA DME [facility] Physical Therapy [...] Description 08/28/2024 10:45 AM EDT Office Visit [facility] [address] [place] [address] Priscilla He DO [address] [place] [address] Health Maintenance Due Date Last Done Comments CT Colonography 1972 FIT DNA/Cologuard 1972 FIT 1972 FOBT 1972 Sigmoidoscopy 1972 Diabetes: Foot Exam 1982 Eye Exam 1982 Alcohol/Substance Use Screening 1984 Family Planning (PISQ) 1987 Hepatitis B Vaccines (1 of 3 - 19+ 3-dose series) 1991 Zoster Vaccines (1 of 2) 1991 Pap Smear 1993 Cervical Cancer Screening 07/21/2023 HPV/Cotest 07/21/2023 07/20/2018, 07/10/2017 COVID-19 Vaccine ( season) 2023 01/22/2021, 07/04/2020, 06/11/2020 Influenza Vaccine (#1) 2023 , 02/28/2022, 03/02/2021, Additional history exists Diabetes: Hemoglobin A1C 07/31/2024 024, 08/03/2023, 03/09/2023, Additional history exists Depression Screening 08/02/2024 08/03/2023, 08/03/19 24 Lipid Panel 08/21/2024 08/22/2023, 03/09/2022 SDOH Screening 11/29/2024 11/30/2023 Tobacco Screening 01/30/2025 01/31/2024 Mammogram 03/14/2025 03/14/2024, 02/23, 03/07/2022, Additional history exists Diabetes: Urine Protein Screening 07/26/2025 07/26/2024, 03/09/2022 Colonoscopy 12/16/2026 Colorectal Cancer Screening 12/16/2026 DTaP/Tdap/Td [...] EST Narrative 03/25/2024 9:14 AM EST ? [facility] ? [address] ?[place] [address] ? Mammography Report ? Signed ? Patient: Reyez Rausch,Regine Lady ?MR#: ?? [id number] ? : 1970 ?Acct:[id number] ? Age/Sex: 53 / F ?ADM Date: 11/21/24 ? Loc: HO.MAMMO ? Attending Dr: Priscilla He DO ? Ordering Physician: Priscilla He DO ?Results: 2B ?? enign Findings ? Date of Service: 03/14/24 ?Follow Up: 1 Year From Orig ?? inal Mammogram ? Procedure(s): MM tomosynthesis screening BI ?? Accession Number(s): [id number] ? cc: Priscilla He DO ? EXAMINATION: [...] DD/ 0800 ? TD/TT: 03/14/24 0823 ? Head Kiln Operator: ? Procedure Note Donshaanter, Image - 03/25/2024 [facility] [address] [place] [address] Mammography Report Signed Patient: Regine Weaver#: [id number] : 1970Acct:[id number] Age/Sex: 53 / FADM Date: 03/14/24 Loc: HO.MAMMO Attending Dr: Priscilla He DO Ordering Physician: Priscilla Heults: 2B enign Findings Date of Service: 03/14/24Follow Up: 1 Year From Orig inal Mammogram Procedure(s): MM tomosynthesis screening BI Accession Number(s): [id number] cc: Priscilla He DO EXAMINATION: MM SCREENING [...] signed by Suzette Santamaria DO in OV> 03/25/24910 DD/ 9 TD/TT: 03/14/24822 Head Kiln Operator: Priscilla He DO IMG BI PROCEDURES Final Resu lt * POCT HGB A1C (01/31/2024 11:28 AM EDT) Hemoglobin A1C 5.5 4.0 - 6.0 % QC Media Lot # [id number] Lot# Expiration Date Blood 01/31/2024 11:2 8 AM EDT Priscilla He DO POINT OF CARE TEST ENTER/CAROLINE T ORDERABLES Final Result * (ABNORMAL) Lipid Panel, Standard (08/22/2023 10:53 AM EDT) Triglycerides 90 <150 mg/dL [facility] Comment:Desirable Triglyceri de: less than 150 mg/dLBorderline High Triglyceride 150-199 mg/dLHigh Triglyceride: 200-499 mg/dLVery High Triglyceride: greater than or equal to 5OO mg/dL Cholesterol 196 <200 mg/dL [facility] Comment:Desirable Cholestero l: less than 200 mg/dLBorderline High Cholesterol: 200-239 mg/dLHigh Cholesterol: greater than 239 mg/dL LDL Cholesterol Calculated 125(H) <100 mg/dL [facility] Comment:Desirable LDL: less than 100 mg/dLNear Optimal/Above Optimal LDL: 110- 129 mg/dLBorderline High LDL: 130-159 mg/dLHigh LDL: 160-189 mg/dLVery High LDL: greater than or equal to 190 mg/dL HDL Cholesterol 53 >40 mg/dL [facility] Comment:Desirable HDL: great er than 40 mg/dL Note: This HDL assay may give artificially low results in patients with liver disease. Blood Venous blood specimen / Unknown 08/22/2023 10:53 AM EDT 08/22/2023 11:37 AM EDT Priscilla He DO LAB BLOOD ORDERABLES Final R esult Performing Organization Address [facility]/ZIP Co de Phone Number [facility] [address] [place] [address] [phone] * HIV Ab/Ag ([facility]) (08/10/2022 2:21 PM EDT) Pathologist [facility] HIV AB/AG Nonreactive Nonreactive [facility] Comment:HIV-1 p24 Ag and/or HIV-1/HIV-2 Ab not detected.A test result that is nonreactive does not exclude thepossibility of exposure to or infection with HIV-1 and/orHIV-2. Nonreactive results in this assay for individualswith prior exposure to HIV-1 and/or HIV-2 may be due toantigen and antibody levels that are below the limit ofdetection of this assay.[employer] HIV Ag/Ab Combo assay result andsupplemental assay results should be interpreted inconjunction with the patient's clinical presentation,history and other laboratory results. If the results areinconsistent with clinical evidence, additional testing issuggested to confirm the result. 08/10/2022 2:21 PM EDT 08/10/2022 2:21 PM EDT [facility] External Provider LAB BLO OD ORDERABLES Final Result Performing Organization Address [facility] Co de Phone Number [facility] [address] [place] [address] [phone] * Hepatitis Panel, General (08/10/2022 2:21 PM EDT) Hepatitis A IgM Nonreactive Nonreactive [facility] Comment:IgM antibodies to CEBALLOS V not detected; does not exclude earlyacute or recovered HAV infection. ~Hepatitis B Surface Antibody REACTIVE Nonreactive [facility] Comment:REACTIVE: > 11.99 mI U/mL Hepatitis B Core Antibody Nonreactive Nonreactive [facility] Hepatitis C Antibody Nonreactive Nonreactive [facility] Comment:Antibodies to HCV no t detected; does not exclude early acuteHCV infection. Hepatitis B Surface Ag Negative Negative [facility] 08/10/2022 2:21 PM EDT 08/10/2022 2:21 PM EDT [facility] External Provider LAB BLO OD ORDERABLES Final Result Performing Organization Address [facility] de Phone Number [facility] [address] [place] [phone] * ALBUMIN, RANDOM URINE W/CREATININE (03/09/2022 [...] ORDERABLES Final R esult Performing Organization Address [facility] Co de Phone Number [facility] * HPV E6/E7 RFLX SAI 16 18/45 (07/20/2018 12:12 PM EDT) HPV 18/45 RNA Test not performed [facility] HPV mRNA E6/E7 Not Detected NOT DETECTED [facility] Comment: This test was performed using the APTIMA(R) HPV Assay ([employer] This assay detects E6/E7 viral messenger RNA (mRNA) from 14 high-risk HPV types (16,18,31,33,35,39,45,51, 52,56,58,59,66,68). For additional information please refer to: http://education.Graphicly/faq/ZHG401j4 (This link is being provided for informational/ educational purposes only.) The analytical performance characteristics of this assay have been determined by [employer] [place], [place]. The modifications have not been cleared or approved by the FDA. This assay has been validated pursuant to the CLIA regulations and is used for clinical purposes. Please note: ??Effective 01/04/2016, HPV testing will be performed using [employer]'s APTIMA test which targets mRNA. Detecting mRNA instead of DNA, as in older methods, offers significant improvements in specificity. ADDITIONAL TESTING Not indicated () [facility] Comment: Test Performed by [employer], [employer] [place], [address] [place] [address] Sundar Craig M.D., Ph.D., Director of Laboratories , [place] [id number] HPV 16 RNA Test not performed [facility] 07/20/2018 12:1 2 PM EDT us Priscilla He DO HISTORICAL/NON ORDERABLE LAB S Final Result [facility] [address] from Last 3 Months or Most Recently Relevant to Health Maintenance Insurance [facility] [address] C3 Care Teams Renal Technician Relationship Specialty Start Date End Date Priscilla He DO [address] [place] [phone] PCP - General Family Medicine 03/23/17
--- OUTSIDE RECORDS SUMMARY | 2024-08-02 07:52 | XMS_ITS | Encounter Summary ---
Author Organization [facility], Address [address] [place] [address] Phone Care Team Providers Care Disaster Recovery Consultant Name Role Phone Priscilla He DO Primary Care Provider Unava ilable Encounter Details Date Type Department Care Team (Late st Contact Info) Description 12/01/2021 Documentation Only [facility], [address] [place] [address] Rakel [place] [address] [place] [address] Social History Tobacco Use Types [...] Visit [facility] [address] [place] [address] Damian Shah MD [address] [place] [address] documented as of this encounter Visit Diagnoses Not on filedocumented in this encounter Care Teams Disaster Recovery Consultant Relationship Specialty Start Date End Date Priscilla He DO [address] [place] [address] PCP - General 02/26/19 documented as of this encounter
--- NOTE | 2024-08-02 08:02 | A.OFFVIS_ITS ---
Vital Signs 08/02/24 08:13 Height 5 ft 2 in Weight 146 lb 4 oz BMI 26.7 BP 102/56 L Blood Pressure Location Rt brachial Position Sitting Pulse 64 Pulse Source Pulse Oximeter Pulse Oximetry (%) 100 Oxygen Delivery Method Room Air Intake Visit Reasons: 6 mnth follow up Intake Note: ESTABLISHED PATIENT for GERD mgmt. Imaging done. Chief Complaint; Pt denies any GI concerns or sx at this time. Condition well managed with current regimen. Reverse Unit Operator Required: No Accompanied by: Self / Same As Patient Allergies No Known Allergies Allergy (Verified 08/02/24 08:02) HPI HPI 6 mnth follow up: Details: LAST VISIT: GERD (gastroesophageal reflux disease) Postprandial abdominal bloating Constipation Liver cyst Plan Continue pantoprazole daily. Avoid dietary triggers and late night snacking. Staying upright for minimum 3 hours after meals discussed with patient. Increase fluid intake and activity to promote better bowel motility. Patient will go for ultrasound to evaluate her liver. Will see her in 6 months, sooner on as needed basis. She is agreeable to this plan and verbalizes understanding of instructions. She was given the opportunity to ask questions and all questions answered. ? Thank you for allowing me to participate in her care Orders Orders US abdomen limited Today K76.89 Medications Changed Changed From pantoprazole 40 mg PO BID 180 tabs 3RF Changed To pantoprazole 40 mg PO DAILY 90 tabs 3RF TODAY'S VISIT Patient is here today for follow-up and to discuss ultrasound results. Ultrasound results discussed with patient. Multiple cysts identified in her liver. Will re-evaluate in 1 year. Patient reports that she has been feeling well. Takes pantoprazole daily and her symptoms of acid are suppressed. Patient also reports that she change some of her diet. Denies eating late at night. Patient denies any melena, hematochezia. Denies any dyspepsia, dysphagia or odynophagia. Patient reports to be feeling fairly well. Patient had colonoscopy in 2021 and will need to repeated in 2026. Patient had normal colonoscopy, however due to family history of CRC patient will need to repeat the procedure in 5 years. Patient reports she is moving her bowels well. Patient take Dulcolax daily. COUNTS INCLUDE 234 BEDS AT THE [facility] Medical History Transaminitis Mild intermittent asthma Allergic rhinitis Anemia Hypertension Type 2 diabetes mellitus with nephropathy Autosomal dominant polycystic kidney disease Surgical History Kidney transplant recipient Hx of bilateral breast reduction surgery H/O hernia repair Hx of colonoscopy History of esophagogastroduodenoscopy (EGD) History of left nephrectomy Status post abdominal hysterectomy Status post -donor kidney transplantation Family History Paternal Uncle Colon cancer Paternal Uncle Colon cancer Paternal Grandmother Uterine cancer Social History Alcohol intake: never Patient Tobacco Use Status: Never used Tobacco 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al status: disabled 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 Female Reproductive History Menstrual Age of Menarche: 17 Review of Systems Const Denies weight gain and Denies weight loss ENT Reports no additional complaints, Denies dysphagia and Denies odynophagia Card Reports no additional complaints Resp Reports no additional complaints GI Denies abdominal pain, Denies belching, Denies melena, Denies bloating, Denies change in bowel habits, Denies dysphagia, Denies excessive flatus, Denies dyspepsia, Denies heartburn, Denies diarrhea, Denies loose stools, Denies nausea, Denies odynophagia and Denies vomiting Musc Reports no additional complaints Neuro Reports no additional complaints Psych Reports no additional complaints Endo Reports no additional complaints Physical Exam Vital Signs: Last Vital Signs Pulse 64 08/02/24 08:13 BP 102/56 L 08/02/24 08:13 Pulse Ox 100 08/02/24 08:13 Oxygen Delivery Method Room Air 08/02/24 08:13 BMI result Body Mass Index 26.7 Const General: healthy appearing, no acute distress and well developed Nutritional Appearance: obese Orientation/consciousness: patient oriented x3 Resp Effort & Inspection: normal respiratory effort, able to speak in complete sentences, no tracheal deviation and symmetric chest movement Auscultation: clear to auscultation bilaterally Cardio Rate: regular rate GI Inspection: Yes normal to inspection, No distended and Yes obesity Palpation (GI): Soft to palpation, not firm, nontender and No hepatosplenomegaly present Auscultation: normal bowel sounds General: Yes no CVA tenderness Back/Spine/Pelvis Back: no CVA tenderness Skin General skin exam: elasticity normal, turgor normal and dry skin Neuro General: patient oriented x3 Psych Appearance: grossly normal Mental Status: mental status grossly normal Results Reviewed Results Reviewed: ABDOMINAL ULTRASOUND IMPRESSION: 1. Innumerable liver cysts the largest in the right lobe measure up to 2.1 cm. 2. Innumerable right renal cysts some of which contain echogenic foci likely calcifications, the largest 5.1 cm. 3. Gallbladder is contracted, there is mild thickening of the gallbladder wall 3.3 mm, this is probably due to its incomplete distention. No tenderness pressing on the gallbladder. 4. Echogenic structure adherent to the gallbladder wall 3 mm probably a polyp, attention to follow-up surveillance recommended ultrasound in 12 months. 5. Please note that the renal transplant in the right lower quadrant was not in included on this study. This will be described on CT scan from March 08, 2024. Assessment & Plan Assessment & Plan (1) GERD (gastroesophageal reflux disease): Code(s): K21.9 - Gastro-esophageal reflux disease without esophagitis Qualifiers: Esophagitis presence: esophagitis presence not specified Qualified Code(s): K21.9 - Gastro-esophageal reflux disease without esophagitis (2) Postprandial abdominal bloating: Code(s): R14.0 - Abdominal distension (gaseous) (3) Constipation: Code(s): K59.00 - Constipation, unspecified Qualifiers: Constipation type: slow transit constipation Qualified Code(s): K59.01 - Slow transit constipation (4) Liver cyst: Code(s): K76.89 - Other specified diseases of liver Plan Continue with pantoprazole daily. Reviewed kidney functions and are normal. Patient was encouraged to increase fluid intake. Avoid dietary triggers and late night snacking. Staying upright for minimum 3 hours after meals discussed with patient. Continue Dulcolax. Increase activity to promote better bowel motility. Patient will follow-up in 6 months, sooner on as needed basis. She is agreeable to this plan and verbalizes understanding of instructions. She was given the opportunity to ask questions and all questions answered. Thank you for allowing me to participate in her care Medications: Refilled pantoprazole 40 mg PO DAILY 90 tabs 3RF bisacodyl (Dulcolax (bisacodyl)) 10 mg (2 x 5 mg) PO BEDTIME 180 tabs 4RF Coding Level of Care Code Est Pt Level 3 (11720) Diagnoses Gastroesophageal reflux disease, unspecified whether esophagitis present K21.9 Esophagitis presence: esophagitis presence not specified Postprandial abdominal bloating R14.0 Slow transit constipation K59.01 Constipation type: slow transit constipation Liver cyst K76.89 Time Spent (min) 30 Comment 20 minutes spent with patient and additional 10 minutes spent reviewing her records
[2024-08-02 08:13] VITALS: BP 102/56; PULSE 64; O2SAT 100; BMI 26.7
== END 2024-08-02 08:27 | disposition home or self-care (01) ==
LOC: HO.HGI 07:49
PROVIDERS: PCP Family Medicine; Visit Provider Nurse Practitioner Family
DX: K21.9 Gastro-esophageal reflux disease without esophagitis (principal); R14.0 Abdominal distension (gaseous); K59.01 Slow transit constipation; K76.89 Other specified diseases of liver
CPT/HCPCS: 99213

== ENCOUNTER → 2024-08-02 07:49 | Outpatient (BNVA) | payer MEDICAID, SELFPAY | PROVIDERS: PCP Family Medicine; Visit Provider Nurse Practitioner Family | DX: K21.9 Gastro-esophageal reflux disease without esophagitis (principal); K59.01 Slow transit constipation; K76.89 Other specified diseases of liver; R14.0 Abdominal distension (gaseous) | CPT/HCPCS: 99212 ==

== ENCOUNTER 2024-09-10 12:55 | Outpatient (AMB) | payer MEDICAID, SELFPAY ==
[2024-09-10 13:06] VITALS: BP 102/60; PULSE 70; BMI 26.7
--- NOTE | 2024-09-10 13:06 | MHC.OFFVIS ---
Vital Signs 09/10/24 13:06 Height 5 ft 2 in Weight 145 lb 15.136 oz BMI 26.7 BP 102/60 Blood Pressure Location Lt brachial Position Sitting Pulse 70 Pulse Source Monitor Intake Visit Reasons: f/up stress echo/ HS Supervisor Denture Department Required: Yes Supervisor Denture Department Language: Supply Chain Consultant Name: voice davis [phone] Allergies No Known Allergies Allergy (Verified 09/10/24 13:08) Medication List - Last Reconciled 09/10/24 by Fidencio Welch NP albuterol sulfate 0.63 mg inhalation Q6H alcohol swabs (Alcohol Prep Pads) 0 pad topical BID bisacodyl (Dulcolax (bisacodyl)) 10 mg (2 x 5 mg) PO BEDTIME blood sugar diagnostic (FreeStyle Lite Strips) As directed dulaglutide (Trulicity) mg subcut QWEEK ergocalciferol (vitamin D2) (Vitamin D2) 1,250 mcg PO QWEEK fluticasone propionate 110 mcg/actuation (Flovent HFA) 1 puff inhalation BID fluticasone propionate 50 mcg/actuation 2 sprays intranasal DAILY lancets (TRUEplus Lancets) As directed loratadine 10 mg PO DAILY methylcellulose (laxative) (Citrucel) 500 mg PO DAILY mometasone 100 mcg/actuation (Asmanex HFA) 1 puff inhalation BID mycophenolate sodium (Myfortic) 720 mg PO BID pantoprazole 40 mg PO DAILY tacrolimus mg PO DAILY HPI Comments Details: This is a 54-year-old female patient presenting for a follow-up visit. Patient with a history of diabetes and was previously evaluated in the office for ongoing chest discomfort, for which she had also previously sort care in the ER at [facility]. At that time, her testings were negative and was discharged home. Since then she has undergone an echocardiogram and a stress echocardiogram. Today, the patient reports feeling well overall, she denies any current symptoms including exertional chest pain, shortness of breath, palpitations, dizziness, orthopnea, PND, leg edema, presyncope, or syncope. She reports trying to stay active and affirms her compliance with all her medications. [facility] Medical History Transaminitis Mild intermittent asthma Allergic rhinitis Anemia Hypertension Type 2 diabetes mellitus with nephropathy Autosomal dominant polycystic kidney disease Surgical History Kidney transplant recipient Hx of bilateral breast reduction surgery H/O hernia repair Hx of colonoscopy History of esophagogastroduodenoscopy (EGD) History of left nephrectomy Status post abdominal hysterectomy Status post -donor kidney transplantation Family History Paternal Uncle Colon cancer Paternal Uncle Colon cancer Paternal Grandmother Uterine cancer Social History Alcohol intake: never Patient Tobacco Use Status: Never used Tobacco 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al status: disabled 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 Female Reproductive History Menstrual Age of Menarche: 17 Review of Systems ENT Reports dizziness Card Denies chest pain, Denies chest pain at rest, Denies chest pain with activity, Denies rapid heart rate, Denies pedal edema, Denies edema, Denies leg edema, Denies lightheadedness, Denies palpitations, Denies dyspnea, Denies dyspnea on exertion and Denies orthopnea Resp Denies cough, Denies dyspnea and Denies dyspnea on exertion GI Denies hematochezia and Denies change in stool character Musc Denies abnormal gait, Reports limited range of motion, Reports muscle cramps, Denies muscle weakness, Denies numbness, Denies radiating pain into limb, Denies stiffness and Denies tingling Neuro Denies abnormal gait, Reports dizziness, Denies numbness and Denies tingling Endo Denies palpitations Physical Exam Vital Signs: Last Vital Signs Pulse 70 09/10/24 13:06 BP 102/60 09/10/24 13:06 BMI result Body Mass Index 26.7 Const General: cooperative, healthy appearing, comfortable and no acute distress Orientation/consciousness: patient oriented x3 HEENT Head: Yes normal to inspection Neck Neck: Yes normal visual inspection, Yes trachea midline and Yes supple Chest Chest palpation & inspection: normal inspection of the chest Resp Effort & Inspection: normal respiratory effort Auscultation: clear to auscultation bilaterally, no crackles, no rales, no rhonchi and no wheezes Cardio Jugular venous distension: no JVD Palpation: normal PMI Rate: regular rate Rhythm: regular rhythm Heart sounds: S1 normal heart sound present, S2 normal heart sound present, no click, no gallops, no murmurs and no rubs Peripheral pulses: Peripheral pulses 2+ throughout GI Inspection: Yes normal to inspection Palpation (GI): Soft to palpation Auscultation: normal bowel sounds Skin General skin exam: no rashes or lesions noted Neuro General: patient oriented x3 Extrem General: Yes normal to inspection, No no pedal edema and No calf tenderness Psych Appearance: grossly normal Mental Status: mental status grossly normal Speech and movement: Normal speech and movement present Office Procedures EKG Details: EKG today showed normal sinus rhythm, rate 70 beats per minute, low-voltage QRS, normal IA, [place]. [id number], Complete Assessment & Plan Assessment & Plan (1) Precordial chest pain: Code(s): R07.2 - Precordial pain Category: Medical (2) Type 2 diabetes mellitus with unspecified complications: Code(s): E11.8 - Type 2 diabetes mellitus with unspecified complications Category: Medical Plan 02/28/2024-echo study showed a normal LV systolic function with the ejection fraction between 60-65%, without any wall motion abnormalities or valvular pathology. 07/17/2024-patient underwent a stress echocardiogram which was negative for any ischemia. Given the resolution of her symptoms, and reassuring cardiac workup, no further cardiac testing is indicated at this time. Blood pressure is within normal range today. Continue monitoring and lifestyle management. Continue current diabetes management with target A1c less than 7%. Advised heart healthy diet, regular exercise, and management of vascular risk factors. Patient will follow-up as needed in the office. In the interim, patient will call the office with any concerns or change in symptoms. This note was generated using voice recognition software. While every effort has been made to ensure accuracy and proper igniter assembler, there may be occasional errors that could affect the content or meaning of the described symptoms. Orders: Orders AMB EKG-In Office Today R07.2 - Precordial pain Coding Level of Care Code Est Pt Level 3 (71561) Complex EM visit Add On G2211 Diagnoses Precordial chest pain R07.2 Type 2 diabetes mellitus with unspecified complications E11.8 CPT Codes EKG - CPT: [id number], Complete ([id number]) Time Spent (min) 28 Comment Time spent in reviewing the chart, test results, assessment, counseling and documentation.
--- OUTSIDE RECORDS SUMMARY | 2024-09-10 13:59 | XMS_ITS | Encounter Summary ---
Author Organization [employer] Address [address] [place] [address] [address] [place] [address] Care Team Providers Care Treating Plant Pumper Name Role Phone Priscilla He DO Primary Care Provider [phone] Encounter Details Date Type Department Care Team ([facility] st Contact Info) Description 10/24/[address] [facility] [address] [place] [address] Priscilla Falk LPN Social History Tobacco Use [...] documented as of this encounter Care Teams Treating Plant Pumper Relationship Specialty Start Date End Date Priscilla He DO [address] [place] [id number] PCP - General Family Medicine 03/23/17 documented as of this encounter
--- OUTSIDE RECORDS SUMMARY | 2024-09-10 13:59 | XMS_ITS | Encounter Summary ---
Author Organization [employer] Address [address] [place] [address] 7 [place] [address] Care Team Providers Care Florist Manager Name Role Phone Priscilla He DO Primary Care Provider [phone] Reason for Visit * Reason Onset Date Comments Med Refill 05/05/2023 Encounter Details Date Type Department Care Team ([facility] st Contact Info) Description 05/05/2023 Refill [facility] MEDICINE [address] [place], [place] [phone] Priscilla He DO [address] [place], [place] [phone] Social History Tobacco Use Types Packs/Day Years [...] documented as of this encounter Care Teams Florist Manager Relationship Specialty Start Date End Date Priscilla He DO [address] [place] [phone] PCP - General Family Medicine 03/23/17 documented as of this encounter
--- OUTSIDE RECORDS SUMMARY | 2024-09-10 13:59 | XMS_ITS | Clinical Summary ---
Author Organization [facility] Address [address] [place] [address] Care Team Providers Care Supervisor Continuous Weld Pipe Mill Name Role Phone Pcp, No Primary Care Provider Unavailabl e Social History Tobacco Use Types Packs/Day Years Used Date Smoking Tobacco: Never Assessed Comments Unknown Sex and Gender Information Value Date Recorded Sex Assigned at Not on file Legal Sex Female 9:09 AM EDT Gender Identity Not on file Sexual Orientation Not on file Plan of Treatment Health Maintenance Due Date Last Done Comments Hepatitis C Virus Screening 1972 HIV Screening 1985 DTaP/Tdap/Td Vaccines (1 - Tdap) 1991 Hepatitis B Vaccines (1 of 3 - 19+ 3-dose series) 04/24 Pap Smear (Ages 21-65) 1993 Mammogram 2012 Colonoscopy 2017 Pneumococcal Vaccines 50+ (1 of 1 - PCV) 2022 Zoster (Shingles) Vaccine (1 of 2) 2022 COVID-19 Vaccine (1 - 2023-25 season) 2023 Influenza Vaccine 11/22/2024 Insurance MISC MGD MEDICARE OUT OF NETWORK Care Teams Supervisor Continuous Weld Pipe Mill Relationship Specialty Start Date End Date Pcp, No [address] [place] [address] PCP - General 12/23/18
--- OUTSIDE RECORDS SUMMARY | 2024-09-10 13:59 | XMS_ITS | Encounter Summary ---
Author Organization [facility], Address [address] [place] [address] Phone Care Team Providers Care Internal Grinder Set Up Operator Name Role Phone Priscilla He DO Primary Care Provider Unava ilable Reason for Visit * Reason Comments Med Refill Encounter Details Date Type Department Care Team (Late st Contact Info) Description 11/12/2019 Refill [facility] [address] [place] [address] Faisal See MD [address] [place] [address] [place] [address] Social History Tobacco Use Types [...] [facility] [address] [place] [address] Damian Shah MD [address] [place] [address] [place] [address] documented as of this encounter Visit Diagnoses Not on filedocumented in this encounter Care Teams Internal Grinder Set Up Operator Relationship Specialty Start Date End Date Priscilla He DO [address] [place] [address] PCP - General 02/26/19 documented as of this encounter
--- OUTSIDE RECORDS SUMMARY | 2024-09-10 13:59 | XMS_ITS | Encounter Summary ---
Author Organization [facility], Address [address] [place] [address] Phone Care Team Providers Care Strategic Sourcing Specialist Name Role Phone Priscilla He DO Primary Care Provider Unava ilable Reason for Visit * Reason Comments Med Refill Encounter Details Date Type Department Care Team (Late st Contact Info) Description 10/25/2023 Refill [facility] [address] [place] [address] Damian Shah MD [address] [place] [address] [place] [address] Social History Tobacco Use Types [...] [facility] [address] [place] [address] Damian Shah MD [address] [place] [address] [place] [address] documented as of this encounter Visit Diagnoses Not on filedocumented in this encounter Care Teams Strategic Sourcing Specialist Relationship Specialty Start Date End Date Priscilla He DO [address] [place] [address] PCP - General 02/26/19 documented as of this encounter
--- OUTSIDE RECORDS SUMMARY | 2024-09-10 13:59 | XMS_ITS | Encounter Summary ---
Author Organization [employer] Address [address] [place] [address] 7 [place] [address] Care Team Providers Care It Security Consultant Name Role Phone Priscilla He DO Primary Care Provider [phone] Reason for Visit * Reason Onset Date Comments Med Refill 05/04/2023 Encounter Details Date Type Department Care Team ([facility] st Contact Info) Description 05/04/2023 Refill [facility] MEDICINE [address] [place], [place] [phone] Priscilla He DO [address] [place], [place] [phone] Social History Tobacco Use Types Packs/Day Years Used Date Smoking Tobacco: Never Passive Smoke Exposure: Never Smokeless Tobacco: Never Alcohol Use Standard Drinks/Week Comments Never 0 (1 standard drink = 0.6 oz pur e alcohol) Depression Answer Date Recorded Patient Health Questionnaire-9 Score 7 07/08/2022 Housing Stability Answer Date Recorded What is your housing situation today? I have william florian 01/30/[address] you li [...] documented as of this encounter Care Teams It Security Consultant Relationship Specialty Start Date End Date Priscilla He DO [address] [place] [id number] PCP - General Family Medicine 03/23/17 documented as of this encounter
--- OUTSIDE RECORDS SUMMARY | 2024-09-10 13:59 | XMS_ITS | Encounter Summary ---
Author Organization [employer] Address [address] [place] [address] [address] [place] [address] Care Team Providers Care Car Knocker Name Role Phone Priscilla He DO Primary Care Provider [phone] Reason for Visit * Reason Onset Date Comments Med Refill 06/24/2023 Encounter Details Date Type Department Care Team ([facility] st Contact Info) Description 06/24/2023 Refill [facility] MED[facility]INE [address] [place], [place] [phone] Priscilla He DO [address] [place], [place] [phone] Social History Tobacco Use Types Packs/Day Years [...] documented as of this encounter Care Teams Car Knocker Relationship Specialty Start Date End Date Priscilla He DO [address] [place] [id number] PCP - General Family Medicine 03/23/17 documented as of this encounter
--- OUTSIDE RECORDS SUMMARY | 2024-09-10 14:00 | XMS_ITS | Encounter Summary ---
Author Organization [facility], Address [address] [place] [address] Phone Care Team Providers Care Integrated Circuit Layout Designer Name Role Phone Priscilla He DO Primary Care Provider Unava ilable Encounter Details Date Type Department Care Team (Late st Contact Info) Description 12/01/2021 Documentation Only [facility], [address] [place] [address] [place] [address] [place] [address] Social History Tobacco Use Types [...] Visit [facility] [address] [place] [address] Damian Shah MD [address] [place] [address] documented as of this encounter Visit Diagnoses Not on filedocumented in this encounter Care Teams Integrated Circuit Layout Designer Relationship Specialty Start Date End Date Priscilla He DO [address] [place] [address] PCP - General 02/26/19 documented as of this encounter
--- OUTSIDE RECORDS SUMMARY | 2024-09-10 14:00 | XMS_ITS | Clinical Summary ---
Author Organization [employer] Address [address] [place] [address] 7 [place] [address] Care Team Providers Care Robotic Machine Operator Name Role Phone Ying Priscilla Primary Care Provider Allergies No known active [...] by mouth in the morning. 023 Active loratadine (Claritin) 10 MG tablet Take 1 tablet (10 mg) by mouth Once per day. 90 tablet 3 024 2024 Active budesonide-fo rmoterol (Symbicort) 160-4.5 MCG/ACT inhaler Inhale 2 puffs in the morning and at bedtime. Rinse mouth with water after use to reduce aftertaste and incidence of candidiasis. Do not swallow. 3 each 3 024 2024 Active Blood Glucose Monitoring Suppl ([employer] R&DStyle Lajas Lite) w/Device kit Use to test blood sugar 2 times daily 1 kit Active triamcinolone (Nasacort) 55 MCG/ACT nasal inhaler Administer 2 sprays into each nostril Once per day. 16.5 g 5 025 2025 Active albuterol (2.5 MG/3ML) 0.083% nebulizer solution INHALE 1 AMPULE USING A NEBULIZER EVERY 4 HOURS NEEDED FOR COUGH, WHEEZING, OR SHORTNESS OF BREATH 90 mL 1 Active meclizine (Antivert) 25 MG tablet TAKE 1 TABLET BY MOUTH THREE TIMES DAILY IN THE MORNING, AT NOON, AND AT BEDTIME NEEDED FOR DIZZINESS 30 tablet 2 Active Semaglutide,0 .25 or 0.5MG/DOS, (Ozempic, 0.25 or 0.5 MG/DOSE,) 2 MG/3ML solution pen-injector Inject 0.25 mg under the skin 1 (one) time per week. 3 mL 3 Active meclizine (Antivert) 25 MG tablet Take 1 tablet (25 mg) by mouth if needed in the morning, at noon, and at bedtime for dizziness. 30 tablet 2 024 2024 Discontinued atorvastatin (Lipitor) 10 MG tablet Take 1 tablet (10 mg) by mouth Once per day. 90 tablet 3 024 2024 Discontinued Trulicity 1.5 MG/0.5ML solution auto-injector INJECT ONE PEN (=1.5MG) SUBCUTANEOUSLY ONCE A WEEK DIRECTED 2 mL 5 024 2024 Discontinued(S sparkle effects) Dulaglutide (Trulicity) 3 MG/0.5ML solution auto-injector Inject 3 mg under the skin 1 (one) time per week. 2 mL 3 025 2024 Discontinued(S sparkle effects) albuterol (Ventolin HFA) 108 (90 Base) MCG/ACT inhaler INHALE 2 PUFFS BY MOUTH EVERY 4 TO 6 HOURS NEEDED 18 g 1 025 2024 Discontinued Active Problems Problem Noted Date Diagnosed Date Immunosuppression 07/08/2022 Congenital cystic kidney disease 07/08/2022 Mild persistent asthma 07/08/2022 History of renal transplant 07/08/2022 Major depression, recurrent, chronic 07/08/2022 Cerebral cavernous malformation 07/08/2022 Family history of colon cancer 07/08/2022 Chronic gastroesophageal reflux disease 04/29/19 Stage 2 chronic kidney disease 04/29/2019 Hyperlipidemia [...] Encounters Date Type Department Care Team Description 08/28/2024 10:45 AM EDT Office Visit [facility] [address] [place] [address] Priscilla He, Type 2 diabetes mellitus without complication, without long-term current use of insulin ([facility]) (Primary Dx); Other hyperlipidemia; Major depression, recurrent, chronic (CMS/HCC); Stage 2 chronic kidney disease; Mild intermittent asthma with exacerbation; Sleep-disordered breathing; Cerebral cavernous malformation; Abnormal computed tomography of abdomen and pelvis; Dizziness; Chest pain, unspecified type; Healthcare maintenance 08/21/2024 Travel 08/09/2024 Refill [facility] [address] [place] [address] Priscilla He DO 08/06/2024 Refill [facility] [address] [place] [address] Priscilla He DO 07/19/2024 Refill [facility] [address] [place] [address] Priscilla He DO 07/19/2024 Refill [facility] [address] [place] [address] Priscilla He DO 07/19/2024 Refill [facility] [address] [facility] [place] [address] Priscilla He DO 07/16/2024 Refill [facility] [address] [facility] [place] [address] Priscilla He DO 07/05/2024 Population Health Risk Score [facility] () Department [address] [place] [phone] Provider, Population Health Generic 06/21/2024 Telephone [facility] [address] [facility] [place] [address] Priscilla He, Recall Appt. 06/21/2024 Travel from Last 3 Months Immunizations Immunization Administration Dates Next Due INFLUENZA INJECTABLE QUADRIV [...] Answer Date Recorded Patient Health Questionnaire-9 Score 17 08/28/2024 Patient Health Questionnaire-9 Score 17 08/28/2024 Last PHQ-9: Questionnaire Data Not on file 0 08/28/2024 Housing Stability Answer Date Recorded What is [...] getting things needed for daily living? No 08/28/2024 Utilities Answer Date Recorded In the past 12 months, has t he electric, gas, oil or water company threatened to shut off services in your home? No 07/25/2023 Depression Answer Date Recorded Patient Health Questionnaire-2 Score 4 08/28/2024 Internet Access Answer Date Recorded Internet Access Q1 Yes 12/25/2023 Internet Access Q2 Not on file 12/25/2023 Comments No Sex and Gender Information Value Date Recorded Sex Assigned at Female 02/21/2022 10:32 AM EDT Legal Sex Female 10:32 AM EDT Gender Identity Female 06/08/2022 1:48 PM EST Sexual Orientation Bisexual 06/08/2022 1: 48 PM EST Last Filed Vital Signs Vital Sign Reading Time Taken Comments Blood Pressure 118/70 08/28/2024 11:29 AM EDT Pulse 67 08/28/2024 11:29 AM EDT Temperature 36.2 ??C (97.1 ??F) 08/28/2024 11:29 AM E DT Respiratory Rate 20 08/28/2024 11:29 AM EDT Oxygen Saturation 98% 08/28/2024 11:29 AM EDT Inhaled Oxygen Concentration - - Weight 65.8 kg (145 lb 2 oz) 08/28/2024 11:29 AM EDT Height 157.5 cm (5' 2 ) 08/28/2024 11:29 AM EDT Body Mass Index 26.54 08/28/2024 11:29 AM EDT Plan of Treatment Health Maintenance Due Date Last Done Comments CT Colonography 1972 FIT DNA/Cologuard 1972 FIT 1972 FOBT 1972 Sigmoidoscopy 1972 Diabetes: Foot Exam 1982 Eye Exam 1982 Family Planning (PISQ) 1987 Hepatitis B Vaccines (1 of 3 - 19+ 3-dose series) 1991 Zoster Vaccines (1 of 2) 1991 COVID-19 Vaccine ( - season) 2023 01/22/2021, 07/04/2020, 06/11/2020 Influenza Vaccine (#1) 2023 , 02/28/2022, 03/02/2021, Additional history exists Lipid Panel 08/21/2024 08/22/2023, 03/09/2022 Diabetes: Hemoglobin A1C 02/28/2025 025, 01/31/2024, 12/26/2023, Additional history exists Mammogram 03/14/2025 03/14/2024, 02/23, 03/07/2022, Additional history exists Diabetes: Urine Protein Screening 07/26/2025 07/26/2024, 03/09/2022 Alcohol/Substance Use Screening 08/28/2025 08/28/2024 Depression Screening 08/28/2025 08/28/2024, 08/29/19 25 Disability Screening 08/28/2025 08/28/2024 SDOH Screening 08/28/2025 08/28/2024 Tobacco Screening 08/28/2025 08/28/2024 Colonoscopy 12/16/2026 Colorectal Cancer Screening 12/16/2026 DTaP/Tdap/Td Vaccines (2 - Td or Tdap) 01/21/2029 01/21/2019 RSV Patients and Patients Aged 60 years or older (1 - 1-dose 75+ series) 2047 Cervical Cancer Screening Discontinued HPV/Cotest Discontinued 07/20/2018, 07/10/2017 HIV Screening Completed 08/10/2022 Hepatitis C Screening [...] patient's age to complete this topic Meningococcal B Vaccine Aged Out No l onger eligible based on patient's age to complete this topic Meningococcal Vaccine Aged Out No esteban mary eligible based on patient's age to complete this topic Pap Smear Discontinued RSV under 20 months Aged Out No longe r eligible based on patient's age to complete this topic Rotavirus Vaccines Aged Out No longer eligible based on patient's age to complete this topic Procedures Procedure Name Priority Date/Time Associated Diagnosis Comments POCT GLYCATED HEMOGLOBIN, TOTAL Routine 08/28/2024 11:33 AM EDT Type 2 diabetes mellitus without complication, without long-term current use of insulin (CMS/HCC) POCT GLUCOSE Routine 08/28/2024 11:33 AM EDT Type 2 diabetes mellitus without complication, without long-term current use of insulin (CMS/HCC) BI MAMMOGRAM SCREENING TOMOSYNTHESIS BILATERAL Routine 03/14/2024 8:00 AM EST LIPID PANEL, STANDARD Routine 08/22/2023 10:53 AM [...] Recently Relevant to Health Maintenance Results * POCT HGB A1C (08/28/2024 11:33 AM EDT) Hemoglobin A1C 5.3 4.0 - 6.0 % QC Media Lot # [id number] Lot# Expiration Date [id number] Blood 08/28/2024 11:3 3 AM EDT Priscilla He DO POINT OF CARE TEST ENTER/CAROLINE T ORDERABLES Final Result * POCT Glucose (08/28/2024 11:33 AM EDT) Glucose Blood, POC 104 60 - 200 mg/dL QC Media Lot # [id number] Lot# Expiration Date , Blood Capillary blood specimen / Unknown 08/28/2024 11:33 AM EDT Priscilla He DO POINT OF CARE TEST ENTER/CAROLINE T ORDERABLES Final Result * BI Mammogram Screening Tomosynthesis Bilateral (03/14/2024 8:00 AM EST) Anatomical Region Laterality Modality Breast Bilateral Mammography 03/14/2024 8:00 AM EST Narrative 03/25/2024 9:14 AM EST ? [facility] ? [address] ?[place] [address] ? Mammography Report ? Signed ? Patient: Aissatou Rausch,Regine Narayanan ?MR#: ?? [id number] ? : 1970 ?Acct:[id number] ? Age/Sex: 53 / F ?ADM Date: 11/21/24 ? Loc: HO.MAMMO ? Attending Dr: Priscilla He DO ? Ordering Physician: Priscilla He DO ?Results: 2B ?? enign Findings ? Date of Service: 03/14/24 ?Follow Up: 1 Year From Orig ?? inal Mammogram ? Procedure(s): MM tomosynthesis screening BI ?? Accession Number(s): [id number] ? cc: Priscilla He DO ? EXAMINATION: [...] DD/ 0800 ? TD/TT: 03/14/24 0823 ? Phone Engineer: ? Procedure Note Georgette, Image - 03/25/2024 [place] [facility]'[address] [place] [address] Mammography Report Signed Patient: Regine Weaver#: [id number] : 1970Acct:[id number] Age/Sex: 53 / FADM Date: 03/14/24 Loc: HO.MAMMO Attending Dr: Priscilla He DO Ordering Physician: Priscilla Heults: 2B enign Findings Date of Service: 03/14/24Follow Up: 1 Year From Orig inal Mammogram Procedure(s): MM tomosynthesis screening BI Accession Number(s): [id number] cc: Priscilla He DO EXAMINATION: MM SCREENING [...] 03/25/24 0911 DD/ 0800 TD/TT: 03/14/24 0823 Phone Engineer: Priscilla He DO IMG BI PROCEDURES Final Resu lt * (ABNORMAL) Lipid Panel, Standard (08/22/2023 10:53 AM EDT) Triglycerides 90 <150 mg/dL [facility] Comment:Desirable Triglyceri de: less than 150 mg/dLBorderline High Triglyceride 150-199 mg/dLHigh Triglyceride: 200-499 mg/dLVery High Triglyceride: greater than or equal to 5OO mg/dL Cholesterol 196 <200 mg/dL [facility] Comment:Desirable Cholestero l: less than 200 mg/dLBorderline High Cholesterol: 200-239 mg/dLHigh Cholesterol: greater than 239 mg/dL LDL Cholesterol Calculated 125(H) <100 mg/dL [facility] Comment:Desirable LDL: less than 100 mg/dLNear Optimal/Above Optimal LDL: 110- 129 mg/dLBorderline High LDL: 130-159 mg/dLHigh LDL: 160-189 mg/dLVery High LDL: greater than or equal to 190 mg/dL HDL Cholesterol 53 >40 mg/dL [facility] Comment:Desirable HDL: great er than 40 mg/dL Note: This HDL assay may give artificially low results in patients with liver disease. Blood Venous blood specimen / Unknown 08/22/2023 10:53 AM EDT 08/22/2023 11:37 AM EDT us Priscilla He DO LAB BLOOD ORDERABLES Final R esult [facility] [address] [place] [address] [phone] * HIV Ab/Ag ([facility]) (08/10/2022 2:21 PM EDT) HIV AB/AG Nonreactive Nonreactive [facility] Comment:HIV-1 p24 Ag and/or HIV-1/HIV-2 Ab not detected.A test result that is nonreactive does not exclude thepossibility of exposure to or infection with HIV-1 and/orHIV-2. Nonreactive results in this assay for individualswith prior exposure to HIV-1 and/or HIV-2 may be due toantigen and antibody levels that are below the limit ofdetection of this assay.The [employer] Analyst HIV Ag/Ab Combo assay result andsupplemental assay results should be interpreted inconjunction with the patient's clinical presentation,history and other laboratory results. If the results areinconsistent with clinical evidence, additional testing issuggested to confirm the result. 08/10/2022 2:21 PM EDT 08/10/2022 2:21 PM EDT [facility] External Provider LAB BLO OD ORDERABLES Final Result Performing Organization Address [facility] de Phone Number [facility] [address] [place] [address] [phone] * Hepatitis Panel, General (08/10/2022 2:21 PM EDT) Hepatitis A IgM Nonreactive Nonreactive [facility] Comment:IgM antibodies to CEBALLOS V not detected; does not exclude earlyacute or recovered HAV infection. ~Hepatitis B Surface Antibody REACTIVE Nonreactive [facility] Comment:REACTIVE: > 11.99 mI U/mL Hepatitis B Core Antibody Nonreactive Nonreactive [facility] Hepatitis C Antibody Nonreactive Nonreactive [facility] Comment:Antibodies to HCV no t detected; does not exclude early acuteHCV infection. Hepatitis B Surface Ag Negative Negative [facility] 08/10/2022 2:21 PM EDT 08/10/2022 2:21 PM EDT [facility] External Provider LAB BLO OD ORDERABLES Final Result Performing Organization Address [facility] de Phone Number [facility] [address] [place] [phone] * ALBUMIN, RANDOM URINE W/CREATININE (03/09/2022 [...] LABS 03/09/2022 11:1 1 AM EST Priscilla Ying DO LAB URINE ORDERABLES Final R esult [facility] * HPV E6/E7 RFLX SAI 16 18/45 (07/20/2018 12:12 PM EDT) HPV 18/45 RNA Test not performed [facility] HPV mRNA E6/E7 Not Detected NOT DETECTED [facility] Comment: This test was performed using the APTIMA(R) HPV Assay ([employer] This assay detects E6/E7 viral messenger RNA (mRNA) from 14 high-risk HPV types (16,18,31,33,35,39,45,51, 52,56,58,59,66,68). For additional information please refer to: http://education.inSparq/faq/PAI835f7 (This link is being provided for informational/ educational purposes only.) The analytical performance characteristics of this assay have been determined by [facility] [place], [place]. The modifications have not been cleared or approved by the FDA. This assay has been validated pursuant to the CLIA regulations and is used for clinical purposes. Please note: ??Effective 01/04/2016, HPV testing will be performed using [employer]'s APTIMA test which targets mRNA. Detecting mRNA instead of DNA, as in older methods, offers significant improvements in specificity. ADDITIONAL TESTING Not indicated () [facility] Comment: Test Performed by [facility], [facility] [place], [address] [place], [place] Sundar Craig M.D., Ph.D., Director of Laboratories , CLIA [id number] HPV 16 RNA Test not performed [facility] 07/20/2018 12:1 2 PM EDT Priscilla He DO HISTORICAL/NON ORDERABLE LAB S Final Result [facility] [address] from Last 3 Months or Most Recently Relevant to Health Maintenance Insurance [email or web address] Care Teams Robotic Machine Operator Relationship Specialty Start Date End Date Priscilla He DO [address] [place] [phone] PCP - General Family Medicine 03/23/17
--- OUTSIDE RECORDS SUMMARY | 2024-09-10 14:00 | XMS_ITS | Encounter Summary ---
Author Organization [facility], Address [address] [place] [address] Phone Care Team Providers Care Medical Research Tech Name Role Phone Priscilla He DO Primary Care Provider Unava ilable Encounter Details Date Type Department Care Team (Late st Contact Info) Description 10/14/2022 Documentation Only [facility], [address] [place] [address] Damian Shah MD [address] [place] [address] [place] [address] Social History Tobacco Use Types [...] Visit [facility] [address] [place] [address] Damian Shah MD [address] [place] [address] [place] [address] documented as of this encounter Visit Diagnoses Not on filedocumented in this encounter Care Teams Medical Research Tech Relationship Specialty Start Date End Date Priscilla He DO [address] [place] [address] PCP - General 02/26/19 documented as of this encounter
--- OUTSIDE RECORDS SUMMARY | 2024-09-10 14:00 | XMS_ITS | Encounter Summary ---
Author Organization [employer] Address [address] [place] [address] 7 [place] [address] Care Team Providers Care Heading Up Machine Operator Name Role Phone Priscilla He DO Primary Care Provider [phone] Reason for Visit * Reason Onset Date Comments Med Refill 07/19/2024 Encounter Details Date Type Department Care Team ([facility] st Contact Info) Description 07/19/2024 Refill [facility] [address] [place], [place] [phone] Priscilla He DO [address] [place], [place] [phone] Social History Tobacco Use Types Packs/Day Years [...] documented as of this encounter Care Teams Heading Up Machine Operator Relationship Specialty Start Date End Date Priscilla He DO [address] [place] [address] PCP - General Family Medicine 03/23/17 documented as of this encounter
--- OUTSIDE RECORDS SUMMARY | 2024-09-10 14:00 | XMS_ITS | Encounter Summary ---
Author Organization [employer] Address [address] [place] [address] 7 [place] [address] Care Team Providers Care Physical Therapy Assistant Name Role Phone Priscilla He DO Primary Care Provider [phone] Reason for Visit * Reason Onset Date Comments Referral 08/04/2023 Encounter Details Date Type Department Care Team (Late st Contact Info) Description 08/04/2023 Telephone [facility] [address] [place], [place] [phone] Priscilla He DO [address] [place], [place] [phone] Referral Social History Tobacco Use Types Packs/Day [...] Pt had an appt august 24 with [facility] but it was canceled. Please contact pt at [phone]. documented in this encounter Plan of Treatment Not on file documented as of this encounter Visit Diagnoses Not on filedocumented in this encounter Additional Health Concerns Assessment Noted Time PHQ-9 Depression Total Score: 0 08/03/19 24 10:24 AM EDT documented as of this encounter Care Teams Physical Therapy Assistant Relationship Specialty Start Date End Date Priscilla He DO [address] [place] [address] PCP - General Family Medicine 03/23/17 documented as of this encounter
--- OUTSIDE RECORDS SUMMARY | 2024-09-10 14:00 | XMS_ITS | Encounter Summary ---
Author Organization [facility], Address [address] [place] [address] Phone Care Team Providers Care Market Investigator Name Role Phone Priscilla He DO Primary Care Provider Unava ilable Reason for Visit * Reason Comments Med Refill Encounter Details Date Type Department Care Team (Late st Contact Info) Description 06/28/2021 Refill [facility] [address] [place] [address] Sandor Jansen PA Social History [...] Visit [facility] [address] [place] [address] Damian Shah MD [address] [place] [address] [place] [address] documented as of this encounter Visit Diagnoses Not on filedocumented in this encounter Care Teams Market Investigator Relationship Specialty Start Date End Date Priscilla He DO [address] [place] [address] PCP - General 02/26/19 documented as of this encounter
--- OUTSIDE RECORDS SUMMARY | 2024-09-10 14:00 | XMS_ITS | Clinical Summary ---
Author Organization [facility], Address [address] [place] [address] [place] [address] Phone Care Team Providers Care Shells Inspector Name Role Phone Priscilla He DO [...] per week 4 Active ergocalciferol 1.25 MG (48579 UT) capsule TAKE 1 CAPSULE (50,000 UNITS TOTAL) BY MOUTH 1 (ONE) TIME PER WEEK FOR LOW VITAMIN D 8 capsule 10 4 Active atorvastatin (LIPITOR) 10 MG tablet Take 10 mg by mouth in the morning. 4 01/31/20 25 Active tacrolimus (Prograf) 1 MG capsule Take 1 capsule (1 mg total) by mouth in the morning and 1 capsule (1 mg total) in the evening. 180 capsule 3 5 08/06/19 26 Active Active Problems Problem Noted Date [...] Encounters Date Type Department Care Team Description 08/23/2024 Documentation Only [facility], [address] [place] [address] Destiny Salvador 08/05/2024 Orders Only [facility] [address] [place] [address] Elizabeth Carson, JENISE 08/01/2024 3:30 PM EDT Office Visit [facility] [address] [place] [address] Damian Shah MD History of immunosuppressive therapy (Primary Dx); Kidney replaced by transplant; Chronic kidney disease, stage 2 (mild); Hypertension 07/30/2024 Orders Only [facility], [address] [place] [address] Damian Shah MD 06/24/2024 Telephone [facility], [address] [place] [address] [place] Gifford [place] from Last 3 Months Immunizations Immunization Administration [...] Visit [facility] [address] [place] [address] Damian Shah MD [address] [place] [address] [place] [phone] Health Maintenance Due Date Last Done Comments [...] Procedure Name Priority Date/Time Associated Diagnosis Comments TACROLIMUS, HIGHLY SENSITIVE, LC/MS/MS Routine 08/14/2024 9:04 AM EDT History of immunosuppressive therapy Kidney replaced by transplant Chronic kidney disease, stage 2 (mild) Hypertension MICROSCOPIC EXAMINATION - DO NOT USE Routine [...] of immunosuppressive therapy Kidney replaced by transplant HEMOGLOBIN A1C Routine 12/26/2023 8:51 AM EDT Kidney replaced by transplant Gastroesophageal reflux disease History of immunosuppressive therapy Chronic kidney disease stage 2 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 Tacrolimus by Immunoassay 5.1 5.0 - 20.0 ng/mL [facility] Comment: Detection Limit = 0.8 ng/mL Target [...] Immunoassay. ? Please note reference interval change [facility] will offer rebaseline testing (Test No. [id number]) through August 21, 2024. ??The rebaseline test will include results from both the current method ([employer]) and the new method (Chari). ??All test results indicate the c++ professor of the test on the laboratory report. ??The rebaseline test for tacrolimus immunoassay is charged at the singh for the new test; the test for the retiring method is performed at no additional charge. 08/14/2024 9:04 AM EDT 08/14/2024 Damian Shah MD LAB BLOOD ORDERABLES Final Result [facility] [address] [place] [address] * Microscopic Examination (07/30/2024 8:32 AM EDT) WBC, Urine None seen 0 - 5 /hpf [facility] RBC, Urine 0-2 0 - 2 /hpf [facility] Squamous Epithelial, Urine 0-10 0 - 10 /hpf [facility] Casts None seen None seen /lpf [facility] Bacteria, Urine None seen None seen/Few [facility] 07/30/2024 8:32 AM EDT 07/30/2024 us Damian Shah MD LAB MICROBIOLOGY - GENERAL ORDERABLES Final Result [facility] [address] [place] [address] * (ABNORMAL) Urinalysis, Complete w/reflex to Culture (07/26/2024 8:11 AM EDT) Specific [place], Urine >=1.030(A) 1.005 - 1.030 [facility] pH Urine 5.5 5.0 - 7.5 [facility] Color, Urine Yellow Yellow [facility] Appearance Urine Cloudy(A) Clear [facility] WBC Esterase Urine Negative Negative [facility] Protein, Ur 1+(A) Negative/Tra ce [facility] Glucose, Ur Negative Negative [facility] Ketones, Urine Negative Negative [facility] [phone] Blood Urine Negative Negative [facility] [phone] Bilirubin Urine Negative Negative [facility] [phone] Urobilinogen Urine 1.0 0.2 - 1.0 mg/dL [facility] Nitrite, Urine Negative Negative [facility] Microscopic Examination See below: [facility] Comment:Microscopic was suma cated and was performed. Urine specimen (specimen) Urine specimen obtained by clean catch procedure / Unknown 07/26/2024 8:11 AM EDT 07/26/2024 Damian Shah MD LAB URINE ORDERABLES Final Result [facility] [address] [place] [address] * Mycophenolic Acid and Metabo. (07/26/2024 8:11 AM EDT) Mycophenolic Acid 2.6 1.0 - 3.5 ug/mL [facility] Mycophenolic Acid Glucuronide 45 15 - 125 ug/mL [facility] Blood specimen (specimen) Venous blood / Unknown 07/26/2024 8:11 AM EDT 07/26/2024 Narrative [facility] - 07/31/2024 5:05 PM EDT Test(s) 158949-Swzvtqpbnmxz Acid; 686670- Mycophenolic Acid Glucuronide was developed and its performance characteristics determined by [employer]. It has not been cleared or approved by the Food and Drug Administration. Damian Shah MD LAB BLOOD ORDERABLES Final Result Performing Organization Address City/[facility] Co de Phone Number [facility] [address] [place] [phone] * Iron Panel (Fe, TIBC, TSAT) (07/26/2024 8:11 AM EDT) UIBC 233 131 - 425 ug/dL [facility] TIBC 305 250 - 450 ug/dL [facility] Iron 72 27 - 159 ug/dL [facility] Iron Saturation (TSat) 24 15 - 55 % [facility] Blood specimen (specimen) Venous blood / Unknown 07/26/2024 8:11 AM EDT 07/26/2024 us Damian Shah MD LAB BLOOD ORDERABLES Final Result Performing Organization Address [facility] Co de Phone Number [facility] [address] [place] [address] * Urine Albumin / Creatinine Ratio (07/26/2024 8:11 AM EDT) Creatinine, Ur 252.3 Not Estab. mg/dL [facility] Albumin, Urine 7.9 Not Estab. ug/mL [facility] Albumin/Creatin ine Ratio 3 0 - 29 mg/g creat [facility] Comment: ? Normal: ?0 - ??29 ? Moderately increased: 30 - 300 ? Severely increased: ? >300 Urine specimen (specimen) Urine specimen obtained by clean catch procedure / Unknown 07/26/2024 8:11 AM EDT 07/26/2024 us Damian Shah MD LAB URINE ORDERABLES Final Result Performing Organization Address [facility] Co de Phone Number [facility] [address] [place] [address] * Vitamin D 25 Hydroxy (07/26/2024 8:11 AM EDT) Vitamin D, 25-OH, Total 50.7 30.0 - 100.0 ng/mL [facility] Comment: Vitamin D deficiency has been defined by the [place] of Medicine and an Endocrine Society practice guideline as a level of serum 25-OH vitamin D less than 20 ng/mL (1,2). The Endocrine Society went on to further define vitamin D insufficiency as a level between 21 and 29 ng/mL (2). 1. IOM ([place] of Medicine). 2010. Dietary reference ?? intakes for calcium and D. [place]: The ?? National AcademGRNE Solutions Press. 2. Tiffanie MF, Eric ALVARADO, Nanda CEBALLOS, et al. ?? Evaluation, treatment, and prevention of vitamin D ?? deficiency: an Endocrine Society clinical practice ?? guideline. JCEM. 2010; 96(7):1911-30. Blood specimen (specimen) Venous blood / Unknown 07/26/2024 8:11 AM EDT 07/26/2024 Damian Shah MD LAB BLOOD ORDERABLES Final Result [facility] [address] [place] [address] * CBC and Differential (07/26/2024 8:11 AM EDT) WBC 5.6 3.4 - 10.8 x10E3/uL [facility] RBC 4.73 3.77 - 5.28 x10E6/uL [facility] Hemoglobin 13.7 11.1 - 15.9 g/dL [facility] Hematocrit 42.8 34.0 - 46.6 % [facility] MCV 91 79 - 97 fL [facility] MCH 29.0 26.6 - 33.0 pg [facility] MCHC 32.0 31.5 - 35.7 g/dL [facility] RDW 12.8 11.7 - 15.4 % [facility] Platelets 246 150 - 450 x10E3/uL [facility] Neutrophils Relative 42 Not Estab. % [facility] Lymphocytes Relative 45 Not Estab. % [facility] Monocytes 8 Not Estab. % [facility] Eosinophils Relative 4 Not Estab. % [facility] Basophils Relative 1 Not Estab. % [facility] Neutrophils Absolute 2.3 1.4 - 7.0 x10E3/uL [facility] Lymphocytes Absolute 2.6 0.7 - 3.1 x10E3/uL [facility] Monocytes Absolute 0.5 0.1 - 0.9 x10E3/uL [facility] Eosinophils Absolute 0.2 0.0 - 0.4 x10E3/uL [facility] Basophils Absolute 0.0 0.0 - 0.2 x10E3/uL [facility] Immature Granulocytes 0 Not Estab. % [facility] Immature Grans (Absolute) 0.0 0.0 - 0.1 x10E3/uL [facility] Blood specimen (specimen) Venous blood / Unknown 07/26/2024 8:11 AM EDT 07/26/2024 Damian Shah MD LAB BLOOD ORDERABLES Final Result [facility] [address] [place] [address] * Uric Acid (07/26/2024 8:11 AM EDT) Uric Acid 5.1 3.0 - 7.2 mg/dL [facility] Comment:Therapeutic target f or gout patients: <6.0 Blood specimen (specimen) Venous blood / Unknown 07/26/2024 8:11 AM EDT 07/26/2024 Damian Shah MD LAB BLOOD ORDERABLES Final Result [facility] [address] [place] [address] * (ABNORMAL) ALT (07/26/2024 8:11 AM EDT) ALT (SGPT) 36(H) 0 - 32 IU/L [facility] Blood specimen (specimen) Venous blood / Unknown 07/26/2024 8:11 AM EDT 07/26/2024 Damian Shah MD LAB BLOOD ORDERABLES Final Result Performing Organization Address City/[facility] Co de Phone Number [facility] [address] [place] [address] * AST (07/26/2024 8:11 AM EDT) AST (SGOT) 30 0 - 40 IU/L [facility] Blood specimen (specimen) Venous blood / Unknown 07/26/2024 8:11 AM EDT 07/26/2024 Damian Shah MD LAB BLOOD ORDERABLES Final Result Performing Organization Address City/[facility]/ZIP Co de Phone Number [facility] [address] [place] [address] * (ABNORMAL) PTH, Intact (07/26/2024 8:11 AM EDT) PTH 68(H) 15 - 65 pg/mL [facility] Blood specimen (specimen) Venous blood / Unknown 07/26/2024 8:11 AM EDT 07/26/2024 Damian Shah MD LAB BLOOD ORDERABLES Final Result Performing Organization Address City/[facility]/ZIP Co de Phone Number [facility] [address] [place] [address] * Magnesium (07/26/2024 8:11 AM EDT) Magnesium 2.0 1.6 - 2.3 mg/dL [facility] Blood specimen (specimen) Venous blood / Unknown 07/26/2024 8:11 AM EDT 07/26/2024 Damian Shah MD LAB BLOOD ORDERABLES Final Result Performing Organization Address [facility] Co de Phone Number [facility] [address] [place] [address] * (ABNORMAL) Ferritin (07/26/2024 8:11 AM EDT) Ferritin 377(H) 15 - 150 ng/mL [facility] Blood specimen (specimen) Venous blood / Unknown 07/26/2024 8:11 AM EDT 07/26/2024 Damian Shah MD LAB BLOOD ORDERABLES Final Result Performing Organization Address [facility]/ZIP Co de Phone Number [facility] [address] [place] [address] * CK (07/26/2024 8:11 AM EDT) Creatine Kinase (CK/CPK) 44 32 - 182 U/L [facility] Blood specimen (specimen) Venous blood / Unknown 07/26/2024 8:11 AM EDT 07/26/2024 Damian Shah MD LAB BLOOD ORDERABLES Final Result [facility] [address] [place] [address] * (ABNORMAL) Renal Function Panel (07/26/2024 8:11 AM EDT) Pathologist [facility] Glucose 96 70 - 99 mg/dL [facility] BUN 12 6 - 24 mg/dL [facility] Creatinine 0.90 0.57 - 1.00 mg/dL [facility] eGFR CKD-EPI CR 2020 77 >59 mL/min/1.7 3 [facility] BUN/Creatinine Ratio 13 9 - 23 [facility] Sodium 144 134 - 144 mmol/L [facility] Potassium 4.3 3.5 - 5.2 mmol/L [facility] Chloride 107(H) 96 - 106 mmol/L [facility] Bicarbonate (CO2) 23 20 - 29 mmol/L [facility] Calcium 10.2 8.7 - 10.2 mg/dL [facility] Albumin 4.7 3.8 - 4.9 g/dL [facility] Phosphorus 3.7 3.0 - 4.3 mg/dL [facility] Blood specimen (specimen) Venous blood / Unknown 07/26/2024 8:11 AM EDT 07/26/2024 Damian Shah MD LAB BLOOD ORDERABLES Final Result [facility] [address] [place] [address] * (ABNORMAL) Lipid panel (07/26/2024 8:11 AM EDT) Cholesterol 214(H) 100 - 199 mg/dL [facility] Triglycerides 122 0 - 149 mg/dL [facility] HDL 62 >39 mg/dL [facility] VLDL Cholesterol Richard 22 5 - 40 mg/dL [facility] LDL Calculated 130(H) 0 - 99 mg/dL [facility] Blood specimen (specimen) Venous blood / Unknown 07/26/2024 8:11 AM EDT 07/26/2024 Damian Shah MD LAB BLOOD ORDERABLES Final Result [facility] [address] [place] [address] * Tacrolimus level (06/14/2024 7:21 AM EST) Pathologist [facility] Tacrolimus Lvl 5.9 5.0 - 20.0 ng/mL [facility] Comment: Target steady state trough concentration for [...] technology ?Please note reference interval change Blood specimen (specimen) Venous blood / Unknown 06/14/2024 7:21 AM EST 06/14/2024 Narrative [facility] - 06/18/2024 1:05 AM EST Test(s) 467918-[id number] (FK506), Blood was developed and its performance characteristics determined by [facility]. It has not been cleared or approved by the Food and Drug Administration. Damian Shah MD LAB BLOOD ORDERABLES Final Result [facility] [address] [place] [address] * Hemoglobin A1c (12/26/2023 8:51 AM EDT) Hemoglobin A1C 5.6 4.8 - 5.6 % [facility] Comment: ? Prediabetes: 5.7 - 6.4 ? Diabetes: >6.4 ? Glycemic control for adults with diabetes: <7.0 Blood specimen (specimen) Venous blood / Unknown 12/26/2023 8:51 AM EDT 12/26/2023 Sandor SINGH LAB BLOOD ORDERABLES Final Re sult [facility] [address] [place] [phone] from Last 3 Months or Most Recently Relevant to Health Maintenance Insurance Medicaid [place] Care Teams Shells Inspector Relationship Specialty Start Date End Date Priscilla He DO [address] [place] [address] PCP - General 02/26/19
--- OUTSIDE RECORDS SUMMARY | 2024-09-10 14:00 | XMS_ITS | Encounter Summary ---
Author Organization [facility], Address [address] [place] [address] Phone Care Team Providers Care Gasket Former Name Role Phone Priscilla He DO Primary Care Provider Unava ilable Encounter Details Date Type Department Care Team (Late st Contact Info) Description 08/23/2024 Documentation Only [facility], [address] [place] [address] Destiny Salvador Social History Tobacco Use Types Packs/Day Years [...] Visit [facility] [address] [place] [address] Damian Shah MD [address] [facility] [place] [address] documented as of this encounter Visit Diagnoses Not on filedocumented in this encounter Care Teams Gasket Former Relationship Specialty Start Date End Date Priscilla He DO [address] [place] [address] PCP - General 02/26/19 documented as of this encounter
--- OUTSIDE RECORDS SUMMARY | 2024-09-10 14:00 | XMS_ITS | Encounter Summary ---
Author Organization [facility] Address [address] [place] [address] [address] [place] [address] Care Team Providers Care Knotter Name Role Phone Priscilla He DO Primary Care Provider [phone] Reason for Visit * Reason Onset Date Comments Nurse Triage 10/20/2023 Encounter Details Date Type Department Care Team ([facility] st Contact Info) Description 10/20/2023 Telephone [facility] MEDICINE [address] [place], [place] [phone] Priscilla He DO [address] [place], [place] [phone] Nurse Triage Social History Tobacco Use Types [...] sx. Per pt at last visit in [facility] pt dx with bronchitis. Per pt [...] 11/01/2023 11:30 AM Priscilla He DO MEDICINE [facility] Protocol Used: Asthma Attack (Adult) Protocol-Based [...] documented as of this encounter Care Teams Knotter Relationship Specialty Start Date End Date Priscilla He DO [address] [place] [address] PCP - General Family Medicine 03/23/17 documented as of this encounter
--- OUTSIDE RECORDS SUMMARY | 2024-09-10 14:00 | XMS_ITS | Encounter Summary ---
Author Organization [employer] [facility] Address [address] [place] [address] [address] [place] [address] Care Team Providers Care Scientific Software Engineer Name Role Phone Priscilal He DO Primary Care Provider [phone] Reason for Visit * Reason Onset Date Comments Med Refill 07/19/2024 Encounter Details Date Type Department Care Team ([facility] st Contact Info) Description 07/19/2024 Refill [facility] MEDICINE [address] [place], [place] [phone] Priscilla He DO [address] [place], [place] [phone] Social History Tobacco Use Types Packs/Day Years [...] documented as of this encounter Care Teams Scientific Software Engineer Relationship Specialty Start Date End Date Priscilla He DO [address] [place] [address] PCP - General Family Medicine 03/23/17 documented as of this encounter
--- OUTSIDE RECORDS SUMMARY | 2024-09-10 14:00 | XMS_ITS | Encounter Summary ---
Author Organization [facility] Address [address] [place] [address] Care Team Providers Care Armed Guard Name Role Phone Priscilla He DO Primary Care Provider [phone] Encounter Details Date Type Department Care Team (Latest Contact Info) Description 08/20/2020 Abstract [facility] Dental, Provider, DDS Social History Tobacco [...] on filedocumented in this encounter Care Teams Armed Guard Relationship Specialty Start Date End Date Priscilla He DO [address] [place] [address] PCP - General Family Medicine 03/23/17 documented as of this encounter
--- OUTSIDE RECORDS SUMMARY | 2024-09-10 14:00 | XMS_ITS | Encounter Summary ---
Author Organization [facility], Address [address] [place] [address] Phone Care Team Providers Care Laser Beam Color Scanner Operator Name Role Phone Priscilla He DO Primary Care Provider Unava ilable Reason for Visit * Reason Comments Med Refill Encounter Details Date Type Department Care Team (Late st Contact Info) Description 06/25/2021 Refill [facility] [address] [place] [address] Sandor Jansen PA Social History [...] Visit [facility] [address] [place] [address] Damian Shah MD [address] [place] [address] [place] [address] documented as of this encounter Visit Diagnoses Not on filedocumented in this encounter Care Teams Laser Beam Color Scanner Operator Relationship Specialty Start Date End Date Priscilla He DO [address] [place] [address] PCP - General 02/26/19 documented as of this encounter
== END 2024-09-10 13:23 | disposition home or self-care (01) ==
LOC: HO.HCS 12:55
PROVIDERS: PCP Family Medicine
DX: R07.2 Precordial pain (principal); E11.8 Type 2 diabetes mellitus with unspecified complications
CPT/HCPCS: 93010; 99213

== ENCOUNTER → 2024-09-10 12:55 | Outpatient (BNVA) | payer MEDICAID, SELFPAY | PROVIDERS: PCP Family Medicine | DX: R07.2 Precordial pain (principal); E11.8 Type 2 diabetes mellitus with unspecified complications; R94.31 Abnormal electrocardiogram [ECG] [EKG] | CPT/HCPCS: 93005; 99212 ==

== ENCOUNTER 2025-03-18 11:15 | Outpatient (REF) | payer MEDICAID, SELFPAY ==
--- OUTSIDE RECORDS SUMMARY | 2025-03-18 10:00 | XMS_ITS | Encounter Summary ---
Author Organization [employer] Address [address] [place] [address] 7 [place] [address] Care Team Providers Care Director Of Annual Giving Name Role Phone Prisclila He DO Primary Care Provider [phone] Encounter Details Date Type Department Care Team (Late st Contact Info) Description 03/18/2025 10:00 AM EST Office Visit [facility] [address] [place], [place] [phone] Priscilla He DO [address] [place] [address] Type 2 diabetes mellitus without complication, without long-term current use of insulin (HCC) Social History Tobacco Use Types Packs/Day Years Used Date Smoking Tobacco: Never Passive Smoke Exposure: Never Smokeless Tobacco: Never Alcohol Use Standard Drinks/Week Comments Never 0 (1 standard drink = 0.6 oz pur e alcohol) Depression Answer Date Recorded Patient Health Questionnaire-9 Score 15 03/18/2025 Patient Health Questionnaire-9 Score 15 03/18/2025 Last PHQ-9: Questionnaire Data Not on file 1 05/18/2024 Housing Stability Answer Date Recorded What is [...] Date Recorded Patient Health Questionnaire-2 Score 4 03/18/2025 Internet Access Answer Date Recorded Internet Access Q1 Yes 12/25/2023 Internet Access Q2 Not on file 12/25/2023 Comments No Sex and Gender Information Value Date Recorded Sex Assigned at Female 02/21/2022 10:32 AM EDT Legal Sex Female 10:32 AM EDT Gender Identity Female 06/08/2022 1:48 PM EST Sexual Orientation Bisexual 06/08/2022 1: 48 PM EST documented as of this encounter Last Filed Vital Signs Vital Sign Reading Time Taken Comments Blood Pressure 126/78 03/18/2025 10:21 AM EST Pulse 72 03/18/2025 10:21 AM EST Temperature 36.9 C (98.4 F) 03/18/2025 10:21 AM EST Respiratory Rate 20 03/18/2025 10:21 AM EST Oxygen Saturation 99% 03/18/2025 10:21 AM EST Inhaled Oxygen Concentration - - Weight 68.5 kg (151 lb) 03/18/2025 10:21 AM EST Height 157.5 cm (5' 2 ) 03/18/2025 10:21 AM EST Body Mass Index 27.62 03/18/2025 10:21 AM EST documented in this encounter Functional Status * Over the past 2 weeks, how often have you been bothered by any of the following problems? Question Answer Date of Assessment Author Patient Health Questionnaire -2 Score 4 03/18/2025 11:02 AM EST Quiana Rosas MA * Little interest or pleasure in doing things Answer Date of Assessment Author More than half the days 03/18/2025 11:02 AM EST Quiaan Rosas MA * Feeling down, depressed, or hopeless Answer Date of Assessment Author More than half the days 03/18/2025 11:02 AM Quiana Krishnan MA * Trouble falling or staying asleep, or sleeping too much Answer Date of Assessment Author More than half the days 03/18/2025 11:02 AM Quiana Krishnan MA * Feeling tired or having little energy Answer Date of Assessment Author Nearly every day 03/18/2025 11:02 AM Quiana Krishnan MA * Poor appetite or overeating Answer Date of Assessment Author Several days 03/18/2025 11:02 AM Quiana Krishnan MA * Feeling bad about yourself - or that you are a failure or have let yourself or your family down Answer Date of Assessment Author Several days 03/18/2025 11:02 AM Quiana Krishnan MA * Trouble concentrating on things, such as reading the newspaper or watching television Answer Date of Assessment Author Several days 03/18/2025 11:02 AM Quiana Krishnan MA * Moving or speaking so slowly that other people could have noticed? Or the opposite - being so fidgety or restless that you have been moving around a lot more than usual. Answer Date of Assessment Author Nearly every day 03/18/2025 11:02 AM Quiana Krishnan MA * Thoughts that you would be better off or hurting yourself in some way Answer Date of Assessment Author Not at all 03/18/2025 11:02 AM Quiana Krishnan MA * Patient Health Questionnaire-9 Score Answer Date of Assessment Author 15 03/18/2025 11:02 AM Quiana Krishnan MA * Over the last 2 weeks, how often have you been bothered by any of the following problems? Question Answer Date of Assessment Author Feeling nervous, anxious, or on edge 3 03/18/2025 11:02 AM Quiana Krishnan MA Not being able to stop or co ntrol worrying 2 03/18/2025 11:02 AM Quiana Krishnan MA Worrying too much about diff erent things 2 03/18/2025 11:02 AM Quiana Krishnan MA Trouble relaxing 3 03/18/2025 11:02 AM Quiana Krishnan MA Being so restless that it is hard to sit still 1 03/18/2025 11:02 AM Quiana Krishnan MA Becoming easily annoyed or irritable 1 03/18/2025 11:02 AM Quiana Krishnan MA Feeling afraid as if somethi ng awful might happen 1 03/18/2025 11:02 AM Quiana Krishnan MA RADHA-7 Total Score 13 03/18/2025 11:02 AM Quiana Krishnan MA * How difficult have these problems made it for you to do your work, take care of things at home, or get along with other people? Answer Date of Assessment Author Somewhat difficult 03/18/2025 11:02 AM Quiana Washington MA documented as of this encounter Plan of Treatment Scheduled Orders Name Type Priority Associated Diagnoses Orde r Schedule Hemoglobin A1c Lab Routine Type 2 diabetes mellitus without complication, without long-term current use of insulin (HCC) Expected: 03/18/2025 (Approximate), Expires: 03/18/2026 Hepatitis B surface antigen, EIA Lab Routine Type 2 diabetes mellitus without complication, without long-term current use of insulin (HCC) Expected: 03/18/2025 (Approximate), Expires: 03/18/2026 Chlamydia/N. Gonorrhoeae RNA, TMA, Urogenitial Microbiology Routine Type 2 diabetes mellitus without complication, without long-term current use of insulin (HCC) Ordered: 03/18/2025 HIV-1/2 Antigen and Antibodies, Fourth Generation, with Reflexes Lab Routine Type 2 diabetes mellitus without complication, without long-term current use of insulin (HCC) Expected: 03/18/2025 (Approximate), Expires: 03/18/2026 Hepatitis C Antibody with Reflex to HCV, RNA, Quantitative, Real-Time PCR Lab Routine Type 2 diabetes mellitus without complication, without long-term current use of insulin (HCC) Expected: 03/18/2025, Expires: 03/18/2026 RPR (Monitor) with Reflex to Titer Lab Routine Type 2 diabetes mellitus without complication, without long-term current use of insulin (HCC) Expected: 03/18/2025, Expires: 03/18/2026 Hepatitis B Surface Antibody, Qualitative Lab Routine Type 2 diabetes mellitus without complication, without long-term current use of insulin (HCC) Expected: 03/18/2025 (Approximate), Expires: 03/18/2026 documented as of this encounter Procedures Procedure Name Priority Date/Time Associated Diagnosis Comments VITAMIN D,25-OH,TOTAL,IA Routine 03/18/2025 11:32 AM EST Type 2 diabetes mellitus without complication, without long-term current use of insulin (HCC) VITAMIN B12/FOLATE, SERUM PANEL Routine 03/18/2025 11:32 AM EST Type 2 diabetes mellitus without complication, without long-term current use of insulin (HCC) ALBUMIN, RANDOM URINE W/CREATININE Routine 03/18/2025 11:32 AM EST Type 2 diabetes mellitus without complication, without long-term current use of insulin (HCC) CBC Routine 03/18/2025 11:32 AM EST Type 2 diabetes mellitus without complication, without long-term current use of insulin (HCC) TSH Routine 03/18/2025 11:32 AM EST Type 2 diabetes mellitus without complication, without long-term current use of insulin (HCC) T4, FREE Routine 03/18/2025 11:32 AM EST Type 2 diabetes mellitus without complication, without long-term current use of insulin (HCC) HEPATIC FUNCTION PANEL Routine 03/18/2025 11:32 AM EST Type 2 diabetes mellitus without complication, without long-term current use of insulin (HCC) LIPID PANEL, STANDARD Routine 03/18/2025 11:32 AM EST Type 2 diabetes mellitus without complication, without long-term current use of insulin (HCC) BASIC METABOLIC PANEL Routine 03/18/2025 11:32 AM EST Type 2 diabetes mellitus without complication, without long-term current use of insulin (HCC) POCT GLYCATED HEMOGLOBIN, TOTAL Routine 03/18/2025 10:23 AM EST Type 2 diabetes mellitus without complication, without long-term current use of insulin (HCC) POCT GLUCOSE Routine 03/18/2025 10:23 AM EST Type 2 diabetes mellitus without complication, without long-term current use of insulin (HCC) documented in this encounter Results * Vitamin B12 (Cobalamin) and Folate Panel, Serum (03/18/2025 11:32 AM EST) Vitamin B12 298 200 - 900 pg/mL [facility] Comment:NORMAL 200-900 PG/ML INDETERMINATE 160-199 PG/ML DEFICIENT < 160 PG/ML Folate 11.9 > or = 4.0 ng/mL [facility] Comment:Reference Values:> o r = 4.0 ng/mL< 4.0 ng/mL suggests folate deficiency Methotrexate, aminopterin and folinic acid(leucovorin) are chemotherapeutic agents whose molecularstructures are similar to folate; therefore, the Architectfolate assay cannot be used for patients using these drugs. Blood Venous blood specimen / Unknown 03/18/2025 11:32 AM EST 03/18/2025 1:11 PM EST us Priscilla He DO LAB BLOOD ORDERABLES Final R esult [facility] [address] [place] [phone] * Albumin, Random Urine W/Creatinine (03/18/2025 11:32 AM EST) Creatinine, Urine 233.84 mg/dL [facility] Microalbumin Urine 16.0 mg/L [facility] Microalbum Creatinine Ratio Ur 6.8 <30 ug/mg cr [facility] Comment:Albumin/Creatinine R atio Reference Ranges: Normal: < 30 ug/mg creatinine Microalbuminuria: 30 - 300 ug/mg creatinineClinical Albuminuria: > 300 ug/mg creatinine Urine (Urine, Random) 03/18/2025 11:32 AM EST 03/18/2025 12:58 PM EST us Priscilla He DO LAB URINE ORDERABLES Final R esult [facility] [address] [place] [phone] * CBC (03/18/2025 11:32 AM EST) White Blood Count 6.0 4.8 - 10.8 X10*3/uL [facility] Red Blood Count 4.35 4.20 - 5.50 X10*6/uL [facility] Hemoglobin 12.7 12.0 - 16.0 g/dl [facility] Hematocrit 38.9 37.0 - 47.0 % [facility] Mean Corpuscular Volume 89.4 80.0 - 98.0 fL [facility] Mean Corpuscular Hemoglobin 29.2 27.0 - 33.0 pg [facility] Mean Corpuscular HGB Conc 32.6 31.0 - 35.0 g/dl [facility] Red Cell Distribution Width 12.9 11.0 - 16.0 % [facility] Platelet Count 260 160 - 400 X10*3/uL [facility] Mean Platelet Volume 10.3 9.4 - 12.3 fL [facility] NRBC Pct Auto 0.0 0.0 - 0.2 /100WBC [facility] NRBC Abs Auto 0.000 0.0 - 0.012 X10*3/uL [facility] Blood Venous blood specimen / Unknown 03/18/2025 11:32 AM EST 03/18/2025 1:11 PM EST Priscilla He DO LAB BLOOD ORDERABLES Final R esult [facility] [address] [place] [address] [phone] * (ABNORMAL) Basic Metabolic Panel (03/18/2025 11:32 AM EST) Sodium 145 135 - 145 mmol/L [facility] Potassium 4.2 3.3 - 5.1 mmol/L [facility] Chloride 110(H) 96 - 108 mmol/L [facility] Carbon Dioxide 27 22 - 29 mmol/L [facility] Anion Gap 12 12 - 20 [facility] Urea Nitrogen (BUN) 20(H) 9 - 16 mg/dL [facility] Creatinine, Serum 0.76 0.5 - 1.4 mg/dL [facility] Estimated Glomerular Filt Rate >60 [facility] Comment:Chronic Kidney Disea se: Estimated GFR < 60 mL/min/1.93t1Ayjmih Kidney Disease: Estimated GFR < 15 mL/min/1.73m2 Glucose 118(H) 60 - 115 mg/dL [facility] Calcium 10.0 8.4 - 10.2 mg/dL [facility] Blood Venous blood specimen / Unknown 03/18/2025 11:32 AM EST 03/18/2025 1:04 PM EST us Priscilla He DO LAB BLOOD ORDERABLES Final R esult Performing Organization Address City/State/[facility] Co de Phone Number [facility] [address] [place] [phone] * Hepatic Function Panel (03/18/2025 11:32 AM EST) Bilirubin, Total 0.6 0.0 - 1.0 mg/dL [facility] Bilirubin, Direct 0.2 0.0 - 0.5 mg/dL [facility] Aspartate Amino Transferase 26 5 - 31 U/L [facility] Alanine Aminotransferase 27 0 - 31 U/L [facility] Total Protein 7.6 6.5 - 8.0 g/dL [facility] Albumin Level 4.8 3.5 - 5.0 g/dL [facility] Alkaline Phosphatase 87 39 - 117 U/L [facility] Blood Venous blood specimen / Unknown 03/18/2025 11:32 AM EST 03/18/2025 1:04 PM EST Priscilla Ying DO LAB BLOOD ORDERABLES Final R esult Performing Organization Address [facility] Co de Phone Number [facility] [address] [place] [address] [phone] * TSH (03/18/2025 11:32 AM EST) Thyroid Stimulating Hormone 2.05 0.32 - 4.0 uIU/mL [facility] Comment:TSH 3rd Generation ( [facility]) Blood Venous blood specimen / Unknown 03/18/2025 11:32 AM EST 03/18/2025 1:04 PM EST Priscilla Ying LAB BLOOD ORDERABLES Final R esult Performing Organization Address [facility] Co de Phone Number [facility] [address] [place] [phone] * (ABNORMAL) Lipid Panel, Standard (03/18/2025 11:32 AM EST) Triglycerides 149 <150 mg/dL [facility] Comment:Desirable Triglyceri de: less than 150 mg/dLBorderline High Triglyceride 150-199 mg/dLHigh Triglyceride: 200-499 mg/dLVery High Triglyceride: greater than or equal to 5OO mg/dL Cholesterol 207(H) <200 mg/dL [facility] Comment:Desirable Cholestero l: less than 200 mg/dLBorderline High Cholesterol: 200-239 mg/dLHigh Cholesterol: greater than 239 mg/dL LDL Cholesterol Calculated 117(H) <100 mg/dL [facility] Comment:Desirable LDL: less than 100 mg/dLNear Optimal/Above Optimal LDL: 110- 129 mg/dLBorderline High LDL: 130-159 mg/dLHigh LDL: 160-189 mg/dLVery High LDL: greater than or equal to 190 mg/dL HDL Cholesterol 61 >40 mg/dL [facility] Comment:Desirable HDL: great er than 40 mg/dL Note: This HDL assay may give artificially low results in patients with liver disease. Blood Venous blood specimen / Unknown 03/18/2025 11:32 AM EST 03/18/2025 1:04 PM EST Priscilla He DO LAB BLOOD ORDERABLES Final R esult Performing Organization Address City/[facility]/ZIP Co de Phone Number [facility] [address] [place] [phone] * Vitamin D, 25-Hydroxy, Total, Immunoassay (03/18/2025 11:32 AM EST) Vitamin D 25-OH Total 43.5 >30 ng/mL [facility] Comment: Health Based Reference Values*< 20 ng/mL [id number] ng/mL Insufficient> 30 ng/mL Sufficient*Tiffanie PARTIDA. N Engl J Med. 2007;357:266-280There is no well-established upper level of normal vitamin Dlevels. Some laboratories use 50 ng/mL as an upper limit ofnormal. However, toxicity is patient-dependent and may occurat any level. Careful correlation with the patient'spresentation is necessary and, if there is concern forvitamin D toxicity, treatment should be consideredirrespective of the serum level.Care must be taken in interpreting Vitamin D results fromdifferent laboratories and methodologies. Published datademonstrated that results from patients undergoinghemodialysis may show a negative bias when tested withvarious automated 25-OH vitamin D assays when compared toLC-MS/MS.When testing samples from patients whose predominant form ofVitamin D is Vitamin D2, such as patients receiving VitaminD2 supplementation, results that are subtherapeutic shouldbe confirmed with another method such as LC-MS/MS. Blood Venous blood specimen / Unknown 03/18/2025 11:32 AM EST 03/18/2025 1:04 PM EST Priscilla He DO LAB BLOOD ORDERABLES Final R esult Performing Organization Address City/[facility]/ZIP Co de Phone Number [facility] [address] [place] [address] [place] [phone] * T4, Free (03/18/2025 11:32 AM EST) Free T4 (Free Thyroxine) 0.93 0.71 - 1.85 ng/dL [facility] Blood Venous blood specimen / Unknown 03/18/2025 11:32 AM EST 03/18/2025 1:04 PM EST Priscilla He DO LAB BLOOD ORDERABLES Final R esult [facility] [address] [place] [address] [phone] * POCT Hgb A1c (03/18/2025 10:23 AM EST) Pathologist [facility] [place] Hemoglobin A1C 5.4 4.0 - 5.7 % QC Media Lot # [id number] Lot# Expiration Date [id number] Blood 03/18/2025 10:2 3 AM EST Priscilla He DO POINT OF CARE TEST ENTER/CAROLINE T ORDERABLES Final Result * POCT Glucose (03/18/2025 10:23 AM EST) Pathologist [facility] [place] Glucose Blood, POC 103 60 - 200 mg/dL [employer] Lot # [id number] Lot# Expiration Date 3,036 Blood Capillary blood specimen / Unknown 03/18/2025 10:23 AM EST Priscilla He DO POINT OF CARE TEST ENTER/CAROLINE T ORDERABLES Final Result documented in this encounter Visit Diagnoses Diagnosis Type 2 diabetes mellitus without complication, without long-term current use of insulin (HCC) documented in this encounter Additional Health Concerns Assessment Noted Time PHQ-9 Depression Total Score: 15 03/18/ 025 11:02 AM EST documented as of this encounter Care Teams Director Of Annual Giving Relationship Specialty Start Date End Date Priscilla He DO [address] [place] [address] PCP - General Family Medicine 03/23/17 documented as of this encounter
[2025-03-18 13:19] LABS: MANUAL DIFF FLAG NO
[2025-03-18 13:41] LABS: Hematocrit 38.6 % (37.0-47.0); Hematocrit 38.9 % (37.0-47.0); Hemoglobin 12.7 g/dl (12.0-16.0); Imm Gran Abs Auto 0.01 X10*3/uL (0.00-0.03); Imm Gran Pct Auto 0.2 % (0.0-0.4); Lymphocytes Absolute Auto 2.1 X10*3/uL (1.2-4.9); Mean Corpuscular HGB Conc 32.6 g/dl (31.0-35.0); Mean Corpuscular HGB Conc 32.9 g/dl (31.0-35.0); Mean Corpuscular Hemoglobin 29.1 pg (27.0-33.0); Mean Corpuscular Hemoglobin 29.2 pg (27.0-33.0); Mean Corpuscular Volume 88.3 fL (80.0-98.0); Mean Corpuscular Volume 89.4 fL (80.0-98.0); NRBC Abs Auto 0.000 X10*3/uL (0.0-0.012); NRBC Abs Auto 0.020 X10*3/uL (0.0-0.012); NRBC Pct Auto 0.0 /100WBC (0.0-0.2); NRBC Pct Auto 0.4 /100WBC (0.0-0.2); Platelet Count 251 X10*3/uL (160-400); Platelet Count 260 X10*3/uL (160-400); Red Blood Count 4.35 X10*6/uL (4.20-5.50); Red Blood Count 4.37 X10*6/uL (4.20-5.50); White Blood Count 5.7 X10*3/uL (4.8-10.8); White Blood Count 6.0 X10*3/uL (4.8-10.8)
[2025-03-18 13:55] LABS: Microalbum/Creatinine Ratio Ur 6.8 ug/mg cr (<30)
[2025-03-18 14:22] LABS: Alanine Aminotransferase 27 U/L (0-31); Albumin Level 4.8 g/dL (3.5-5.0); Alkaline Phosphatase 87 U/L (39-117); Anion Gap 12 (12-20); Aspartate Amino Transferase 26 U/L (5-31); Blood Urea Nitrogen 20 mg/dL (9-16); Calcium 10.0 mg/dL (8.4-10.2); Carbon Dioxide 27 mmol/L (22-29); Chloride 110 mmol/L (96-108); Cholesterol 207 mg/dL (<200); Estimated Glomerular Filt Rate > 60; HDL Cholesterol 61 mg/dL (>40); Potassium 4.2 mmol/L (3.3-5.1); Sodium 145 mmol/L (135-145); Total Protein 7.6 g/dL (6.5-8.0); Triglycerides 149 mg/dL (<150)
[2025-03-18 14:30] LABS: Free T4 (Free Thyroxine) 0.93 ng/dL (0.71-1.85); Thyroid Stimulating Hormone 2.05 uIU/mL (0.32-4.0)
[2025-03-18 14:37] LABS: Folate 11.9 ng/mL (> or = 4.0); Vitamin B12 298 pg/mL (200-900)
--- OUTSIDE RECORDS SUMMARY | 2025-03-18 14:53 | XMS_ITS | Encounter Summary ---
Author Organization [employer] Address [address] [place] [address] [address] [place] [address] Care Team Providers Care Microbiology Soil Scientist Name Role Phone YingPriscilla Primary Care Provider + [phone] Encounter Details Date Type Department Care Team (Latest Contact Info) Description 03/17/2025 Travel Social History Tobacco Use Types Packs/Day [...] t he electric, gas, oil or water [employer] threatened to shut off services in your [...] Assessment Noted Time PHQ-9 Depression Total Score: 17 025 1:31 PM EDT documented as of this encounter Care Teams Microbiology Soil Scientist Relationship Specialty Start Date End Date Priscilla He DO [address] [place] [phone] PCP - General Family Medicine 03/23/17 documented as of this encounter
--- OUTSIDE RECORDS SUMMARY | 2025-03-18 14:53 | XMS_ITS | Clinical Summary ---
Author Organization [facility] Address [address] [place] [address] Care Team Providers Care Prepared Foods Associate Name Role Phone Priscilla He MD Primary Care Provider + [phone] Annita Handley MD Unavailable Allergies No known active allergies Medications cetirizine (ZyrTEC) 10 mg tablet 1 Active Vitamin D2 1,250 mcg (50,000 unit) capsule Take 1 capsule by mouth 1 (one) time per week. 2 Active tacrolimus (Prograf) 1 mg capsule [place] P[place] 2 VECES AL VICKY 2 Active mycophenolate (Myfortic) 180 mg EC tablet Take 540 mg by mouth in the morning and at bedtime. 2 Active pantoprazole (ProtoNix) 40 mg EC tablet TAKE 1 TABLET (40 MG TOTAL) BY MOUTH ONCE DAILY BEFORE BREAKFAST DO NOT CRUSH, CHEW, OR SPLIT. 2 Active Flovent HFA 110 mcg/actuation inhaler Inhale 1 puff in the morning and at bedtime. 2 Active ergocalciferol, vitamin D2, (Vitamin D-2) 1.25 MG (45724 UT) capsule Take 50,000 Units by mouth. 1 Active famotidine (Pepcid) 40 mg tablet Take 40 mg by mouth. Active Family History Relation Name Status Comments Father Mother Social History Tobacco Use Types Packs/Day Years Used Date Smoking Tobacco: Never Smokeless Tobacco: Never Tobacco Cessation:Counseling Given: Not Answered Alcohol Use Standard Drinks/Week Comments Not Currently 0 (1 standard drink = 0.6 oz pur e alcohol) PHQ-2 Answer Date Recorded Patient Health Questionnaire-2 Score 6 03/01/2022 Comments Unknown Sex and Gender Information Value Date Recorded Sex Assigned at Not on file Legal Sex Female 3:18 PM EDT Gender Identity Not on file Sexual Orientation Not on file Last Filed Vital Signs Vital Sign Reading Time Taken Comments Blood Pressure 131/67 03/01/2022 10:13 AM EST Pulse 70 03/01/2022 10:13 AM EST Temperature - - Respiratory Rate - - Oxygen Saturation - - Inhaled Oxygen Concentration - - Weight 68.9 kg (152 lb) 03/01/2022 10:13 AM EST Height 158.5 cm (5' 2.4 ) 03/01/2022 10:13 AM ES T Body Mass Index 27.45 03/01/2022 10:13 AM EST Plan of Treatment Health Maintenance Due Date Last Done Comments CT Colonography 1972 Colonoscopy 1972 Colorectal Cancer Screening 1972 FIT-DNA 1972 FIT 1972 FOBT 1972 HIV Screening 1972 Lipid Panel 1972 Sigmoidoscopy 1972 MMR Vaccines (1 of 1 - Standard series) 1973 Hepatitis C Screening 1990 DTaP/Tdap/Td Vaccines (1 - Tdap) 1991 Hepatitis B Vaccines (1 of 3 - 19+ 3-dose series) 1991 Zoster Vaccines (1 of 2) 1991 Mammogram 2012 Pneumococcal Vaccine: 50+ Years (2 of 2 - PPSV23, PCV20, or PCV21) 03/12/2019 01/15/2019 Depression Screening 04/24/2024 COVID-19 Vaccine (4 - 2024-2 6 season) 2024 01/22/2021, 07/04/2020, 06/11/2020 Influenza Vaccine (#1) 2024 , 03/12/2020, 01/15/2019 Pneumococcal Vaccine: Pediatrics (0 to 5 Years) and At-Risk Patients (6 to 49 Years) Discontinued 01/15/2019 HIB Vaccines Aged Out No longer eligi ble based on patient's age to complete this topic HPV Vaccines (No Doses Required) Completed Hepatitis A Vaccines Aged Out No long [...] on patient's age to complete this topic Insurance [facility] Care Teams Prepared Foods Associate Relationship Specialty Start Date End Date Priscilla He MD [address] [place] [address] PCP - General Accountant Bookkeeper 01/27/22 Annita Handley MD [address] [place] [address] Referring Physician Accountant Bookkeeper 01/27/22
--- OUTSIDE RECORDS SUMMARY | 2025-03-18 14:53 | XMS_ITS | Clinical Summary ---
Author Organization [facility] Address [address] [place] [address] Care Team Providers Care Infant Babysitter Name Role Phone Pcp, No Primary Care [...] Vaccine (1 of 2) 2022 Influenza Vaccine 11/22/2024 COVID-19 Vaccine (1 - 2023-25 season) 2024 RSV Vaccine 50 years and old er and Patients (1 - 1-dose 75+ series) 2047 Insurance MISC [employer]GD MEDICARE OUT OF NETWORK [place] [id number] Care Teams Infant Babysitter Relationship Specialty Start Date End Date Pcp, No [address] [place] [address] PCP - General 12/23/18
--- OUTSIDE RECORDS SUMMARY | 2025-03-18 14:53 | XMS_ITS | Patient Health Record ---
Author Organization [facility] Address [facility] [address] [place] [address] Care Team Providers Care Electrolytic Etcher Name Role Phone LUIS A BELL Primary Care Provider REMI CORDERO Unavailable Allergies No Known Allergies Reason For Referral No Information Social History Social History COVID-19 Social Info Question Answer Notes [place] COVID-19 Fecha 04/17/2021 Presenta algun sintoma: [place] Se hammond realizado recientement e la prueba rapida o molecular para el COVID 19 Yes Resultado Molecular negativo Cuando Conoce a alguien que haya sido positivo al COVID -19 Yes Relacion Otro Familiar Hammond estado en contacto con dicha persona en los ultimos 14 sewell Yes Hammond participado de eventos pu blicos, sociales o familiares en los ultimos 14 sewell Yes Cuando Hammond viajado fuera de [place] o hammond estado en contacto con alguien que haya estado fuera de NC en los pasados 14 sewell Yes [place]de [place] de [place] Cuando Se hammond vacunado contra el COVID-19 3 dosis Pfizer Med de Emergencia Social Info Question Answer Notes Historial Social Vivienda Con edgardo Sospecha de maltrato, violen dolly, u abuso sexual? No Viaje Si viajo fuera de P.R. A donde [place] Cuando Inmunizacion al gee Si Inmunizacion contra el tetano Si Transfuciones componentes sanguineos Si Tuvo reaccion adversa No Modo de llegada Auto Acompanado por Linn/shahrzad Hernández Plan Of Treatment No Information Medical (General) History Medical History History ICD Code kidney disease Surgical History Surgery Date(Month/Year) transplante de elisabethkj 07/21/2018
--- OUTSIDE RECORDS SUMMARY | 2025-03-18 14:53 | XMS_ITS | Encounter Summary ---
Author Organization [email or web address] Address [address] [place] [address] 7 [place] [address] Care Team Providers Care Reproduction Production Manager Name Role Phone Priscilla He DO Primary Care Provider +[phone]- [phone] Reason for Visit * Reason Onset Date Comments Prior Authorization 10/04/2024 Encounter Details Date Type Department Care Team (Late st Contact Info) Description 10/04/2024 Telephone [facility] MED & PEDS [address] [place] [address] Priscilla He DO [address] [place], [place] [phone] Prior Authorization Social History Tobacco Use Types Packs/Day Years [...] encounter Miscellaneous Notes * Telephone Encounter - Corinne Jacques - 10/04/2024 11:10 AM EDT Script for Semaglutide,0.25 or 0.5MG/DOS, (Ozempic, 0.25 or 0.5 MG/DOSE,) 2 MG/3ML solution pen-injector requires a prior authorization. documented in this encounter Plan of Treatment Not on file documented as of this encounter Visit Diagnoses Not on filedocumented in this encounter Additional Health Concerns Assessment Noted Time PHQ-9 Depression Total Score: 17 025 1:31 PM EDT documented as of this encounter Care Teams Reproduction Production Manager Relationship Specialty Start Date End Date Priscilla He DO [address] [place] [address] PCP - General Family Medicine 03/23/17 documented as of this encounter
--- OUTSIDE RECORDS SUMMARY | 2025-03-18 14:53 | XMS_ITS | Encounter Summary ---
Author Organization [employer] Address [address] [place] [address] 7 [place] [address] Care Team Providers Care Paleology Teacher Name Role Phone Priscilla He DO Primary Care Provider [phone] Encounter Details Date Type Department Care Team ([facility] st Contact Info) Description 10/24/2022 Orders Only [facility] CHC MED & PEDS [address] [place] [address] Priscilla Falk LPN Social History Tobacco Use [...] documented as of this encounter Care Teams Paleology Teacher Relationship Specialty Start Date End Date Priscilla eH DO [address] [place] [address] PCP - General Family Medicine 03/23/17 documented as of this encounter
--- OUTSIDE RECORDS SUMMARY | 2025-03-18 14:53 | XMS_ITS | Encounter Summary ---
Author Organization [facility], Address [address] [place] [address] Phone Care Team Providers Care Health And Safety Instructor Name Role Phone Priscilla He DO Primary Care Provider Unava ilable Reason for Visit * Reason Comments Med Refill Encounter Details Date Type Department Care Team (Late st Contact Info) Description 11/12/2019 Refill [facility] [address] [place] [address] Faisal See MD [address] [place] [address] [place] [address] Social History Tobacco Use Types [...] Care Team (Late st Contact Info) Description 04/03/2025 2:30 PM EST Clinical Support [facility] [address] [place] [address] Aicha Bradley FNP-C [address] [place] [address] [place] [address] documented as of this encounter Visit Diagnoses Not on filedocumented in this encounter Care Teams Health And Safety Instructor Relationship Specialty Start Date End Date Priscilla He DO [address] [place] [address] PCP - General 02/26/19 documented as of this encounter
--- OUTSIDE RECORDS SUMMARY | 2025-03-18 14:53 | XMS_ITS | Encounter Summary ---
Author Organization [employer] Address [address] [place] [address] 7 [place] [address] Care Team Providers Care Business Office Representative Name Role Phone Priscilla He DO Primary Care Provider + [phone] Encounter Details Date Type Department Care Team (Late st Contact Info) Description 09/17/2024 Orders Only [facility] CHC MED & PEDS [address] [place] [address] Provider, MD Niko Social History Tobacco Use Types Packs/Day Years [...] on file documented as of this encounter Procedures Procedure Name Priority Date/Time Associated Diagnosis Comments HM COLONOSCOPY Routine 12/16/2021 11:26 AM EDT documented in this encounter Results * Hm Colonoscopy (12/16/2021 11:26 AM EDT) Historical Provider HEALTH MAINTENANCE Final Result documented in this encounter Visit Diagnoses Not on filedocumented in this encounter Additional Health Concerns Assessment Noted Time PHQ-9 Depression Total Score: 17 025 1:31 PM EDT documented as of this encounter Care Teams Business Office Representative Relationship Specialty Start Date End Date Priscilla He DO [address] [place] [address] PCP - General Family Medicine 03/23/17 documented as of this encounter
--- OUTSIDE RECORDS SUMMARY | 2025-03-18 14:53 | XMS_ITS | Encounter Summary ---
Author Organization [employer] Address [address] [place] [address] 7 [place] [address] Care Team Providers Care Motor Grader Operator Name Role Phone Priscilla He DO Primary Care Provider [phone]- [phone] Reason for Visit * Reason Onset Date Comments Chart Prep 03/15/2025 Encounter Details Date Type Department Care Team ([facility] st Contact Info) Description 03/15/[address] [facility] [address] [place], [place] [phone] Priscilla He DO [address] [place], [place] [phone] Chart Prep Social History Tobacco Use Types Packs/Day Years [...] Telephone Encounter - Quiana Rosas MA - 03/15/2025 8:32 AM EST Chart Prep Labs: done Images: done MRI Brain Report-09/14/24 Referrals: complete Vaccines due: Covid, Flu, Hep B, Hep A, RSV, and Zoster Screenings: mammogram, eye exam, foot exam, and PISQ Overdue care gaps: A1c, Glucose, PHQ-9, and RADHA-7 documented in this encounter Plan of Treatment Not on file documented as of this encounter Visit Diagnoses Not on filedocumented in this encounter Additional Health Concerns Assessment Noted Time PHQ-9 Depression Total Score: 17 025 1:31 PM EDT documented as of this encounter Care Teams Motor Grader Operator Relationship Specialty Start Date End Date Priscilla He DO [address] [place] [address] PCP - General Family Medicine 03/23/17 documented as of this encounter
--- OUTSIDE RECORDS SUMMARY | 2025-03-18 14:54 | XMS_ITS | Encounter Summary ---
Author Organization [employer] Address [address] [place] [address] 7 [place] [address] Care Team Providers Care Professor Of Voice Name Role Phone Priscilla He DO Primary Care Provider +[phone] Reason for Visit * Reason Onset Date Comments Med Refill 07/19/2024 Encounter Details Date Type Department Care Team ([facility] st Contact Info) Description 07/19/[address] [facility] MEDICINE [address] [place], [place] [phone] Priscilla He DO [address] [place], [place] [phone] Social History Tobacco Use Types Packs/Day Years [...] documented as of this encounter Care Teams Professor Of Voice Relationship Specialty Start Date End Date Priscilla He DO [address] [place] [address] PCP - General Family Medicine 03/23/17 documented as of this encounter
--- OUTSIDE RECORDS SUMMARY | 2025-03-18 14:54 | XMS_ITS | Encounter Summary ---
Author Organization [employer] Address [address] [place] [address] [address] [place] [address] Care Team Providers Care Research Methodologist Name Role Phone Priscilla He DO Primary Care Provider [phone]- [phone] Reason for Visit * Reason Onset Date Comments Referral 08/04/2023 Encounter Details Date Type Department Care Team (Late st Contact Info) Description 08/04/2023 Telephone [facility] MEDICINE [address] [place], [place] [phone] Priscilla He DO [address] [place], [place] [phone] Referral Social History Tobacco Use Types Packs/Day [...] it was canceled. Please contact pt at [phone]. documented in this encounter Plan of Treatment Not on file documented as of this encounter Visit Diagnoses Not on filedocumented in this encounter Additional Health Concerns Assessment Noted Time PHQ-9 Depression Total Score: 0 08/03/19 24 10:24 AM EDT documented as of this encounter Care Teams Research Methodologist Relationship Specialty Start Date End Date Priscilla He DO [address] [place] [address] PCP - General Family Medicine 03/23/17 documented as of this encounter
--- OUTSIDE RECORDS SUMMARY | 2025-03-18 14:54 | XMS_ITS | Encounter Summary ---
Author Organization [facility], Address [address] [place] [address] Phone Care Team Providers Care Earth Science Professor Name Role Phone Priscilla He DO Primary Care Provider Unava ilable Encounter Details Date Type Department Care Team (Late st Contact Info) Description 08/23/2024 Documentation Only [facility], [address] [facility] [address] Destiny Salvador Social History Tobacco [...] Support [facility] [address] [place] [address] Aicha Bradley FNP-C [address] [id number] documented as of this encounter Visit Diagnoses Not on filedocumented in this encounter Care Teams Earth Science Professor Relationship Specialty Start Date End Date Priscilla He DO [address] [place] [address] PCP - General 02/26/19 documented as of this encounter
--- OUTSIDE RECORDS SUMMARY | 2025-03-18 14:54 | XMS_ITS | Encounter Summary ---
Author Organization [employer] Address [address] [place] [address] 7 [place] [address] Care Team Providers Care Advertising Internship Name Role Phone LaliPriscilla alarcon Primary Care Provider + [phone] Encounter Details Date Type Department Care Team (Latest Contact Info) Description 03/18/2025 Travel Social History Tobacco Use Types Packs/Day [...] t he electric, gas, oil or water hovelstay threatened to shut off services in your [...] PM EST documented as of this encounter Functional Status * Over the past 2 weeks, how often have you been bothered by any of the following problems? Question Answer Date of Assessment Author Patient Health Questionnaire -2 Score 4 03/18/2025 11:02 AM Quiana Krishnan [place] * Little interest or pleasure in doing things Answer Date of Assessment Author More than half the days 03/18/2025 11:02 AM Quiana Krishnan [place] * Feeling down, depressed, or hopeless [...] Noted Time PHQ-9 Depression Total Score: 15 025 11:02 AM EST documented as of this encounter Care Teams Advertising Internship Relationship Specialty Start Date End Date Priscilla He DO [address] [place] [address] PCP - General Family Medicine 03/23/17 documented as of this encounter
--- OUTSIDE RECORDS SUMMARY | 2025-03-18 14:54 | XMS_ITS | Encounter Summary ---
Author Organization [employer] Address [address] [place] [address] 7 [place] [address] Care Team Providers Care Mill Tender Second Operator Name Role Phone Priscilla He DO Primary Care Provider [phone]- [phone] Reason for Visit * Reason Onset Date Comments Nurse Triage 10/20/2023 Encounter Details Date Type Department Care Team ([facility] st Contact Info) Description 10/20/2023 Telephone [facility] MEDICINE [address] [place], [place] [phone] Priscilla He DO [address] [place], [place] [phone] Nurse Triage Social History Tobacco Use Types [...] sx. Per pt at last visit in [facility] pt dx with bronchitis. Per [...] 11/01/2023 11:30 AM Priscilla He DO MEDICINE [facility] Protocol Used: Asthma Attack (Adult) Protocol-Based [...] documented as of this encounter Care Teams Mill Tender Second Operator Relationship Specialty Start Date End Date Priscilla He DO [address] [place] [address] PCP - General Family Medicine 03/23/17 documented as of this encounter
--- OUTSIDE RECORDS SUMMARY | 2025-03-18 14:54 | XMS_ITS | Encounter Summary ---
Author Organization [employer] Address [address] [place] [address] 7 [place] [address] Care Team Providers Care Office Asst Name Role Phone Priscilla He DO Primary Care Provider +[phone] Reason for Visit * Reason Onset Date Comments Med Refill 06/24/2023 Encounter Details Date Type Department Care Team ([facility] st Contact Info) Description 06/24/2023 Refill [facility] MEDICINE [address] [place], [place] [phone] Priscilla He DO [address] [place], [place] [phone] Social History Tobacco Use Types Packs/Day Years [...] documented as of this encounter Care Teams Office Asst Relationship Specialty Start Date End Date Priscilla He DO [address] [place] [address] PCP - General Family Medicine 03/23/17 documented as of this encounter
--- OUTSIDE RECORDS SUMMARY | 2025-03-18 14:54 | XMS_ITS | Encounter Summary ---
Author Organization [facility], Address [address] [place] [address] Phone Care Team Providers Care Industrial Sweeper Cleaner Name Role Phone Priscilla He DO Primary Care Provider Unava ilable Reason for Visit * Reason Comments Med Refill Encounter Details Date Type Department Care Team (Late st Contact Info) Description 10/25/2023 Refill [facility] [address] [place] [address] Damian Shah MD [address] [place] [address] [place] [address] Social History Tobacco Use Types [...] Support [facility] [address] [place] [address] Aicha Bradley FNP-C [address] [place] [address] [place] [address] documented as of this encounter Visit Diagnoses Not on filedocumented in this encounter Care Teams Industrial Sweeper Cleaner Relationship Specialty Start Date End Date Priscilla He DO [address] [place] [address] PCP - General 02/26/19 documented as of this encounter
--- OUTSIDE RECORDS SUMMARY | 2025-03-18 14:54 | XMS_ITS | Encounter Summary ---
Author Organization [employer] Address [address] [place] [address] 7 [place] [address] Care Team Providers Care Hand Assembler Name Role Phone Priscilla He DO Primary Care Provider +[phone] Reason for Visit * Reason Onset Date Comments Med Refill 05/04/2023 Encounter Details Date Type Department Care Team ([facility] st Contact Info) Description 05/04/2023 Refill [facility] MEDICINE [address] [place], [place] [phone] Priscilla He DO [address] [place], [place] [phone] Social History Tobacco Use Types Packs/Day Years [...] documented as of this encounter Care Teams Hand Assembler Relationship Specialty Start Date End Date Priscilla He DO [address] [place] [address] PCP - General Family Medicine 03/23/17 documented as of this encounter
--- OUTSIDE RECORDS SUMMARY | 2025-03-18 14:54 | XMS_ITS | Encounter Summary ---
Author Organization [facility], Address [address] [place] [address] Phone Care Team Providers Care Mold Yard Worker Name Role Phone Priscilla He DO Primary Care Provider Unava ilable Reason for Visit * Reason Comments Med Refill Encounter Details Date Type Department Care Team (Late st Contact Info) Description 06/25/2021 Refill [facility] [address] [place] [address] Sandor Jansen PA [address] [place] [address] [place] [address] Social History Tobacco Use Types Packs/Day Years [...] Support [facility] [address] [place] [address] Aicha Bradley FNP-C [address] [place] [address] documented as of this encounter Visit Diagnoses Not on filedocumented in this encounter Care Teams Mold Yard Worker Relationship Specialty Start Date End Date Priscilla He DO [address] [place] [address] PCP - General 02/26/19 documented as of this encounter
--- OUTSIDE RECORDS SUMMARY | 2025-03-18 14:54 | XMS_ITS | Encounter Summary ---
Author Organization [employer] Address [address] [place] [address] 7 [place] [address] Care Team Providers Care Robot Programmer Name Role Phone Priscilla He DO Primary Care Provider +[phone] Reason for Visit * Reason Onset Date Comments Med Refill 07/19/2024 Encounter Details Date Type Department Care Team ([facility] st Contact Info) Description 07/19/2024 Refill [facility] MEDICINE [address] [place], [place] [phone] Priscilla He DO [address] [place], [place] [phone] Social History Tobacco Use Types Packs/Day Years [...] documented as of this encounter Care Teams Robot Programmer Relationship Specialty Start Date End Date Priscilla He DO [address] [place] [address] PCP - General Family Medicine 03/23/17 documented as of this encounter
--- OUTSIDE RECORDS SUMMARY | 2025-03-18 14:54 | XMS_ITS | Clinical Summary ---
Author Organization [facility], Address [address] [place] [address] [place] [address] Phone Care Team Providers Care Toe Stapler Name Role Phone Priscilla He DO Primary [...] mouth 1 (one) time each day Active Trulicity 1.5 MG/0.5ML solution pen-injector Inject 1.5 mg under the skin per week 4 Active ergocalciferol 1.25 MG (60753 UT) capsule TAKE 1 CAPSULE (50,000 UNITS TOTAL) BY MOUTH 1 (ONE) TIME PER WEEK FOR LOW VITAMIN D 8 capsule 10 4 Active tacrolimus (Prograf) 1 MG capsule Take 1 capsule (1 mg total) by mouth in the morning and 1 capsule (1 mg total) in the evening. 180 capsule 3 5 08/06/19 26 Active mycophenolate (MYFORTIC) 180 MG EC tablet Take 3 tablets (540 mg total) by mouth in the morning and 3 tablets (540 mg total) in the evening. 540 tablet 3 5 Active Active Problems Problem Noted [...] Encounters Date Type Department Care Team Description 02/12/2025 11:15 AM EDT Office Visit [facility] [address] [place] [address] Damian Shah MD 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); History of immunosuppressive therapy; Chronic kidney disease, stage 2 (mild); Hypertension 01/28/2025 Orders Only [facility] [address] [place] [address] [place] G[place]ord [place] 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); History of immunosuppressive therapy; Chronic kidney disease, stage 2 (mild); Other iron deficiency anemia; Other specified hypoparathyroidism (HCC); Albuminuria, not otherwise specified from Last 3 Months Immunizations Immunization Administration [...] Sign Reading Time Taken Comments Blood Pressure 110/70 12/06/2024 10:19 AM EDT Pulse 74 02/22/2019 12:00 PM EDT Temperature - - Respiratory Rate 16 02/22/2019 12:0 0 PM EDT Oxygen Saturation - - Inhaled Oxygen Concentration - - Weight 65.2 kg (143 lb 12.8 oz) 025 10:19 AM EDT Height 162.6 cm (5' 4 ) 05/07/2024 11:1 3 AM EST Body Mass Index 24.68 05/07/2024 11:13 AM EST Plan of Treatment Upcoming Encounters Date Type Department Care Team (Late st Contact Info) Description 04/03/2025 2:30 PM EST Clinical Support [facility] [address] [place] [address] Aicha Bradley FNP-C [address] [place] [id number] Health Maintenance Due Date Last Done Comments Breast Cancer Screening 1972 Hepatitis B Vaccine (1 of 3 - 19+ 3-dose series) 1991 Colonoscopy (Post-Transplant Patient) 12/04/2019 Mammogram (Post-Transplant Patient) 12/04/2019 Pelvic Exam (Post-Transplant Patient) 12/04/2019 Diabetes: Ophthalmology Exam 07/12/2022 Diabetes: Pedal Pulse Checked 07/12/2022 Diabetes: Sensory Foot Exam 07/12/2022 Diabetes: Visual Foot Exam 07/12/2022 Influenza Vaccine (#1) 2024 3, 02/28/2022, 03/02/2021, Additional history exists Diabetes: Hemoglobin A1C 12/27/2024 025, 08/28/2024, 01/31/2024, Additional history exists Pneumococcal Vaccine: 50+ Years Completed 03/09/2023, 01/15/2019, 01/29/2015 Pneumococcal Vaccine: Peds ( 0 to 5 Years) and At-Risk Patients (6 to 49 Years) Discontinued 03/09/2023, 01/15/2019, 01/29/2015 Procedures Procedure Name Priority Date/Time Associated Diagnosis Comments REFLEXIVE URINE CULTURE (HC) Routine 02/06/2025 7:14 AM EDT BK VIRUS, DNA, QUANTITATIVE Routine 02/06/2025 7:14 AM EDT Kidney replaced by transplant History of immunosuppressive therapy Chronic kidney disease, stage 2 (mild) Other iron deficiency anemia Other specified hypoparathyroidism (HCC) Albuminuria, not otherwise specified BK VIRUS, DNA, URINE, QUANTITATIVE Routine 02/06/2025 7:14 AM EDT Kidney replaced by transplant History of immunosuppressive therapy Chronic kidney disease, stage 2 (mild) Other iron deficiency anemia Other specified hypoparathyroidism (HCC) Albuminuria, not otherwise specified URINALYSIS, COMPLETE Routine 02/06/2025 7:14 AM EDT Kidney replaced by transplant History of immunosuppressive therapy Chronic kidney disease, stage 2 (mild) Other iron deficiency anemia Other specified hypoparathyroidism (HCC) Albuminuria, not otherwise specified URINE ALBUMIN / CREATININE RATIO Routine 02/06/2025 7:14 AM EDT Kidney replaced by transplant History of immunosuppressive therapy Chronic kidney disease, stage 2 (mild) Other iron deficiency anemia Other specified hypoparathyroidism (HCC) Albuminuria, not otherwise specified PTH, INTACT Routine 02/06/2025 7:14 AM EDT Kidney replaced by transplant History of immunosuppressive therapy Chronic kidney disease, stage 2 (mild) Other iron deficiency anemia Other specified hypoparathyroidism (HCC) Albuminuria, not otherwise specified IRON PANEL (FE, TIBC, TSAT) Routine 02/06/2025 7:14 AM EDT Kidney replaced by transplant History of immunosuppressive therapy Chronic kidney disease, stage 2 (mild) Other iron deficiency anemia Other specified hypoparathyroidism (HCC) Albuminuria, not otherwise specified FERRITIN Routine 02/06/2025 7:14 AM EDT Kidney replaced by transplant History of immunosuppressive therapy Chronic kidney disease, stage 2 (mild) Other iron deficiency anemia Other specified hypoparathyroidism (HCC) Albuminuria, not otherwise specified CREATINE KINASE Routine 02/06/2025 7:14 AM EDT Kidney replaced by transplant History of immunosuppressive therapy Chronic kidney disease, stage 2 (mild) Other iron deficiency anemia Other specified hypoparathyroidism (HCC) Albuminuria, not otherwise specified ALT Routine 02/06/2025 7:14 AM EDT Kidney replaced by transplant History of immunosuppressive therapy Chronic kidney disease, stage 2 (mild) Other iron deficiency anemia Other specified hypoparathyroidism (HCC) Albuminuria, not otherwise specified AST Routine 02/06/2025 7:14 AM EDT Kidney replaced by transplant History of immunosuppressive therapy Chronic kidney disease, stage 2 (mild) Other iron deficiency anemia Other specified hypoparathyroidism (HCC) Albuminuria, not otherwise specified CBC AND DIFFERENTIAL Routine 02/06/2025 7:14 AM EDT Kidney replaced by transplant History of immunosuppressive therapy Chronic kidney disease, stage 2 (mild) Other iron deficiency anemia Other specified hypoparathyroidism (HCC) Albuminuria, not otherwise specified RENAL FUNCTION PANEL Routine 02/06/2025 7:14 AM EDT Kidney replaced by transplant History of immunosuppressive therapy Chronic kidney disease, stage 2 (mild) Other iron deficiency anemia Other specified hypoparathyroidism (HCC) Albuminuria, not otherwise specified MYCOPHENOLIC ACID AND METABO. Routine 02/06/2025 7:14 AM EDT Kidney replaced by transplant History of immunosuppressive therapy Chronic kidney disease, stage 2 (mild) Other iron deficiency anemia Other specified hypoparathyroidism (HCC) Albuminuria, not otherwise specified TACROLIMUS, HIGHLY SENSITIVE, LC/MS/MS Routine 02/06/2025 7:14 AM EDT Kidney replaced by transplant History of immunosuppressive therapy Chronic kidney disease, stage 2 (mild) Other iron deficiency anemia Other specified hypoparathyroidism (HCC) Albuminuria, not otherwise specified MICROSCOPIC EXAMINATION - DO NOT USE Routine 02/06/2025 7:14 AM EDT HEMOGLOBIN A1C Routine 09/26/2024 7:31 AM EDT History of immunosuppressive therapy Kidney replaced by transplant Chronic kidney disease, stage 2 (mild) Hypertension Chronic kidney disease stage 2 Poor glycemic control 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, not otherwise specified from Last 3 Months or Most Recently Relevant to Health Maintenance Results * Reflexive Urine Culture (02/06/2025 7:14 AM EDT) Pathologist [facility] Culture Result, Urine Final report [email or web address] Result No growth [facility] 02/06/2025 7:14 AM EDT 02/06/2025 us Damian Shah MD LAB HISTORICAL-CONVERSIONS -UNSOLICITED RESULTS Final Result [facility] [address], [address] [place] [address] * Tacrolimus, Highly Sensitive, LC/MS/MS (02/06/2025 7:14 AM EDT) Pathologist [facility] Tacrolimus by Immunoassay 7.3 5.0 - 20.0 ng/mL [facility] Comment: Detection Limit = 0.8 ng/mL Target steady state trough concentration for Tacrolimus varies based on type of organ transplant immunosuppressive protocol and other patient specific factors. Tacrolimus trough concentrations should be interpreted in conjunction with clinical assessments of rejection and tolerability. Values obtained with different assay methods cannot be used interchangeably due to differences in assay methods and cross-reactivty with metabolites, nor should correction factors be applied. Therefore, consistent use of one assay for individual patients is recommended. Tacrolimus assay performed by [employer]. 02/06/2025 7:14 AM EDT 02/06/2025 us Damian Shah MD LAB BLOOD ORDERABLES Final Result [facility] [address] [place] [address] * (ABNORMAL) Urinalysis, Complete w/reflex to Culture (02/06/2025 7:14 AM EDT) [facility] Specific Mineral, Urine 1.015 1.005 - 1.030 [facility] pH Urine 5.5 5.0 - 7.5 [facility] [phone] Color, Urine Yellow Yellow [facility] Appearance Urine Clear Clear [facility] WBC Esterase Urine 2+(A) Negative [facility] Protein, Ur Negative Negative/Tra ce [facility] [phone] Glucose, Ur Negative Negative [facility] Ketones, Urine Negative Negative [facility] [phone] Blood Urine Negative Negative [facility] [phone] Bilirubin Urine Negative Negative [facility] Urobilinogen Urine 0.2 0.2 - 1.0 mg/dL [facility] Nitrite, Urine Negative Negative [facility] [phone] Microscopic Examination See below: [facility] [phone] Comment:Microscopic was suma cated and was performed. URINALYSIS REFLEX Comment [facility] [phone] Comment:This specimen has re flexed to a Urine Culture. Urine Urine specimen obtained by clean catch procedure / Unknown 02/06/2025 7:14 AM EDT 02/06/2025 Damian Shah MD LAB URINE ORDERABLES Final Result Performing Organization Address City/[facility]/ZIP Co de Phone Number [facility] [address] [place] [address] * (ABNORMAL) Mycophenolic Acid and Metabo. (02/06/2025 7:14 AM EDT) Mycophenolic Acid 6.0(HH) 1.0 - 3.5 ug/mL [facility] Mycophenolic Acid Glucuronide 86 35 - 100 ug/mL [facility] Blood Venous blood / Unknown 02/06/2025 7:14 AM EDT 02/06/2025 Narrative [facility] - 02/11/2025 5:05 PM EDT Test(s) 025249-Dozddxyxxpsf Acid; 770113- Mycophenolic Acid Glucuronide was developed and its performance characteristics determined by [facility]. It has not been cleared or approved by the Food and Drug Administration. Damian Shah MD LAB BLOOD ORDERABLES Final Result Performing Organization Address City/[facility]/ZIP Co de Phone Number [facility] [address] [place] [address] * (ABNORMAL) Microscopic Examination (02/06/2025 7:14 AM EDT) WBC, Urine 6-10(A) 0 - 5 /hpf [facility] RBC, Urine 0-2 0 - 2 /hpf [facility] Squamous Epithelial, Urine 0-10 0 - 10 /hpf [facility] Casts None seen None seen /lpf [facility] Bacteria, Urine Few None seen/Few [facility] 02/06/2025 7:14 AM EDT 02/06/2025 Damian Shah MD LAB MICROBIOLOGY - GENERAL ORDERABLES Final Result [facility] [address] [place] [address] * Iron Panel (Fe, TIBC, TSAT) (02/06/2025 7:14 AM EDT) TIBC 284 250 - 450 ug/dL [facility] UIBC 222 131 - 425 ug/dL [facility] Iron 62 27 - 159 ug/dL [facility] Iron Saturation (TSat) 22 15 - 55 % [facility] Blood Venous blood / Unknown 02/06/2025 7:14 AM EDT 02/06/2025 Damian Shah MD LAB BLOOD ORDERABLES Final Result [facility] [address] [place] [address] * Urine Albumin / Creatinine Ratio (02/06/2025 7:14 AM EDT) Creatinine, Ur 74.2 Not Estab. mg/dL [facility] Albumin, Urine <3.0 Not Estab. ug/mL [facility] Albumin/Creatin ine Ratio <4 0 - 29 mg/g creat [facility] Comment: Normal: 0 - 29 Moderately increased: 30 - 300 Severely increased: >300 Urine Urine specimen obtained by clean catch procedure / Unknown 02/06/2025 7:14 AM EDT 02/06/2025 Damian Shah MD LAB URINE ORDERABLES Final Result Performing Organization Address City/[facility] Co de Phone Number [facility] [address] [place] [address] * BK Virus Urine, Quant PCR (02/06/2025 7:14 AM EDT) BK VIRUS PCR, QUANT, U Positive < 200 Negative IU/mL [facility] Comment: BK DNA detected. The linear range of the assay is 200 - 100,000,000 IU/ml Urine Urine specimen obtained by clean catch procedure / Unknown 02/06/2025 7:14 AM EDT 02/06/2025 Damian Shah MD LAB URINE ORDERABLES Final Result Performing Organization Address [facility] Co de Phone Number [facility] [address] [place] [address] * BK Virus DNA, Quant PCR (02/06/2025 7:14 AM EDT) BK VIRUS DNA, PCR Negative Negative IU/mL [facility] Comment: No BK DNA detected. The linear range of the assay is 22 - 100,000,000 IU/mL. Blood Venous blood / Unknown 02/06/2025 7:14 AM EDT 02/06/2025 Damian Shah MD LAB BLOOD ORDERABLES Final Result Performing Organization Address City/[facility]/ZIP Co de Phone Number [facility] [address] [place] [address] * CBC and Differential (02/06/2025 7:14 AM EDT) [facility] WBC 6.4 3.4 - 10.8 x10E3/uL [facility] RBC 4.56 3.77 - 5.28 x10E6/uL [facility] Hemoglobin 13.5 11.1 - 15.9 g/dL [facility] Hematocrit 41.0 34.0 - 46.6 % [facility] MCV 90 79 - 97 fL [facility] MCH 29.6 26.6 - 33.0 pg [facility] MCHC 32.9 31.5 - 35.7 g/dL [facility] RDW 12.5 11.7 - 15.4 % [facility] Platelets 249 150 - 450 x10E3/uL [facility] Neutrophils Relative 41 Not Estab. % [facility] Lymphocytes Relative 45 Not Estab. % [facility] Monocytes 8 Not Estab. % [facility] Eosinophils Relative 5 Not Estab. % [facility] Basophils Relative 1 Not Estab. % [facility] Neutrophils Absolute 2.7 1.4 - 7.0 x10E3/uL [facility] Lymphocytes Absolute 2.9 0.7 - 3.1 x10E3/uL [facility] Monocytes Absolute 0.5 0.1 - 0.9 x10E3/uL [facility] Eosinophils Absolute 0.3 0.0 - 0.4 x10E3/uL [facility] Basophils Absolute 0.1 0.0 - 0.2 x10E3/uL [facility] Immature Granulocytes 0 Not Estab. % [facility] Immature Grans (Absolute) 0.0 0.0 - 0.1 x10E3/uL [facility] Blood Venous blood / Unknown 02/06/2025 7:14 AM EDT 02/06/2025 Damian Shah MD LAB BLOOD ORDERABLES Final Result [facility] [address] [place] [address] * ALT (02/06/2025 7:14 AM EDT) ALT (SGPT) 19 0 - 32 IU/L [facility] Blood Venous blood / Unknown 02/06/2025 7:14 AM EDT 02/06/2025 Damian Shah MD LAB BLOOD ORDERABLES Final Result Performing Organization Address City/[facility]/ZIP Co de Phone Number [facility] [address] [place] [address] * AST (02/06/2025 7:14 AM EDT) AST (SGOT) 19 0 - 40 IU/L [facility] Blood Venous blood / Unknown 02/06/2025 7:14 AM EDT 02/06/2025 Damian Shah MD LAB BLOOD ORDERABLES Final Result [facility] [address] [place] [address] * (ABNORMAL) PTH, Intact (02/06/2025 7:14 AM EDT) PTH 70(H) 15 - 65 pg/mL [facility] Blood Venous blood / Unknown 02/06/2025 7:14 AM EDT 02/06/2025 Damian Shah MD LAB BLOOD ORDERABLES Final Result [facility] [address] [place] [address] * (ABNORMAL) Ferritin (02/06/2025 7:14 AM EDT) Ferritin 395(H) 15 - 150 ng/mL [facility] Blood Venous blood / Unknown 02/06/2025 7:14 AM EDT 02/06/2025 Damian Shah MD LAB BLOOD ORDERABLES Final Result Performing Organization Address City/[facility]/ZIP Co de Phone Number [facility] [address] [place] [address] * CK (02/06/2025 7:14 AM EDT) Creatine Kinase (CK/CPK) 65 32 - 182 U/L [facility] Blood Venous blood / Unknown 02/06/2025 7:14 AM EDT 02/06/2025 Damian Shah MD LAB BLOOD ORDERABLES Final Result Performing Organization Address City/[facility]/ZIP Co de Phone Number [employer] [facility] [address] [place] [address] * (ABNORMAL) Renal Function Panel (02/06/2025 7:14 AM EDT) Glucose 97 70 - 99 mg/dL [facility] BUN 16 6 - 24 mg/dL [facility] Creatinine 0.72 0.57 - 1.00 mg/dL [facility] eGFR CKD-EPI CR 2020 101 >59 mL/min/1.7 3 [facility] BUN/Creatinine Ratio 22 9 - 23 [facility] Sodium 141 134 - 144 mmol/L [facility] Potassium 5.3(H) 3.5 - 5.2 mmol/L [facility] Chloride 104 96 - 106 mmol/L [facility] Bicarbonate (CO2) 22 20 - 29 mmol/L [facility] Calcium 10.2 8.7 - 10.2 mg/dL [facility] Albumin 4.7 3.8 - 4.9 g/dL [facility] Phosphorus 4.2 3.0 - 4.3 mg/dL [facility] Blood Venous blood / Unknown 02/06/2025 7:14 AM EDT 02/06/2025 Damian Shah MD LAB BLOOD ORDERABLES Final Result [facility] [address] [place] [address] * Hemoglobin A1c (09/26/2024 7:31 AM EDT) [facility] Hemoglobin A1C 5.5 4.8 - 5.6 % [facility] Comment: Prediabetes: 5.7 - 6.4 Diabetes: >6.4 Glycemic control for adults with diabetes: <7.0 Blood Venous blood / Unknown 09/26/2024 7:31 AM EDT 09/26/2024 Damian Shah MD LAB BLOOD ORDERABLES Final Result [facility] [address] [place] [address] from Last 3 Months or Most Recently Relevant to Health Maintenance Insurance Medicaid [place] Care Teams Toe Stapler Relationship Specialty Start Date End Date Priscilla He DO [address] [place] [address] PCP - General 02/26/19
--- OUTSIDE RECORDS SUMMARY | 2025-03-18 14:54 | XMS_ITS | Encounter Summary ---
Author Organization [facility], Address [address] [place] [address] Phone Care Team Providers Care Optical Systems Engineer Name Role Phone Priscilla He DO Primary Care Provider Unava ilable Reason for Visit * Reason Comments Med Refill Encounter Details Date Type Department Care Team (Late st Contact Info) Description 06/28/2021 Refill [facility] [address] [place] [address] Sandor Jansen PA [address] [place] [address] [place] [address] Social History Tobacco Use Types [...] Support [facility] [address] [place] [address] Aicha Bradley FNP-C [address] [place] [address] documented as of this encounter Visit Diagnoses Not on filedocumented in this encounter Care Teams Optical Systems Engineer Relationship Specialty Start Date End Date Priscilla He DO [address] [place] [address] PCP - General 02/26/19 documented as of this encounter
--- OUTSIDE RECORDS SUMMARY | 2025-03-18 14:54 | XMS_ITS | Encounter Summary ---
Author Organization [facility], Address [address] [place] [address] Phone Care Team Providers Care Block Machine Operator Name Role Phone Priscilla He DO Primary Care Provider Unava ilable Encounter Details Date Type Department Care Team (Late st Contact Info) Description 10/14/2022 Documentation Only [facility] [place], [address] [place] [address] Damian Shah MD [address] [place] [address] Social History Tobacco Use Types [...] Support [facility] [address] [place] [address] Aicha [place] FNP-C [address] [place] [address] documented as of this encounter Visit Diagnoses Not on filedocumented in this encounter Care Teams Block Machine Operator Relationship Specialty Start Date End Date Priscilla He DO [address] [place] [address] PCP - General 02/26/19 documented as of this encounter
--- OUTSIDE RECORDS SUMMARY | 2025-03-18 14:54 | XMS_ITS | Encounter Summary ---
Author Organization [facility] Address [address] [place] [address] Care Team Providers Care Linen Controller Name Role Phone Priscilla He DO Primary Care Provider [phone] Encounter Details Date Type Department Care Team [...] on filedocumented in this encounter Care Teams Linen Controller Relationship Specialty Start Date End Date Priscilla He DO [address] [place] [address] PCP - General Family Medicine 03/23/17 documented as of this encounter
--- OUTSIDE RECORDS SUMMARY | 2025-03-18 14:54 | XMS_ITS | Encounter Summary ---
Author Organization [facility] Address [address] [place] [address] Phone Care Team Providers Care Client Services Coordinator Name Role Phone Priscilla He DO Primary Care Provider Unava ilable Encounter Details Date Type Department Care Team (Late st Contact Info) Description 12/01/2021 Documentation Only [facility] [place], [address] [place] [address] [place], [place] [address] [place] [address] Social History Tobacco Use Types [...] on file documented as of this encounter Functional Status * Question Answer Date of Assessment Author BP 122/78 12/01/2021 10:11 AM Sandor Mock PA Height 64 12/01/2021 10:11 AM Sandor Mock PA Weight 2480 12/01/2021 10:11 AM Sandor Mock PA * BMI (Calculated) Answer Date of Assessment Author 26.6 12/01/2021 10:11 AM Sandor Abraham PA * BP Location Answer Date of Assessment Author Right upper arm 12/01/2021 10:11 AM Sandor Abraham PA * Question Answer Date of Assessment Author BP 122/78 12/01/2021 10:11 AM Sandor Mock PA Height 64 12/01/2021 10:11 AM Sandor Mock PA Weight 2480 12/01/2021 10:11 AM Sandor Mock PA * BMI (Calculated) Answer Date of Assessment Author 26.6 12/01/2021 10:11 AM Sandor Abraham PA * BP Location Answer Date of Assessment Author Right upper arm 12/01/2021 10:11 AM Sandor Abraham PA documented as of this encounter Plan of Treatment Upcoming Encounters Date Type Department Care Team (Late st Contact Info) Description 04/03/2025 2:30 PM EST Clinical Support [facility] [address] [place] [address] Aicha Bradley FNP-Claire [address] [place] [address] documented as of this encounter Visit Diagnoses Not on filedocumented in this encounter Care Teams Client Services Coordinator Relationship Specialty Start Date End Date Priscilla eH DO [address] [place] [address] PCP - General 02/26/19 documented as of this encounter
--- OUTSIDE RECORDS SUMMARY | 2025-03-18 14:54 | XMS_ITS | Clinical Summary ---
Author Organization [employer] Address [address] [place] [address] [address] [place] [address] Care Team Providers Care Protocol Manager Name Role Phone Ying Priscilla Primary Care Provider Allergies No known active allergies Medications Alcohol Swabs (Alcohol Prep) 70 % pads USE TWICE DAILY 06/06/19 23 Active famotidine (Pepcid) 40 MG tablet Take 40 mg by mouth at bedtime. 12/30/19 22 Active FREESTYLE LITE test strip TEST BLOOD SUGAR ONCE DAILY 06/06/19 23 Active SM Fiber Laxative 500 MG tablet TAKE 1 TABLET BY MOUTH EVERY DAY WITH UN GLASS OF WATER FULL 10/05/19 23 Active mycophenolate (Myfortic) 180 MG EC tablet 10/18/19 23 Active pantoprazole (ProtoNix) 40 MG EC tablet Take 40 mg by mouth 2 times daily. 10/06/19 23 Active tacrolimus (Prograf) 0.5 MG capsule 09/27/19 23 Active Linzess 72 MCG capsule Take 72 mcg by mouth in the morning. 02/01/20 23 Active albuterol (2.5 MG/3ML) 0.083% nebulizer solution INHALE 1 AMPULE USING A NEBULIZER EVERY 4 HOURS NEEDED FOR COUGH, WHEEZING, OR SHORTNESS OF BREATH 90 mL 1 08/07/19 25 Active meclizine (Antivert) 25 MG tablet TAKE 1 TABLET BY MOUTH THREE TIMES DAILY IN THE MORNING, AT NOON, AND AT BEDTIME NEEDED FOR DIZZINESS 30 tablet 2 08/14/19 25 Active Semaglutide,0.2 5 or 0.5MG/DOS, (Ozempic, 0.25 or 0.5 MG/DOSE,) 2 MG/3ML solution pen-injector Inject 0.25 mg under the skin 1 (one) time per week. 3 mL 3 08/29/19 Active loratadine (Claritin) 10 MG tablet Take 1 tablet (10 mg) by mouth Once per day. 90 tablet 3 02/15/20 25 026 Active Blood Glucose Monitoring Suppl (Intellitactics Lite) w/Device kit Use to test blood sugar 2 times daily 1 kit 02/17/20 Active budesonide-form oterol (Symbicort) 160-4.5 MCG/ACT inhalerIndicati ons:Mild persistent asthma without complication Inhale 2 puffs in the morning and at bedtime. Rinse mouth with water after use to reduce aftertaste and incidence of candidiasis. Do not swallow. 3 each 3 02/19/20 25 026 Active albuterol 108 (90 Base) MCG/ACT inhalerIndicati ons:Mild persistent asthma without complication Inhale 2 puffs every 4 (four) hours if needed for wheezing or shortness of breath. 18 g 11 02/20/20 25 026 Active tacrolimus (Prograf) 1 MG capsule 09/27/19 23 025 Discontinued(M ed list cleanup (will not trigger notification to Pharmacy)) budesonide-form oterol (Symbicort) 160-4.5 MCG/ACT inhaler Inhale 2 puffs in the morning and at bedtime. Rinse mouth with water after use to reduce aftertaste and incidence of candidiasis. Do not swallow. 3 each 3 11/01/19 24 025 Discontinued(R eorder (will not trigger notification to Pharmacy)) triamcinolone (Nasacort) 55 MCG/ACT nasal inhaler Administer 2 sprays into each nostril Once per day. 16.5 g 5 07/18/19 25 025 Discontinued(M ed list cleanup (will not trigger notification to Pharmacy)) Active Problems Problem Noted Date Diagnosed Date Immunosuppression 07/08/2022 Congenital cystic kidney disease 07/08/2022 Mild persistent asthma 07/08/2022 Assessment & Plan (03/05/2025 7:25 PM EST): - Asthma is poorly controlled, as indicated by ACT score of 10. Likley due to inappropriate use of inhalers - PE not supportive of systemic steroid at this time - Recommend use of Symbicort 2 puffs q4h in addition to prescribed twice daily dosing. No more than 12 puffs per day for better control. - Instructed on proper inhaler technique and use of spacer. - Recommed follow-up with PCP as scheduled History of renal transplant 07/08/2022 Major depression, recurrent, chronic 07/08/2022 Cerebral cavernous malformation 07/08/2022 Family history of colon cancer 07/08/2022 Chronic gastroesophageal reflux disease 04/29/19 Stage 2 chronic kidney disease 04/29/2019 Hyperlipidemia 03/23/2017 Chronic allergic rhinitis 03/23/2017 Assessment & Plan (03/05/2025 7:25 PM EST): - Allergic rhinitis present, with symptoms of postnasal drip and chronic throat discomfort. - Advised to continue loratadine (Claritin). Recommended sinus irrigation with [id number] nasal rinse system. Type 2 diabetes mellitus 03/23/2017 Resolved Problems Problem Noted Date Diagnosed Date Resolved Date Mild intermittent asthma with exacerbation 10/05/2023 11/01/2023 Assessment & Plan (10/05/2023 11:50 AM EDT): Patient educated to avoid asthma triggers Albuterol inhaler Q 4-6hrs Prednisone 40mg daily for 5 days Cystitis 11/03/2022 06/01/2023 Encounters Date Type Department Care Team Description 03/18/2025 10:00 AM EST Office Visit [facility] [address] [place] [phone] Priscilla He DO Type 2 diabetes mellitus without complication, without long-term current use of insulin ([facility]) 03/18/2025 Travel 03/17/2025 Travel 03/15/2025 Telephone [facility] [address] [place] [phone] Priscilla He DO Chart Prep 03/10/2025 Patient Outreach [facility] [address] [place] [phone] Priscilla He DO Pre-visit Planning (SDMD screening completed on 08/28/2024) 03/05/2025 2:40 PM EST Office Visit [facility] [address] [place] [phone] Anahi Thurston NP Acute cough (Primary Dx); Sore throat; Mild persistent asthma with acute exacerbation; Myalgia; Shortness of breath; Chronic allergic rhinitis 03/05/2025 Travel 02/14/2025 Refill [facility] [address] [place] [address] Priscilla He DO 02/14/2025 Refill [facility] [address] [place] [address] Priscilla He DO from Last 3 Months Immunizations Immunization Administration [...] Mass Index 27.62 03/18/2025 10:21 AM EST Plan of Treatment Health Maintenance Due Date Last Done Comments CT Colonography 1972 FIT DNA/Cologuard 1972 FIT 1972 FOBT 1972 Sigmoidoscopy 1972 Diabetes: Foot Exam 1982 Eye Exam 1982 Family Planning (PISQ) 1987 Hepatitis A Vaccines (1 of 2 - Risk 2-dose series) 1991 Hepatitis B Vaccines (1 of 3 - 19+ 3-dose series) 1991 Zoster Vaccines (1 of 2) 1991 RSV Patients and Patients Aged 60 years or older (1 - Risk 50-74 years 1-dose series) 2022 COVID-19 Vaccine ( season) 2024 01/22/2021, 07/04/2020, 06/11/2020 Influenza Vaccine (#1) 2024 , 02/28/2022, 03/02/2021, Additional history exists Mammogram 03/14/2025 03/14/2024, 02/23, 03/07/2022, Additional history exists Alcohol/Substance Use Screening 08/28/2025 08/28/2024 Disability Screening 08/28/2025 08/28/2024 SDOH Screening 08/28/2025 08/28/2024 Depression Monitoring 09/15/2025 03/18/2025, 025 Diabetes: Hemoglobin A1C 09/15/2025 025, 08/28/2024, 01/31/2024, Additional history exists Diabetes: Urine Protein Screening 03/18/2026 03/18/2025, 02/06/2025, 11/30/2024, Additional history exists Lipid Panel 03/18/2026 03/18/2025, 04/3 , 03/09/2022 Tobacco Screening 03/18/2026 03/18/2025 Colonoscopy 12/16/2026 12/16/2021, 12/16/2021 Colorectal Cancer Screening 12/16/2026 DTaP/Tdap/Td Vaccines (2 - Td or Tdap) 01/21/2029 01/21/2019 Cervical Cancer Screening Discontinued HPV/Cotest Discontinued 07/20/2018, [...] Name Priority Date/Time Associated Diagnosis Comments VITAMIN B12/FOLATE, SERUM PANEL Routine 03/18/2025 11:32 [...] of insulin (HCC) HEPATIC FUNCTION PANEL Routine 11:32 AM EST Type 2 diabetes mellitus without complication, without long-term current use of insulin (HCC) TSH Routine 03/18/2025 11:32 AM EST Type 2 diabetes mellitus without complication, without long-term current use of insulin (HCC) LIPID PANEL, STANDARD Routine 03/18/2025 11:32 AM EST Type 2 diabetes mellitus without complication, without long-term current use of insulin (HCC) VITAMIN D,25-OH,TOTAL,IA Routine 03/18/2025 11:32 AM EST Type 2 diabetes mellitus without complication, without long-term current use of insulin (HCC) T4, FREE Routine 03/18/2025 11:32 AM EST Type 2 diabetes mellitus without complication, without long-term current use of insulin (HCC) SED RATE BY MODIFIED WESTERGREN Routine 03/18/2025 11:32 AM EST Myalgia C-REACTIVE PROTEIN Routine 03/18/2025 11 :32 AM EST Myalgia CBC WITH AUTO DIFFERENTIAL Routine 03/18/2025 11:32 AM EST Acute cough Myalgia POCT GLYCATED HEMOGLOBIN, TOTAL Routine 03/18/2025 10:23 AM EST Type 2 diabetes mellitus without complication, without long-term current use of insulin (HCC) POCT GLUCOSE Routine 03/18/2025 10:23 AM EST Type 2 diabetes mellitus without complication, without long-term current use of insulin (HCC) POCT INFLUENZA B (ID NOW RAPID MOLECULAR) Routine 03/05/2025 3:24 PM EST Sore throat POCT INFLUENZA A (ID NOW RAPID MOLECULAR) Routine 03/05/2025 3:24 PM EST Sore throat POC ADAIR ID NOW STREP A Routine 03/05/2025 3:23 PM EST Sore throat POCT RAPID COVID ANTIGEN Routine 03/05/2025 3:22 PM EST Sore throat BI MAMMOGRAM SCREENING TOMOSYNTHESIS BILATERAL Routine 03/14/2024 8:00 AM EST HEPATITIS PANEL, GENERAL Routine 08/10/2022 2:21 PM EDT HIV ANTIBODY/ANTIGEN ([facility] DPH) Routine 08/10/2022 2:21 PM EDT HM COLONOSCOPY Routine 12/16/2021 11:26 AM EDT ZZZ HISTORICAL HPV E6/E7 RFLX SAI 16 18/45 Routine 07/20/2018 12:12 PM EDT from Last 3 Months or Most Recently Relevant to Health Maintenance Results * Vitamin D, 25-Hydroxy, Total, Immunoassay (03/18/2025 11:32 AM EST) Vitamin D 25-OH Total 43.5 >30 ng/mL [facility] Comment: Health Based Reference Values*< 20 ng/mL [id number] ng/mL Insufficient> 30 ng/mL Sufficient*Tiffanie PARTIDA. N [...] DO LAB BLOOD ORDERABLES Final R esult [facility] [address] [place] [phone] * Vitamin B12 (Cobalamin) and Folate Panel, Serum (03/18/2025 11:32 AM EST) Vitamin B12 298 200 - 900 pg/mL [facility] Comment:NORMAL 200-900 PG/ML INDETERMINATE 160-199 PG/ML DEFICIENT < 160 PG/ML Folate 11.9 > or = 4.0 ng/mL [facility] Comment:Reference Values:> o r = [...] ORDERABLES Final R esult Performing Organization Address [facility] Co de Phone Number [facility] [address] [place] [address] [phone] * Albumin, Random Urine W/Creatinine (03/18/2025 11:32 AM EST) Creatinine, Urine 233.84 mg/dL [facility] Microalbumin Urine 16.0 mg/L [facility] Microalbum Creatinine Ratio Ur 6.8 <30 ug/mg cr [facility] Comment:Albumin/Creatinine R atio Reference Ranges: Normal: < 30 ug/mg creatinine Microalbuminuria: 30 - 300 ug/mg creatinineClinical Albuminuria: > 300 ug/mg creatinine Urine (Urine, Random) 03/18/2025 11:32 AM EST 03/18/2025 12:58 PM EST us Priscilla He DO LAB URINE ORDERABLES Final R esult Performing Organization Address City/[facility]/ZIP Co de Phone Number [facility] [address] [place] [address] [phone] * (ABNORMAL) CBC auto differential (03/18/2025 11:32 AM EST) White Blood Count 5.7 4.8 - 10.8 X10*3/uL [facility] Red Blood Count 4.37 4.20 - 5.50 X10*6/uL [facility] Hemoglobin 12.7 12.0 - 16.0 g/dl [facility] Hematocrit 38.6 37.0 - 47.0 % [facility] Mean Corpuscular Volume 88.3 80.0 - 98.0 fL [facility] Mean Corpuscular Hemoglobin 29.1 27.0 - 33.0 pg [facility] Mean Corpuscular HGB Conc 32.9 31.0 - 35.0 g/dl [facility] Red Cell Distribution Width 13.1 11.0 - 16.0 % [facility] Platelet Count 251 160 - 400 X10*3/uL [facility] Mean Platelet Volume 10.4 9.4 - 12.3 fL [facility] Neutrophils Percent Auto 51.9 45 - 73 % [facility] Imm Gran Pct Auto 0.2 0.0 - 0.4 % [facility] Lymphocytes Percent Auto 36.1 20 - 40 % [facility] Monocytes Percent Auto 7.4 2 - 11 % [facility] Eosinophils Percent Auto 3.3 0 - 4 % [facility] Basophils Percent Auto 1.1 0 - 2 % [facility] NRBC Pct Auto 0.4(H) 0.0 - 0.2 /100WBC [facility] Neutrophils Absolute Auto 3.0 2.0 - 8.3 x10*3/uL [facility] Imm Gran Abs Auto 0.01 0.00 - 0.03 X10*3/uL [facility] Lymphocytes Absolute Auto 2.1 1.2 - 4.9 X10*3/uL [facility] Monocytes Absolute Auto 0.4 0.1 - 1.2 X10*3/uL [facility] Eosinophils Absolute Auto 0.2 0.0 - 0.4 X10*3/uL [facility] Basophils Absolute Auto 0.1 0.0 - 0.2 X10*3/uL [facility] NRBC Abs Auto 0.020(H) 0.0 - 0.012 X10*3/uL [facility] Blood Venous blood specimen / Unknown 03/18/2025 11:32 AM EST 03/18/2025 1:11 PM EST [facility] ARCHITECTURAL TECHNOLOGIST LAB BLOOD ORDERABLES Final Resu lt Performing Organization Address City/[facility]/ZIP Co de Phone Number [facility] [address] [place] [phone] * Sed Rate by Modified Westergren (03/18/2025 11:32 AM EST) Erythrocyte Sedimentation Rate 13 0 - 20 MM/HR [facility] Comment:Patients with polycy themia and many hemoglobin abnormalitiesmay have depressed sed rates whereas patients with anemiamay have elevated sed rates. Blood Venous blood specimen / Unknown 03/18/2025 11:32 AM EST 03/18/2025 1:04 PM EST [facility] ARCHITECTURAL TECHNOLOGIST LAB BLOOD ORDERABLES Final Resu lt Performing Organization Address City/[facility]/ZIP Co de Phone Number [facility] [address] [place] [phone] * CBC (03/18/2025 11:32 AM EST) White Blood Count 6.0 4.8 - 10.8 X10*3/uL [facility] Red Blood Count 4.35 4.20 - 5.50 X10*6/uL [facility] Hemoglobin 12.7 12.0 - 16.0 g/dl [facility] Hematocrit 38.9 37.0 - 47.0 % [facility] Mean Corpuscular Volume 89.4 80.0 - 98.0 fL [facility] Mean Corpuscular Hemoglobin 29.2 27.0 - 33.0 pg [facility] Mean Corpuscular HGB Conc 32.6 31.0 - 35.0 g/dl [facility] Red Cell Distribution Width 12.9 11.0 - 16.0 % [facility] Platelet Count 260 160 - 400 X10*3/uL [facility] Mean Platelet Volume 10.3 9.4 - 12.3 fL [facility] NRBC Pct Auto 0.0 0.0 - 0.2 /100WBC [facility] NRBC Abs Auto 0.000 0.0 - 0.012 X10*3/uL [facility] Blood Venous blood specimen / Unknown 03/18/2025 11:32 AM EST 03/18/2025 1:11 PM EST Priscilla He DO LAB BLOOD ORDERABLES Final R esult Performing Organization Address [facility] Co de Phone Number [facility] [address] [place] [address] [phone] * C-reactive Protein (03/18/2025 11:32 AM EST) C Reactive Protein 0.43 < or = 0.50 mg/dL [facility] Blood Venous blood specimen / Unknown 03/18/2025 11:32 AM EST 03/18/2025 1:04 PM EST Anahi Thurston ARCHITECTURAL TECHNOLOGIST LAB BLOOD ORDERABLES Final Resu lt Performing Organization Address [facility] Co de Phone Number [facility] [address] [place] [address] [phone] * TSH (03/18/2025 11:32 AM EST) Thyroid Stimulating Hormone 2.05 0.32 - 4.0 uIU/mL [facility] Comment:TSH 3rd Generation ( [employer]) Blood Venous blood specimen / Unknown 03/18/2025 11:32 AM EST 03/18/2025 1:04 PM EST Priscilla He DO LAB BLOOD ORDERABLES Final R esult Performing Organization Address [facility] Co de Phone Number [facility] [address] [place] [address] [phone] * T4, Free (03/18/2025 11:32 AM EST) Free T4 (Free Thyroxine) 0.93 0.71 - 1.85 ng/dL [facility] Blood Venous blood specimen / Unknown 03/18/2025 11:32 AM EST 03/18/2025 1:04 PM EST Priscilla He DO LAB BLOOD ORDERABLES Final R esult Performing Organization Address City/[facility]/ZIP Co de Phone Number [facility] [address] [place] [address] [phone] * Hepatic Function Panel (03/18/2025 11:32 AM EST) Pathologist [facility] Bilirubin, Total 0.6 0.0 - 1.0 mg/dL [facility] Bilirubin, Direct 0.2 0.0 - 0.5 mg/dL [facility] Aspartate Amino Transferase 26 5 - 31 U/L [facility] Alanine Aminotransferase 27 0 - 31 U/L [facility] Total Protein 7.6 6.5 - 8.0 g/dL [facility] Albumin Level 4.8 3.5 - 5.0 g/dL [facility] Alkaline Phosphatase 87 39 - 117 U/L [facility] Blood Venous blood specimen / Unknown 03/18/2025 11:32 AM EST 03/18/2025 1:04 PM EST Priscilla He DO LAB BLOOD ORDERABLES Final R esult Performing Organization Address City/[facility]/ZIP Co de Phone Number [facility] [address] [place] [address] [phone] * (ABNORMAL) Lipid Panel, Standard (03/18/2025 11:32 AM EST) Pathologist [facility] Triglycerides 149 <150 mg/dL [facility] Comment:Desirable Triglyceri de: less than 150 mg/dLBorderline High Triglyceride 150-199 mg/dLHigh Triglyceride: 200-499 mg/dLVery High Triglyceride: greater than or equal to 5OO mg/dL Cholesterol 207(H) <200 mg/dL [facility] Comment:Desirable Cholestero l: less than 200 mg/dLBorderline High Cholesterol: 200-239 mg/dLHigh Cholesterol: greater than 239 mg/dL LDL Cholesterol Calculated 117(H) <100 mg/dL [facility] Comment:Desirable LDL: less than 100 mg/dLNear Optimal/Above Optimal LDL: 110- 129 mg/dLBorderline High LDL: 130-159 mg/dLHigh LDL: 160-189 mg/dLVery High LDL: greater than or equal to 190 mg/dL HDL Cholesterol 61 >40 mg/dL [facility] Comment:Desirable HDL: great er than 40 mg/dL Note: This HDL assay may give artificially low results in patients with liver disease. Blood Venous blood specimen / Unknown 03/18/2025 11:32 AM EST 03/18/2025 1:04 PM EST us Priscilla He DO LAB BLOOD ORDERABLES Final R esult [facility] [address] [place] [address] [phone] * (ABNORMAL) Basic Metabolic Panel (03/18/2025 11:32 AM EST) Sodium 145 135 - 145 mmol/L [facility] Potassium 4.2 3.3 - 5.1 mmol/L [facility] Chloride 110(H) 96 - 108 mmol/L [facility] Carbon Dioxide 27 22 - 29 mmol/L [facility] Anion Gap 12 12 - 20 [facility] Urea Nitrogen (BUN) 20(H) 9 - 16 mg/dL [facility] Creatinine, Serum 0.76 0.5 - 1.4 mg/dL [facility] Estimated Glomerular Filt Rate >60 [facility] Comment:Chronic Kidney Disea se: Estimated GFR < 60 mL/min/[id number] Kidney Disease: Estimated GFR < 15 mL/min/1.73m2 Glucose 118(H) 60 - 115 mg/dL [facility] Calcium 10.0 8.4 - 10.2 mg/dL [facility] Blood Venous blood specimen / Unknown 03/18/2025 11:32 AM EST 03/18/2025 1:04 PM EST Priscilla He DO LAB BLOOD ORDERABLES Final R esult [facility] [address] [place] [address] [phone] * POCT Hgb A1c (03/18/2025 10:23 AM EST) Hemoglobin A1C 5.4 4.0 - 5.7 % QC Media Lot # [id number] Lot# Expiration Date Blood 03/18/2025 10:2 3 AM EST Priscilla He DO POINT OF CARE TEST ENTER/CAROLINE T ORDERABLES Final Result * POCT Glucose (03/18/2025 10:23 AM EST) Pathologist [facility] Glucose Blood, POC 103 60 - 200 mg/dL [employer] Lot # [id number] Lot# Expiration Date 3,026 Blood Capillary blood specimen / Unknown 03/18/2025 10:23 AM EST Priscilla He DO POINT OF CARE TEST ENTER/CAROLINE T ORDERABLES Final Result * POCT Rapid Influenza B ADAIR ID NOW (03/05/2025 3:24 PM EST) Influenza B Negative Negative, Indeterminate [facility] QC Media Lot # [id number] [facility] Lot# Expiration Date [facility] Swab 03/05/2025 3:24 PM EST us Anahi Villedam ARCHITECTURAL TECHNOLOGIST POINT OF CARE TEST ENTER/EDIT O RDERABLES Final Result Performing Organization Address [facility] Co de Phone Number [facility] [address] [place] [address] [phone] * POCT Rapid Influenza A ADAIR ID NOW (03/05/2025 3:24 PM EST) Influenza A Negative Negative, Indeterminate [facility] QC Media Lot # [id number] [facility] Lot# Expiration Date [facility] Swab 03/05/2025 3:24 PM EST us Anahi Villedam ARCHITECTURAL TECHNOLOGIST POINT OF CARE TEST ENTER/EDIT O RDERABLES Final Result Performing Organization Address [facility] Phone Number [facility] [address] [place] [address] [phone] * POCT Rapid Strep A ADAIR ID NOW (03/05/2025 3:23 PM EST) Rapid Strep A Screen Negative Negative, None Detected QC Media Lot # [id number] Lot# Expiration Date Swab 03/05/2025 3:23 PM EST us Anahi Villedam ARCHITECTURAL TECHNOLOGIST POINT OF CARE TEST ENTER/EDIT O RDERABLES Final Result * POCT Rapid Covid-19 BinaxNOW (03/05/2025 3:22 PM EST) Rapid COVID Ag Negative QC Media Lot # [id number] Lot# Expiration Date [id number] Swab 03/05/2025 3:22 PM EST us Anahi Villedam ARCHITECTURAL TECHNOLOGIST POINT OF CARE TEST ENTER/EDIT O RDERABLES Final Result * BI Mammogram Screening Tomosynthesis Bilateral (03/14/2024 8:00 AM EST) Anatomical Region Laterality Modality Breast Bilateral Mammography 03/14/2024 8:00 AM EST Narrative 03/25/2024 9:14 AM EST [facility] [address] [place] [address] Mammography Report Signed Patient: Regine Weaver MR#: [id number] : 1970 Acct:[id number] Age/Sex: 53 / F ADM Date: 03/14/24 Loc: HO.MAMMO Attending Dr: Priscilla He DO Ordering Physician: Priscilla He DO Results: 2B enign Findings Date of Service: 03/14/24 Follow Up: 1 Year From Orig ina Mammogram Procedure(s): MM tomosynthesis screening BI Accession Number(s): [id number] cc: Priscilla He DO EXAMINATION: MM SCREENING [...] 03/25/24 0911 DD/ 0800 TD/TT: 03/14/24 0823 Kitchen Food Server: Procedure Note Donotuseinterpreter, Image - 03/25/2024 [facility] [address] [place] [address] Mammography Report Signed Patient: Regine Weaver#: [id number] : 1970Acct:[id number] Age/Sex: 53 / FADM Date: 03/14/24 Loc: HO.MAMMO Attending Dr: Priscilla He DO Ordering Physician: Priscilla Heults: 2B enign Findings Date of Service: 03/14/24Follow Up: 1 Year From Orig inal Mammogram Procedure(s): MM tomosynthesis screening BI Accession Number(s): [id number] cc: Priscilla He DO EXAMINATION: MM SCREENING [...] 03/25/24 0911 DD/ 0800 TD/TT: 03/14/24 0823 Kitchen Food Server: us Priscilla He DO IMG BI PROCEDURES Final Resu lt * HIV Ab/Ag ([facility]) (08/10/2022 2:21 PM EDT) HIV AB/AG Nonreactive Nonreactive [facility] Comment:HIV-1 p24 Ag and/or HIV-1/HIV-2 Ab not detected.A test result that is nonreactive does not exclude thepossibility of exposure to or infection with HIV-1 and/orHIV-2. Nonreactive results in this assay for individualswith prior exposure to HIV-1 and/or HIV-2 may be due toantigen and antibody levels that are below the limit ofdetection of this assay.The [employer] Chief Cloth Finishing Range Operator HIV Ag/Ab Combo assay result andsupplemental assay results should be interpreted inconjunction with the patient's clinical presentation,history and other laboratory results. If the results areinconsistent with clinical evidence, additional testing issuggested to confirm the result. 08/10/2022 2:21 PM EDT 08/10/2022 2:21 PM EDT [facility] External Provider LAB BLO OD ORDERABLES Final Result [facility] [address] [place] [address] [phone] * Hepatitis Panel, General (08/10/2022 2:21 PM EDT) Hepatitis A IgM Nonreactive Nonreactive [facility] Comment:IgM antibodies to CEBALLOS V not detected; does not exclude earlyacute or recovered HAV infection. ~Hepatitis B Surface Antibody REACTIVE Nonreactive [facility] Comment:REACTIVE: > 11.99 mI U/mL Hepatitis B Core Antibody Nonreactive Nonreactive [facility] Hepatitis C Antibody Nonreactive Nonreactive [facility] Comment:Antibodies to HCV no t detected; does not exclude early acuteHCV infection. Hepatitis B Surface Ag Negative Negative [facility] 08/10/2022 2:21 PM EDT 08/10/2022 2:21 PM EDT [facility] External Provider LAB BLO OD ORDERABLES Final Result [facility] [address] [place] [phone] [phone] * Hm Colonoscopy (12/16/2021 11:26 AM EDT) Historical Provider MD HEALTH MAINTENANCE Final Result * HPV E6/E7 RFLX SAI 16 18/45 (07/20/2018 12:12 PM EDT) HPV 18/45 RNA Test not performed [facility] HPV mRNA E6/E7 Not Detected NOT DETECTED [facility] Comment: This test was performed using the APTIMA(R) HPV Assay ([employer] This assay detects E6/E7 viral messenger RNA (mRNA) from 14 high-risk HPV types (16,18,31,33,35,39,45,51, 52,56,58,59,66,68). For additional information please refer to: http://education.Seahorse/faq/EEA749t3 (This link is being provided for informational/ educational purposes only.) The analytical performance characteristics of this assay have been determined by [employer] [place], [place]. The modifications have not been cleared or approved by the FDA. This assay has been validated pursuant to the CLIA regulations and is used for clinical purposes. Please note: Effective 01/04/2016, HPV testing will be performed using [employer]'s APTIMA test which targets mRNA. Detecting mRNA instead of DNA, as in older methods, offers significant improvements in specificity. ADDITIONAL TESTING Not indicated () [facility] Comment: Test Performed by Melissa Perez, [employer] [place], [address] [place] [address] Sundar Craig M.D., Ph.D., Director of Laboratories , CLIA [id number] HPV 16 RNA Test not performed [facility] 07/20/2018 12:1 2 PM EDT Priscilla He DO HISTORICAL/NON ORDERABLE LAB S Final Result [facility] [address] [place] [address] from Last 3 Months or Most Recently Relevant to Health Maintenance Insurance [facility] C3 Care Teams Protocol Manager Relationship Specialty Start Date End Date Priscilla He DO [address] [place] [phone] PCP - General Family Medicine 03/23/17
--- OUTSIDE RECORDS SUMMARY | 2025-03-18 14:54 | XMS_ITS | Encounter Summary ---
Author Organization [employer] Address [address] [place] [address] 7 [place] [address] Care Team Providers Care Repairing Calibrator Name Role Phone Priscilla He DO Primary Care Provider [phone] Reason for Visit * Reason Onset Date Comments Med Refill 05/05/2023 Encounter Details Date Type Department Care Team ([facility] st Contact Info) Description 05/05/2023 Refill [facility] MEDICINE [address] [place], [place] [phone] Priscilla He DO [address] [place], [place] [phone] Social History Tobacco Use Types Packs/Day Years [...] documented as of this encounter Care Teams Repairing Calibrator Relationship Specialty Start Date End Date Priscilla He DO [address] [place] [address] PCP - General Family Medicine 03/23/17 documented as of this encounter
[2025-03-19 06:01] LABS: HBsAGNum1 0.44 S/CO (0.00-0.99); HIV Num 1 0.06 S/CO (0.00-0.99); Hepatitis B Surface Antigen Negative (Negative); ~HepC Num1 0.09 S/CO (0.00-0.79); ~Hepatitis B Surface Antibody REACTIVE (Nonreactive); ~Hepatitis C Antibody Nonreactive (Nonreactive)
== END 2025-03-18 11:16 | disposition home or self-care (01) ==
LOC: HO.HHCL 11:15
PROVIDERS: PCP Family Medicine; Referring Provider Nurse Practitioner; Visit Provider Family Medicine
DX: Z11.59 Encounter for screening for other viral diseases (principal); Z11.4 Encounter for screening for human immunodeficiency virus [HIV]; E11.9 Type 2 diabetes mellitus without complications; M79.10 Myalgia, unspecified site; R05.1 Acute cough
CPT/HCPCS: 36415; 80048; 80061; 80076; 82043; 82306; 82570; 82607; 82746; 83036; 84439; 84443; 85025; 85027; 85652; 86140; 86592; 86706; 86803; 87340; 87389

== ENCOUNTER 2025-03-27 10:17 | Outpatient (REF) | payer MEDICAID, SELFPAY ==
--- NOTE | ~2025-03-27 | MM_ITS ---
EXAMINATION: MM SCREENING DIGITAL BREAST TOMOSYNTHESIS, BILATERAL CLINICAL INFORMATION: Screening. Asymptomatic. COMPARISON: Mammography: Comparison is made with available priors TECHNIQUE: Digital breast mammography with tomosynthesis is performed in both the craniocaudal and mediolateral oblique views along with computer-aided detection (CAD). FINDINGS: The breasts are almost entirely fatty. Bilateral reduction mammoplasty. There are no significant masses, abnormal calcifications, or other abnormalities. MM/MM tomosynthesis screening BI IMPRESSION: No mammographic evidence of malignancy. ASSESSMENT: BI-RADS Category 2: Benign RECOMMENDATION: Routine annual mammography screening. 1 year F/U This examination should not preclude the clinical evaluation of a suspicious palpable abnormality. This patient's information was entered into a reminder system with a target due date for their next mammogram. Electronically signed by: Suzette Santamaria DO 03/27/2025 12:39 PM [facility]UE
--- OUTSIDE RECORDS SUMMARY | 2025-03-27 12:26 | XMS_ITS | Encounter Summary ---
Author Organization [facility], Address [address] [place] [address] Phone Care Team Providers Care Radio Interference Expert Name Role Phone Priscilla He DO Primary Care Provider Unava ilable Reason for Visit * Reason Comments Med Refill Encounter Details Date Type Department Care Team (Late st Contact Info) Description 11/12/2019 Refill [facility] [address] [place] [address] Faisal See MD [address] [place] [address] [place] [address] Social History Tobacco Use Types [...] Support [facility] [address] [place] [address] Aicha Bradley FNP-C [address] [place] [address] [place] [address] documented as of this encounter Visit Diagnoses Not on filedocumented in this encounter Care Teams Radio Interference Expert Relationship Specialty Start Date End Date Priscilla He DO [address] [place] [address] PCP - General 02/26/19 documented as of this encounter
--- OUTSIDE RECORDS SUMMARY | 2025-03-27 12:26 | XMS_ITS | Clinical Summary ---
Author Organization [facility] Address [address] [facility] [address] [place] [address] Care Team Providers Care Apprentice Carpenter Name Role Phone Priscilla He MD Primary Care Provider [phone] Annita Handley MD Unavailable [phone] Allergies No known active allergies Medications cetirizine [...] ergocalciferol, vitamin D2, (Vitamin D-2) 1.25 MG (03019 UT) capsule Take 50,000 Units by mouth. [...] 03/01/2022 10:13 AM EST Plan of Treatment Not on file Insurance [facility] ACO Care Teams Apprentice Carpenter Relationship Specialty Start Date End Date Priscilla He MD [address] [place] [address] PCP - General Tricot Knitting Machine Operator 01/27/22 Annita Handley MD [address] [place] [phone] Referring Physician Tricot Knitting Machine Operator 01/27/22
--- OUTSIDE RECORDS SUMMARY | 2025-03-27 12:26 | XMS_ITS | Encounter Summary ---
Author Organization [employer] Address [address] [place] [address] 7 [place] [address] Care Team Providers Care Paleontological Helper Name Role Phone Priscilla He DO Primary Care Provider [phone] Encounter Details Date Type Department Care Team (Late st Contact Info) Description 09/17/2024 Orders Only [facility] MED & PEDS [address] [place] [address] Provider, MD Niko Social History Tobacco Use [...] documented as of this encounter Care Teams Paleontological Helper Relationship Specialty Start Date End Date Priscilla He DO [address] [place] [address] PCP - General Family Medicine 03/23/17 documented as of this encounter
--- OUTSIDE RECORDS SUMMARY | 2025-03-27 12:26 | XMS_ITS | Clinical Summary ---
Author Organization [facility] Address [address] [place] [address] Care Team Providers Care Horse And Wagon Driver Name Role Phone Pcp, No Primary Care [...] Insurance [employer]ISC [employer]GD MEDICARE OUT OF NETWORK [place] [id number] Care Teams Horse And Wagon Driver Relationship Specialty Start Date End Date Pcp, No [address] [place] [address] PCP - General 12/23/18
--- OUTSIDE RECORDS SUMMARY | 2025-03-27 12:26 | XMS_ITS | Encounter Summary ---
Author Organization [employer] Address [address] [place] [address] 7 [place] [address] Care Team Providers Care Director Of Logistics Name Role Phone Priscilla He DO Primary Care Provider [phone] Reason for Visit * Reason Onset Date Comments Prior Authorization 10/04/2024 Encounter Details Date Type Department Care Team (Late st Contact Info) Description 10/04/2024 Telephone [facility] MED & PEDS [address] [place] [address] Priscilla eH DO [address] [place], [place] [phone] Prior Authorization Social History Tobacco Use Types [...] of this encounter Care Teams Director Of Logistics Relationship Specialty Start Date End Date Priscilla He DO [address] [place] [address] PCP - General Family Medicine 03/23/17 documented as of this encounter
--- OUTSIDE RECORDS SUMMARY | 2025-03-27 12:27 | XMS_ITS | Encounter Summary ---
Author Organization [facility], Address [address] [place] [address] Phone Care Team Providers Care Negative Stripper Name Role Phone Priscilla He DO Primary Care Provider Unava ilable Reason for Visit * Reason Comments Med Refill Encounter Details Date Type Department Care Team (Late st Contact Info) Description 06/25/2021 Refill [facility] [address] [place] [address] Sandor Jansen PA [address] [place] [address] [place] [address] Social History Tobacco Use Types [...] Support [facility] [place] [address] [place] [address] Aicha Bradley FNP-C [address] [place] [address] documented as of this encounter Visit Diagnoses Not on filedocumented in this encounter Care Teams Negative Stripper Relationship Specialty Start Date End Date Priscilla He DO [address] [place] [address] PCP - General 02/26/19 documented as of this encounter
--- OUTSIDE RECORDS SUMMARY | 2025-03-27 12:27 | XMS_ITS | Encounter Summary ---
Author Organization [facility], Address [address] [place] [address] Phone Care Team Providers Care School Age Lead Teacher Name Role Phone Priscilla He DO Primary Care Provider Unava ilable Reason for Visit * Reason Comments Med Refill Encounter Details Date Type Department Care Team (Late st Contact Info) Description 10/25/2023 Refill [facility] [address] [place] [address] Damian Shah MD [address] [place] [address] [place] [address] Social History Tobacco Use Types [...] Support [facility] [place] [address] [facility] [facility] [address] Aicha Bradley FNP-C [address] [facility] [facility] [place] [address] documented as of this encounter Visit Diagnoses Not on filedocumented in this encounter Care Teams School Age Lead Teacher Relationship Specialty Start Date End Date Priscilla He DO [address] [place] [address] PCP - General 02/26/19 documented as of this encounter
--- OUTSIDE RECORDS SUMMARY | 2025-03-27 12:27 | XMS_ITS | Encounter Summary ---
Author Organization [facility] Address [address] [place] [address] Care Team Providers Care Leather Case Finisher Name Role Phone Priscilla He DO Primary Care Provider [phone] Encounter Details Date Type Department Care Team [...] on filedocumented in this encounter Care Teams Leather Case Finisher Relationship Specialty Start Date End Date Priscilla He DO [address] [place] [address] PCP - General Family Medicine 03/23/17 documented as of this encounter
--- OUTSIDE RECORDS SUMMARY | 2025-03-27 12:27 | XMS_ITS | Encounter Summary ---
Author Organization [facility] [place], Address [address] [place] [address] Phone Care Team Providers Care Graphics Edit Technician Name Role Phone Priscilla He DO Primary Care Provider Unava ilable Encounter Details Date Type Department Care Team (Late st Contact Info) Description 08/23/2024 Documentation Only [facility] [place], [address] [facility] [address] Destiny Salvador Social History Tobacco [...] Support [facility] [place] [address] [place] [address] Aicha Bradley FNP-C [address] [facility] [place] [address] documented as of this encounter Visit Diagnoses Not on filedocumented in this encounter Care Teams Graphics Edit Technician Relationship Specialty Start Date End Date Priscilla He DO [address] [place] [address] PCP - General 02/26/19 documented as of this encounter
--- OUTSIDE RECORDS SUMMARY | 2025-03-27 12:27 | XMS_ITS | Encounter Summary ---
Author Organization [employer] Address [address] [place] [address] 7 [place] [address] Care Team Providers Care Rail Operator Name Role Phone Priscilla He DO Primary Care Provider [phone] Encounter Details Date Type Department Care Team ([facility] st Contact Info) Description 10/24/2022 Orders Only [facility] CH[facility] MED & PEDS [address] [place] [address] Priscilla Falk LPN Social History Tobacco Use [...] documented as of this encounter Care Teams Rail Operator Relationship Specialty Start Date End Date Priscilla He DO [address] [place] [address] PCP - General Family Medicine 03/23/17 documented as of this encounter
--- OUTSIDE RECORDS SUMMARY | 2025-03-27 12:27 | XMS_ITS | Encounter Summary ---
Author Organization [facility] [place] [facility], Address [address] [place] [address] Phone Care Team Providers Care Aviation Electrical Technician Name Role Phone Priscilla He DO Primary Care Provider Unava ilable Encounter Details Date Type Department Care Team (Late st Contact Info) Description 10/14/2022 Documentation Only [facility] [place], [address] [place] [address] Damian Shah MD [address] [facility] [place] [address] Social History Tobacco Use Types [...] Support [facility] [address] [place] [address] Aicha Bradley FNP-C [address] [place] [address] documented as of this encounter Visit Diagnoses Not on filedocumented in this encounter Care Teams Aviation Electrical Technician Relationship Specialty Start Date End Date Priscilla He DO [address] [place] [address] PCP - General 02/26/19 documented as of this encounter
--- OUTSIDE RECORDS SUMMARY | 2025-03-27 12:27 | XMS_ITS | Encounter Summary ---
Author Organization [employer] Address [address] [place] [address] 7 [place] [address] Care Team Providers Care Capacity Planning Engineer Name Role Phone Priscilla He DO Primary Care Provider [phone] Reason for Visit * Reason Onset Date Comments Nurse Triage 10/20/2023 Encounter Details Date Type Department Care Team ([facility] st Contact Info) Description 10/20/2023 Telephone [facility] MEDICINE [address] [place], [place] [phone] Priscilla He DO [address] [place], [place] [phone] Nurse Triage Social History Tobacco Use Types [...] sx. Per pt at last visit in [facility] pt dx with bronchitis. Per pt [...] 11/01/2023 11:30 AM Priscilla He DO MEDICINE [facility] Protocol Used: Asthma Attack (Adult) [...] documented as of this encounter Care Teams Capacity Planning Engineer Relationship Specialty Start Date End Date Priscilla He DO [address] [place] [address] PCP - General Family Medicine 03/23/17 documented as of this encounter
--- OUTSIDE RECORDS SUMMARY | 2025-03-27 12:27 | XMS_ITS | Encounter Summary ---
Author Organization [facility] Address [address] [place] [address] 7 [place] [address] Care Team Providers Care Director Of Admissions Name Role Phone Priscilla He DO Primary Care Provider [phone] Reason for Visit * Reason Onset Date Comments Med Refill 06/24/2023 Encounter Details Date Type Department Care Team ([facility] st Contact Info) Description 06/24/2023 Refill [facility] MEDICINE [address] [place], [place] [phone] Priscilla He DO [address] [place], [place] [phone] Social History Tobacco Use Types Packs/Day Years [...] of this encounter Care Teams Director Of Admissions Relationship Specialty Start Date End Date Priscilla He DO [address] [place] [address] PCP - General Family Medicine 03/23/17 documented as of this encounter
--- OUTSIDE RECORDS SUMMARY | 2025-03-27 12:27 | XMS_ITS | Encounter Summary ---
Author Organization [employer] Address [address] [place] [address] 7 [place] [address] Care Team Providers Care Director Voice Name Role Phone Priscilla He DO Primary Care Provider [phone] Reason for Visit * Reason Onset Date Comments Med Refill 05/04/2023 Encounter Details Date Type Department Care Team ([facility] st Contact Info) Description 05/04/2023 Refill [facility] MEDICINE [address] [place], [place] [phone] Priscilla He DO [address] [place], [place] [phone] Social History Tobacco Use Types Packs/Day Years [...] as of this encounter Care Teams Director Voice Relationship Specialty Start Date End Date Priscilla He DO [address] [place] [address] PCP - General Family Medicine 03/23/17 documented as of this encounter
--- OUTSIDE RECORDS SUMMARY | 2025-03-27 12:27 | XMS_ITS | Clinical Summary ---
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); History of immunosuppressive therapy; Chronic kidney disease, stage 2 (mild); Hypertension; Multiple congenital cysts of kidney; Essential hypertension; Poor glycemic control; Other iron deficiency anemia; Other specified hypoparathyroidism (HCC); BK virus nephropathy; Albuminuria, not otherwise specified 02/12/2025 11:15 AM EDT Office Visit [facility] [address] [place] [address] Damian Shah MD 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); History of immunosuppressive therapy; Chronic kidney disease, stage 2 (mild); Hypertension 01/28/2025 Orders Only [facility], [address] [place] [address] [place] Gifford MA Kidney replaced by transplant [...] Support [facility] [address] [place] [phone] Kirk Aicha, [employer] [address] [place] [phone] Health Maintenance Due Date Last Done Comments [...] 03/02/2021, Additional history exists Diabetes: Hemoglobin A1C 06/18/2025 025, 03/18/2025, 09/26/2024, Additional history exists Pneumococcal Vaccine: 50+ Years [...] Reflexive Urine Culture (02/06/2025 7:14 AM EDT) Culture Result, Urine Final report [facility] [place] Result No growth [facility] [place] 02/06/2025 7:14 AM EDT 02/06/2025 Damian Shah MD LAB HISTORICAL-CONVERSIONS -UNSOLICITED RESULTS Final Result [facility], [address] [place] [address] * Tacrolimus, Highly Sensitive, LC/MS/MS (02/06/2025 7:14 AM EDT) Pathologist [facility] Tacrolimus by Immunoassay 7.3 5.0 - 20.0 ng/mL [facility] Comment: Detection Limit = 0.8 ng/mL Target [...] Chari Immunoassay. 02/06/2025 7:14 AM EDT 02/06/2025 Damian Shah MD LAB BLOOD ORDERABLES Final Result [facility] [address] [place] [address] * (ABNORMAL) Urinalysis, Complete w/reflex to Culture (02/06/2025 7:14 AM EDT) Pathologist [facility] Specific Sturgeon, Urine 1.015 1.005 - 1.030 [facility] [phone] pH Urine 5.5 5.0 - 7.5 [facility] [phone] Color, Urine Yellow Yellow [facility] [phone] Appearance Urine Clear Clear [facility] [phone] WBC Esterase Urine 2+(A) Negative [facility] [phone] Protein, Ur Negative Negative/Tra ce [facility] [phone] Glucose, Ur Negative Negative [facility] [phone] Ketones, Urine Negative Negative [facility] [phone] Blood Urine Negative Negative [facility] Bilirubin Urine Negative Negative [facility] [phone] Urobilinogen Urine 0.2 0.2 - 1.0 mg/dL [facility] Nitrite, Urine Negative Negative [facility] Microscopic Examination See below: [facility] Comment:Microscopic was suma cated and was performed. URINALYSIS REFLEX Comment [facility] Comment:This specimen has re flexed to a Urine Culture. Urine Urine specimen obtained by clean catch procedure / Unknown 02/06/2025 7:14 AM EDT 02/06/2025 Damian Shah MD LAB URINE ORDERABLES Final Result [facility] [address] [place] [address] * (ABNORMAL) Mycophenolic Acid and Metabo. (02/06/2025 7:14 AM EDT) Mycophenolic Acid 6.0(HH) 1.0 - 3.5 ug/mL [facility] Mycophenolic Acid Glucuronide 86 35 - 100 ug/mL [facility] Blood Venous blood / Unknown 02/06/2025 7:14 AM EDT 02/06/2025 Narrative [facility] - 02/11/2025 5:05 PM EDT Test(s) 055896-Wvkmemtgjeak Acid; 611463- Mycophenolic Acid Glucuronide was developed and its performance characteristics determined by [facility]. It has not been cleared or approved by the Food and Drug Administration. Damian Shah MD LAB BLOOD ORDERABLES Final Result [facility] [address] [place] [address] * (ABNORMAL) Microscopic Examination (02/06/2025 7:14 AM EDT) WBC, Urine 6-10(A) 0 - 5 /hpf [facility] RBC, Urine 0-2 0 - 2 /hpf [facility] Squamous Epithelial, Urine 0-10 0 - 10 /hpf [facility] Casts None seen None seen /lpf [facility] Bacteria, Urine Few None seen/Few [facility] 02/06/2025 7:14 AM EDT 02/06/2025 Damian Shah MD LAB MICROBIOLOGY - GENERAL ORDERABLES Final Result [facility] [address] [place] [address] * Iron Panel (Fe, TIBC, TSAT) (02/06/2025 7:14 AM EDT) TIBC 284 250 - 450 ug/dL [facility] UIBC 222 131 - 425 ug/dL [facility] Iron 62 27 - 159 ug/dL [facility] Iron Saturation (TSat) 22 15 - 55 % [facility] Blood Venous blood / Unknown 02/06/2025 7:14 AM EDT 02/06/2025 Damian Shah MD LAB BLOOD ORDERABLES Final Result [facility] [address] [place] [address] * Urine Albumin / Creatinine Ratio (02/06/2025 7:14 AM EDT) Creatinine, Ur 74.2 Not Estab. mg/dL [facility] Albumin, Urine <3.0 Not Estab. ug/mL [facility] Albumin/Creatin ine Ratio <4 0 - 29 mg/g creat [facility] Comment: Normal: 0 - 29 Moderately increased: 30 - 300 Severely increased: >300 Urine Urine specimen obtained by clean catch procedure / Unknown 02/06/2025 7:14 AM EDT 02/06/2025 Damian Shah MD LAB URINE ORDERABLES Final Result Performing Organization Address [facility] Co de Phone Number [facility] [address] [place] [address] * BK Virus Urine, Quant PCR (02/06/2025 7:14 AM EDT) Pathologist [facility] BK VIRUS PCR, QUANT, U Positive < 200 Negative IU/mL [facility] Comment: BK DNA detected. The linear range of the assay is 200 - 100,000,000 IU/ml Urine Urine specimen obtained by clean catch procedure / Unknown 02/06/2025 7:14 AM EDT 02/06/2025 Damian Shah MD LAB URINE ORDERABLES Final Result Performing Organization Address City/[facility] Co de Phone Number [facility] [address] [place] [address] * BK Virus DNA, Quant PCR (02/06/2025 7:14 AM EDT) BK VIRUS DNA, PCR Negative Negative IU/mL [facility] Comment: No BK DNA detected. The linear range of the assay is 22 - 100,000,000 IU/mL. Blood Venous blood / Unknown 02/06/2025 7:14 AM EDT 02/06/2025 us Damian Shah MD LAB BLOOD ORDERABLES Final Result [facility] [address] [place] [address] * CBC and Differential (02/06/2025 7:14 AM EDT) WBC 6.4 3.4 - 10.8 x10E3/uL [facility] RBC 4.56 3.77 - 5.28 x10E6/uL [facility] Hemoglobin 13.5 11.1 - 15.9 g/dL [facility] Hematocrit 41.0 34.0 - 46.6 % [facility] MCV 90 79 - 97 fL [facility] MCH 29.6 26.6 - 33.0 pg [facility] MCHC 32.9 31.5 - 35.7 g/dL [facility] RDW 12.5 11.7 - 15.4 % [facility] Platelets 249 150 - 450 x10E3/uL [facility] Neutrophils Relative 41 Not Estab. % [facility] Lymphocytes Relative 45 Not Estab. % [facility] Monocytes 8 Not Estab. % [facility] Eosinophils Relative 5 Not Estab. % [facility] Basophils Relative 1 Not Estab. % [facility] Neutrophils Absolute 2.7 1.4 - 7.0 x10E3/uL [facility] Lymphocytes Absolute 2.9 0.7 - 3.1 x10E3/uL [facility] Monocytes Absolute 0.5 0.1 - 0.9 x10E3/uL [facility] Eosinophils Absolute 0.3 0.0 - 0.4 x10E3/uL [facility] Basophils Absolute 0.1 0.0 - 0.2 x10E3/uL [facility] Immature Granulocytes 0 Not Estab. % [facility] Immature Grans (Absolute) 0.0 0.0 - 0.1 x10E3/uL [facility] Blood Venous blood / Unknown 02/06/2025 7:14 AM EDT 02/06/2025 us Damian Shah MD LAB BLOOD ORDERABLES Final Result [facility] [address] [place] [address] * ALT (02/06/2025 7:14 AM EDT) ALT (SGPT) 19 0 - 32 IU/L [facility] Blood Venous blood / Unknown 02/06/2025 7:14 AM EDT 02/06/2025 Damian Shah MD LAB BLOOD ORDERABLES Final Result [facility] [address] [place] [address] * AST (02/06/2025 7:14 AM EDT) AST (SGOT) 19 0 - 40 IU/L [facility] Blood Venous blood / Unknown 02/06/2025 7:14 AM EDT 02/06/2025 Damian Shah MD LAB BLOOD ORDERABLES Final Result Performing Organization Address City/[facility]/ZIP Co de Phone Number [facility] [address] [place] [address] * (ABNORMAL) PTH, Intact (02/06/2025 7:14 AM EDT) PTH 70(H) 15 - 65 pg/mL [facility] Blood Venous blood / Unknown 02/06/2025 7:14 AM EDT 02/06/2025 Damian Shah MD LAB BLOOD ORDERABLES Final Result Performing Organization Address [facility] Co de Phone Number [facility] [address] [place] [address] * (ABNORMAL) Ferritin (02/06/2025 7:14 AM EDT) Ferritin 395(H) 15 - 150 ng/mL [facility] Blood Venous blood / Unknown 02/06/2025 7:14 AM EDT 02/06/2025 Damian Shah MD LAB BLOOD ORDERABLES Final Result Performing Organization Address City/[facility] Co de Phone Number [facility] [employer] [address] [place] [address] * CK (02/06/2025 7:14 AM EDT) Creatine Kinase (CK/CPK) 65 32 - 182 U/L [facility] Blood Venous blood / Unknown 02/06/2025 7:14 AM EDT 02/06/2025 us Damian Shah MD LAB BLOOD ORDERABLES Final Result [facility] [address] [place] [address] * (ABNORMAL) Renal Function Panel (02/06/2025 7:14 AM EDT) Pathologist [facility] Glucose 97 70 - 99 mg/dL [facility] BUN 16 6 - 24 mg/dL [facility] Creatinine 0.72 0.57 - 1.00 mg/dL [facility] eGFR CKD-EPI CR 2020 101 >59 mL/min/1.7 3 [facility] BUN/Creatinine Ratio 22 9 - 23 [facility] Sodium 141 134 - 144 mmol/L [facility] Potassium 5.3(H) 3.5 - 5.2 mmol/L [facility] Chloride 104 96 - 106 mmol/L [facility] Bicarbonate (CO2) 22 20 - 29 mmol/L [facility] Calcium 10.2 8.7 - 10.2 mg/dL [facility] Albumin 4.7 3.8 - 4.9 g/dL [facility] Phosphorus 4.2 3.0 - 4.3 mg/dL [facility] Blood Venous blood / Unknown 02/06/2025 7:14 AM EDT 02/06/2025 Damian Shah MD LAB BLOOD ORDERABLES Final Result [facility] [address] [place] [address] * Hemoglobin A1c (09/26/2024 7:31 AM EDT) Hemoglobin A1C 5.5 4.8 - 5.6 % [facility] Comment: Prediabetes: 5.7 - 6.4 Diabetes: >6.4 Glycemic control for adults with diabetes: <7.0 Blood Venous blood / Unknown 09/26/2024 7:31 AM EDT 09/26/2024 Damian Shah MD LAB BLOOD ORDERABLES Final Result [facility] [address] [place] [address] from Last 3 Months or Most Recently Relevant to Health Maintenance Insurance [place] Care Teams Policy Advisor Relationship Specialty Start Date End Date Priscilla He DO [address] [place] [id number] PCP - General 02/26/19
--- OUTSIDE RECORDS SUMMARY | 2025-03-27 12:27 | XMS_ITS | Clinical Summary ---
Author Organization [employer] Address [address] [place] [address] 7 [place] [address] Care Team Providers Care Assistant Drafter Name Role Phone Ying Priscilla Primary Care [...] time per week. 3 mL 3 08/29/19 25 Active loratadine (Claritin) 10 MG tablet Take 1 tablet (10 mg) by mouth Once per day. 90 tablet 3 02/15/20 25 026 Active Blood Glucose Monitoring Suppl (Psykosoft Lite) w/Device kit Use to test blood sugar 2 times daily 1 kit 02/17/20 25 Active budesonide-form oterol (Symbicort) 160-4.5 MCG/ACT inhalerIndicati ons:Mild persistent asthma without complication Inhale 2 puffs in the morning and at bedtime. Rinse mouth with water after use to reduce aftertaste and incidence of candidiasis. Do not swallow. 3 each 3 02/19/20 25 Active albuterol 108 (90 Base) MCG/ACT inhalerIndicati ons:Mild persistent asthma without complication Inhale 2 puffs every 4 (four) hours if needed for wheezing or shortness of breath. 18 g 11 02/20/20 25 026 Active predniSONE (Deltasone) 20 MG tablet Take 2 tablets (40 mg) by mouth Once per day for 5 days. 10 tablet 03/26/20 25 025 Active tacrolimus (Prograf) 1 MG capsule 09/27/19 23 025 Discontinued(M ed list cleanup (will not trigger notification to Pharmacy)) triamcinolone [...] as indicated by ACT score of 10. Elizabethley due to inappropriate use of inhalers - [...] continue loratadine (Claritin). Recommended sinus irrigation with [id number] nasal rinse system. Type 2 diabetes mellitus 03/23/2017 Resolved Problems Problem Noted Date Diagnosed Date Resolved Date Mild intermittent asthma with exacerbation 10/05/2023 11/01/2023 Assessment & Plan (10/05/2023 11:50 AM EDT): Patient educated to avoid asthma triggers Albuterol inhaler Q 4-6hrs Prednisone 40mg daily for 5 days Cystitis 11/03/2022 06/01/2023 Encounters Date Type Department Care Team Description 03/19/2025 Results Follow-Up [facility] [address] [place] [phone] Anahi Thurston NP POCT Rapid Covid-19 BinaxNOW, POCT Rapid Influenza A ADAIR ID NOW, POCT Rapid Influenza B ADAIR ID NOW, Additional followed-up results: 4 03/18/2025 10:00 AM EST Office Visit [facility] [address] [place] [phone] Priscilla He DO Type 2 diabetes mellitus without complication, without long-term current use of insulin ([facility]) 03/18/2025 Travel 03/17/2025 Travel 03/15/2025 Telephone [facility] [address] [place] [phone] Priscilla He DO Chart Prep 03/10/2025 Patient Outreach [facility] [address] [place] [address] Priscilla He DO Pre-visit Planning ([facility] screening completed on 08/28/2024) 03/05/2025 2:40 PM EST Office Visit [facility] [address] [place] [phone] Anahi Thurston NP Acute cough (Primary Dx); Sore throat; Mild persistent asthma with acute exacerbation; Myalgia; Shortness of breath; Chronic allergic rhinitis 03/05/2025 Travel 02/14/2025 Refill [facility] [address] [place] [address] Priscilla He DO 02/14/2025 Refill [facility] MED [facility] PEDS [address] [place] [address] Priscilla He DO from Last 3 Months [...] housing situation today? I have william sing 07/25/[address] you li [...] 03/18/2025, 025 Diabetes: Hemoglobin A1C 09/15/2025 025, 03/18/2025, 08/28/2024, Additional history exists Diabetes: Urine Protein Screening 03/18/2026 03/18/2025, 02/06/2025, 11/30/2024, Additional history exists Lipid Panel 03/18/2026 03/18/2025, 04/3 , 03/09/2022 Tobacco Screening 03/18/2026 03/18/2025 Colonoscopy 12/16/2026 12/16/2021, 12/16/2021 Colorectal Cancer Screening 12/16/2026 DTaP/Tdap/Td Vaccines (2 - Td or Tdap) 01/21/2029 01/21/2019 Cervical Cancer Screening Discontinued HPV/Cotest Discontinued 07/20/2018, 07/10/2017 Pneumococcal Vaccine: 50+ Years Completed 03/09/2023, 01/15/2019, 01/29/2015 HIV Screening Completed 03/18/2025, 08/10/2022 Hepatitis C Screening Completed 03/18/2025, 023 HIB Vaccines Aged Out No longer eligi [...] without long-term current use of insulin (HCC) HEPATITIS B SURFACE ANTIBODY, QUALITATIVE Routine 03/18/2025 11:32 AM EST Type 2 diabetes mellitus without complication, without long-term current use of insulin (HCC) RPR (MONITOR) W/REFL TITER Routine 03/18/2025 11:32 AM EST Type 2 diabetes mellitus without complication, without long-term current use of insulin (HCC) HEPATITIS C AB W/REFL TO HCV RNA, QN, PCR Routine 03/18/2025 11:32 AM EST Type 2 diabetes mellitus without complication, without long-term current use of insulin (HCC) HIV 1/2 ANTIGEN/ANTIBODY, FOURTH GENERATION W/RFL Routine 03/18/2025 11:32 AM EST Type 2 diabetes mellitus without complication, without long-term current use of insulin (HCC) HEPATITIS B SURFACE ANTIGEN, EIA Routine 03/18/2025 11:32 AM EST Type 2 [...] without long-term current use of insulin (HCC) HEMOGLOBIN A1C Routine 03/18/2025 11:32 AM EST Type 2 [...] complication, without long-term current use of insulin ([facility]) T4, FREE Routine 03/18/2025 11:32 AM EST Type 2 diabetes mellitus without complication, without long-term current use of insulin ([facility]) SED RATE BY MODIFIED WESTERGREN Routine 03/18/2025 [...] TOMOSYNTHESIS BILATERAL Routine 03/14/2024 8:00 AM EST HM COLONOSCOPY Routine 12/16/2021 11:26 AM EDT ZZZ HISTORICAL HPV E6/E7 RFLX SAI 16 18/45 Routine 07/20/2018 12:12 PM EDT from Last 3 Months or Most Recently Relevant to Health Maintenance Results * Vitamin D, 25-Hydroxy, Total, Immunoassay (03/18/2025 11:32 AM EST) Vitamin D 25-OH Total 43.5 >30 ng/mL [facility] Comment: Health Based Reference Values*< 20 ng/mL [id number] ng/mL Insufficient> 30 ng/mL Sufficient*Tiffanie PARTIDA. N [...] EST 03/18/2025 1:04 PM EST Priscilla He LAB BLOOD ORDERABLES Final R esult Performing Organization Address [facility] Co de Phone Number [facility] [address] [place] [phone] * Vitamin B12 (Cobalamin) and Folate Panel, Serum (03/18/2025 11:32 AM EST) Vitamin B12 298 200 - 900 pg/mL [facility] Comment:NORMAL 200-900 PG/ML INDETERMINATE 160-199 PG/ML DEFICIENT < 160 PG/ML Folate 11.9 > or = 4.0 ng/mL [facility] Comment:Reference Values:> o r = 4.0 ng/mL< 4.0 ng/mL suggests folate deficiency Methotrexate, aminopterin and folinic acid(leucovorin) are chemotherapeutic agents whose molecularstructures are similar to folate; therefore, the Architectfolate assay cannot be used for patients using these drugs. Blood Venous blood specimen / Unknown 03/18/2025 11:32 AM EST 03/18/2025 1:11 PM EST Priscilla He LAB BLOOD ORDERABLES Final R esult Performing Organization Address [facility]/ZIP Co de Phone Number [facility] [address] [place] [phone] * Albumin, Random Urine W/Creatinine (03/18/2025 11:32 AM EST) Creatinine, Urine 233.84 mg/dL [facility] Microalbumin Urine 16.0 mg/L [facility] Microalbum Creatinine Ratio Ur 6.8 <30 ug/mg cr [facility] Comment:Albumin/Creatinine R atio Reference Ranges: Normal: < 30 ug/mg creatinine Microalbuminuria: 30 - 300 ug/mg creatinineClinical Albuminuria: > 300 ug/mg creatinine Urine (Urine, Random) 03/18/2025 11:32 AM EST 03/18/2025 12:58 PM EST us Priscilla He DO LAB URINE ORDERABLES Final R esult [facility] [address] [place] [address] [phone] * (ABNORMAL) CBC auto differential (03/18/2025 11:32 AM EST) White Blood Count 5.7 4.8 - 10.8 X10*3/uL [facility] Red Blood Count 4.37 4.20 - 5.50 X10*6/uL [facility] Hemoglobin 12.7 12.0 - 16.0 g/dl [facility] Hematocrit 38.6 37.0 - 47.0 % [facility] Mean Corpuscular Volume 88.3 80.0 - 98.0 fL [facility] Mean Corpuscular Hemoglobin 29.1 27.0 - 33.0 pg [facility] Mean Corpuscular HGB Conc 32.9 31.0 - 35.0 g/dl [facility] Red Cell Distribution Width 13.1 11.0 - 16.0 % [facility] Platelet Count 251 160 - 400 X10*3/uL [facility] Mean Platelet Volume 10.4 9.4 - 12.3 fL [facility] Neutrophils Percent Auto 51.9 45 - 73 % [facility] Imm Gran Pct Auto 0.2 0.0 - 0.4 % [facility] Lymphocytes Percent Auto 36.1 20 - 40 % [facility] Monocytes Percent Auto 7.4 2 - 11 % [facility] Eosinophils Percent Auto 3.3 0 - 4 % [facility] Basophils Percent Auto 1.1 0 - 2 % [facility] NRBC Pct Auto 0.4(H) 0.0 - 0.2 /100WBC [facility] Neutrophils Absolute Auto 3.0 2.0 - 8.3 x10*3/uL [facility] Imm Gran Abs Auto 0.01 0.00 - 0.03 X10*3/uL [facility] Lymphocytes Absolute Auto 2.1 1.2 - 4.9 X10*3/uL [facility] Monocytes Absolute Auto 0.4 0.1 - 1.2 X10*3/uL [facility] Eosinophils Absolute Auto 0.2 0.0 - 0.4 X10*3/uL [facility] Basophils Absolute Auto 0.1 0.0 - 0.2 X10*3/uL [facility] NRBC Abs Auto 0.020(H) 0.0 - 0.012 X10*3/uL [facility] Blood Venous blood specimen / Unknown 03/18/2025 11:32 AM EST 03/18/2025 1:11 PM EST us Anahi Thurston NP LAB BLOOD ORDERABLES Final Resu lt [facility] [address] [place] [phone] * Hepatitis C Antibody with Reflex to HCV, RNA, Quantitative, Real-Time PCR (03/18/2025 11:32 AM EST) Hepatitis C Antibody Nonreactive Nonreactive [facility] Comment:Antibodies to HCV no t detected; does not exclude early acuteHCV infection. Blood Venous blood specimen / Unknown 03/18/2025 11:32 AM EST 03/18/2025 1:04 PM EST Priscilla Ying DO LAB BLOOD ORDERABLES Final R esult Performing Organization Address City/[facility]/ZIP Co de Phone Number [facility] [address] [place] [phone] * Hepatitis B surface antigen, EIA (03/18/2025 11:32 AM EST) Hepatitis B Surface Ag Negative Negative [facility] Blood Venous blood specimen / Unknown 03/18/2025 11:32 AM EST 03/18/2025 1:04 PM EST Priscilla Hookerjs DO LAB BLOOD ORDERABLES Final R esult Performing Organization Address [facility] Co de Phone Number [facility] [address] [place] [address] [phone] * RPR (Monitor) with Reflex to??Titer (03/18/2025 11:32 AM EST) RPR (Monitor) w/Refl Titer NON-REACTI VE NON-REACT AILYN [facility] Comment:THIS TEST WAS PERFOR MED AT:[employer] [place] [phone] CORDOVA MD Rapid Plasma Reagin Ab Titer TNP [facility] Blood Venous blood specimen / Unknown 03/18/2025 11:32 AM EST 03/18/2025 1:11 PM EST us Priscilla Ying DO LAB BLOOD ORDERABLES Final R esult Performing Organization Address [facility] Co de Phone Number [facility] [address] [place] [address] [phone] * HIV-1/2 Antigen and Antibodies, Fourth Generation, with Reflexes (03/18/2025 11:32 AM EST) HIV AB/AG Nonreactive Nonreactive [facility] Comment:HIV-1 p24 Ag and/or HIV-1/HIV-2 Ab not detected.A test result that is nonreactive does not exclude thepossibility of exposure to or infection with HIV-1 and/orHIV-2. Nonreactive results in this assay for individualswith prior exposure to HIV-1 and/or HIV-2 may be due toantigen and antibody levels that are below the limit ofdetection of this assay.The Place[facility] HIV Ag/Ab Combo assay result andsupplemental assay results should be interpreted inconjunction with the patient's clinical presentation,history and other laboratory results. If the results areinconsistent with clinical evidence, additional testing issuggested to confirm the result. Blood Venous blood specimen / Unknown 03/18/2025 11:32 AM EST 03/18/2025 1:04 PM EST Priscilla He LAB BLOOD ORDERABLES Final R esult Performing Organization Address [facility] Co de Phone Number [facility] [address] [place] [address] [phone] * Hepatitis B Surface Antibody, Qualitative (03/18/2025 11:32 AM EST) Pathologist [facility] ~Hepatitis B Surface Antibody REACTIVE Nonreactive [facility] Comment:REACTIVE: > 11.99 mI U/mL Blood Venous blood specimen / Unknown 03/18/2025 11:32 AM EST 03/18/2025 1:04 PM EST Priscilla He DO LAB BLOOD ORDERABLES Final R esult Performing Organization Address [facility] Co de Phone Number [facility] [address] [place] [address] [phone] * Sed Rate by Modified Shadren (03/18/2025 11:32 AM EST) Erythrocyte Sedimentation Rate 13 0 - 20 MM/HR [facility] Comment:Patients with polycy themia and many hemoglobin abnormalitiesmay have depressed sed rates whereas patients with anemiamay have elevated sed rates. Blood Venous blood specimen / Unknown 03/18/2025 11:32 AM EST 03/18/2025 1:04 PM EST us Anahi Thurston GLACIOLOGIST LAB BLOOD ORDERABLES Final Resu lt Performing Organization Address City/[facility]/ZIP Co de Phone Number [facility] [address] [place] [phone] * CBC (03/18/2025 11:32 AM EST) White Blood Count 6.0 4.8 - 10.8 X10*3/uL [facility] Red Blood Count 4.35 4.20 - 5.50 X10*6/uL [facility] Hemoglobin 12.7 12.0 - 16.0 g/dl [facility] Hematocrit 38.9 37.0 - 47.0 % [facility] Mean Corpuscular Volume 89.4 80.0 - 98.0 fL [facility] Mean Corpuscular Hemoglobin 29.2 27.0 - 33.0 pg [facility] Mean Corpuscular HGB Conc 32.6 31.0 - 35.0 g/dl [facility] Red Cell Distribution Width 12.9 11.0 - 16.0 % [facility] Platelet Count 260 160 - 400 X10*3/uL [facility] Mean Platelet Volume 10.3 9.4 - 12.3 fL [facility] NRBC Pct Auto 0.0 0.0 - 0.2 /100WBC [facility] NRBC Abs Auto 0.000 0.0 - 0.012 X10*3/uL [facility] Blood Venous blood specimen / Unknown 03/18/2025 11:32 AM EST 03/18/2025 1:11 PM EST Priscilla He DO LAB BLOOD ORDERABLES Final R esult Performing Organization Address City/[facility]/ZIP Co de Phone Number [facility] [address] [place] [phone] * C-reactive Protein (03/18/2025 11:32 AM EST) C Reactive Protein 0.43 < or = 0.50 mg/dL [facility] Blood Venous blood specimen / Unknown 03/18/2025 11:32 AM EST 03/18/2025 1:04 PM EST us Anahi Bertrand GLACIOLOGIST LAB BLOOD ORDERABLES Final Resu lt Performing Organization Address [facility]/ZIP Co de Phone Number [facility] [address] [place] [phone] * TSH (03/18/2025 11:32 AM EST) Thyroid Stimulating Hormone 2.05 0.32 - 4.0 uIU/mL [facility] Comment:TSH 3rd Generation ( [employer]) Blood Venous blood specimen / Unknown 03/18/2025 11:32 AM EST 03/18/2025 1:04 PM EST Priscilla He DO LAB BLOOD ORDERABLES Final R esult Performing Organization Address [facility]/ZIP Co de Phone Number [facility] [address] [place] [address] [phone] * T4, Free (03/18/2025 11:32 AM EST) Free T4 (Free Thyroxine) 0.93 0.71 - 1.85 ng/dL [facility] Blood Venous blood specimen / Unknown 03/18/2025 11:32 AM EST 03/18/2025 1:04 PM EST Priscilla He DO LAB BLOOD ORDERABLES Final R esult Performing Organization Address [facility]/ZIP Co de Phone Number [facility] [address] [place] [address] [phone] * Hemoglobin A1c (03/18/2025 11:32 AM EST) Hemoglobin A1c 5.6 <6.0 % [facility] Comment:Hemoglobin A1C Refer ence Range Adults: 4.8 - 6.0 % Non diabetic: < 6.0 % Goal: < 7.0 %Additional Action Suggested: > 8.0 %Note: Hemoglobin A1c results are invalid for patients with abnormal amounts of HbF. Blood transfusions may impact the HbA1c concentration in the patient sample. Estimated Average Glucose 114 mg/dL [facility] Comment:eAG = Estimated ave rage glucose which is %A1C expressed asaverage glucose, using the formula of the Q6T-QxssbsvUlsmbuv Glucose study (ADAG), Diabetes Care, Vol.31,#8,Nov. 2007 Blood Venous blood specimen / Unknown 03/18/2025 11:32 AM EST 03/18/2025 1:11 PM EST Priscilla He DO LAB BLOOD ORDERABLES Final R esult [facility] [address] [place] [address] [phone] * Hepatic Function Panel (03/18/2025 11:32 AM EST) Bilirubin, Total 0.6 0.0 - 1.0 mg/dL [facility] Bilirubin, Direct 0.2 0.0 - 0.5 mg/dL [facility] Aspartate Amino Transferase 26 5 - 31 U/L [facility] Alanine Aminotransferase 27 0 - 31 U/L [facility] Total Protein 7.6 6.5 - 8.0 g/dL [facility] Albumin Level 4.8 3.5 - 5.0 g/dL [facility] Alkaline Phosphatase 87 39 - 117 U/L [facility] Blood Venous blood specimen / Unknown 03/18/2025 11:32 AM EST 03/18/2025 1:04 PM EST Priscilla He DO LAB BLOOD ORDERABLES Final R esult Performing Organization Address [facility] Co de Phone Number [facility] [address] [place] [address] [phone] * (ABNORMAL) Lipid Panel, Standard (03/18/2025 11:32 AM EST) Triglycerides 149 <150 mg/dL [facility] Comment:Desirable Triglyceri de: less than 150 mg/dLBorderline High Triglyceride 150-199 mg/dLHigh Triglyceride: 200-499 mg/dLVery High Triglyceride: greater than or equal to 5OO mg/dL Cholesterol 207(H) <200 mg/dL [facility] Comment:Desirable Cholestero l: less than 200 mg/dLBorderline High Cholesterol: 200-239 mg/dLHigh Cholesterol: greater than 239 mg/dL LDL Cholesterol Calculated 117(H) <100 mg/dL [facility] Comment:Desirable LDL: less than 100 mg/dLNear Optimal/Above Optimal LDL: 110- 129 mg/dLBorderline High LDL: 130-159 mg/dLHigh LDL: 160-189 mg/dLVery High LDL: greater than or equal to 190 mg/dL HDL Cholesterol 61 >40 mg/dL [facility] Comment:Desirable HDL: great er than 40 mg/dL Note: This HDL assay may give artificially low results in patients with liver disease. Blood Venous blood specimen / Unknown 03/18/2025 11:32 AM EST 03/18/2025 1:04 PM EST Priscilla He DO LAB BLOOD ORDERABLES Final R esult Performing Organization Address City/[facility]/ZIP Co de Phone Number [facility] [address] [place] [phone] * (ABNORMAL) Basic Metabolic Panel (03/18/2025 11:32 AM EST) Sodium 145 135 - 145 mmol/L [facility] Potassium 4.2 3.3 - 5.1 mmol/L [facility] Chloride 110(H) 96 - 108 mmol/L [facility] Carbon Dioxide 27 22 - 29 mmol/L [facility] Anion Gap 12 12 - 20 [facility] Urea Nitrogen (BUN) 20(H) 9 - 16 mg/dL [facility] Creatinine, Serum 0.76 0.5 - 1.4 mg/dL [facility] Estimated Glomerular Filt Rate >60 [facility] Comment:Chronic Kidney Disea se: Estimated GFR < 60 mL/min/1.11s7Trsykf Kidney Disease: Estimated GFR < 15 mL/min/1.73m2 Glucose 118(H) 60 - 115 mg/dL [facility] Calcium 10.0 8.4 - 10.2 mg/dL [facility] Blood Venous blood specimen / Unknown 03/18/2025 11:32 AM EST 03/18/2025 1:04 PM EST Priscilla He DO LAB BLOOD ORDERABLES Final R esult Performing Organization Address City/State/[facility] Co de Phone Number [facility] [address] [place] [address] [phone] * POCT Hgb A1c (03/18/2025 10:23 AM EST) Hemoglobin A1C 5.4 4.0 - 5.7 % [employer] Lot # [id number] Lot# Expiration Date , Blood 03/18/2025 10:2 3 AM EST Priscilla He DO POINT OF CARE TEST ENTER/CAROLINE T ORDERABLES Final Result * POCT Glucose (03/18/2025 10:23 AM EST) Glucose Blood, POC 103 60 - 200 mg/dL [employer] Lot # [id number] Lot# Expiration Date 3,026 Blood Capillary blood specimen / Unknown 03/18/2025 10:23 AM EST us Priscilla He DO POINT OF CARE TEST ENTER/CAROLINE T ORDERABLES Final Result * POCT Rapid Influenza B ADAIR ID NOW (03/05/2025 3:24 PM EST) Influenza B Negative Negative, Indeterminate [facility] [employer] Lot # [id number] [facility] Lot# Expiration Date [facility] Swab 03/05/2025 3:24 PM EST [facility] GLACIOLOGIST POINT OF CARE TEST ENTER/EDIT O RDERABLES Final Result Performing Organization Address [facility]/ZIP Co de Phone Number [facility] [address] [place] [address] [phone] * POCT Rapid Influenza A ADAIR ID NOW (03/05/2025 3:24 PM EST) [facility] Influenza A Negative Negative, Indeterminate [facility] [employer] Lot # [id number] [facility] Lot# Expiration Date [facility] Swab 03/05/2025 3:24 PM EST [facility] GLACIOLOGIST POINT OF CARE TEST ENTER/EDIT O RDERABLES Final Result Performing Organization Address [facility]/ZIP Co de Phone Number [facility] [address] [place] [address] [phone] * POCT Rapid Strep A ADAIR ID NOW (03/05/2025 3:23 PM EST) [facility] Rapid Strep A Screen Negative Negative, None Detected [employer] Lot # [id number] Lot# Expiration Date Swab 03/05/2025 3:23 PM EST [facility] GLACIOLOGIST POINT OF CARE TEST ENTER/EDIT O RDERABLES Final Result * POCT Rapid Covid-19 BinaxNOW (03/05/2025 3:22 PM EST) [facility] Rapid COVID Ag Negative [employer] Lot # [id number] Lot# Expiration Date [id number] Swab 03/05/2025 3:22 PM EST Anahi Thurston HALINA POINT OF CARE TEST ENTER/EDIT O RDERABLES Final Result * BI Mammogram Screening Tomosynthesis Bilateral (03/14/2024 8:00 AM EST) Anatomical Region Laterality Modality Breast Bilateral Mammography 03/14/2024 8:00 AM EST Narrative 03/25/2024 9:14 AM EST [facility] [address] [place] [address] Mammography Report Signed Patient: Regine Weaver MR#: [id number] : 1970 Acct:[id number] Age/Sex: 53 / F ADM Date: 03/14/24 Loc: HO.MAMMO Attending Dr: Priscilla He DO Ordering Physician: Priscilla He DO Results: 2B enign Findings Date of Service: 03/14/24 Follow Up: 1 Year From [facility] Mammogram Procedure(s): MM tomosynthesis screening BI Accession Number(s): [id number] cc: Priscilla He DO EXAMINATION: MM SCREENING [...] 03/25/24 0911 DD/ 0800 TD/TT: 03/14/24 0823 Address Change Clerk: Procedure Note Donotuseinterpreter, Image - [facility]/25/[facility] [address] [place] [address] Mammography Report Signed Patient: Regine Weaver#: [id number] : 1970Acct:[id number] Age/Sex: 53 / FADM Date: 03/14/24 Loc: HO.MAMMO Attending Dr: Priscilla He DO Ordering Physician: Priscilla Heults: 2B enign Findings Date of Service: 03/14/24Follow Up: 1 Year From Orig ina Mammogram Procedure(s): MM tomosynthesis screening BI Accession Number(s): [id number] cc: Priscilla He DO EXAMINATION: MM SCREENING [...] 03/25/24 0911 DD/ 0800 TD/TT: 03/14/24 0823 Address Change Clerk: Priscilla Ying BOSS IMG BI PROCEDURES Final Resu lt * Hm Colonoscopy (12/16/2021 11:26 AM EDT) Historical Provider HEALTH MAINTENANCE Final Result * HPV E6/E7 RFLX SAI 16 18/45 (07/20/2018 12:12 PM EDT) HPV 18/45 RNA Test not performed [facility] HPV mRNA E6/E7 Not Detected NOT DETECTED [facility] Comment: This test was performed using the APTIMA(R) HPV Assay ([employer] This assay detects E6/E7 viral messenger RNA (mRNA) from 14 high-risk HPV types (16,18,31,33,35,39,45,51, 52,56,58,59,66,68). For additional information please refer to: http://education.[employer]/faq/MJW154a9 (This link is being provided for informational/ educational purposes only.) The analytical performance characteristics of this assay have been determined by [employer] [place], [place]. The modifications have not been cleared or approved by the FDA. This assay has been validated pursuant to the CLIA regulations and is used for clinical purposes. Please note: Effective 01/04/2016, HPV testing will be performed using [employer]'s APTIMA test which targets mRNA. Detecting mRNA instead of DNA, as in older methods, offers significant improvements in specificity. ADDITIONAL TESTING Not indicated () [facility] Comment: Test Performed by [facility], [facility] [place], [address] [place], [place] Sundar Craig M.D., Ph.D., Director of Laboratories , CLIA [id number] HPV 16 RNA Test not performed [facility] 07/20/2018 12:1 2 PM EDT us Priscilla He DO HISTORICAL/NON ORDERABLE LAB S Final Result [facility] [address] from Last 3 Months or Most Recently Relevant to Health Maintenance Insurance [facility] C3 Care Teams Assistant Drafter Relationship Specialty Start Date End Date Priscilla He DO [address] [place] [address] PCP - General Family Medicine 03/23/17
--- OUTSIDE RECORDS SUMMARY | 2025-03-27 12:27 | XMS_ITS | Encounter Summary ---
Author Organization [employer] Address [address] [place] [address] 7 [place] [address] Care Team Providers Care Adjustment Clerk Name Role Phone Priscilla He DO Primary Care Provider [phone] Reason for Visit * Reason Onset Date Comments Med Refill 05/05/2023 Encounter Details Date Type Department Care Team ([facility] st Contact Info) Description 05/05/2023 Refill [facility] [address] [place], [place] [phone] Priscilla He DO [address] [place], [place] [phone] Social History Tobacco Use Types Packs/Day Years [...] documented as of this encounter Care Teams Adjustment Clerk Relationship Specialty Start Date End Date Priscilla He DO [address] [place] [id number] PCP - General Family Medicine 03/23/17 documented as of this encounter
--- OUTSIDE RECORDS SUMMARY | 2025-03-27 12:27 | XMS_ITS | Encounter Summary ---
Author Organization [facility], Address [address] [place] [address] Phone Care Team Providers Care Net Developer With Wcf Name Role Phone Priscilla He DO Primary Care Provider Unava ilable Encounter Details Date Type Department Care Team (Late st Contact Info) Description 12/01/2021 Documentation Only [facility], [address] [place] [address] [place] [address] [place] [address] Social History Tobacco Use Types [...] Support [facility] [address] [place] [address] Aicha Bradley FNP-Claire [address] [place] [address] documented as of this encounter Visit Diagnoses Not on filedocumented in this encounter Care Teams Net Developer With Wcf Relationship Specialty Start Date End Date Priscilla He DO [address] [place] [address] PCP - General 02/26/19 documented as of this encounter
--- OUTSIDE RECORDS SUMMARY | 2025-03-27 12:27 | XMS_ITS | Encounter Summary ---
Author Organization [facility], Address [address] [place] [address] Phone Care Team Providers Care Independent Distributor Name Role Phone Priscilla He DO Primary Care Provider Unava ilable Encounter Details Date Type Department Care Team (Latest Contact Info) Description 03/25/2025 Orders Only [facility], [address] [place] [address] [place] [address] [place] [address] 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); History of immunosuppressive therapy; Chronic kidney disease, stage 2 (mild); Hypertension; Multiple congenital cysts of kidney; Essential hypertension; Poor glycemic control; Other iron deficiency anemia; Other specified hypoparathyroidism (HCC); BK virus nephropathy; Albuminuria, not otherwise specified Social History Tobacco Use Types Packs/Day Years [...] Support [facility] [address] [place] [address] Aicha Bradley FNP-C [address] [place] [address] Scheduled Orders Name Type Priority Associated Diagnoses Orde r Schedule Tacrolimus, Highly Sensitive, LC/MS/MS Lab Routine Kidney replaced by transplant History of immunosuppressive therapy Chronic kidney disease, stage 2 (mild) Hypertension Multiple congenital cysts of kidney Essential hypertension Poor glycemic control Other iron deficiency anemia Other specified hypoparathyroidism (HCC) BK virus nephropathy Albuminuria, not otherwise specified Expected: 03/25/2025, Expires: 04/25/2026 Mycophenolic Acid and Metabo. Lab Routine Kidney replaced by transplant History of immunosuppressive therapy Chronic kidney disease, stage 2 (mild) Hypertension Multiple congenital cysts of kidney Essential hypertension Poor glycemic control Other iron deficiency anemia Other specified hypoparathyroidism (HCC) BK virus nephropathy Albuminuria, not otherwise specified Expected: 03/25/2025, Expires: 04/25/2026 Renal Function Panel Lab Routine Kidney replaced by transplant History of immunosuppressive therapy Chronic kidney disease, stage 2 (mild) Hypertension Multiple congenital cysts of kidney Essential hypertension Poor glycemic control Other iron deficiency anemia Other specified hypoparathyroidism (HCC) BK virus nephropathy Albuminuria, not otherwise specified Expected: 03/25/2025, Expires: 04/25/2026 CBC and Differential Lab Routine Kidney replaced by transplant History of immunosuppressive therapy Chronic kidney disease, stage 2 (mild) Hypertension Multiple congenital cysts of kidney Essential hypertension Poor glycemic control Other iron deficiency anemia Other specified hypoparathyroidism (HCC) BK virus nephropathy Albuminuria, not otherwise specified Expected: 03/25/2025, Expires: 04/25/2026 Hemoglobin A1c Lab Routine Kidney replaced by transplant History of immunosuppressive therapy Chronic kidney disease, stage 2 (mild) Hypertension Multiple congenital cysts of kidney Essential hypertension Poor glycemic control Other iron deficiency anemia Other specified hypoparathyroidism (HCC) BK virus nephropathy Albuminuria, not otherwise specified Expected: 03/25/2025, Expires: 04/25/2026 AST Lab Routine Kidney replaced by transplant History of immunosuppressive therapy Chronic kidney disease, stage 2 (mild) Hypertension Multiple congenital cysts of kidney Essential hypertension Poor glycemic control Other iron deficiency anemia Other specified hypoparathyroidism (HCC) BK virus nephropathy Albuminuria, not otherwise specified Expected: 03/25/2025, Expires: 04/25/2026 ALT Lab Routine Kidney replaced by transplant History of immunosuppressive therapy Chronic kidney disease, stage 2 (mild) Hypertension Multiple congenital cysts of kidney Essential hypertension Poor glycemic control Other iron deficiency anemia Other specified hypoparathyroidism (HCC) BK virus nephropathy Albuminuria, not otherwise specified Expected: 03/25/2025, Expires: 04/25/2026 CK Lab Routine Kidney replaced by transplant History of immunosuppressive therapy Chronic kidney disease, stage 2 (mild) Hypertension Multiple congenital cysts of kidney Essential hypertension Poor glycemic control Other iron deficiency anemia Other specified hypoparathyroidism (HCC) BK virus nephropathy Albuminuria, not otherwise specified Expected: 03/25/2025, Expires: 04/25/2026 Ferritin Lab Routine Kidney replaced by transplant History of immunosuppressive therapy Chronic kidney disease, stage 2 (mild) Hypertension Multiple congenital cysts of kidney Essential hypertension Poor glycemic control Other iron deficiency anemia Other specified hypoparathyroidism (HCC) BK virus nephropathy Albuminuria, not otherwise specified Expected: 03/25/2025, Expires: 04/25/2026 Iron Panel (Fe, TIBC, TSAT) Lab Routine Kidney replaced by transplant History of immunosuppressive therapy Chronic kidney disease, stage 2 (mild) Hypertension Multiple congenital cysts of kidney Essential hypertension Poor glycemic control Other iron deficiency anemia Other specified hypoparathyroidism (HCC) BK virus nephropathy Albuminuria, not otherwise specified Expected: 03/25/2025, Expires: 04/25/2026 PTH, Intact Lab Routine Kidney replaced by transplant History of immunosuppressive therapy Chronic kidney disease, stage 2 (mild) Hypertension Multiple congenital cysts of kidney Essential hypertension Poor glycemic control Other iron deficiency anemia Other specified hypoparathyroidism (HCC) BK virus nephropathy Albuminuria, not otherwise specified Expected: 03/25/2025, Expires: 04/25/2026 Urine Albumin / Creatinine Ratio Lab Routine Kidney replaced by transplant History of immunosuppressive therapy Chronic kidney disease, stage 2 (mild) Hypertension Multiple congenital cysts of kidney Essential hypertension Poor glycemic control Other iron deficiency anemia Other specified hypoparathyroidism (HCC) BK virus nephropathy Albuminuria, not otherwise specified Expected: 03/25/2025, Expires: 04/25/2026 Urinalysis, Complete w/reflex to Culture Lab Routine Kidney replaced by transplant History of immunosuppressive therapy Chronic kidney disease, stage 2 (mild) Hypertension Multiple congenital cysts of kidney Essential hypertension Poor glycemic control Other iron deficiency anemia Other specified hypoparathyroidism (HCC) BK virus nephropathy Albuminuria, not otherwise specified Expected: 03/25/2025, Expires: 04/25/2026 BK Virus Urine, Quant PCR Lab Routine Kidney replaced by transplant History of immunosuppressive therapy Chronic kidney disease, stage 2 (mild) Hypertension Multiple congenital cysts of kidney Essential hypertension Poor glycemic control Other iron deficiency anemia Other specified hypoparathyroidism (HCC) BK virus nephropathy Albuminuria, not otherwise specified Expected: 03/25/2025, Expires: 04/25/2026 BK Virus DNA, Quant PCR Lab Routine Kidney replaced by transplant History of immunosuppressive therapy Chronic kidney disease, stage 2 (mild) Hypertension Multiple congenital cysts of kidney Essential hypertension Poor glycemic control Other iron deficiency anemia Other specified hypoparathyroidism (HCC) BK virus nephropathy Albuminuria, not otherwise specified Expected: 03/25/2025, Expires: 04/25/2026 documented as of this encounter Visit Diagnoses Diagnosis Kidney replaced by transplant- Primary History of immunosuppressive therapy Chronic kidney disease, stage 2 (mild) Hypertension Multiple congenital cysts of kidney Essential hypertension Poor glycemic control Other iron deficiency anemia Other specified hypoparathyroidism (HCC) BK virus nephropathy Albuminuria, not otherwise specified documented in this encounter Care Teams Independent Distributor Relationship Specialty Start Date End Date Priscilla He DO [address] [place] [address] PCP - General 02/26/19 documented as of this encounter
--- OUTSIDE RECORDS SUMMARY | 2025-03-27 12:27 | XMS_ITS | Encounter Summary ---
Author Organization [employer] Address [address] [place] [address] 7 [place] [address] Care Team Providers Care Diamond Die Driller Name Role Phone Priscilla He DO Primary Care Provider [phone] Reason for Visit * Reason Onset Date Comments Med Refill 07/19/2024 Encounter Details Date Type Department Care Team ([facility] st Contact Info) Description 07/19/2024 Refill [facility] [address] [place], [place] [phone] Priscilla He DO [address] [place], [place] [phone] Social History Tobacco Use Types Packs/Day Years [...] documented as of this encounter Care Teams Diamond Die Driller Relationship Specialty Start Date End Date Priscilla He DO [address] [place] [address] PCP - General Family Medicine 03/23/17 documented as of this encounter
--- OUTSIDE RECORDS SUMMARY | 2025-03-27 12:27 | XMS_ITS | Patient Health Record ---
Author Organization [facility] Address [facility] [place] [address] Care Team Providers Care Insurance Account Executive Name Role Phone LUIS A BELL Primary [...] sewell Yes Cuando Hammond viajado [place] o hammond estado en contacto con alguien que haya estado [place] en los pasados 14 sewell Yes Donde [...]
--- OUTSIDE RECORDS SUMMARY | 2025-03-27 12:27 | XMS_ITS | Encounter Summary ---
Author Organization [facility], Address [address] [place] [address] Phone Care Team Providers Care Warehouse Material Handler Name Role Phone Priscilla He DO Primary Care Provider Unava ilable Reason for Visit * Reason Comments Med Refill Encounter Details Date Type Department Care Team (Late st Contact Info) Description 06/28/2021 Refill [facility] [address] [place] [address] Sandor Jansen PA [address] [place] [address] [place] [address] Social History Tobacco Use Types [...] Support [facility] [address] [place] [address] Aicha Bradley FNP-C [address] [place] [address] documented as of this encounter Visit Diagnoses Not on filedocumented in this encounter Care Teams Warehouse Material Handler Relationship Specialty Start Date End Date Priscilla He DO [address] [place] [address] PCP - General 02/26/19 documented as of this encounter
--- OUTSIDE RECORDS SUMMARY | 2025-03-27 12:27 | XMS_ITS | Encounter Summary ---
Author Organization [employer] Address [address] [place] [address] [facility] [place] [address] Care Team Providers Care Pipe Fitter Ammonia Name Role Phone Priscilla He DO Primary Care Provider [phone] Reason for Visit * Reason Onset Date Comments Referral 08/04/2023 Encounter Details Date Type Department Care Team (Late st Contact Info) Description 08/04/2023 Telephone [facility] MED[facility]INE [address] [place], [place] [phone] Priscilla He DO [address] [place], [place] [phone] Referral Social History Tobacco Use Types Packs/Day [...] it was canceled. Please contact pt at [phone]. documented in this encounter Plan of Treatment Not on file documented as of this encounter Visit Diagnoses Not on filedocumented in this encounter Additional Health Concerns Assessment Noted Time PHQ-9 Depression Total Score: 0 08/03/19 24 10:24 AM EDT documented as of this encounter Care Teams Pipe Fitter Ammonia Relationship Specialty Start Date End Date Priscilla He DO [address] [place] [address] PCP - General Family Medicine 03/23/17 documented as of this encounter
--- OUTSIDE RECORDS SUMMARY | 2025-03-27 12:27 | XMS_ITS | Encounter Summary ---
Author Organization [employer] Address [address] [place] [address] 7 [place] [address] Care Team Providers Care Correctional Case Manager Name Role Phone Priscilla He DO Primary Care Provider [phone] Reason for Visit * Reason Onset Date Comments Med Refill 07/19/2024 Encounter Details Date Type Department Care Team ([facility] st Contact Info) Description 07/19/2024 Refill [facility] [address] [place], [place] [phone] Priscilla He DO [address] [place], [place] [phone] Social History Tobacco Use Types Packs/Day Years [...] documented as of this encounter Care Teams Correctional Case Manager Relationship Specialty Start Date End Date Priscilla He DO [address] [place] [address] PCP - General Family Medicine 03/23/17 documented as of this encounter
== END 2025-03-27 10:18 | disposition home or self-care (01) ==
LOC: HO.MAMMO 10:17
PROVIDERS: PCP Family Medicine; Visit Provider Family Medicine
DX: Z12.31 Encounter for screening mammogram for malignant neoplasm of breast (principal)
CPT/HCPCS: 77063; 77067

== ENCOUNTER → 2025-03-27 10:30 | Outpatient (BNV) | payer MEDICAID, SELFPAY | PROVIDERS: PCP Family Medicine; Visit Provider Internal Medicine | DX: Z12.31 Encounter for screening mammogram for malignant neoplasm of breast (principal) | CPT/HCPCS: 77063; 77067 ==

== ENCOUNTER 2025-04-01 09:40 | Outpatient (AMB) | payer MEDICAID, SELFPAY ==
--- NOTE | 2025-04-01 09:48 | MHC.OFFVIS ---
Vital Signs 04/01/25 09:53 Height 5 ft 2 in Weight 150 lb BMI 27.4 BP 112/80 Blood Pressure Location Rt brachial Position Sitting Pulse 78 Pulse Source Pulse Oximeter Pulse Oximetry (%) 99 Oxygen Delivery Method Room Air Intake Visit Reasons: 6m constip, gerd, liver cyst, bloating Intake Note: ESTABLISHED PATIENT for GERD mgmt. CC; C/O increased reflux frequency. Pt states that she has noticed the increase in episode frequency since she was switched from Trulicity to Ozempic. She denies any additional sx or concerns at this time. Theatrical Variety Agent Required: No Accompanied by: Self / Same As Patient Allergies No Known Allergies Allergy (Verified 09/10/24 13:08) HPI HPI 6m constip, gerd, liver cyst, bloating: Details: LAST VISIT GERD (gastroesophageal reflux disease) Postprandial abdominal bloating Constipation Liver cyst Plan Continue with pantoprazole daily. Reviewed kidney functions and are normal. Patient was encouraged to increase fluid intake. Avoid dietary triggers and late night snacking. Staying upright for minimum 3 hours after meals discussed with patient. Continue Dulcolax. Increase activity to promote better bowel motility. Patient will follow-up in 6 months, sooner on as needed basis. She is agreeable to this plan and verbalizes understanding of instructions. She was given the opportunity to ask questions and all questions answered. ? Thank you for allowing me to participate in her care Refilled pantoprazole 40 mg PO DAILY 90 tabs 3RF bisacodyl (Dulcolax (bisacodyl)) 10 mg (2 x 5 mg) PO BEDTIME 180 tabs 4RF TODAY'S VISIT Patient is here today for follow-up. Patient reports that she has been having increased epigastric pain postprandially and acid reflux. Patient reports that she was previously on Trulicity and now was switched to Ozempic. Feels like symptoms are worse than when she was on Trulicity. Patient also reports that Dulcolax is causing too much cramping and caused diarrhea. Patient she is taking pantoprazole in feels like for the most part the medication does help. Patient tries not to eat late at night. Patient is avoiding eating food that triggers her reflux or makes her feel bloated. Patient still is trying to figure out which food makes her feel like that. Patient eats about 2-3 small meals a day. History of cysts in her liver and history of transaminitis. Normal values within the last year. 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 polycystic kidney disease Surgical History Kidney transplant recipient Hx of bilateral breast reduction surgery H/O hernia repair Hx of colonoscopy History of esophagogastroduodenoscopy (EGD) History of left nephrectomy Status post abdominal hysterectomy Status post -donor kidney transplantation Family History Paternal Uncle Colon cancer Paternal Uncle Colon cancer Paternal Grandmother Uterine cancer Social History Alcohol intake: never Patient Tobacco Use Status: Never used Tobacco 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al status: disabled 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 Female Reproductive History Menstrual Age of Menarche: 17 Review of Systems Const Denies weight gain and Denies weight loss ENT Reports no additional complaints, Denies dysphagia and Denies odynophagia Card Reports no additional complaints Resp Reports no additional complaints GI Denies abdominal pain, Denies belching, Denies melena, Denies bloating, Denies change in bowel habits, Denies dysphagia, Denies excessive flatus, Denies dyspepsia, Reports heartburn (Occasional), Denies diarrhea, Denies loose stools, Denies nausea, Denies odynophagia and Denies vomiting Musc Reports no additional complaints Neuro Reports no additional complaints Psych Reports no additional complaints Endo Reports no additional complaints Physical Exam Vital Signs: Last Vital Signs Pulse 78 04/01/25 09:53 BP 112/80 04/01/25 09:53 Pulse Ox 99 04/01/25 09:53 Oxygen Delivery Method Room Air 04/01/25 09:53 BMI result Body Mass Index 27.4 Const General: healthy appearing, no acute distress and well developed Nutritional Appearance: obese Orientation/consciousness: patient oriented x3 Resp Effort & Inspection: normal respiratory effort, able to speak in complete sentences, no tracheal deviation and symmetric chest movement Auscultation: clear to auscultation bilaterally Cardio Rate: regular rate GI Inspection: Yes normal to inspection, No distended and Yes obesity Palpation (GI): Soft to palpation, not firm, nontender and No hepatosplenomegaly present Auscultation: normal bowel sounds General: Yes no CVA tenderness Back/Spine/Pelvis Back: no CVA tenderness Skin General skin exam: elasticity normal, turgor normal and dry skin Neuro General: patient oriented x3 Psych Appearance: grossly normal Mental Status: mental status grossly normal Assessment & Plan Assessment & Plan (1) Transaminitis: Code(s): R74.01 - Elevation of levels of liver transaminase levels Category: Medical (2) Abdominal mass: Code(s): R19.00 - Intra-abdominal and pelvic swelling, mass and lump, unspecified site Category: Medical Qualifiers: Abdominal location: periumbilical Qualified Code(s): R19.05 - Periumbilic swelling, mass or lump (3) Gastroesophageal reflux disease: Code(s): K21.9 - Gastro-esophageal reflux disease without esophagitis Qualifiers: Esophagitis presence: esophagitis presence not specified Qualified Code(s): K21.9 - Gastro-esophageal reflux disease without esophagitis (4) Postprandial abdominal bloating: Code(s): R14.0 - Abdominal distension (gaseous) (5) Constipation: Code(s): K59.00 - Constipation, unspecified Qualifiers: Constipation type: chronic idiopathic constipation Qualified Code(s): K59.04 - Chronic idiopathic constipation (6) Liver cyst: Code(s): K76.89 - Other specified diseases of liver Plan Will send patient for ultrasound with liver elastography. Will check vitamin-D levels. Patient will start taking senna daily. Increase fluid intake and activity to promote bowel motility. Patient will continue taking pantoprazole daily. Avoid dietary triggers and late night snacking. Staying upright for minimum 3 hours after meals discussed with patient. Patient will follow-up in 4 months. She was encouraged to call us if she will have any GI concerning symptoms. She is agreeable to this plan and verbalizes understanding of instructions. She was given the opportunity to ask questions and all questions answered. Thank you for allowing me to participate in her care Orders: Orders US abdomen galeana w elastography 12/09/25 K76.0 - Fatty (change of) liver, not elsewhere classified Vitamin D 25-OH (D2 and D3) 04/01/25 E55.9 - Vitamin D deficiency, unspecified Medications: New sennosides (Natural Senna Laxative) 17.2 mg (2 x 8.6 mg) PO BEDTIME 60 tabs 1RF constipation K59.00 - Constipation, unspecified Refilled pantoprazole 40 mg PO DAILY 90 tabs 3RF Discontinued bisacodyl Discontinued Reason: Doctor's Order 10 mg (2 x 5 mg) PO BEDTIME 180 tabs 4RF Coding Level of Care Code Est Pt Level 3 (01499) Diagnoses Transaminitis R74.01 Periumbilical mass R19.05 Abdominal location: periumbilical Gastroesophageal reflux disease, unspecified whether esophagitis present K21.9 Esophagitis presence: esophagitis presence not specified Postprandial abdominal bloating R14.0 Chronic idiopathic constipation K59.04 Constipation type: chronic idiopathic constipation Liver cyst K76.89 Time Spent (min) 30 Comment 20 minutes spent with patient and additional 10 minutes spent reviewing her records
[2025-04-01 09:53] VITALS: BP 112/80; PULSE 78; O2SAT 99; BMI 27.4
== END 2025-04-01 10:55 | disposition home or self-care (01) ==
LOC: HO.HGI 09:41
PROVIDERS: PCP Family Medicine; Visit Provider Nurse Practitioner Family
DX: R74.01 Elevation of levels of liver transaminase levels (principal); R19.05 Periumbilic swelling, mass or lump; K21.9 Gastro-esophageal reflux disease without esophagitis; R14.0 Abdominal distension (gaseous); K59.04 Chronic idiopathic constipation; K76.89 Other specified diseases of liver
CPT/HCPCS: 99213

== ENCOUNTER → 2025-04-01 09:40 | Outpatient (BNVA) | payer MEDICAID, SELFPAY | PROVIDERS: PCP Family Medicine; Visit Provider Nurse Practitioner Family | DX: K21.9 Gastro-esophageal reflux disease without esophagitis (principal); R74.01 Elevation of levels of liver transaminase levels; R19.05 Periumbilic swelling, mass or lump; K59.04 Chronic idiopathic constipation; K76.89 Other specified diseases of liver; Z94.0 Kidney transplant status | CPT/HCPCS: 99212 ==